=== PATIENT | female | born 1990 | race Caucasian/White ===

== ENCOUNTER 2023-02-19 15:18 | Outpatient (OUT) | payer OTHER, SELFPAY ==
[2023-02-19 15:46] LABS: Basophils Percent Auto 0.2 % (0.2-2.0); Eosinophils Absolute Auto 0.1 10^3/uL (0.0-0.7); Eosinophils Percent Auto 1.1 % (0.9-7.0); Hematocrit 39.7 % (36.0-48.0); Hemoglobin 13.6 g/dL (12.0-16.0); Immature Granulocytes Abs Auto 0.01 10^3/uL (0.00-0.03); Immature Granulocytes Pct Auto 0.2 % (0.0-0.5); Lymphocytes Absolute Auto 2.8 10^3/uL (1.2-3.8); Mean Corpuscular HGB Conc 34.3 g/dL (29.9-35.2); Mean Corpuscular Hemoglobin 30.9 pg (26.7-34.0); Mean Corpuscular Volume 90.2 fL (81.0-99.0); Mean Platelet Volume 9.8 fL (9.5-13.5); Monocytes Absolute Auto 0.4 10^3/uL (0.3-0.8); Monocytes Percent Auto 6.9 % (1.7-12.0); Neutrophils Percent Auto 47.6 % (43.0-75.0); Platelet Count 262 10^3/uL (150-450); White Blood Count 6.4 10^3/uL (4.0-11.0)
[2023-02-19 16:01] LABS: Estimated Average Glucose 88 mg/dL; Glycohemoglobin A1C 4.7 % (4.5-6.2)
[2023-02-19 16:31] LABS: Alanine Aminotransferase 19 U/L (14-59); Albumin Globulin Ratio 1.1; Albumin Level 4.2 g/dL (3.4-5.0); Alkaline Phosphatase 85 U/L (46-116); Anion Gap 12.4; Aspartate Amino Transferase 15 U/L (15-37); BUN Creatinine Ratio 11.3; Bilirubin Total 0.2 mg/dL (0.2-1.0); Calcium 9.1 mg/dL (8.5-10.1); Carbon Dioxide 28.4 mmol/L (21.0-32.0); Chloride 100 mmol/L (98-107); Estimated GFR (African America >60 (>=60); Estimated GFR (Non-African Ame >60 (>=60); Globulin 3.7 g/dL; Glucose 93 mg/dL (74-106); Potassium 3.8 mmol/L (3.5-5.1); Sodium 137 mmol/L (136-145); Total Protein 7.9 g/dL (6.4-8.2)
[2023-02-19 16:39] LABS: Chol HDL Ratio 2.5; Cholesterol 152 mg/dL (<=200); HDL Cholesterol 60 mg/dL (40-60); Thyroid Stimulating Hormone 1.198 uIU/mL (0.358-3.740); Triglycerides 30 mg/dL (<=150)
[2023-02-22 17:09] LABS: HCV Ab Reactive (Non Reactive)
== END 2023-02-19 15:19 ==
PROVIDERS: PCP Nurse Practitioner Primary Care; Visit Provider Nurse Practitioner Primary Care
DX: Z00.00 Encounter for general adult medical examination without abnormal findings (principal); Z11.59 Encounter for screening for other viral diseases; Z13.6 Encounter for screening for cardiovascular disorders
CPT/HCPCS: 36415; 80053; 80061; 83036; 84443; 85025; 86803; 87522

== ENCOUNTER 2023-04-21 11:56 | Emergency (ER) | payer OTHER, SELFPAY ==
[2023-04-21 12:02] VITALS: BP 121/89; PULSE 111; RESP 18; TEMP 36.7; O2SAT 100; BMI 22.4
--- NOTE | 2023-04-21 12:14 | ECG_ITS ---
The [facility] Test Date: 2023-04-21 Pat Name: DIXON DURAN Department: Room: - Gender: Female Claims Counsel: : 1990 Requested By: TOPHER ALMENDAREZ Order Number: [id number] Reading MD: EMILEE TROTTER Measurements Intervals [place] Rate: 78 P: -30 GA: 128 QRS: 61 QRSD: 110 T: 60 QT: 380 QTc: 413 Interpretive Statements 1100 Sinus rhythm 9110 normal ECG No previous ECG available for comparison Electronically Signed On 04-21-2023 14:07:34 EDT by EMILEE TROTTER
--- NOTE | 2023-04-21 12:14 | XR_ITS ---
The [address] [address] Patient Name: DIXON DURAN MRN: [id number] date: 1990 Sex: F Assigned Patient Location: ER Current Patient Location: ER Accession/Order Number: [id number] Exam Date: 04/21/2023 13:20 Report Date: 04/21/2023 14:09 At the request of: AJ JOHNSON Procedure: XR chest 1V EXAM: XR chest 1V INDICATION: chest pain. COMPARISON: Chest radiograph 08/08/2022. TECHNIQUE: Single frontal view of the chest FINDINGS: Normal cardiomediastinal contours. No acute infiltrative process. No pleural effusion or pneumothorax. No acute osseous abnormality. XR/XR chest 1V IMPRESSION: No acute cardiopulmonary process. Electronically authenticated by: JOSE BRANCH Date: 04/21/2023 14:09
--- NOTE | 2023-04-21 12:28 | ED_ITS ---
HPI - General Adult General Chief complaint: Chest Pain Stated complaint: CHEST PAIN Time Seen by Provider: 04/21/23 12:04 Source: patient Mode of arrival: walk-in Limitations: no limitations History of Present Illness HPI narrative: patient developed pain between the shoulder blades that is worse with deep breaths yesterday. She had a similar episode about 2 weeks ago but did not seek care. Since this happened again she came tot he ED for evaluation. She denied any recent cough or injury to the chest or back. She does have chronic back paina nd thought is might simply be a flare up of that. no GI or symptoms. Nothing taken for pain at home. On questioning she told me that she has twice been diagnosed with superficial thrombophlebitis but never had a DVT. She also complains of pain and redness to the left 2nd toe - she said that a fishbone got stuck in there about a month ago and since then it has been painful. 2 weeks ago it became swollen and last week it became red and more painful. She wanted me to see if that toe is infected. Related Data Home Medications Medication Instructions Recorded Confirmed buprenorphine 8 mg-naloxone 2 mg film sublingual Q24H 04/21/23 sublingual film (Suboxone) Previous Rx's Medication Instructions Recorded nabumetone 750 mg tablet 750 mg PO BID PRN pleurisy #20 tabs 04/21/23 sulfamethoxazole 800 1 tab PO BID #14 tabs 04/21/23 mg-trimethoprim 160 mg tablet (Bactrim DS) Allergies Allergy/AdvReac Type Severity Reaction Status Date / Time No Known Drug Allergies Allergy Verified 04/21/23 12:01 [facility] Medical History (Updated 04/21/23 @ 14:30 by Aj Johnson) Exam Narrative Exam Narrative: Nurses notes and vital signs reviewed and patient is not hypoxic. afebrile General: Well-appearing and in no apparent distress. Skin: Warm, dry, no pallor noted. LEFT 2ND TOE - swelling and erythema with a scab along the side of the toe facing the left great toe. no palpable abscess. Head: Normocephalic, atraumatic. Neck: Supple, non-tender. Eye: Pupils are equal, round and EOMI. No scleral icterus. Cardiovascular: Regular Rate and Rhythm without murmur, gallop or rub. Respiratory: No accessory muscle use or respiratory distress. Lungs are clear to auscultation, no wheezing, rales or rhonchi Chest Wall: no tenderness Back: No midline thoracic or lumbar vertebral tenderness. No CVA tenderness. Palpation of the soft tissue and thoracic spine between the shoulder blades does not worsen the patient's pain. Musculoskeletal: normal ROM, no calf or popliteal tenderness, no lower extremity edema/swelling GI: Abdomen is soft, non-distended. Normal bowel sounds. No tenderness to palpation. No rebound, guarding, or rigidity noted. Neurological: A&O x4. No cranial nerve dysfunction observed. No truncal ataxia. Moves all extremities. Sensation intact. Psychiatric: Cooperative and interactive. Normal mood and affect. Constitutional Vital Signs, click to edit/add: Last Vital Signs Temp 98.1 F 04/21/23 12:02 Pulse 111 H 04/21/23 12:02 Resp 18 04/21/23 12:02 BP 121/89 04/21/23 12:02 Pulse Ox 100 04/21/23 12:02 Course Vital Signs Vital signs: Vital Signs Temperature 98.1 F 04/21/23 12:02 Pulse Rate 111 H 04/21/23 12:02 Respiratory Rate 18 04/21/23 12:02 Blood Pressure 121/89 04/21/23 12:02 Pulse Oximetry 100 04/21/23 12:02 Temperature 98.1 F 04/21/23 12:02 Pulse Rate 111 H 04/21/23 12:02 Respiratory Rate 18 04/21/23 12:02 Blood Pressure 121/89 04/21/23 12:02 Pulse Oximetry 100 04/21/23 12:02 Medical Decision Making [facility] Narrative Medical decision making narrative: Patient was placed on alarm security or surveillance monitor and EKG obtained. staff was unable to get peripheral IV access and phlebotomy was not able to draw blood. Therefore I obtained blood using an 18-gauge needle and 20 mL syringe access and give the patient's right femoral vein. The area was prepped with alcohol and I was able to palpate the right femoral artery and access just medial to the artery to obtain blood. The patient tolerated the procedure well. Blood drawn was sent for evaluation. This x-ray was also obtained. EKG was normal, chest x-ray was normal as well. All lab tests were negative, including uric acid, sedimentation rate, CRP and white blood cell count. Patient given reassurance and was discharged home with prescription for Relafen for her pleurisy and bactrim DS for her toe cellulitis Lab Data Lab results reviewed: Yes I reviewed the patient's lab results Labs: Lab Results 04/21/23 Range/Units 13:10 WBC 5.4 (4.0-11.0) 10^3/uL RBC 4.29 (4.20-5.40) 10^6/uL Hgb 13.2 (12.0-16.0) g/dL Hct 38.2 (36.0-48.0) % MCV 89.0 (81.0-99.0) fL MCH 30.8 (26.7-34.0) pg MCHC 34.6 (29.9-35.2) g/dL RDW 11.7 (11.0-15.0) % Plt Count 188 (150-450) 10^3/uL MPV 10.3 (9.5-13.5) fL Neut % (Auto) 50.8 (43.0-75.0) % Lymph % (Auto) 39.8 (20.5-60.0) % [place] % (Auto) 7.7 (1.7-12.0) % Eos % (Auto) 1.1 (0.9-7.0) % Baso % (Auto) 0.4 (0.2-2.0) % Neut # (Auto) 2.7 (1.4-6.5) 10^3/uL Lymph # (Auto) 2.1 (1.2-3.8) 10^3/uL [place] # (Auto) 0.4 (0.3-0.8) 10^3/uL Eos # (Auto) 0.1 (0.0-0.7) 10^3/uL Baso # (Auto) 0.0 (0.0-0.1) 10^3/uL Abs Immat Gran (auto) 0.01 (0.00-0.03) 10^3/uL Imm/Tot Granulo (auto) 0.2 (0.0-0.5) % ESR 5 (<=20) mm/hr Sodium 137 (136-145) mmol/L Potassium 3.9 (3.5-5.1) mmol/L Chloride 101 (98-107) mmol/L Carbon Dioxide 30.9 (21.0-32.0) mmol/L Anion Gap 9.0 BUN 4.0 L (7.0-18.0) mg/dL Creatinine 0.57 (0.55-1.02) mg/dL Est GFR ( Amer) >60 (>=60) Est GFR (Non-Af Amer) >60 (>=60) BUN/Creatinine Ratio 7.0 Glucose 97 (74-106) mg/dL Uric Acid 3.3 (2.6-6.0) mg/dL Calcium 9.1 (8.5-10.1) mg/dL C-Reactive Protein <0.2 (<=1.0) mg/dL Imaging Data Chest x-ray: Radiologist's impression: Patient Name: DIXON DURAN MRN: [id number] date: 1990 Sex: F Assigned Patient Location: ER Current Patient Location: ER Accession/Order Number: [id number] Exam Date: 04/21/2023 13:20 Report Date: 04/21/2023 14:09 At the request of: AJ JOHNSON Procedure: XR chest 1V EXAM: XR chest 1V INDICATION: chest pain. COMPARISON: Chest radiograph 08/08/2022. TECHNIQUE: Single frontal view of the chest FINDINGS: Normal cardiomediastinal contours. No acute infiltrative process. No pleural effusion or pneumothorax. No acute osseous abnormality. IMPRESSION: No acute cardiopulmonary process. Electronically authenticated by: JOSE BRANCH Date: 04/21/2023 14:09 ECG Data Attestation: I personally reviewed and interpreted this ECG as follows: Interpretation: EKG interpretation: Emergency Department physician interpretation. Normal sinus rhythm at 78bpm. Normal axis, normal intervals and no ST segment elevation or depression. NORMAL EKG Discharge Plan Discharge Chief Complaint: Chest Pain Clinical Impression: Pleurisy, Cellulitis of second toe of left foot Patient Disposition: Home, Self-Care Time of Disposition Decision: 14:30 Prescriptions / Home Meds: New sulfamethoxazole-trimethoprim [Bactrim DS] 800-160 mg tablet 1 tab PO BID Qty: 14 0RF nabumetone 750 mg tablet 750 mg PO BID PRN (Reason: pleurisy) Qty: 20 0RF No Action buprenorphine-naloxone [Suboxone] 8-2 mg film sublingual Q24H Instructions: Pleurisy (ED), Cellulitis (ED) Stand Alone Forms: Portal Instructions Referrals: TOPHER ALMENDAREZ APRN [Primary Care Provider] - 1 week
[2023-04-21] MEDS: KETOROLAC TROMETHAMINE 60 MG/2 ML VIAL IM (12:31)
[2023-04-21 13:18] LABS: Basophils Percent Auto 0.4 % (0.2-2.0); Eosinophils Absolute Auto 0.1 10^3/uL (0.0-0.7); Eosinophils Percent Auto 1.1 % (0.9-7.0); Hematocrit 38.2 % (36.0-48.0); Hemoglobin 13.2 g/dL (12.0-16.0); Immature Granulocytes Abs Auto 0.01 10^3/uL (0.00-0.03); Immature Granulocytes Pct Auto 0.2 % (0.0-0.5); Lymphocytes Absolute Auto 2.1 10^3/uL (1.2-3.8); Lymphocytes Percent Auto 39.8 % (20.5-60.0); Mean Corpuscular HGB Conc 34.6 g/dL (29.9-35.2); Mean Corpuscular Hemoglobin 30.8 pg (26.7-34.0); Mean Platelet Volume 10.3 fL (9.5-13.5); Monocytes Absolute Auto 0.4 10^3/uL (0.3-0.8); Monocytes Percent Auto 7.7 % (1.7-12.0); Neutrophils Absolute Auto 2.7 10^3/uL (1.4-6.5); Neutrophils Percent Auto 50.8 % (43.0-75.0); Platelet Count 188 10^3/uL (150-450); Red Blood Count 4.29 10^6/uL (4.20-5.40); Red Cell Distribution Width 11.7 % (11.0-15.0); White Blood Count 5.4 10^3/uL (4.0-11.0)
[2023-04-21 13:27] LABS: Calcium 9.1 mg/dL (8.5-10.1); Carbon Dioxide 30.9 mmol/L (21.0-32.0); Chloride 101 mmol/L (98-107); Estimated GFR (African America >60 (>=60); Estimated GFR (Non-African Ame >60 (>=60); Glucose 97 mg/dL (74-106); Potassium 3.9 mmol/L (3.5-5.1); Sodium 137 mmol/L (136-145)
[2023-04-21 13:29] LABS: Erythrocyte Sedimentation Rate 5 mm/hr (<=20)
[2023-04-21 13:35] LABS: C Reactive Protein <0.2 mg/dL (<=1.0); Uric Acid 3.3 mg/dL (2.6-6.0)
[2023-04-21 14:54] LABS: D Dimer 0.28 mg/L FEU (<=0.59)
== END 2023-04-21 14:36 | disposition home or self-care (01) ==
PROVIDERS: Emergency Provider Emergency Medicine; PCP Nurse Practitioner Primary Care
DX: R09.1 Pleurisy (principal); L03.032 Cellulitis of left toe; F11.20 Opioid dependence, uncomplicated
CPT/HCPCS: 36415; 71045; 80048; 84550; 85025; 85378; 85652; 86140; 93005; 96372; 99285

== ENCOUNTER 2023-05-04 23:39 | Emergency (ER) | payer OTHER, SELFPAY ==
[2023-05-04 23:41] VITALS: BP 120/72; PULSE 130; RESP 20; TEMP 37.5; O2SAT 94; BMI 21.3
--- NOTE | 2023-05-04 23:54 | ED_ITS ---
HPI - Allergic Reaction General Chief complaint: Allergic Reaction Stated complaint: allergic reaction Time Seen by Provider: 05/04/23 23:54 Source: patient Mode of arrival: walk-in History of Present Illness HPI narrative: Patient presents to emergency department complaining of a rash. Patient states she was getting a tattoo with a well-known tattoo parlor who has done many tattoos on her previously. She just finished a tattoo on her back and then she applied triple antibiotic ointment over the tattoo. She started to develop redness and a rash to the back over the tattoo is spreading to her arms and chest. She took a shower and took 50mg of Benadryl to see if it would help however the rash was getting worse and was not resolving. She denies any previous issues with tattoos.Only thing different is the antibiotic ointment. Does not know exactly what it is. She states it was [id number]. She denies any sore throat, throat swelling, or difficulty swallowing. She denies any chest pain, shortness of breath. She denies any nausea, vomiting, diarrhea, constipation, abdominal pain. MD complaint: Reports allergic reaction Related Data Home Medications Medication Instructions Recorded Confirmed buprenorphine 8 mg-naloxone 2 mg film sublingual Q24H 04/21/23 sublingual film (Suboxone) Previous Rx's Medication Instructions Recorded nabumetone 750 mg tablet 750 mg PO BID PRN pleurisy #20 tabs 04/21/23 sulfamethoxazole 800 1 tab PO BID #14 tabs 04/21/23 mg-trimethoprim 160 mg tablet (Bactrim DS) diphenhydramine HCl 25 mg capsule 25 mg PO Q8H PRN allergic reaction 05/05/23 (Benadryl) #20 caps famotidine 20 mg tablet (Pepcid) 20 mg PO DAILY #10 tabs 05/05/23 mupirocin 2 % topical ointment 1 applic topical TID 5 days #15 05/05/23 (Centany) grams prednisone 50 mg tablet 50 mg PO DAILY #5 tabs 05/05/23 Allergies Allergy/AdvReac Type Severity Reaction Status Date / Time No Known Drug Allergies Allergy Verified 04/21/23 12:01 Review of Systems ROS Status of ROS 10 or more systems reviewed and unremarkable except as noted in history and below [facility] Medical History (Updated 05/05/23 @ 00:37 by Sanjuana Dumont MD) Social History Smoking status: Current every day smoker Exam Narrative Exam Narrative: Nurses notes and vital signs reviewed and patient is not hypoxic. General: Nontoxic, Well-appearing and in no apparent distress. Skin: Warm, dry, no pallor noted. Diffuse hives to the upper back over the tattoo area, chest and arms. Head: Normocephalic, atraumatic. Neck: Supple, non-tender. Eye: Pupils are equal, round and EOMI. No scleral icterus. Ears, Nose, Mouth, and Throat: TM clear, no posterior oropharynx erythema or nasal mucosal hypertrophy, uvula is mid-line Oral mucosa is moist Cardiovascular: Regular Rate and Rhythm without murmur, gallop or rub. Respiratory: No accessory muscle use or respiratory distress. Lungs are clear to auscultation, no wheezing, rales or rhonchi Chest Wall: no tenderness Back: No midline thoracic or lumbar vertebral tenderness. No CVA tenderness Musculoskeletal: normal ROM, no calf or popliteal tenderness, no lower extremity edema/swelling GI: Abdomen is soft, non-distended. Normal bowel sounds. No masses appreciated. No tenderness to palpation. No rebound, guarding, or rigidity noted. Neurological: A&O x4. No cranial nerve dysfunction observed. No truncal ataxia. Moves all extremities. Sensation intact. Psychiatric: Cooperative and interactive. Normal mood and affect. Constitutional Vital Signs, click to edit/add: Last Vital Signs Temp 99.5 F 05/04/23 23:41 Pulse 130 H 05/04/23 23:41 Resp 20 05/04/23 23:41 BP 120/72 05/04/23 23:41 Pulse Ox 94 L 05/04/23 23:41 O2 Del Method Room Air 05/04/23 23:41 Course Vital Signs Vital signs: Vital Signs Temperature 99.5 F 05/04/23 23:41 Pulse Rate 130 H 05/04/23 23:41 Respiratory Rate 20 05/04/23 23:41 Blood Pressure 120/72 05/04/23 23:41 Pulse Oximetry 94 L 05/04/23 23:41 Oxygen Delivery Method Room Air 05/04/23 23:41 Temperature 99.5 F 05/04/23 23:41 Pulse Rate 130 H 05/04/23 23:41 Respiratory Rate 20 05/04/23 23:41 Blood Pressure 120/72 05/04/23 23:41 Pulse Oximetry 94 L 05/04/23 23:41 Oxygen Delivery Method Room Air 05/04/23 23:41 MDM - Allergic Reaction MDM Narrative Medical decision making narrative: Patient was given a steroid, Benadryl, and Pepcid. She did not have any respiratory symptoms. Her rash has improved. She'll be given a prescription for mupirocin, prednisone, Benadryl and famotidine. At this time the patient is without objective evidence of an acute process requiring hospitalization or inpatient management. The patient has remained hemodynamically stable. No additional indication for emergent studies at this time. I answered all questions. Discussed discharge instructions including standard anticipatory guidance and what should prompt a return to the emergency department, including if they get worse are not getting better or develops any new or concerning symptoms. I've given them specific time frame in which to follow-up, and who to follow-up with. The patient demonstrates understanding. P atient is nontoxic and stable for discharge with outpatient follow-up. This note was created with the assistance of a speech recognition program. Although the intention is to generate documents that actually reflects the content of the visit, no guarantees can be provided that every mistake has been identified and corrected by editing. Discharge Plan Discharge Chief Complaint: Allergic Reaction Clinical Impression: Allergic reaction Patient Disposition: Home, Self-Care Time of Disposition Decision: 00:35 Condition: Good Mode of Transportation: Private Vehicle Prescriptions / Home Meds: New prednisone 50 mg tablet 50 mg PO DAILY Qty: 5 0RF famotidine [Pepcid] 20 mg tablet 20 mg PO DAILY Qty: 10 0RF diphenhydramine HCl [Benadryl] 25 mg capsule 25 mg PO Q8H PRN (Reason: allergic reaction) Qty: 20 0RF mupirocin [Centany] 2 % ointment 1 applic topical TID 5 Days Qty: 15 0RF No Action buprenorphine-naloxone [Suboxone] 8-2 mg film sublingual Q24H sulfamethoxazole-trimethoprim [Bactrim DS] 800-160 mg tablet 1 tab PO BID Qty: 14 0RF nabumetone 750 mg tablet 750 mg PO BID PRN (Reason: pleurisy) Qty: 20 0RF Instructions: General Allergic Reaction (ED) Stand Alone Forms: Portal Instructions Referrals: TOPHER ALMENDAREZ APRN [Primary Care Provider] - 1 week
[2023-05-05] MEDS: METHYLPREDNISOLONE SOD SUCC PF 125 MG/2 ML VIAL IM (00:40)
[2023-05-05] MEDS: FAMOTIDINE 20 MG TABLET PO (00:40)
[2023-05-05 01:13] VITALS: PULSE 92; RESP 16; O2SAT 98
== END 2023-05-06 07:47 | disposition home or self-care (01) ==
PROVIDERS: Emergency Provider Emergency Medicine; PCP Nurse Practitioner Primary Care
DX: T78.40XA Allergy, unspecified, initial encounter (principal); F11.20 Opioid dependence, uncomplicated; F17.210 Nicotine dependence, cigarettes, uncomplicated
CPT/HCPCS: 96372; 99284; J2930

== ENCOUNTER 2023-06-18 15:02 | Outpatient (REF) | payer OTHER, SELFPAY ==
[2023-06-18 15:25] LABS: Adenovirus NOT DETECTED (NOT DETECTE); Bordetella parapertussis NOT DETECTED (NOT DETECTE); Coronavirus 229E NOT DETECTED (NOT DETECTE); Coronavirus HKU1 NOT DETECTED (NOT DETECTE); Coronavirus NL63 NOT DETECTED (NOT DETECTE); Coronavirus OC43 NOT DETECTED (NOT DETECTE); Human Metapneumovirus NOT DETECTED (NOT DETECTE); Human Rhinovirus/Enterovirus NOT DETECTED (NOT DETECTE); Influenza A NOT DETECTED (NOT DETECTE); Influenza B NOT DETECTED (NOT DETECTE); Mycoplasma pneumoniae NOT DETECTED (NOT DETECTE); Parainfluenza Virus 1 NOT DETECTED (NOT DETECTE); Parainfluenza Virus 3 NOT DETECTED (NOT DETECTE); Parainfluenza Virus 4 NOT DETECTED (NOT DETECTE); Respiratory Syncytial Virus NOT DETECTED (NOT DETECTE); SARS-CoV-2 NOT DETECTED (NOT DETECTE)
[2023-06-18 16:25] LABS: Parainfluenza Virus 2 DETECTED (NOT DETECTE)
== END 2023-06-18 15:03 | disposition home or self-care (01) ==
LOC: LAB 15:02
PROVIDERS: PCP Nurse Practitioner Primary Care; Visit Provider Nurse Practitioner Primary Care
DX: Z20.822 Contact with and (suspected) exposure to COVID-19 (principal); J02.9 Acute pharyngitis, unspecified
CPT/HCPCS: 0202U; 87070

== ENCOUNTER 2023-09-23 14:24 | Outpatient (OUT) | payer OTHER, SELFPAY ==
--- NOTE | 2023-09-23 15:18 | PM.CN ---
Consult Note: HPI Data of Consult Patient: new to practice Consult date: 09/23/23 Requesting Physician: Catina Mcdonald MD Primary Care Provider: TOPHER ALMENDAREZ APRN-CHRISTIN Consult Narrative Reason for consult: Mid back, low back pain, bilateral lower extremity pain Narrative: 33yof who presents for evaluation. Longstanding mid and low back pain, will at times radiate down both legs. No recent imaging available. Has engaged in chiropractic therapy and >6 weeks of provider directed home exercise program, with minimal benefit. Uses diclofenac, which helps to some degree. Previous drug abuse, has been clean for 4 years. Recently was able to stop suboxone, as well. cc:: CC: Catina Mcdonald MD Review of Systems ROS Status of ROS 10 or more systems reviewed and unremarkable except as noted in history and below [facility] Medical History Hepatitis C ?B19.20 - Unspecified viral hepatitis C without hepatic coma (ICD-10) Social History Smoking status: Current every day smoker Meds Home Medications and Allergies Home Medications Medication Instructions Recorded Confirmed Type diclofenac sodium 75 mg 75 mg PO BID 09/23/23 09/23/23 History tablet,delayed release Allergies Allergy/AdvReac Type Severity Reaction Status Date / Time No Known Drug Allergies Allergy Verified 04/21/23 12:01 Exam Narrative Exam Narrative: Psych-alert and oriented x 3. Attentive and appropriate, constitutionally normal, displays normal mood and affect per situation.? There are no obvious deficits in memory, reasoning, or intellect.? Skin-no obvious rashes, bruising, erythema noted to the patient's area of pain. Extremities- extremities are warm with minimal edema and palpable pulses. Lumbar-no significant tenderness to palpation noted in the lumbar spine and paraspinal musculature.? Pain is elicited with extension, and lateral rotation of the lumbar spine. Range of motion is slightly diminished with these motions due to pain. Facet loading maneuvers are positive bilaterally and do appear to be concordant with the patient's normal complaints of pain.? Coordination remains intact.? Gait remains non-antalgic. Assessment and Plan Assessment and Plan (1) Thoracic back pain: Qualifiers: Chronicity: chronic Back pain laterality: bilateral Qualified Code(s): M54.6 - Pain in thoracic spine; G89.29 - Other chronic pain (2) Lumbar back pain: Plan 33yof who presents for evaluation. Failed conservative measures, as noted. Given symptoms and exam findings, will have her undergo thoracic and lumbar XR for assessment. She is in agreement. Discussed that depending on findings, given radiating component, may require MRI in the future. She expressed understanding. Medications reviewed. PDMP reviewed. Agreed to refill diclofenac. Follow up after imaging.
== END 2023-09-23 14:25 | disposition home or self-care (01) ==
LOC: PM 14:25
PROVIDERS: PCP Nurse Practitioner Primary Care; Visit Provider Anesthesiology
DX: M54.6 Pain in thoracic spine (principal); G89.29 Other chronic pain; M54.50 Low back pain, unspecified
CPT/HCPCS: G0463

== ENCOUNTER 2023-09-24 09:25 | Outpatient (OUT) | payer OTHER, SELFPAY ==
--- OUTSIDE RECORDS SUMMARY | 2023-09-24 09:31 | XMS_ITS | CCD ---
Author Name Unknown Address [address] [place] [address] Organization [facility] Care Team Providers Care Assistant Pressman Name Role Phone PHYSICIAN, DEFAULT Unavailable Unavailable PHYSICIAN, DEFAULT Unavailable Unavailable REQUEST, DR MART LISTED Primary Care Unavaila ble MARKER ., DR BERRY Admitting Unavailable MARKER ., DR BERRY Attending Unavailable COPIAGUE, DR CECY Fan Consulting Unavailable ZIEBER, DR TEDDY Leroy Consulting Unavailable MARKER ., DR BERRY Consulting Unavailable DWAIN ., DAVID Consulting Unavailable MORIS, RAMON Consulting Unavailable DESI KUHN Admitting Unavailable DESI KUHN Attending Unavailable MISC, DR RENAE Primary Care Unavailable GRECHNY ., CAMERON BE Consulting Unavailabl e HAY ., DR ROCHA Admitting Unavailable HAY ., DR ROCHA Attending Unavailable REQUEST, DR MART LISTED Primary Care Unavaila ble HAY ., DR ROCHA Consulting Unavailable SHAMMO, TOPHER Admitting Unavailable SHAMMO, TOPHER Attending Unavailable REQUEST, DR MART LISTED Primary Care Unavaila ble SHAMMO, TOPHER Consulting Unavailable SHAMMO, TOPHER Admitting Unavailable SHAMMO, TOPHER Attending Unavailable REQUEST, DR MART LISTED Primary Care Unavaila ble SHAMMO, TOPHER Consulting Unavailable Brantley, Karen Unavailable VIN ADDISON Attending Unavailable Allergies Allergy Classification Reported Allergen(s) Allergy Type Date of Onset Reaction(s) Facility (1 source) Bacitracin / Neomycin / Polymyxin B Drug Allergy anaphylaxis [email or web address] Other Medications Current Medications Medication Drug Class(es) Dates Sig (Normalized) Sig (Original) buprenorphine 2 mg / naloxone 0.5 mg sublingual film (1 source) Partial Opioid Agonist, Opioid Antagonist Suboxone 2-0.5 MG 1 film under the tongue and allow to dissolve Sublingual Once a day Active dextromethorphan hydrobromide 15 mg / guaiFENesin 400 mg / pseudoephedrine hydrochloride 60 mg oral tablet (1 source) alpha-Adrenergic Agonist, Uncompetitive A-hxnyre-P-aspartat e Receptor Antagonist, Sigma-1 Agonist Start: 08-15-2023 take 4 tablets by mouth every twenty-four hours as needed Capmist DM 60-15-400 MG as needed Orally every 4-6 hours as needed, max 4 tablets in 24 hours for 5 days Aug, Active oseltamivir 75 mg oral capsule (1 source) Neuraminidase Inhibitor Start: 08-15-2023 take 1 capsule by mouth every twelve hours Oseltamivir Phosphate 75 MG 1 capsule Orally Twice a day for 5 day(s) Aug, Active Completed/Discontinued Medications Medication Drug Class(es) Dates Sig (Normalized) Sig (Original) [id number] 60 actuat albuterol 0.09 mg/actuat metered dose inhaler (1 source) beta2-Adrenergic Agonist Start: 02-08-2023 take 2 puff(s) by inhalation four times daily as needed Albuterol Sulfate HFA 108 (90 Base) MCG/ACT 2 puffs Inhalation 4 times a day prn Jan, Not-Taking/PRN cephalexin 500 mg oral capsule (1 source) Cephalosporin Antibacterial Start: 06-07-2023 take 1 capsule by mouth every six hours Cephalexin 500 MG 1 capsule Orally Four times a day for 7 days Jun, Not-Taking/PRN predniSONE 20 mg oral tablet (1 source) Start: 02-08-2023 take 1 tablet by mouth every twelve hours predniSONE 20 MG 1 tablet Orally bid for 5 day(s) Jan, Not-Taking/PRN triamcinolone acetonide 40 mg/ml injectable suspension (2 sources) Corticosteroid Start: 02-08-2023 Kenalog-40 Jan, 40 mg Start: 07-31-2020 KENALOG - 10 m g Jul, 40 mg Problems Active Problems Problem Classification Problem Date Documented Date Episodic/Chronic Anxiety disorders (1 source) Anxiety disorder, unspecified; Translations: [ANXIETY DISORDER UNSPECIFIED] Onset: 06-05-2022 Chronic Headache; including migraine (1 source) Ophthalmoplegic migraine, not intractable; Translations: [OPHTH MIGRAINE NOT INTRACTABLE] Onset: 06-05-2022 Chronic Headache; including migraine (3 sources) Headache; including migraine; Translations: [HEADACHE UNSPECIFIED] Onset: 06-01-2022 Influenza (1 source) Influenza due to other identified influenza virus with other respiratory manifestations Episodic Other upper respiratory infections (5 sources) Acute pharyngitis, unspecified; Translations: [ACUTE PHARYNGITIS UNSPECIFIED] Onset: 10-17-2022 Episodic Spondylosis; intervertebral disc disorders; other back problems (2 sources) Dorsalgia, unspecified; Translations: [Low back pain] Onset: 08-10-2022 Episodic Substance-related disorders (2 sources) Nicotine dependence, cigarettes, uncomplicated; Translations: [Opioid abuse, uncomplicated] Onset: 06-05-2022 Chronic Past or Other Problems Problem Classification Problem Date Documented Da te Episodic/Chronic E Codes: Cut/pierceb (1 source) Contact with knife, initial encounter; Translations: [CONTACT WITH KNIFE INITIAL ENC] Onset: 2 Episodic Immunizations and screening for infectious disease (1 source) Encounter for immunization; Translations: [ENCOUNTER FOR IMMUNIZATION] Onset: 2 Episodic Nonspecific chest pain (4 sources) Other chest pain; Translations: [OTHER CHEST PAIN] Onset: 2 Episodic Open wounds of extremities (1 source) Laceration with foreign body of right thumb without damage to nail, initial encounter; Translations: [LAC W/FB RT THUMB W/O DMG NAIL INIT] Onset: 2 Episodic Open wounds of extremities (3 sources) Laceration without foreign body of left thumb without damage to nail, initial encounter; Translations: [LAC NO FB LT THUMB NO DMG NAIL INIT] Onset: 2 Episodic Other aftercare (1 source) Other intermediate card tender (current) drug therapy; Translations: [OTH TANK FILLER CURRENT DRUG THERAPY] Onset: 2 Episodic Other aftercare (1 source) parts counterman (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) use of aspirin; Translations: [TANK FILLER CURRENT USE OF ASPIRIN] Onset: 2 Episodic Phlebitis; thrombophlebitis and thromboembolism (1 source) Phlebitis and thrombophlebitis of superficial vessels of right lower extremity; Translations: [PHLEBITIS AND TP SUP VES RT LOW EXT] Onset: 2 Episodic Unclassified (1 source) Contact with and (suspected) exposure to covid-19 Z20.822 Viral infection (4 sources) Viral infection, unspecified; Translations: [VIRAL INFECTION UNSPECIFIED] Onset: 2 Episodic Results Test Name Value Interpretation Reference Range Facility COVID/FLU/RSV RT-PCRon 08-15 COVID/FLU/RSV RT-PCR negatigve [facility] Other COVID/FLU/RSV RT-PCR Negative [facility] Other COVID/FLU/RSV RT-PCR Positive [facility] Other Quick Strepon 08-15-2023 S. pyogenes Org specific cx Ql (Throat) Negative [facility] Other Quick Strep [facility] Other CULTURE THROATon 10-17-2022 CULTURE THROAT Culture Observations: NORMAL RESPIRATORY WILI. Normal [facility] Comment on above: Performed By: #### T HRTCX #### [facility] [address] [place] [address] Dr. Felicitas Rios CULTURE THROATon 08-29-2022 CULTURE THROAT Culture Observations: NORMAL RESPIRATORY WILI. Normal [facility] Comment on above: Performed By: #### T HRTCX #### [facility] [address] [address] [address] Felicitas Rios RESPIRATORY PANEL PLUSon Adenovirus Not detected Normal NOT DETECTED The [facility] Comment on above: Performed By: #### R SPLUS #### [facility] [address] [address] [address] Felicitas Pimentel. Parapertusis Not detected Normal NOT DETECTED [facility] Comment on above: Performed By: #### R SPLUS #### [facility] [address] [place] [address] Dr. Felicitas Pimentel. Pertussis Not detected Normal NOT DETECTED The [facility] Comment on above: Performed By: #### R SPLUS #### [facility] [address] [place] [address] Dr. Felicitas Rios Chlamydia Pneumoniae Not detected Normal NOT DETECTED [facility] Comment on above: Performed By: #### R SPLUS #### [facility] [address] [place] [address] Dr. Felicitas Rios Coronavirus 229E Not detected Normal NOT DETECTED [facility] Comment on above: Performed By: #### R SPLUS #### [facility] [address] [place] [address] Dr. Felicitas Rios Coronavirus HKU1 Not detected Normal NOT DETECTED [facility] Comment on above: Performed By: #### R SPLUS #### [facility] [address] [place] [address] Dr. Felicitas Rios Coronavirus NL63 Not detected Normal NOT DETECTED [facility] Comment on above: Performed By: #### R SPLUS #### [facility] [address] [place] [address] Dr. Felicitas Rios Coronavirus OC43 Not detected Normal NOT DETECTED [facility] Comment on above: Performed By: #### R SPLUS #### [facility] [address] [place] [address] Dr. Felicitas Rios Influenza A H1 2009 Not detected Normal NOT DETECTED [facility] Comment on above: Performed By: #### R SPLUS #### [facility] [address] [place] [address] Dr. Felicitas Rios Influenza A H3 Not detected Normal NOT DETECTED The [facility] Comment on above: Performed By: #### R SPLUS #### [facility] [address] [place] [address] Dr. Felicitas Rios Influenza B Not detected Normal NOT DETECTED The [facility] Comment on above: Performed By: #### R SPLUS #### [facility] [address] [place] [address] Dr. Felicitas Rios Metapneumovirus Not detected Normal NOT DETECTED [facility] Comment on above: Performed By: #### R SPLUS #### [facility] [address] [place] [address] Dr. Felicitas Rios Mycoplas. Pneumoniae Not detected Normal NOT DETECTED [facility] Comment on above: Performed By: #### R SPLUS #### [facility] [address] [place] [address] Dr. Felicitas Rios Parainfluenza 1 Detected Abnormal NOT DETECTED The [facility] Comment on above: Performed By: #### R SPLUS #### [facility] [address] [place] [address] Dr. Felicitas Rios Parainfluenza 2 Not detected Normal NOT DETECTED [facility] Comment on above: Performed By: #### R SPLUS #### [facility] [address] [place] [address] Dr. Felicitas Rios Parainfluenza 3 Not detected Normal NOT DETECTED [facility] Comment on above: Performed By: #### R SPLUS #### [facility] [address] [place] [address] Dr. Felicitas Rios Parainfluenza 4 Not detected Normal NOT DETECTED [facility] Comment on above: Performed By: #### R SPLUS #### [facility] [address] [place] [address] Dr. Felicitas Rios Rhino/Enterovirus Not detected Normal NOT DETECTED [facility] Comment on above: Performed By: #### R SPLUS #### [facility] [address] [place] [address] Dr. Felicitas Rios RP2 Header 1 RESPIRATORY PANEL: VIRUSES Normal [facility] Comment on above: Performed By: #### R SPLUS #### [facility] [address] [place] [address] Dr. Felicitas Rios RP2 Header 2 RESPIRATORY PANEL: BACTERIA Normal [facility] Comment on above: Performed By: #### R SPLUS #### [facility] [address] [place] [address] Dr. Felicitas Rios RSV Not detected Normal NOT DETECTED The [facility] Comment on above: Performed By: #### R SPLUS #### [facility] [address] [place] [address] Dr. Felicitas Rios SARS-CoV-2 (COVID-19) RNA JEREMIE+probe Ql (Unsp spec) Not detected Normal NOT DETECTED [facility] Comment on above: Performed By: #### R SPLUS #### [facility] [address] [place] [address] Dr. Felicitas Rios CBC AUTO DIFFon 08-08-2022 BASO # 0.0 103/ul Normal 0.0-0.1 [facility] Comment on above: Performed By: #### C BC #### [facility] [address] [place] [address] Dr. Felicitas Rios Basophils/100 WBC (Bld) 0.6 % Normal 0.2-2.0 [facility] Comment on above: Performed By: #### C BC #### [facility] [address] [place] [address] Dr. Felicitas Rios EO # 0.1 103/ul Normal 0.0-0.7 [facility] Comment on above: Performed By: #### C BC #### [facility] [address] [place] [address] Dr. Felicitas Rios Eosinophils/100 WBC (Bld) 2.1 % Normal 0.9-7.0 [facility] Comment on above: Performed By: #### C BC #### [facility] [address] [place] [address] Dr. Felicitas Rios Erythrocyte distribution width (RBC) [Ratio] 11.9 % Normal 11.0-15.0 [facility] Comment on above: Performed By: #### C BC #### [facility] [address] [place] [address] Dr. Felicitas Rios Hematocrit (Bld) [Volume fraction] 39.4 % Normal 36.0-48.0 [facility] Comment on above: Performed By: #### C BC #### [facility] [address] [place] [address] Dr. Felicitas Rios Hemoglobin (Bld) [Mass/Vol] 13.7 g/dL Normal 12.0-16.0 [facility] Comment on above: Performed By: #### C BC #### [facility] [address] [place] [address] Dr. Felicitas Rios IG # 0.00 10e3/ul Normal 0.00-0.03 [facility] Comment on above: Performed By: #### C BC #### [facility] [address] [place] [address] Dr. Felicitas Rios IG % 0.0 % Normal 0.0-0.5 [facility] Comment on above: Performed By: #### C BC #### [facility] [address] [place] [address] Dr. Felicitas Rios LYMPH # 2.3 103/ul Normal 1.2-3.8 [facility] Comment on above: Performed By: #### C BC #### [facility] [address] [place] [address] Dr. Felicitas Rios Lymphocytes/100 WBC (Bld) 49.1 % Normal 20.5-60.0 [facility] Comment on above: Performed By: #### C BC #### [facility] [address] [place] [address] Dr. Felicitas Rios MANUAL DIFF REQ NO Normal [facility] Comment on above: Performed By: #### C BC #### [facility] [address] [place] [address] Dr. Felicitas Rios MCH (RBC) [Entitic mass] 30.9 pg Normal 26.7-34.0 [facility] Comment on above: Performed By: #### C BC #### [facility] [address] [place] [address] Dr. Felicitas Rios MCHC (RBC) [Mass/Vol] 34.8 g/dL Normal 29.9-35.2 [facility] Comment on above: Performed By: #### C BC #### [facility] [address] [place] [address] Dr. Felicitas Rios MCV (RBC) [Entitic vol] 88.9 fL Normal 81.0-99.0 [facility] Comment on above: Performed By: #### C BC #### [facility] [address] [place] [address] Dr. Felicitas Rios MONO # 0.3 103/ul Normal 0.3-0.8 [facility] Comment on above: Performed By: #### C BC #### [facility] [address] [address] [address] Felicitas Rios Monocytes/100 WBC (Bld) 6.3 % Normal 1.7-12.0 [facility] Comment on above: Performed By: #### C BC #### [facility] [address] [place] [address] Dr. Felicitas Rios NEUT # 2.0 103/ul Normal 1.4-6.5 [facility] Comment on above: Performed By: #### C BC #### [facility] [address] [place] [address] Dr. Felicitas Rios Neutrophils/100 WBC (Bld) 41.9 % Critically low 43.0-75.0 [facility] Comment on above: Performed By: #### C BC #### [facility] [address] [place] [address] Dr. Felicitas Rios Platelet mean volume (Bld) [Entitic vol] 10.0 fL Normal 9.5-13.5 [facility] Comment on above: Performed By: #### C BC #### [facility] [address] [place] [address] Dr. Felicitas Rios PLT 160 103/ul Normal 150-450 [facility] Comment on above: Performed By: #### C BC #### [facility] [address] [place] [address] Dr. Felicitas Rios RBC 4.43 106/ul Normal 4.20-5.40 [facility] Comment on above: Performed By: #### C BC #### [facility] [address] [place] [address] Dr. Felicitas Rios WBC 4.8 103/ul Normal 4.0-11.0 [facility] Comment on above: Performed By: #### C BC #### [facility] [address] [place] [address] Dr. Felicitas Rios CTA CHEST WO W CONon 022 CTA CHEST WO W CON EXAMINATION: CTA CHEST WO W CON HISTORY: CHEST PAIN, UNSPECIFIED COMPARISON: None. TECHNIQUE: CT angiography of the pulmonary arteries following the administration of intravenous contrast. Coronal and sagittal MIP (maximum intensity projection) images were performed. Dose reduction techniques were achieved by using automated exposure control and/or adjustment of mA and/or kV according to patient size and/or use of iterative reconstruction technique. CHEST FINDINGS: Lungs/Pleura: The lungs are clear. No pleural effusion or pneumothorax. Pulmonary Arteries: No evidence of pulmonary embolus. Cardiovascular: The heart is normal in size. No coronary artery calcification is identified. No aortic dissection identified. Pericardium: No effusion. Mediastinum: Unremarkable. Lymph Nodes: No lymph node enlargement by CT size criteria. Bones: No acute osseous abnormality. A dextroscoliosis present in the partially visualized lumbar spine. Soft tissues: Unremarkable. Upper Abdomen: Unremarkable. IMPRESSION: 1. No pulmonary embolus identified. 2. No aortic abnormality. Electronically authenticated by: RAMON SUBRAMANIAN Date: 2022-08-08 11:17 Normal [facility] D-DIMERon 08-08-2022 D-DIMER 0.65 mg/L FEU Critically high <=0.[address] [facility] Comment on above: Performed By: #### D DIM #### [facility] [address] [place] [address] Dr. Felicitas Rios D-DIMER COMMENTS SEE BELOW Normal The [facility] Comment on above: Result Comment: Incr eases in D-Dimer concentration observed with thromboembolic events can be variable due to localization, size, and age of the thrombus. Therefore, a thromboembolic event cannot be diagnosed with certainty on the basis of the reference range. D-Dimers may also be elevated for a variety of disorders including: advanced age, , coronary disease, cancer, liver disease, infection, inflammation, hematoma, DIC, trauma, post-surgery, diabetes, thrombolytic or anticoagulant therapy, stress, and generalized hospitalization. Performed By: #### D DIM #### [facility] [address] [place] [address] Dr. Felicitas Rios PROF 14(COMP METB)on 022 Albumin [Mass/Vol] 4.0 g/dL Normal 3.4-5.0 [facility] Comment on above: Performed By: #### C MP, HSTROPN #### [facility] [address] [address] [address] Felicitas Rios Albumin/Globulin [Mass ratio] 1.3 {ratio} Normal [facility] Comment on above: Performed By: #### C MP, HSTROPN #### [facility] [address] [address] [address] Felicitas Rios ALP [Catalytic activity/Vol] 80 U/L Normal 46-116 [facility] Comment on above: Performed By: #### C MP, HSTROPN #### [facility] [address] [address] [address] Felicitas Rios ALT [Catalytic activity/Vol] 14 U/L Normal 14-59 [facility] Comment on above: Performed By: #### C MP, HSTROPN #### [facility] [address] [place] [address] Dr. Felicitas Rios Anion gap [Moles/Vol] 13.4 mmol/L Normal [facility] Comment on above: Performed By: #### C MP, HSTROPN #### [facility] [address] [address] [address] Felicitas Rios AST [Catalytic activity/Vol] 23 U/L Normal 15-37 [facility] Comment on above: Performed By: #### C PAVAN, HSTROPN #### [facility] [address] [place] [address] Dr. Felicitas Rios Bilirubin [Mass/Vol] 0.3 mg/dL Normal 0.2-1.0 [facility] Comment on above: Performed By: #### C MP, HSTROPN #### [facility] [address] [address] [address] Felicitas Rios Calcium [Mass/Vol] 9.1 mg/dL Normal 8.5-10.1 [facility] Comment on above: Performed By: #### C MP, HSTROPN #### [facility] [address] [place] [address] Dr. Felicitas Rios Chloride [Moles/Vol] 102 mmol/L Normal 98-107 [facility] Comment on above: Performed By: #### C MP, HSTROPN #### [facility] [address] [address] [address] Felicitas Rios CO2 [Moles/Vol] 28.5 mmol/L Normal 21.0-32.0 [facility] Comment on above: Performed By: #### C MP, HSTROPN #### [facility] [address] [address] [address] Felicitas Rios Creatinine [Mass/Vol] 0.65 mg/dL Normal 0.55-1.02 [facility] Comment on above: Performed By: #### C MP, HSTROPN #### [facility] [address] [address] [address] Felicitas Rios EGFR-AF KOSOVAN >60 Normal >=60 [facility] Comment on above: Performed By: #### C MP, HSTROPN #### [facility] [address] [address] [address] Felicitas Rios EGFR-NON AF KOSOVAN >60 Normal >=60 [facility] Comment on above: Performed By: #### C MP, HSTROPN #### [facility] [address] [address] [address] Felicitas Rios Globulin (S) [Mass/Vol] 3.2 g/dL Normal [facility] Comment on above: Performed By: #### C MP, HSTROPN #### [facility] [address] [address] [address] Felicitas Rios Glucose [Mass/Vol] 97 mg/dL Normal 74-[address] [facility] Comment on above: Performed By: #### C MP, HSTROPN #### [facility] [address] [id number] Dr. Felicitas Rios Potassium [Moles/Vol] 3.9 mmol/L Normal 3.5-5.1 [facility] Comment on above: Performed By: #### C MP, HSTROPN #### [facility] [address] [address] [address] Felicitas Rios Protein [Mass/Vol] 7.2 g/dL Normal 6.4-8.[address] [facility] Comment on above: Performed By: #### C MP, HSTROPN #### [facility] [address] [address] [address] Felicitas Rios Sodium [Moles/Vol] 140 mmol/L Normal 136-[address] [facility] Comment on above: Performed By: #### C MP, HSTROPN #### [facility] [address] [address] [address] Felicitas Rios Urea nitrogen [Mass/Vol] 6.0 mg/dL Critically low 7.0-18.0 [facility] Comment on above: Performed By: #### C PAVAN, HSTROPN #### [facility] [address] [place] [address] Dr. Felicitas Rios Urea nitrogen/Creatinine [Mass ratio] 9.2 mg/mg Normal [facility] Comment on above: Performed By: #### C PAVAN, HSTROPN #### [facility] [address] [place] [address] Dr. Felicitas Rios TROPONIN, HIGH SENSITIVITYon 08-08-2022 HSTROP 4.5 pg/mL Normal 4.0-51.3 [facility] Comment on above: Result Comment: CUT- OFF POINTS HAVE BEEN ESTABLISHED BASED ON THE FOURTH UNIVERSAL DEFINITIONS OF MYOCARDIAL INFARCTION. THE UPPER REFERENCE LIMIT (URL) OF TROPONIN, DEFINED THE 99TH PERCENTILE OF cTnI DISTRIBUTION IN A REFERENCE POPULATION, HAS BEEN CONFIRMED THE DECISION THRESHOLD FOR LA DIAGNOSIS. Performed By: #### C PAVAN, HSTROPN #### [facility] [address] [place] [address] Dr. Felicitas Rios US VANESA DOP LEG BILon 022 US VANESA DOP LEG FREDA EXAMINATION: US VANESA DOP LEG FREDA HISTORY: Pain COMPARISON: Ultrasound left leg vein Doppler 02/18/2020 FINDINGS: REGION: Bilateral lower extremities THROMBI: None deep system. COMPRESSIBILITY: Normal compressibility of deep system. FLOW: Normal waveform and antegrade flow between 5 and 20 cm/s. OTHER: Small segment of thrombus in superficial right great saphenous vein within mid calf, and left small saphenous vein and great saphenous vein within left mid calf. IMPRESSION: 1. No deep vein thrombus within the right or left lower extremity. 2. Mild superficial thrombophlebitis right and left calf. Electronically authenticated by: TEDDY MARCIAL Date: 2022-08-08 10:06 Normal [facility] XR CHEST 1 Von 08-08-2022 XR CHEST 1 V EXAMINATION: XR CHEST 1 V HISTORY: CHEST PAIN, UNSPECIFIED COMPARISON: 10/01/2018 TECHNIQUE: AP portable FINDINGS: LUNGS: No significant pulmonary parenchymal abnormalities. VASCULATURE: No increased pulmonary vasculature. PLEURA: No pneumothorax, effusion, or pleural thickening. CARDIAC: No cardiomegaly or cardiac silhouette abnormality. MEDIASTINUM: No visible mass or adenopathy. BONES: No fracture or visible bone lesion. Dextroscoliosis OTHER: Negative. IMPRESSION: No acute disease. Electronically authenticated by: CECY RICHMOND Date: 2022-08-08 07:44 Normal [facility] Complete Blood Count Auto Di ffon 12-22-2020 Basophils (Bld) [#/Vol] 0.0 10*3/uL Normal 0.0-0.2 [facility] Comment on above: Performed By: #### I GM, IGA, RA, LUPANTCOAG, RPR W RFX, IGG, SSA, SSB, CCP #### [facility] , #### TSH3, CBC, ESR, URIC, CMP #### [facility] [address] Basophils/100 WBC (Bld) 0.6 % Normal . [facility] Comment on above: Performed By: #### I GM, IGA, RA, LUPANTCOAG, RPR W RFX, IGG, SSA, SSB, CCP #### [facility] , #### TSH3, CBC, ESR, URIC, CMP #### [facility] [address] [place] [address] [place] Eosinophils (Bld) [#/Vol] 0.1 10*3/uL Normal 0.0-0.45 [facility] Comment on above: Performed By: #### I GM, IGA, RA, LUPANTCOAG, RPR W RFX, IGG, SSA, SSB, CCP #### [facility] , #### TSH3, CBC, ESR, URIC, CMP #### [address] Eosinophils/100 WBC (Bld) 1.7 % Normal . [facility] Comment on above: Performed By: #### I GM, IGA, RA, LUPANTCOAG, RPR W RFX, IGG, SSA, SSB, CCP #### [facility] , #### TSH3, CBC, ESR, URIC, CMP #### [address] Erythrocyte distribution width (RBC) [Ratio] 13.0 % Normal 11.9-15.3 [facility] Comment on above: Performed By: #### I GM, IGA, RA, LUPANTCOAG, RPR W RFX, IGG, SSA, SSB, CCP #### [facility] , #### TSH3, CBC, ESR, URIC, CMP #### [address] Hematocrit (Bld) [Volume fraction] 38.9 % Normal 34.0-46.4 [facility] Comment on above: Performed By: #### I GM, IGA, RA, LUPANTCOAG, RPR W RFX, IGG, SSA, SSB, CCP #### [facility] , #### TSH3, CBC, ESR, URIC, CMP #### [address] Hemoglobin (Bld) [Mass/Vol] 13.8 g/dL Normal 11.8-15.4 [facility] Comment on above: Performed By: #### I GM, IGA, RA, LUPANTCOAG, RPR W RFX, IGG, SSA, SSB, CCP #### [facility] , #### TSH3, CBC, ESR, URIC, CMP #### [address] Lymphocytes (Bld) [#/Vol] 2.1 10*3/uL Normal 1.00-4.8 [facility] Comment on above: Performed By: #### I GM, IGA, RA, LUPANTCOAG, RPR W RFX, IGG, SSA, SSB, CCP #### [facility] , #### TSH3, CBC, ESR, URIC, CMP #### [address] Lymphocytes/100 WBC (Bld) 37.8 % Normal . [facility] Comment on above: Performed By: #### I GM, IGA, RA, LUPANTCOAG, RPR W RFX, IGG, SSA, SSB, CCP #### [facility] , #### TSH3, CBC, ESR, URIC, CMP #### [address] MCH (RBC) [Entitic mass] 32.3 pg Normal 24.7-34.3 [facility] Comment on above: Performed By: #### I GM, IGA, RA, LUPANTCOAG, RPR W RFX, IGG, SSA, SSB, CCP #### [facility] , #### TSH3, CBC, ESR, URIC, CMP #### [address] MCV (RBC) [Entitic vol] 91.0 fL Normal 80-100 [facility] Comment on above: Performed By: #### I GM, IGA, RA, LUPANTCOAG, RPR W RFX, IGG, SSA, SSB, CCP #### [facility] , #### TSH3, CBC, ESR, URIC, CMP #### [address] Mean Corpuscular HGB Conc 35.5 g/dL High 32.0-35.0 [facility] Comment on above: Performed By: #### I GM, IGA, RA, LUPANTCOAG, RPR W RFX, IGG, SSA, SSB, CCP #### [facility] , #### TSH3, CBC, ESR, URIC, CMP #### [address] Monocytes (Bld) [#/Vol] 0.3 10*3/uL Normal 0.0-0.8 [facility] Comment on above: Performed By: #### I GM, IGA, RA, LUPANTCOAG, RPR W RFX, IGG, SSA, SSB, CCP #### [facility] , #### TSH3, CBC, ESR, URIC, CMP #### [address] Monocytes/100 WBC (Bld) 6.2 % Normal . [facility] Comment on above: Performed By: #### I GM, IGA, RA, LUPANTCOAG, RPR W RFX, IGG, SSA, SSB, CCP #### [facility] , #### TSH3, CBC, ESR, URIC, CMP #### [address] Neutrophils (Bld) [#/Vol] 2.9 10*3/uL Normal 1.8-7.7 [facility] Comment on above: Performed By: #### I GM, IGA, RA, LUPANTCOAG, RPR W RFX, IGG, SSA, SSB, CCP #### [facility] , #### TSH3, CBC, ESR, URIC, CMP #### [place] [address] [place] Neutrophils/100 WBC (Bld) 53.7 % Normal . [facility] Comment on above: Performed By: #### I GM, IGA, RA, LUPANTCOAG, RPR W RFX, IGG, SSA, SSB, CCP #### [facility] , #### TSH3, CBC, ESR, URIC, CMP #### [address] Nucleated RBC/100 WBC (Bld) [Ratio] 0.2 % Normal 0-0.5 [facility] Comment on above: Performed By: #### I GM, IGA, RA, LUPANTCOAG, RPR W RFX, IGG, SSA, SSB, CCP #### [facility] , #### TSH3, CBC, ESR, URIC, CMP #### [address] Platelet mean volume (Bld) [Entitic vol] 9.0 fL Normal 6.3-10.7 [facility] Comment on above: Performed By: #### I GM, IGA, RA, LUPANTCOAG, RPR W RFX, IGG, SSA, SSB, CCP #### [facility] , #### TSH3, CBC, ESR, URIC, CMP #### [address] Platelets (Bld) [#/Vol] 186 10*3/uL Normal 150-450 [facility] Comment on above: Performed By: #### I GM, IGA, RA, LUPANTCOAG, RPR W RFX, IGG, SSA, SSB, CCP #### [facility] , #### TSH3, CBC, ESR, URIC, CMP #### [address] RBC (Bld) [#/Vol] 4.27 10*6/uL Normal 3.60-5.00 [facility] Comment on above: Performed By: #### I GM, IGA, RA, LUPANTCOAG, RPR W RFX, IGG, SSA, SSB, CCP #### [facility] , #### TSH3, CBC, ESR, URIC, CMP #### [address] WBC (Bld) [#/Vol] 5.4 10*3/uL Normal 4.5-11.0 [facility] Comment on above: Performed By: #### I GM, IGA, RA, LUPANTCOAG, RPR W RFX, IGG, SSA, SSB, CCP #### [facility] , #### TSH3, CBC, ESR, URIC, CMP #### [facility] [address] [place] [address] Comprehensive Metabolic Pane fuad 12-22-2020 Albumin [Mass/Vol] 4.0 g/dL Normal 3.2-5.5 [facility] Comment on above: Performed By: #### I GM, IGA, RA, LUPANTCOAG, RPR W RFX, IGG, SSA, SSB, CCP #### [facility] , #### TSH3, CBC, ESR, URIC, CMP #### [facility] [address] [place] [address] Albumin/Globulin [Mass ratio] 1.5 {ratio} Normal [facility] Comment on above: Performed By: #### I GM, IGA, RA, LUPANTCOAG, RPR W RFX, IGG, SSA, SSB, CCP #### [facility] , #### TSH3, CBC, ESR, URIC, CMP #### [facility] [address] [place] [address] ALP [Catalytic activity/Vol] 61 U/L Normal 32-92 [facility] Comment on above: Performed By: #### I GM, IGA, RA, LUPANTCOAG, RPR W RFX, IGG, SSA, SSB, CCP #### [facility] , #### TSH3, CBC, ESR, URIC, CMP #### [facility] [address] [place] [address] ALT [Catalytic activity/Vol] 14 U/L Normal 10-60 [facility] Comment on above: Performed By: #### I GM, IGA, RA, LUPANTCOAG, RPR W RFX, IGG, SSA, SSB, CCP #### [facility] , #### TSH3, CBC, ESR, URIC, CMP #### [facility] [address] [place] [address] AST [Catalytic activity/Vol] 20 U/L Normal 10-42 [facility] Comment on above: Performed By: #### I GM, IGA, RA, LUPANTCOAG, RPR W RFX, IGG, SSA, SSB, CCP #### [facility] , #### TSH3, CBC, ESR, URIC, CMP #### [facility] [address] Bilirubin [Mass/Vol] 0.7 mg/dL Normal 0.3-1.2 [facility] Comment on above: Performed By: #### I GM, IGA, RA, LUPANTCOAG, RPR W RFX, IGG, SSA, SSB, CCP #### [facility] , #### TSH3, CBC, ESR, URIC, CMP #### [address] Calcium [Mass/Vol] 9.4 mg/dL Normal 8.2-10.2 [facility] Comment on above: Performed By: #### I GM, IGA, RA, LUPANTCOAG, RPR W RFX, IGG, SSA, SSB, CCP #### [facility] , #### TSH3, CBC, ESR, URIC, CMP #### [facility] [address] [place] [address] Chloride [Moles/Vol] 100 mmol/L Normal 95-114 [facility] Comment on above: Performed By: #### I GM, IGA, RA, LUPANTCOAG, RPR W RFX, IGG, SSA, SSB, CCP #### [facility] , #### TSH3, CBC, ESR, URIC, CMP #### [facility] [address] [place] [address] CO2 [Moles/Vol] 25.9 mmol/L Normal 22.0-30.0 [facility] Comment on above: Performed By: #### I GM, IGA, RA, LUPANTCOAG, RPR W RFX, IGG, SSA, SSB, CCP #### [facility] , #### TSH3, CBC, ESR, URIC, CMP #### [facility] [address] [place] [address] Creatinine [Mass/Vol] 0.67 mg/dL Normal 0.44-1.03 [facility] Comment on above: Performed By: #### I GM, IGA, RA, LUPANTCOAG, RPR W RFX, IGG, SSA, SSB, CCP #### [facility] , #### TSH3, CBC, ESR, URIC, CMP #### [address] Estimated GFR ( Zenaida > 60 Normal [facility] Comment on above: Result Comment: GFR estimated reference range: According to KDOQI guidelines, <60 ml/min/1.73m2 is sufficient to diagnose a patient with chronic kidney disease. Performed By: #### I GM, IGA, RA, LUPANTCOAG, RPR W RFX, IGG, SSA, SSB, CCP #### [facility] , #### TSH3, CBC, ESR, URIC, CMP #### [address] Estimated GFR (Non- Am > 60 Normal [facility] Comment on above: Performed By: #### I GM, IGA, RA, LUPANTCOAG, RPR W RFX, IGG, SSA, SSB, CCP #### [facility] , #### TSH3, CBC, ESR, URIC, CMP #### [facility] [address] [place] [address] Globulin (S) [Mass/Vol] 2.6 g/dL Normal [facility] Comment on above: Performed By: #### I GM, IGA, RA, LUPANTCOAG, RPR W RFX, IGG, SSA, SSB, CCP #### [facility] , #### TSH3, CBC, ESR, URIC, CMP #### [address] Glucose [Mass/Vol] 91 mg/dL Normal 70-100 [facility] Comment on above: Result Comment: [place] om Glucose Reference Range is dependent on time and content of last meal. Glucose of more than 200 mg/dL in a nonstressed, ambulatory subject supports the diagnosis of Diabetes Mellitus. ADA recommended reference range Performed By: #### I GM, IGA, RA, LUPANTCOAG, RPR W RFX, IGG, SSA, SSB, CCP #### [facility] , #### TSH3, CBC, ESR, URIC, CMP #### [address] Potassium [Moles/Vol] 4.3 mmol/L Normal 3.5-5.1 [facility] Comment on above: Performed By: #### I GM, IGA, RA, LUPANTCOAG, RPR W RFX, IGG, SSA, SSB, CCP #### [facility] , #### TSH3, CBC, ESR, URIC, CMP #### [address] Protein [Mass/Vol] 6.6 g/dL Normal 6.1-7.9 [facility] Comment on above: Performed By: #### I GM, IGA, RA, LUPANTCOAG, RPR W RFX, IGG, SSA, SSB, CCP #### [facility] , #### TSH3, CBC, ESR, URIC, CMP #### [address] Sodium [Moles/Vol] 136 mmol/L Normal 136-146 [facility] Comment on above: Performed By: #### I GM, IGA, RA, LUPANTCOAG, RPR W RFX, IGG, SSA, SSB, CCP #### [facility] , #### TSH3, CBC, ESR, URIC, CMP #### [address] Urea nitrogen [Mass/Vol] 9 mg/dL Normal 9-23 [facility] Comment on above: Performed By: #### I GM, IGA, RA, LUPANTCOAG, RPR W RFX, IGG, SSA, SSB, CCP #### [facility] , #### TSH3, CBC, ESR, URIC, CMP #### [facility] [address] [place] [address] [place] Cyclic Citrulliated Pep Abon 12-22-2020 Cyclic Citrulliated Pep Ab 3 Normal 0-19 [facility] Comment on above: Result Comment: Nega tive <20 Weak positive 20 - 39 Moderate positive 40 - 59 Strong positive >59 Performed at: - [facility] [id number] Fish Receiver: Alexandru Bravo MD, Phone: [phone] Performed By: #### I GM, IGA, RA, LUPANTCOAG, RPR W RFX, IGG, SSA, SSB, CCP #### [facility] , #### TSH3, CBC, ESR, URIC, CMP #### [facility] [address] [place] [address] [place] Dipstick and Microscopicon 0 12-22-2020 Appearance (U) Turbid Critically abnormal Clear [facility] Comment on above: Order Comment: Name Collection Type:: Clean-Voided Midstream Performed By: #### A DDONUAPLUS #### [place] [address] [place] Bacteria,Urine None Seen Normal None Seen [facility] Comment on above: Order Comment: Name Collection Type:: Clean-Voided Midstream Performed By: #### A DDONUAPLUS #### [facility] [address] [place] [address] [place] Bilirubin,Urine Negative Normal Negative [facility] Comment on above: Order Comment: Name Collection Type:: Clean-Voided Midstream Performed By: #### A DDONUAPLUS #### [place] [address] [place] Color (U) Yellow Normal Yellow [facility] Comment on above: Order Comment: Name Collection Type:: Clean-Voided Midstream Performed By: #### A DDONUAPLUS #### [facility] [address] [place] [address] [place] Glucose Ql (U) Normal Normal Normal [facility] Comment on above: Order Comment: Name Collection Type:: Clean-Voided Midstream Performed By: #### A DDONUAPLUS #### [address] Hyaline Casts,Urine 0-8 Normal 0-8 [facility] Comment on above: Order Comment: Name Collection Type:: Clean-Voided Midstream Result Comment: PERF ORMED BY: [place] [id number] [address] MANAGER RANDY PERRIN M.D. Performed By: #### A DDONUAPLUS #### [address] Ketones Ql (U) Negative Normal Negative [facility] Comment on above: Order Comment: Name Collection Type:: Clean-Voided Midstream Performed By: #### A DDONUAPLUS #### [address] Leukocyte esterase Test strip Ql (U) 1+ High Negative [facility] Comment on above: Order Comment: Name Collection Type:: Clean-Voided Midstream Performed By: #### A DDONUAPLUS #### [address] Nitrite,Urine Negative Normal Negative [facility] Comment on above: Order Comment: Name Collection Type:: Clean-Voided Midstream Performed By: #### A DDONUAPLUS #### [address] Occult Blood,Urine Negative Normal Negative [facility] Comment on above: Order Comment: Name Collection Type:: Clean-Voided Midstream Result Comment: PERF ORMED BY: [place] [id number] [address] MANAGER RANDY PERRIN M.D. Performed By: #### A DDONUAPLUS #### [facility] [address] [place] [address] [place] pH (U) 7.5 [pH] Normal 5.0-9.0 [facility] Comment on above: Order Comment: Name Collection Type:: Clean-Voided Midstream Performed By: #### A DDONUAPLUS #### [facility] [address] [place] [address] [place] Protein,Urine Negative Normal Negative [facility] Comment on above: Order Comment: Name Collection Type:: Clean-Voided Midstream Performed By: #### A DDONUAPLUS #### [facility] [address] [place] [address] RBC LM.HPF (Urine sed) [#/Area] 0 /[HPF] Normal 0-4 [facility] Comment on above: Order Comment: Name Collection Type:: Clean-Voided Midstream Performed By: #### A DDONUAPLUS #### [address] Specificy [place],Urine 1.023 Normal 1.001-1.030 [facility] Comment on above: Order Comment: Name Collection Type:: Clean-Voided Midstream Performed By: #### A DDONUAPLUS #### [address] Squamous Epithelial Cell,Urine 3-4 High 0-2 [facility] Comment on above: Order Comment: Name Collection Type:: Clean-Voided Midstream Performed By: #### A DDONUAPLUS #### [address] Urobilinogen,Urine Normal Normal Normal [facility] Comment on above: Order Comment: Name Collection Type:: Clean-Voided Midstream Performed By: #### A DDONUAPLUS #### [facility] [address] [place] [address] [place] WBC,Urine 1-2 Normal 0-4 [facility] Comment on above: Order Comment: Name Collection Type:: Clean-Voided Midstream Performed By: #### A DDONUAPLUS #### [address] Erythrocyte Sedimentation Ra abilio 12-22-2020 ESR (Bld) [Velocity] 15 mm/h Normal 0-19 [facility] Comment on above: Result Comment: PERF ORMED BY: [place] [address] [address] MANAGER RANDY PERRIN M.D. Performed By: #### I GM, IGA, RA, LUPANTCOAG, RPR W RFX, IGG, SSA, SSB, CCP #### [facility] , #### TSH3, CBC, ESR, URIC, CMP #### [place] [address] [place] Immunoglobulin A, Serumon Immunoglobulin A, Serum 174 mg/dL Normal 87-352 [facility] Comment on above: Performed By: #### I GM, IGA, RA, LUPANTCOAG, RPR W RFX, IGG, SSA, SSB, CCP #### [facility] , #### TSH3, CBC, ESR, URIC, CMP #### [place] [address] [place] Immunoglobulin Adolfo Immunoglobulin G 1011 mg/dL Normal 586-1602 [facility] Comment on above: Performed By: #### I GM, IGA, RA, LUPANTCOAG, RPR W RFX, IGG, SSA, SSB, CCP #### [facility] , #### TSH3, CBC, ESR, URIC, CMP #### [facility] [address] [place] [address] [place] Immunoglobulin M, Serumon Immunoglobulin M, Serum 78 mg/dL Normal 26-217 [facility] Comment on above: Result Comment: Perf ormed at: - [facility] [address] [id number] Fish Receiver: Zachery Brown PhD, Phone: [phone] Performed By: #### I GM, IGA, RA, LUPANTCOAG, RPR W RFX, IGG, SSA, SSB, CCP #### [facility] , #### TSH3, CBC, ESR, URIC, CMP #### [address] Lupus Anticoagulant Compon 0 - Dilute Prothrombin Time (dPt) 32.2 Normal 0.0-55.0 [facility] Comment on above: Performed By: #### I GM, IGA, RA, LUPANTCOAG, RPR W RFX, IGG, SSA, SSB, CCP #### [facility] , #### TSH3, CBC, ESR, URIC, CMP #### [address] dPT Confirm Ratio 1.05 Normal 0.00-1.40 [facility] Comment on above: Performed By: #### I GM, IGA, RA, LUPANTCOAG, RPR W RFX, IGG, SSA, SSB, CCP #### [facility] , #### TSH3, CBC, ESR, URIC, CMP #### [address] DRVVT Lupus 29.3 Normal 0.0-47.0 [facility] Comment on above: Performed By: #### I GM, IGA, RA, LUPANTCOAG, RPR W RFX, IGG, SSA, SSB, CCP #### [facility] , #### TSH3, CBC, ESR, URIC, CMP #### [address] Hexagonal Phase Phospholipid 0 Normal 0-11 [facility] Comment on above: Performed By: #### I GM, IGA, RA, LUPANTCOAG, RPR W RFX, IGG, SSA, SSB, CCP #### [facility] , #### TSH3, CBC, ESR, URIC, CMP #### [address] Interpretation Comment: Normal . [facility] Comment on above: Result Comment: No l upus anticoagulant was detected. Results suggest the presence of an inhibitor. The presence of heparin, which is a non-specific inhibitor, may cause this pattern of results. Since the PTT-LA was extended and the dRVVT was within normal limits, a specific inhibitor to factor VIII, IX, XI, or XII cannot be excluded. As antibody titers may fluctuate with time, repeat testing may be indicated and ideally should be performed in the absence of anticoagulant therapy. Performed at: [address] [id number] Fish Receiver: Alexandru Bravo MD, Phone: [phone] Performed By: #### I GM, IGA, RA, LUPANTCOAG, RPR W RFX, IGG, SSA, SSB, CCP #### [facility] , #### TSH3, CBC, ESR, URIC, CMP #### [address] PTT-LA 56.5 High 0.0-51.9 [facility] Comment on above: Performed By: #### I GM, IGA, RA, LUPANTCOAG, RPR W RFX, IGG, SSA, SSB, CCP #### [facility] , #### TSH3, CBC, ESR, URIC, CMP #### [address] PTT-LA Mix 55.0 High 0.0-48.9 [facility] Comment on above: Performed By: #### I GM, IGA, RA, LUPANTCOAG, RPR W RFX, IGG, SSA, SSB, CCP #### [facility] , #### TSH3, CBC, ESR, URIC, CMP #### [address] Thrombin Time 17.1 Normal 0.0-23.0 [facility] Comment on above: Performed By: #### I GM, IGA, RA, LUPANTCOAG, RPR W RFX, IGG, SSA, SSB, CCP #### [facility] , #### TSH3, CBC, ESR, URIC, CMP #### [address] RPR w/rfx to Quant TP Abson 12-22-2020 RPR, Rfx Quant RPR Non-Reactive Normal Non Reactive [facility] Comment on above: Result Comment: Perf ormed at: [facility] [id number] Fish Receiver: Zachery Brown PhD, Phone: [phone] PERFORMED BY: [place] [id number] [address] MANAGER RANDY PERRIN M.D. Performed By: #### I GM, IGA, RA, LUPANTCOAG, RPR W RFX, IGG, SSA, SSB, CCP #### [facility] , #### TSH3, CBC, ESR, URIC, CMP #### [facility] [address] [place] [address] Rheumatoid Factoron 12-23-19 Rheumatoid Factor <10.0 Normal 0.0-13.9 [facility] Comment on above: Performed By: #### I GM, IGA, RA, LUPANTCOAG, RPR W RFX, IGG, SSA, SSB, CCP #### [facility] , #### TSH3, CBC, ESR, URIC, CMP #### [facility] [address] [place] [address] SS-A/Ro Sjogrens Antibodyon 12-22-2020 SS-A/Ro Sjogrens Antibody <0.2 Normal 0.0-0.9 [facility] Comment on above: Performed By: #### I GM, IGA, RA, LUPANTCOAG, RPR W RFX, IGG, SSA, SSB, CCP #### [facility] , #### TSH3, CBC, ESR, URIC, CMP #### [facility] [address] [place] [address] SS-B/La Sjogrens Antibodyon 12-22-2020 SS-B/La Sjogrens Antibody <0.2 Normal 0.0-0.9 [facility] Comment on above: Result Comment: Perf ormed at: [facility] - [facility] [place] [address] [place], [place] [id number] Fish Receiver: Zachery Brown PhD, Phone: [phone] Performed By: #### I GM, IGA, RA, LUPANTCOAG, RPR W RFX, IGG, SSA, SSB, CCP #### [facility] , #### TSH3, CBC, ESR, URIC, CMP #### [address] Thyroid Stimulating Hormoneo n 12-22-2020 TSH Qn 1.15 m[IU]/L Normal 0.45-5.33 [facility] [facility] Comment on above: Result Comment: PERF ORMED BY: [place] [address] MANAGER RANDY PERRIN M.D. Performed By: #### I GM, IGA, RA, LUPANTCOAG, RPR W RFX, IGG, SSA, SSB, CCP #### [facility] , #### TSH3, CBC, ESR, URIC, CMP #### [address] Uric Acidon 12-22-2020 Urate [Mass/Vol] 2.9 mg/dL Normal 2.6-7.2 [facility] Comment on above: Performed By: #### I GM, IGA, RA, LUPANTCOAG, RPR W RFX, IGG, SSA, SSB, CCP #### [facility] , #### TSH3, CBC, ESR, URIC, CMP #### [address] CNOVSPon 03-03-2020 CNOVSP Visit (SP) Office ([place]) DIXON DURAN ([id number]) 1990 F Date Time Provider Department 03/03/20 2:00 PM MICHOACANO GARRETT During your visit today, we recorded the following information about you: Temperature Pulse Respiration Blood pressure 97.5 degrees 79/minute 16/minute 106/63 Weight Height Last Period 64.4 kg 1.778 m 02/22/20 Michoacano Garrett MD 03/03/2020 6:44 PM Signed NAME: Dixon Duran CLINIC NO.: [id number] DATE OF SERVICE: March 03, 2020 Referring Provider: Elroy Palma, DO Consultation requested by Dr. Palma for an opinion regarding Ms. Dixon Duran, and my final recommendations will be communicated back to the requesting physician by way of shared medical record or letter via US mail. Additional Clinicians involved in Dixon Duran's care: CC: Superficial Venous thrombosis ASSESSMENT: 30-year-old woman with multiple superficial thromboses consistent with thrombophlebitis. I believe the risks versus benefits in this otherwise young seemingly healthy woman with multiple but always superficial venous thromboses are not in favor of continuous anticoagulation. I think that she would benefit from compression socks as well as anti-inflammatories. If she has deep venous thromboses of course, I can see her back and obtain full hyper coag workup as well as start her on full dose anticoagulation. PLAN: 1. RTC PRN 2. OK to stop Xarelto HPI: Initial Visit, March 03, 2020: Dixon Duran presents today Hematology and Oncology evaluation. She is a 30 year old female who is a recovered drug user of multiple drugs now very productive and successfully having Du life around suffers from multiple superficial thromboses in the lower extremities has been referred for the issue of chronic anticoagulation. I reviewed her available venous Doppler studies the first done on 02/18/2020 showing nonocclusive thrombus in the superficial left small saphenous vein without extension to deep system. Previous study was 03/30/2019 again showing no evidence of DVT within the left lower extremity and only superficial thrombophlebitis involving the area of tenderness and erythema. REVIEW OF SYSTEMS Per HPI and otherwise negative by full review of organ systems. ECOG PERFORMANCE STATUS: 0 PHYSICAL EXAMINATION: Vitals: BP 106/63 Pulse 79 Temp (Src) 97.5 (Temporal) Resp 16 Ht 5' 10 (1.78m) Wt 142 lb (64.4kg) SpO2 98% LMP 02/22/2020 BMI 20.37 kg/(m2). Body surface area is 1.78 meters squared. General:This is an age-appropriate patient in no acute distress. Head: Atraumatic, symmetric with no lesions visible. Eyes: Pupils equally round and reactive to light, extraocular muscles intact. Neck: Supple Mouth: Mucous membranes are moist, no thrush is noted. Lungs: Clear to auscultation bilaterally with no wheezes crackles or rales. Cardiovascular: Regular rate and rhythm with no murmurs or gallops. Peripheral pulses: Normal. Gastrointestinal: Soft, nontender, normoactive bowel sounds, with no appreciable hepatosplenomegaly. Musculoskeletal: No appreciable bony abnormalities or tenderness. Extremities: Lower extremities without edema. Neurologic: Nonfocal to gross visualization. Alert and oriented ?3. Psychiatric: No evidence of inappropriate anxiety or depression. Skin: No overt rashes wounds or petechiae. Lymph node exam: No appreciable lymphadenopathy in cervical supraclavicular or axillary lymph node chains. ALLERGIES: ALLERGIES No Known Allergies MEDICATIONS: SUBOXONE 8-2 mg film Dissolve under the tongue once daily. rivaroxaban (XARELTO) 15 mg (42)- 20 mg (9) DsPk Take by mouth. Take 1 tablet (15 mg) by mouth twice daily with food for 21 days. Then take 1 tablet (20 mg) by mouth once daily with food for 9 days. LABORATORY VALUES: Reviewed outside labs with no clinically significant abnormalities to CBC or CMP. DIAGNOSIS: (I80.00) Superficial thrombophlebitis of lower extremity, unspecified laterality (primary encounter diagnosis) PAST MEDICAL HISTORY Diagnosis Date - Anxiety - Depression - Hepatitis - Hepatitis B - Hepatitis C PAST SURGICAL HISTORY Procedure Laterality Date - , CLASSIC, IN-HOSP CARE Social History Tobacco Use - Smoking status: Current Every Day Smoker Packs/day: 0.50 Years: 18.00 Pack years: 9.00 Types: Cigarettes - Smokeless tobacco: Never Used Substance Use Topics - Alcohol use: Not on file - Drug use: Not on file FAMILY HISTORY Problem Relation Age of Onset - Skin Cancer Mother - Depression Mother - Stroke Mother - Hypertension Father - Renal Disease Father Michoacano Garrett MD, CPE [facility] [place], [place] CC: Elroy Palma DO [address] [facility] [address] Elroy Palma DO [address] [facility] [address] Referring Provider: ELROY PALMA [[id number]] Allergies As of Date: 03/03/2020 (No Known Allergies) Date Reviewed: 03/03/2020 Reviewed by: Sherri Le - Fully Assessed Reason for Visit: recurrent DVT [Other] Cmt: new patient consultation Primary Visit Diagnosis:Superficia l thrombophlebitis of lower extremity, unspecified laterality [I80.00] Disposition: Return if symptoms worsen or fail to improve. Follow-up and Disposition History Recorded Prescriptions as of 03/03/2020 Sig: SUBOXONE 8 MG-2 MG SUBLINGUAL* Dissolve under the tongue onc* RIVAROXABAN 15 MG (42)-20 MG * Take by mouth. Take 1 tablet * Problem List As Of Date: 03/03/2020 (None) Encounter Status:Closed by MICHOACANO GARRETT MD on 03/03/20 [facility] PROGRESSon 03-03-2020 PROGRESS HNO ID: [id number] Author: Michoacano Garrett Service: ? Author Type: Physician Type: Progress Notes Filed: 03/03/2020 6:44 PM Note Text: NAME: Dixon Duran [facility] NO.: [id number] DATE OF SERVICE: March 03, 2020 Referring Provider: Elroy Palma DO Consultation requested by Dr. Palma for an opinion regarding Ms. Dixon Duran, and my final recommendations will be communicated back to the requesting physician by way of shared medical record or letter via US mail. Additional Clinicians involved in Dixon Duran's care: CC: Superficial Venous thrombosis ASSESSMENT: 30-year-old woman with multiple superficial thromboses consistent with thrombophlebitis. I believe the risks versus benefits in this otherwise young seemingly healthy woman with multiple but always superficial venous thromboses are not in favor of continuous anticoagulation. I think that she would benefit from compression socks as well as anti-inflammatories. If she has deep venous thromboses of course, I can see her back and obtain full hyper coag workup as well as start her on full dose anticoagulation. PLAN: 1. RTC PRN 2. OK to stop Xarelto HPI: Initial Visit, March 03, 2020: Dixon Duran presents today Hematology and Oncology evaluation. She is a 30 year old female who is a recovered drug user of multiple drugs now very productive and successfully having Du life around suffers from multiple superficial thromboses in the lower extremities has been referred for the issue of chronic anticoagulation. I reviewed her available venous Doppler studies the first done on 02/18/2020 showing nonocclusive thrombus in the superficial left small saphenous vein without extension to deep system. Previous study was 03/30/2019 again showing no evidence of DVT within the left lower extremity and only superficial thrombophlebitis involving the area of tenderness and erythema. REVIEW OF SYSTEMS Per HPI and otherwise negative by full review of organ systems. ECOG PERFORMANCE STATUS: 0 PHYSICAL EXAMINATION: Vitals: BP 106/63 Pulse 79 Temp (Src) 97.5 (Temporal) Resp 16 Ht 5' 10 (1.78m) Wt 142 lb (64.4kg) SpO2 98% LMP 02/22/2020 BMI 20.37 kg/(m2). Body surface area is 1.78 meters squared. General:This is an age-appropriate patient in no acute distress. Head: Atraumatic, symmetric with no lesions visible. Eyes: Pupils equally round and reactive to light, extraocular muscles intact. Neck: Supple Mouth: Mucous membranes are moist, no thrush is noted. Lungs: Clear to auscultation bilaterally with no wheezes crackles or rales. Cardiovascular: Regular rate and rhythm with no murmurs or gallops. Peripheral pulses: Normal. Gastrointestinal: Soft, nontender, normoactive bowel sounds, with no appreciable hepatosplenomegaly. Musculoskeletal: No appreciable bony abnormalities or tenderness. Extremities: Lower extremities without edema. Neurologic: Nonfocal to gross visualization. Alert and oriented ?3. Psychiatric: No evidence of inappropriate anxiety or depression. Skin: No overt rashes wounds or petechiae. Lymph node exam: No appreciable lymphadenopathy in cervical supraclavicular or axillary lymph node chains. ALLERGIES: ALLERGIES No Known Allergies MEDICATIONS: SUBOXONE 8-2 mg film Dissolve under the tongue once daily. rivaroxaban (XARELTO) 15 mg (42)- 20 mg (9) DsPk Take by mouth. Take 1 tablet (15 mg) by mouth twice daily with food for 21 days. Then take 1 tablet (20 mg) by mouth once daily with food for 9 days. LABORATORY VALUES: Reviewed outside labs with no clinically significant abnormalities to CBC or CMP. DIAGNOSIS: (I80.00) Superficial thrombophlebitis of lower extremity, unspecified laterality (primary encounter diagnosis) PAST MEDICAL HISTORY Diagnosis Date - Anxiety - Depression - Hepatitis - Hepatitis B - Hepatitis C PAST SURGICAL HISTORY Procedure Laterality Date - , CLASSIC, IN-HOSP CARE Social History Tobacco Use - Smoking status: Current Every Day Smoker Packs/day: 0.50 Years: 18.00 Pack years: 9.00 Types: Cigarettes - Smokeless tobacco: Never Used Substance Use Topics - Alcohol use: Not on file - Drug use: Not on file FAMILY HISTORY Problem Relation Age of Onset - Skin Cancer Mother - Depression Mother - Stroke Mother - Hypertension Father - Renal Disease Father Michoacano Garrett MD, CPE [place], [place] CC: Elroy Palma, DO [address] [facility] [address] [place] Andrei Palma, DO [address] [facility] [address] Normal [facility] Coding Summary.on 02-24-2019 Coding Summary. CODING DATE: 02/24/2019 FINAL [facility] STATUS: Home (Routine DC) PAYOR: Self Pay APC DESCRIPTION 5522 Level 2 Imaging without Contrast ADMIT DX: REASON FOR VISIT DX: B18.2 Chronic viral hepatitis C FINAL DX: PRINCIPAL: B18.2 Chronic viral hepatitis C SECONDARY: B16.9 Acute hepatitis B without delta-agent and without hepatic coma F19.10 Other psychoactive substance abuse, uncomplicated PYMT PROC APC STAT DESCRIPTION DOCTOR NAME DATE NOTE: The code number assigned matches the documented diagnosis and / or procedure in the patient's chart. However, the narrative phrase printed from the coding software may appear abbreviated, or result in slightly different terminology. Coded By: Emmie Guidry Date Saved: 02/24/2019 08:37 am Normal [facility] Hep Bs Abon 02-11-2019 HBV surface Ab Ql (S) Reactive [facility] Comment on above: Result Comment: Non Reactive: Inconsistent with immunity, less than 10 mIU/mL Reactive: Consistent with immunity, greater than 9.9 mIU/mL Performed at: [address] [id number] PhD Stephanie Bingham Performed By: #### 2 605064, 6759675, 3678652, 47798916, 23794561, 2445143, 3568199, 68974361 #### [facility] [address] [place] [address] Hep Bs Agon 02-11-2019 HBV surface Ag IA Ql Negative Negative [facility] Comment on above: Result Comment: Perf ormed at: [address] [id number] PhD Stephanie Bingham Performed By: #### 2 875203, 6833679, 5137354, 95116826, 07807503, 5748228, 3350685, 29727652 #### [facility] [address] [place] [address] WRITTEN AUTHORIZATIONon 01-31 Written Authorization Comment [facility] Comment on above: Result Comment: Writ ten Authorization Received. Authorization received from SHANNON FENG 02-10-2019 Logged by Tnagela Taylor Performed at: [address] [id number] PhD Stephanie Bingham Performed By: #### 2 573951, 0753515, 8425739, 28851100, 67731734, 9291354, 8106642, 11688931 #### [facility] [address] [place] [address] VERBAL ORDER INFOon 02-11-20 19 Additional Test(s) Request Comment: [facility] Comment on above: Result Comment: Test (s) added per SHANNON FEGN at account 02-10-2019 Logged by Marely Kruse Test# [id number] Hep A Ab, Total Performed at: [address] [id number] PhD Stephanie Bingham Performed By: #### 2 511717, 3790986, 9671382, 52075536, 19451367, 6354280, 7707803, 14696786 #### [facility] [address] [place] [address] See below: Comment: [facility] Comment on above: Result Comment: Vince stoll provide requested information and fax to . The [place] Code of Federal Regulations requires a written and signed request be forwarded to a laboratory following a verbal order of a laboratory test. Please assist us to meet this requirement and to complete our records. Date: ICD-9/10 Diagnosis Code(s): Physician or Authorized Designee: Please Print Physician or Authorized Designee Signature: ____ Your Signature Confirms Your Order Of The Test(s) Listed Performed By: #### 2 184032, 2461171, 0095669, 40457694, 80275235, 2566166, 0168930, 91342013 #### [facility] [address] [place], [place] [address] CBC w/Indiceson 02-09-2019 Erythrocyte distribution width (RBC) [Ratio] 13.6 % Normal 10.9-14.2 [facility] Comment on above: Performed By: #### 2 603945, 8820498, 4630867, 20987704, 42869510, 7480239, 8058158, 54304732 #### [facility] [address] [place] [address] Hematocrit (Bld) [Volume fraction] 36.5 % Normal 34.0-46.0 [facility] Comment on above: Performed By: #### 2 127583, 4738797, 2779689, 06530271, 70601234, 7118762, 5539930, 54352607 #### [facility] [address] [place] [address] Hemoglobin (Bld) [Mass/Vol] 12.9 g/dL Normal 12.0-16.0 [facility] Comment on above: Performed By: #### 2 326328, 1161297, 1571797, 17670381, 05414214, 4266543, 8176274, 36730671 #### [facility] [address] [place] [address] MCH (RBC) [Entitic mass] 30.3 pg Normal 27.0-34.0 [facility] Comment on above: Performed By: #### 2 035735, 0920012, 1539237, 77992967, 12431066, 9985141, 2134370, 72594534 #### [facility] [address] [place] [address] MCHC (RBC) [Mass/Vol] 35.2 g/dL Normal 33.3-35.7 [facility] Comment on above: Performed By: #### 2 805970, 4232891, 2588404, 71126860, 87627624, 8654224, 8253606, 14858767 #### [facility] [address] [place] [address] MCV (RBC) [Entitic vol] 86.2 fL Normal 80.0-100.0 [facility] Comment on above: Performed By: #### 2 746599, 1972536, 7778759, 00240008, 41256268, 9440166, 0298341, 85127777 #### [facility] [address] [place] [address] Platelet mean volume (Bld) [Entitic vol] 9.1 fL Normal 6.4-10.8 [facility] Comment on above: Performed By: #### 2 040905, 9285768, 3672205, 06009381, 21563574, 2421324, 9407900, 40790640 #### [facility] [address] [place] [address] Platelets (Bld) [#/Vol] 194.0 E9/L Normal 150.0-500.0 [facility] Comment on above: Performed By: #### 2 330080, 9577402, 3651386, 49666749, 27701938, 0781173, 2464949, 49125373 #### [facility] [address] [place] [address] RBC (Bld) [#/Vol] 4.2 E12/L Low 4.3-5.9 [facility] Comment on above: Performed By: #### 2 993071, 2260721, 2016367, 55971742, 73646682, 6837677, 6325795, 67993430 #### [facility] [address] [place] [address] WBC corrected for nucl RBC Auto (Bld) [#/Vol] 5.7 E9/L Normal 4.0-11.0 [facility] Comment on above: Performed By: #### 2 057882, 6548811, 8552997, 63907156, 76902789, 3656331, 4144752, 39172499 #### [facility] [address] [place] [address] CMPon 02-09-2019 Albumin [Mass/Vol] 3.9 g/dL Normal 3.3-5.0 [facility] Comment on above: Performed By: #### 2 719245, 4677017, 6776488, 01672171, 59066866, 8231877, 3679972, 51968547 #### [facility] [address] [place] [address] Albumin [Mass/Vol] 1.2 g/dL Normal 1.1-2.2 [facility] Comment on above: Performed By: #### 2 741886, 9212363, 9074745, 14121197, 25856868, 6264086, 7820429, 67853795 #### [facility] [address] [place] [address] ALP [Catalytic activity/Vol] 81 Int._Unit/L Normal 21-98 [facility] Comment on above: Performed By: #### 2 729827, 3514107, 4020107, 79671968, 31278942, 2080637, 1933454, 18237099 #### [facility] [address] [place] [address] ALT No additional P-5'-P [Catalytic activity/Vol] 14 Int._Unit/L Normal 6-46 [facility] Comment on above: Performed By: #### 2 819485, 0497042, 7095050, 31183885, 32157660, 6529803, 1955592, 92345080 #### [facility] [address] [place] [address] Anion gap [Moles/Vol] 11 mmol/L Normal 6-16 [facility] Comment on above: Performed By: #### 2 645895, 3513525, 3825115, 57679052, 09116696, 1110817, 4553030, 19071419 #### [facility] [address] [place] [address] AST [Catalytic activity/Vol] 26 Int._Unit/L Normal 5-43 [facility] Comment on above: Performed By: #### 2 689435, 4186216, 9710708, 32880846, 59477437, 9284122, 0263917, 64664289 #### [facility] [address] [place] [address] Bilirubin [Mass/Vol] 0.5 mg/dL Normal 0.0-1.1 [facility] Comment on above: Performed By: #### 2 499204, 7637504, 7467614, 70119510, 71577390, 9155715, 6445167, 73396598 #### [facility] [address] [place] [address] Calcium [Mass/Vol] 9.0 mg/dL Normal 8.9-11.1 [facility] Comment on above: Performed By: #### 2 570632, 5231349, 2774428, 66922120, 89249302, 3223478, 7691451, 27693291 #### [facility] [address] [place] [address] Chloride [Moles/Vol] 107 mmol/L Normal 101-111 [facility] Comment on above: Performed By: #### 2 969603, 3398605, 4769848, 71180614, 00947401, 3982251, 4996957, 95883235 #### [facility] [address] [place] [address] CO2 [Moles/Vol] 20 mmol/L Low 21-31 [facility] Comment on above: Performed By: #### 2 168315, 3412754, 8359568, 33097784, 87941051, 7029255, 6840347, 17851417 #### [facility] [address] [place] [address] Creatinine [Mass/Vol] 0.6 mg/dL Normal 0.5-1.3 [facility] Comment on above: Performed By: #### 2 907159, 6476412, 2375174, 88292409, 65535150, 5081262, 5123959, 99960522 #### [facility] [address] [place] [address] Globulin (S) [Mass/Vol] 3.3 g/dL Normal 1.4-4.0 [facility] Comment on above: Performed By: #### 2 135493, 0257640, 0340441, 36819429, 40830753, 4072764, 3006703, 87571764 #### [facility] [address] [place] [address] Glucose [Mass/Vol] 90 mg/dL Normal 55-199 [facility] Comment on above: Result Comment: If t his glucose result represents a fasting glucose, interpretation should refer to the following reference range: 55-99 mg/dL Performed By: #### 2 160323, 1073139, 0665687, 20346698, 66865685, 9352440, 6743736, 58278609 #### [facility] [address] [place] [address] Potassium [Moles/Vol] 3.8 mmol/L Normal 3.5-5.3 [facility] Comment on above: Performed By: #### 2 505209, 0539689, 2046470, 38916437, 62580520, 5885285, 6372288, 63598549 #### [facility] [address] [place] [address] Protein [Mass/Vol] 7.2 g/dL Normal 6.0-7.8 [facility] Comment on above: Performed By: #### 2 520314, 9811144, 0994134, 46810342, 23617171, 5125204, 8202626, 06298551 #### [facility] [address] [place] [address] Sodium [Moles/Vol] 134 mmol/L Low 135-145 [facility] Comment on above: Performed By: #### 2 252868, 0533515, 3355508, 67068332, 16731719, 3110707, 4192711, 04028361 #### [facility] [address] [place] [address] Urea nitrogen [Mass/Vol] 11 mg/dL Normal 5-21 [facility] Comment on above: Performed By: #### 2 531977, 3219910, 3164576, 19260058, 41541814, 8447425, 9458694, 91960957 #### [facility] [address] [place] [address] Urea nitrogen/Creatinine [Mass ratio] 18 No Units Normal 10-20 [facility] Comment on above: Performed By: #### 2 966478, 0432055, 4137359, 01510351, 52680703, 8598642, 9908493, 41602354 #### [facility] [address] [place] [address] PTon 02-09-2019 INR Coag (PPP) [Relative time] 1.0 {INR} [facility] Comment on above: Result Comment: INR results are specifically intended to assess patients stabilized on long-term Anticoagulation therapy suggested INR?s ?Less Intensive Anticoagulation? 2.0 ? 3.0 Conventional Range 3.0 ? 4.5 Performed By: #### 2 322918, 4628082, 6442193, 34529294, 17395519, 4367198, 0206800, 74341009 #### [facility] [address] [place] [address] PT Coag (PPP) [Time] 11.2 second(s) Normal 10.2-12.9 [facility] Comment on above: Performed By: #### 2 568088, 2971161, 0344030, 52377854, 06652254, 0124524, 4928471, 17444324 #### [facility] [address] [place] [address] US Abdomen, Limitedon 2018 US Abdomen, Limited Exam Date/Time: 02/09/2019 09:14 EDT Reason for Exam: HEP C/ HEP B Report IMPRESSION: NO SIGN OF CHOLELITHIASIS OR BILE DUCT DILATATION. ESSENTIALLY A NEGATIVE EXAM. COMPARISONS: NONE CLINICAL HISTORY: History hepatitis C. FINDINGS: Biplanar images were obtained. The gallbladder is physiologically distended. Gallbladder measures 7.7 cm in length. The gallbladder wall is not thickened. There is no sign of cholelithiasis or sludge within the gallbladder. The common bile duct measures up to 0.1 mm in diameter. The liver measures 12 cm in length. No intrahepatic bile duct dilatation is seen. No focal liver lesions are noted. Portions of the pancreas visualized have a normal appearance. Tail of pancreas is not well-visualized. No free fluid is seen within [place]ison\X2019\s pouch. FINAL REPORT Dictated: 02/09/2019 12:32 pm Sabrina Ivey MD Signed (Electronic Signature): 02/09/2019 12:32 pm Signed by: Sabrina Ivey MD Transcribed by: SCOOBY Technologist: ALIZE Ochoa [facility] eGFRon 02-09-2019 GFR/1.73 sq M predicted among blacks MDRD (S/P/Bld) [Vol rate/Area] mL/min/{1.73_m2} Normal >=59 [facility] Comment on above: Order Comment: Order added by Discern Expert. Result Comment: eGFR is race adjusted. AA=. Performed By: #### 2 057764, 4529602, 6427984, 93753842, 38486056, 5307505, 6582209, 39252858 #### [facility] [address] [place] [address] GFR/1.73 sq M predicted among non-blacks MDRD (S/P/Bld) [Vol rate/Area] mL/min/{1.73_m2} Normal >=59 [facility] Comment on above: Order Comment: Order added by Discern Expert. Result Comment: [place] ruben kidney disease could be indicated at eGFR's of less than 60 mL/min/1.73m2. Kidney failure is indicated at less than 15 mL/min/1.73m2. Performed By: #### 2 109707, 3783992, 2969978, 35160944, 44024347, 0906706, 1191257, 04969493 #### [facility] [facility] [address] [place] [address] Vital Signs Date Time Vital Sign Value Performing Clinician Facility 08-15-2023 11:00-0500 Body height 177.8 cm Karen Brantley Other [email or web address] Other 08-15-2023 11:00-0500 Body mass index (BMI) [Ratio] 19.66 kg/m2 Karen Brantley Other [email or web address] Other 08-15-2023 11:00-0500 Body temperature 98.8 [degF] Karen Brantley Other [email or web address] Other 08-15-2023 11:00-0500 Body weight 62.14 kg Karen Brantley Other [email or web address] Other 08-15-2023 11:00-0500 Respiratory rate 18 /min Karen Brantley Other [email or web address] Other 08-15-2023 11:00-0500 SaO2% (BldA) [Mass fraction] 98 % Karen Brantley Other [email or web address] Other Encounters Encounter Date Encounter Type Care Provider Facility Start: 08-22-2023 End: 08-22-2023 ambulatory VIN ADDISON Not Available Start: 08-15-2023 End: 08-15-2023 ambulatory Karen Brantley Other [email or web address] Other Start: 08-15-2023 Office outpatient visit 25 minutes [facility] Start: 10-17-2022 End: 10-17-2022 ambulatory TOPHER SHAMMO Facility:[facility] Start: 08-29-2022 End: 08-29-2022 ambulatory TOPHER SHAMMO Facility:[facility] Start: 08-08-2022 End: 08-08-[address] MART LISTED REQUEST Facility:[facility] Start: 06-01-2022 End: 06-01-[address] AJ Hooper Facility:[facility] Start: 01-09-2022 End: 01-09-2022 ambulatory DESI KUHN Facility:[facility] Start: 06-30-2018 End: 07-01-2018 Patient encounter procedure DEFAULT PHYSICIAN Facility:[facility] Payers Date Payer Category Payer Unknown [id number] [id number] 1990 Unknown [id number] 2.16.84 [id number] 1990 Unknown [id number] 2.16.84 [id number] 1990 Unknown [id number] 2.16.84 [id number] 1990 Unknown [id number] 2.16.84 [id number] 1990 Unknown [id number] 2.16.84 [id number] 1990 Unknown [id number] 1959 Unknown [id number] 1959 Unknown [id number] Unknown Social History Date Type Detail Facility Unknown if ever smoked [email or web address] Other Sex Assigned At Sex Assigned At Bir th [email or web address] Other Evaluation note 08-15-2023 Note Date & Type Note Facility 08-15-2023 Evaluation note Encounter Date Diagnosis Assessment Notes Aug, Sore throat (ICD-10 - J02.9) Aug, Influenza B (ICD-10 - J10.1) Advised patient that Influenza B PCR test was positive, Influenza A/COVID/RSV PCR and rapid Strep test negative. Encouraged supportive care, Tamiflu and Capmist as directed, Tylenol/Motrin as needed for body aches/fever. Increase fluids and rest. Encouraged use of cool mist humidifier. Advised patient that she needs to stay home from work/school/activ ities until fever free for 24 hours without use of antipyretics. Follow-up with PCP for further management if needed. Immediate eval for SOB, difficulty, chest pain, fevers that do not break with antipyretic or any other concerning symptoms as reviewed on patient education handout. Patient verbalizes understanding and is agreeable to treatment plan. Patient left in stable condition Aug, Contact with and (suspected) exposure to covid-19 (ICD-10 - Z20.822) [email or web address] Other History general Narrative - Reported Note Date & Type Note Facility History general Narrative - Reported Type Medical History chronic back pain Medical History mrsa Medical History pneumonia Surgical History C section Hospitalization History child x2 Hospitalization History see above [email or web address] Other Summary Purpose Family History No Family History Records FoundNo Family History Records FoundNo Family History Records FoundNo Family History Records FoundNo Family History Records FoundNo Family History Records Found Advance Directives No Advanced Directives Records FoundNo Advanced Directives Records FoundNo Advanced Directives Records FoundNo Advanced Directives Records FoundNo Advanced Directives Records FoundNo Advanced Directives Records Found Additional Source Comments INFORMATION SOURCE (unrecogn ized section and content) DATE CREATED AUTHOR 08/04/2018 [facility] DATE CREATED AUTHOR AUTHOR'S ORGANIZ ATION 07/24/2019 [facility] DATE CREATED AUTHOR AUTHOR'S ORGANIZ ATION 03/25/2020 [facility] DATE CREATED AUTHOR AUTHOR'S ORGANIZ ATION 09/17/2021 [facility] DATE CREATED AUTHOR AUTHOR'S ORGANIZ ATION 12/26/2022 [facility] DATE CREATED AUTHOR AUTHOR'S ORGANIZ ATION 08/23/2023 [facility] EPIC REASON FOR VISIT (unrecogniz ed section and content) SORE THROAT, BODY ACHES, EXP OSED TO STREP FOR RECORDS PERTAINING TO PATIENTS WHO ARE OR HAVE BEEN ENROLLED IN A CHEMICAL DEPENDENCY/SUBSTANCEABUSE PROGRAM, SOME INFORMATION MAY BE OMITTED. This clinical summary was aggregated from multiple sources. Caution should be exercised in using it in the provision of clinical care. This summary normalizes information from multiple sources, and as a consequence, information in this document may materially change the coding, format and clinical context of patient data. In addition, data may be omitted in some cases. CLINICAL DECISIONS SHOULD BE BASED ON THE PRIMARY CLINICAL RECORDS. [employer] provides no warranty or guarantee of the accuracy or completeness of information in this document.
--- NOTE | 2023-09-24 09:45 | XR_ITS ---
[facility] [place] [id number] Patient Name: DIXON DURAN MRN: [id number] date: 1990 Sex: F Assigned Patient Location: [facility] Current Patient Location: [facility] Accession/Order Number: [id number] Exam Date: 09/24/2023 09:38 Report Date: 09/24/2023 10:19 At the request of: KATHY HAYS Procedure: XR lumbar spine 6V w bending EXAMINATION: XR thoracic spine 2V, XR lumbar spine 6V w bending HISTORY: Thoracic Pain COMPARISON: No relevant comparison available. FINDINGS: BONES: S-shaped scoliosis of the spine with 18 degrees of levoscoliosis from T7 to T11 and 44 degrees of rotatory dextroscoliosis from T12 to L3. Moderate degenerative spondylosis and facet osteoarthropathy of the lumbar spine. No acute fracture or spondylolisthesis DISC SPACES: Multilevel disc space narrowing at the lumbar spine with endplate sclerosis PARASPINOUS: Negative. No paraspinous abnormality is seen. OTHER: No transient spondylolisthesis with flexion or extension XR/XR lumbar spine 6V w bending IMPRESSION: Severe S-shaped scoliosis of the thoracolumbar spine moderate to severe degenerative changes of the lumbar spine No dynamic instability Electronically authenticated by: CECY RICHMOND Date: 09/24/2023 10:19
--- NOTE | 2023-09-24 09:45 | XR_ITS ---
[facility] [place] [id number] Patient Name: DIXON DURAN MRN: [facility]:[id number] date: 1990 Sex: F Assigned Patient Location: [facility] Current Patient Location: [facility] Accession/Order Number: [id number] Exam Date: 09/24/2023 09:38 Report Date: 09/24/2023 10:19 At the request of: KATHY HAYS Procedure: XR thoracic spine 2V EXAMINATION: XR thoracic spine 2V, XR lumbar spine 6V w bending HISTORY: Thoracic Pain COMPARISON: No relevant comparison available. FINDINGS: BONES: S-shaped scoliosis of the spine with 18 degrees of levoscoliosis from T7 to T11 and 44 degrees of rotatory dextroscoliosis from T12 to L3. Moderate degenerative spondylosis and facet osteoarthropathy of the lumbar spine. No acute fracture or spondylolisthesis DISC SPACES: Multilevel disc space narrowing at the lumbar spine with endplate sclerosis PARASPINOUS: Negative. No paraspinous abnormality is seen. OTHER: No transient spondylolisthesis with flexion or extension XR/XR thoracic spine 2V IMPRESSION: Severe S-shaped scoliosis of the thoracolumbar spine moderate to severe degenerative changes of the lumbar spine No dynamic instability Electronically authenticated by: CECY RICHMOND Date: 09/24/2023 10:19
== END 2023-09-24 09:26 | disposition home or self-care (01) ==
PROVIDERS: PCP Nurse Practitioner Primary Care; Visit Provider Anesthesiology
DX: M54.50 Low back pain, unspecified (principal); M54.6 Pain in thoracic spine; M41.9 Scoliosis, unspecified
CPT/HCPCS: 72070; 72114

== ENCOUNTER 2023-09-26 14:53 | Outpatient (OUT) | payer OTHER, SELFPAY ==
--- OUTSIDE RECORDS SUMMARY | 2023-09-26 14:56 | XMS_ITS | CCD ---
Author Name Unknown Address [address] [place] [address] Organization [facility] Care Team Providers Care Referral Specialist Name Role Phone PHYSICIAN, DEFAULT Unavailable Unavailable PHYSICIAN, DEFAULT Unavailable Unavailable REQUEST, DR MART LISTED Primary Care Unavaila ble MARKER ., DR BERRY Admitting Unavailable MARKER ., DR BERRY Attending Unavailable GLENWOOD, DR CECY [employer] Unavailable ZIEBER, DR [...] Neomycin / Polymyxin B Drug Allergy anaphylaxis Adea Other Medications Current Medications Medication Drug Class(es) [...] oral tablet (1 source) alpha-Adrenergic Agonist, Uncompetitive B-iumtla-T-aspartat e Receptor Antagonist, Sigma-1 Agonist Start: 08-15-2023 [...] Drug Class(es) Dates Sig (Normalized) Sig (Original) [id number] 60 actuat albuterol 0.09 mg/actuat metered dose [...] 2 Episodic Other aftercare (1 source) Other group home (current) drug therapy; Translations: [OTH SNF CURRENT DRUG THERAPY] Onset: 2 Episodic Other aftercare (1 source) custodial (current) use of aspirin; Translations: [SNF CURRENT USE OF ASPIRIN] Onset: 2 Episodic [...] Facility COVID/FLU/RSV RT-PCRon 08-15 COVID/FLU/RSV RT-PCR negatigve [facility] [employer] Other COVID/FLU/RSV RT-PCR Negative [facility] [employer] Other COVID/FLU/RSV RT-PCR Positive [facility] [employer] Other Quick Strepon 08-15-2023 S. pyogenes Org specific cx Ql (Throat) Negative [facility] [employer] Other Quick Strep [facility] [employer] Other CULTURE THROATon 10-17-2022 CULTURE THROAT Culture Observations: NORMAL RESPIRATORY WILI. Normal [facility] Comment on above: Performed By: #### T HRTCX #### [facility] [address] [place] [address] Dr. Felicitas Rios CULTURE THROATon 08-29-2022 CULTURE THROAT Culture Observations: NORMAL RESPIRATORY WILI. Normal [facility] Comment on above: Performed By: #### T HRTCX #### [facility] [address] [address] [address] Felicitas Rios RESPIRATORY PANEL PLUSon Adenovirus Not detected Normal NOT DETECTED The [facility] Comment on above: Performed By: #### R SPLUS #### [facility] [address] [address] [address] Felicitas Burrows Parapertusis Not detected Normal NOT DETECTED The [facility] Comment on above: Performed By: #### R SPLUS #### [facility] [address] [place] [address] Dr. Felicitas Pimentel. Pertussis Not detected Normal NOT DETECTED [facility] Comment on above: Performed By: #### R SPLUS #### [facility] [address] [place] [address] Dr. Felicitas Rios Chlamydia Pneumoniae Not detected Normal NOT DETECTED [facility] Comment on above: Performed By: #### R SPLUS #### [facility] [address] [address] [address] Felicitas Rios Coronavirus 229E Not detected Normal NOT DETECTED [facility] Comment on above: Performed By: #### R SPLUS #### [facility] [address] [place] [address] Dr. Felicitas Rios Coronavirus HKU1 Not detected Normal NOT DETECTED [facility] Comment on above: Performed By: #### R SPLUS #### [facility] [address] [place] [address] Dr. Felicitas Rios Coronavirus NL63 Not detected Normal NOT DETECTED [facility] Comment on above: Performed By: #### R SPLUS #### [facility] [address] [place] [address] Dr. Felicitas Rios Coronavirus OC43 Not detected Normal NOT DETECTED [facility] Comment on above: Performed By: #### R SPLUS #### [facility] [address] [place] [address] Dr. Felicitas Rios Influenza A H1 2009 Not detected Normal NOT DETECTED [facility] Comment on above: Performed By: #### R SPLUS #### [facility] [address] [place] [address] Dr. Felicitas Rios Influenza A H3 Not detected Normal NOT DETECTED The [facility] Comment on above: Performed By: #### R SPLUS #### [facility] [address] [place] [address] Dr. Felicitas Rios Influenza B Not detected Normal NOT DETECTED The [facility] Comment on above: Performed By: #### R SPLUS #### [facility] [address] [place] [address] Dr. Felicitas Rios Metapneumovirus Not detected Normal NOT DETECTED The [facility] Comment on above: Performed By: #### R SPLUS #### [facility] [address] [place] [address] Dr. Felicitas Rios Mycoplas. Pneumoniae Not detected Normal NOT DETECTED [facility] Comment on above: Performed By: #### R SPLUS #### [facility] [address] [place] [address] Dr. Felicitas Rios Parainfluenza 1 Detected Abnormal NOT DETECTED The [facility] Comment on above: Performed By: #### R SPLUS #### [facility] [address] [place] [address] Dr. Felicitas Rios Parainfluenza 2 Not detected Normal NOT DETECTED The [facility] Comment on above: Performed By: #### R SPLUS #### [facility] [address] [place] [address] Dr. Felicitas Rios Parainfluenza 3 Not detected Normal NOT DETECTED The [facility] Comment on above: Performed By: #### R SPLUS #### [facility] [address] [place] [address] Dr. Felicitas Rios Parainfluenza 4 Not detected Normal NOT DETECTED The [facility] Comment on above: Performed By: #### R SPLUS #### [facility] [address] [place] [address] Dr. Felicitas Rios Rhino/Enterovirus Not detected Normal NOT DETECTED [facility] Comment on above: Performed By: #### R SPLUS #### [facility] [address] [place] [address] Dr. Felicitas Rios RP2 Header 1 RESPIRATORY PANEL: VIRUSES Normal [facility] Comment on above: Performed By: #### R SPLUS #### [facility] [address] [place] [address] Dr. Felicitas Rios RP2 Header 2 RESPIRATORY PANEL: BACTERIA Normal [facility] Comment on above: Performed By: #### R SPLUS #### [facility] [address] [place] [address] Dr. Felicitas Rios RSV Not detected Normal NOT DETECTED The [facility] Comment on above: Performed By: #### R SPLUS #### [facility] [address] [place] [address] Dr. Felicitas Rios SARS-CoV-2 (COVID-19) RNA JEREMIE+probe Ql (Unsp spec) Not detected Normal NOT DETECTED [facility] Comment on above: Performed By: #### R SPLUS #### [facility] [address] [place] [address] Dr. Felicitas Rios CBC AUTO DIFFon 08-08-2022 BASO # 0.0 103/ul Normal 0.0-0.1 [facility] Comment on above: Performed By: #### C BC #### [facility] [address] [place] [address] Dr. Felicitas Rios Basophils/100 WBC (Bld) 0.6 % Normal 0.2-2.0 [facility] Comment on above: Performed By: #### C BC #### [facility] [address] [place] [address] Dr. Felicitas Rios EO # 0.1 103/ul Normal 0.0-0.7 [facility] Comment on above: Performed By: #### C BC #### [facility] [address] [place] [address] Dr. Felicitas Rios Eosinophils/100 WBC (Bld) 2.1 % Normal 0.9-7.0 [facility] Comment on above: Performed By: #### C BC #### [facility] [address] [place] [address] Dr. Felicitas Rios Erythrocyte distribution width (RBC) [Ratio] 11.9 % Normal 11.0-15.0 [facility] Comment on above: Performed By: #### C BC #### [facility] [address] [place] [address] Dr. Felicitas Rios Hematocrit (Bld) [Volume fraction] 39.4 % Normal 36.0-48.0 [facility] Comment on above: Performed By: #### C BC #### [facility] [address] [place] [address] Dr. Felicitas Rios Hemoglobin (Bld) [Mass/Vol] 13.7 g/dL Normal 12.0-16.0 [facility] Comment on above: Performed By: #### C BC #### [facility] [address] [place] [address] Dr. Felicitas Rios IG # 0.00 10e3/ul Normal 0.00-0.03 [facility] Comment on above: Performed By: #### C BC #### [facility] [address] [place] [address] Dr. Felicitas Rios IG % 0.0 % Normal 0.0-0.5 [facility] Comment on above: Performed By: #### C BC #### [facility] [address] [place] [address] Dr. Felicitas Rios LYMPH # 2.3 103/ul Normal 1.2-3.8 [facility] Comment on above: Performed By: #### C BC #### [facility] [address] [place] [address] Dr. Felicitas Rios Lymphocytes/100 WBC (Bld) 49.1 % Normal 20.5-60.0 [facility] Comment on above: Performed By: #### C BC #### [facility] [address] [place] [address] Dr. Felicitas Rios MANUAL DIFF REQ NO Normal [facility] Comment on above: Performed By: #### C BC #### [facility] [address] [place] [address] Dr. Felicitas Rios MCH (RBC) [Entitic mass] 30.9 pg Normal 26.7-34.0 [facility] Comment on above: Performed By: #### C BC #### [facility] [address] [place] [address] Dr. Felicitas Rios MCHC (RBC) [Mass/Vol] 34.8 g/dL Normal 29.9-35.2 [facility] Comment on above: Performed By: #### C BC #### [facility] [address] [place] [address] Dr. Felicitas Rios MCV (RBC) [Entitic vol] 88.9 fL Normal 81.0-99.0 [facility] Comment on above: Performed By: #### C BC #### [facility] [address] [place] [address] Dr. Felicitas Rios MONO # 0.3 103/ul Normal 0.3-0.8 [facility] Comment on above: Performed By: #### C BC #### [facility] [address] [address] [address] Felicitas Rios Monocytes/100 WBC (Bld) 6.3 % Normal 1.7-12.0 [facility] Comment on above: Performed By: #### C BC #### [facility] [address] [place] [address] Dr. Felicitas Rios NEUT # 2.0 103/ul Normal 1.4-6.5 [facility] Comment on above: Performed By: #### C BC #### [facility] [address] [place] [address] Dr. Felicitas Rios Neutrophils/100 WBC (Bld) 41.9 % Critically low 43.0-75.0 [facility] Comment on above: Performed By: #### C BC #### [facility] [address] [place] [address] Dr. Felicitas Rios Platelet mean volume (Bld) [Entitic vol] 10.0 fL Normal 9.5-13.5 [facility] Comment on above: Performed By: #### C BC #### [facility] [address] [place] [address] Dr. Felicitas Rios PLT 160 103/ul Normal 150-450 [facility] Comment on above: Performed By: #### C BC #### [facility] [address] [place] [address] Dr. Felicitas Rios RBC 4.43 106/ul Normal 4.20-5.40 [facility] Comment on above: Performed By: #### C BC #### [facility] [address] [place] [address] Dr. Felicitas Rios WBC 4.8 103/ul Normal 4.0-11.0 [facility] Comment on above: Performed By: #### C BC #### [facility] [address] [place] [address] Dr. Felicitas Rios CTA CHEST WO W [...] RAMON SUBRAMANIAN Date: 2022-08-08 11:17 Normal [facility] D-DIMERon 08-08-2022 D-DIMER 0.65 mg/L FEU Critically high <=0.[address] [facility] Comment on above: Performed By: #### D DIM #### [facility] [address] [address] [address] Felicitas Rios D-DIMER COMMENTS SEE BELOW Normal [facility] Comment on above: Result Comment: Incr [...] hospitalization. Performed By: #### D DIM #### [facility] [address] [address] [address] Felicitas Rios PROF 14(COMP METB)on 022 Albumin [Mass/Vol] 4.0 g/dL Normal 3.4-5.0 [facility] Comment on above: Performed By: #### C MP, HSTROPN #### [facility] [address] [address] [address] Felicitas Rios Albumin/Globulin [Mass ratio] 1.3 {ratio} Normal [facility] Comment on above: Performed By: #### C MP, HSTROPN #### [facility] [address] [address] [address] Felicitas Rios ALP [Catalytic activity/Vol] 80 U/L Normal 46-116 [facility] Comment on above: Performed By: #### C MP, HSTROPN #### [facility] [address] [address] [address] Felicitas Rios ALT [Catalytic activity/Vol] 14 U/L Normal 14-59 [facility] Comment on above: Performed By: #### C MP, HSTROPN #### [facility] [address] [place] [address] Dr. Felicitas Rios Anion gap [Moles/Vol] 13.4 mmol/L Normal [facility] Comment on above: Performed By: #### C MP, HSTROPN #### [facility] [address] [place] [address] Dr. Felicitas Rios AST [Catalytic activity/Vol] 23 U/L Normal 15-37 [facility] Comment on above: Performed By: #### C PAVAN, HSTROPN #### [facility] [address] [place] [address] Dr. Felicitas Rios Bilirubin [Mass/Vol] 0.3 mg/dL Normal 0.2-1.0 [facility] Comment on above: Performed By: #### C MP, HSTROPN #### [facility] [address] [address] [address] Felicitas Rios Calcium [Mass/Vol] 9.1 mg/dL Normal 8.5-10.1 [facility] Comment on above: Performed By: #### C MP, HSTROPN #### [facility] [address] [address] [address] Felicitas Rios Chloride [Moles/Vol] 102 mmol/L Normal 98-107 [facility] Comment on above: Performed By: #### C MP, HSTROPN #### [facility] [address] [address] [address] Felicitas Rios CO2 [Moles/Vol] 28.5 mmol/L Normal 21.0-32.0 [facility] Comment on above: Performed By: #### C MP, HSTROPN #### [facility] [address] [address] [address] Felicitas Rios Creatinine [Mass/Vol] 0.65 mg/dL Normal 0.55-1.02 [facility] Comment on above: Performed By: #### C MP, HSTROPN #### [facility] [address] [address] [address] Felicitas Rios EGFR-AF SUDANESE >60 Normal >=60 [facility] Comment on above: Performed By: #### C MP, HSTROPN #### [facility] [address] [address] [address] Felicitas Rios EGFR-NON AF SUDANESE >60 Normal >=60 [facility] Comment on above: Performed By: #### C MP, HSTROPN #### [facility] [address] [address] [address] Felicitas Rios Globulin (S) [Mass/Vol] 3.2 g/dL Normal [facility] Comment on above: Performed By: #### C MP, HSTROPN #### [facility] [address] [address] [address] Felicitas Rios Glucose [Mass/Vol] 97 mg/dL Normal 74-106 [facility] Comment on above: Performed By: #### C MP, HSTROPN #### [facility] [address] [address] [address] Felicitas Rios Potassium [Moles/Vol] 3.9 mmol/L Normal 3.5-5.1 [facility] Comment on above: Performed By: #### C MP, HSTROPN #### [facility] [address] [address] [address] Felicitas Rios Protein [Mass/Vol] 7.2 g/dL Normal 6.4-8.2 [facility] Comment on above: Performed By: #### C MP, HSTROPN #### [facility] [address] [address] [address] Felicitas Rios Sodium [Moles/Vol] 140 mmol/L Normal 136-[address] [facility] Comment on above: Performed By: #### C MP, HSTROPN #### [facility] [address] [address] [address] Felicitas Rios Urea nitrogen [Mass/Vol] 6.0 mg/dL Critically low 7.0-18.0 [facility] Comment on above: Performed By: #### C PAVAN, HSTROPN #### [facility] [address] [place] [address] Dr. Felicitas Rios Urea nitrogen/Creatinine [Mass ratio] 9.2 mg/mg Normal [facility] Comment on above: Performed By: #### C PAVAN, HSTROPN #### [facility] [address] [place] [address] Dr. Felicitas Rios TROPONIN, HIGH SENSITIVITYon 08-08-2022 HSTROP 4.5 pg/mL Normal 4.0-51.3 [facility] Comment on above: Result Comment: CUT- OFF POINTS HAVE BEEN ESTABLISHED BASED ON THE FOURTH UNIVERSAL DEFINITIONS OF MYOCARDIAL INFARCTION. THE UPPER REFERENCE LIMIT (URL) OF TROPONIN, DEFINED THE 99TH PERCENTILE OF cTnI DISTRIBUTION IN A REFERENCE POPULATION, HAS BEEN CONFIRMED THE DECISION THRESHOLD FOR GA DIAGNOSIS. Performed By: #### C PAVAN, HSTROPN #### [facility] [address] [place] [address] Dr. Felicitas Rios US VANESA DOP LEG [...] by: TEDDY MARCIAL Date: 2022-08-08 10:06 Normal [facility] XR CHEST 1 Von 08-08-2022 XR CHEST [...] by: CECY RICHMOND Date: 2022-08-08 07:44 Normal [facility] Complete Blood Count Auto Di ffon 12-22-2020 Basophils (Bld) [#/Vol] 0.0 10*3/uL Normal 0.0-0.2 [facility] Comment on above: Performed By: #### I GM, IGA, RA, LUPANTCOAG, RPR W RFX, IGG, SSA, SSB, CCP #### [facility] , #### TSH3, CBC, ESR, URIC, CMP #### [facility] [address] Basophils/100 WBC (Bld) 0.6 % Normal . [facility] Comment on above: Performed By: #### I GM, IGA, RA, LUPANTCOAG, RPR W RFX, IGG, SSA, SSB, CCP #### [facility] , #### TSH3, CBC, ESR, URIC, CMP #### [facility] [address] [place] [address] [place] Eosinophils (Bld) [#/Vol] 0.1 10*3/uL Normal 0.0-0.45 [facility] Comment on above: Performed By: #### I GM, IGA, RA, LUPANTCOAG, RPR W RFX, IGG, SSA, SSB, CCP #### [facility] , #### TSH3, CBC, ESR, URIC, CMP #### [address] Eosinophils/100 WBC (Bld) 1.7 % Normal . [facility] Comment on above: Performed By: #### I GM, IGA, RA, LUPANTCOAG, RPR W RFX, IGG, SSA, SSB, CCP #### [facility] , #### TSH3, CBC, ESR, URIC, CMP #### [address] Erythrocyte distribution width (RBC) [Ratio] 13.0 % Normal 11.9-15.3 [facility] Comment on above: Performed By: #### I GM, IGA, RA, LUPANTCOAG, RPR W RFX, IGG, SSA, SSB, CCP #### [facility] , #### TSH3, CBC, ESR, URIC, CMP #### [address] Hematocrit (Bld) [Volume fraction] 38.9 % Normal 34.0-46.4 [facility] Comment on above: Performed By: #### I GM, IGA, RA, LUPANTCOAG, RPR W RFX, IGG, SSA, SSB, CCP #### [facility] , #### TSH3, CBC, ESR, URIC, CMP #### [address] Hemoglobin (Bld) [Mass/Vol] 13.8 g/dL Normal 11.8-15.4 [facility] Comment on above: Performed By: #### I GM, IGA, RA, LUPANTCOAG, RPR W RFX, IGG, SSA, SSB, CCP #### [facility] , #### TSH3, CBC, ESR, URIC, CMP #### [address] Lymphocytes (Bld) [#/Vol] 2.1 10*3/uL Normal 1.00-4.8 [facility] Comment on above: Performed By: #### I GM, IGA, RA, LUPANTCOAG, RPR W RFX, IGG, SSA, SSB, CCP #### [facility] , #### TSH3, CBC, ESR, URIC, CMP #### [address] Lymphocytes/100 WBC (Bld) 37.8 % Normal . [facility] Comment on above: Performed By: #### I GM, IGA, RA, LUPANTCOAG, RPR W RFX, IGG, SSA, SSB, CCP #### [facility] , #### TSH3, CBC, ESR, URIC, CMP #### [address] MCH (RBC) [Entitic mass] 32.3 pg Normal 24.7-34.3 [facility] Comment on above: Performed By: #### I GM, IGA, RA, LUPANTCOAG, RPR W RFX, IGG, SSA, SSB, CCP #### [facility] , #### TSH3, CBC, ESR, URIC, CMP #### [address] MCV (RBC) [Entitic vol] 91.0 fL Normal 80-100 [facility] Comment on above: Performed By: #### I GM, IGA, RA, LUPANTCOAG, RPR W RFX, IGG, SSA, SSB, CCP #### [facility] , #### TSH3, CBC, ESR, URIC, CMP #### [facility] [address] [place] [address] Mean Corpuscular HGB Conc 35.5 g/dL High 32.0-35.0 [facility] Comment on above: Performed By: #### I GM, IGA, RA, LUPANTCOAG, RPR W RFX, IGG, SSA, SSB, CCP #### [facility] , #### TSH3, CBC, ESR, URIC, CMP #### [place] [address] [place] Monocytes (Bld) [#/Vol] 0.3 10*3/uL Normal 0.0-0.8 [facility] Comment on above: Performed By: #### I GM, IGA, RA, LUPANTCOAG, RPR W RFX, IGG, SSA, SSB, CCP #### [facility] , #### TSH3, CBC, ESR, URIC, CMP #### [address] Monocytes/100 WBC (Bld) 6.2 % Normal . [facility] Comment on above: Performed By: #### I GM, IGA, RA, LUPANTCOAG, RPR W RFX, IGG, SSA, SSB, CCP #### [facility] , #### TSH3, CBC, ESR, URIC, CMP #### [address] Neutrophils (Bld) [#/Vol] 2.9 10*3/uL Normal 1.8-7.7 [facility] Comment on above: Performed By: #### I GM, IGA, RA, LUPANTCOAG, RPR W RFX, IGG, SSA, SSB, CCP #### [facility] , #### TSH3, CBC, ESR, URIC, CMP #### [place] [address] [place] Neutrophils/100 WBC (Bld) 53.7 % Normal . [facility] Comment on above: Performed By: #### I GM, IGA, RA, LUPANTCOAG, RPR W RFX, IGG, SSA, SSB, CCP #### [facility] , #### TSH3, CBC, ESR, URIC, CMP #### [place] [address] [place] Nucleated RBC/100 WBC (Bld) [Ratio] 0.2 % Normal 0-0.5 [facility] Comment on above: Performed By: #### I GM, IGA, RA, LUPANTCOAG, RPR W RFX, IGG, SSA, SSB, CCP #### [facility] , #### TSH3, CBC, ESR, URIC, CMP #### [address] Platelet mean volume (Bld) [Entitic vol] 9.0 fL Normal 6.3-10.7 [facility] Comment on above: Performed By: #### I GM, IGA, RA, LUPANTCOAG, RPR W RFX, IGG, SSA, SSB, CCP #### [facility] , #### TSH3, CBC, ESR, URIC, CMP #### [address] Platelets (Bld) [#/Vol] 186 10*3/uL Normal 150-450 [facility] Comment on above: Performed By: #### I GM, IGA, RA, LUPANTCOAG, RPR W RFX, IGG, SSA, SSB, CCP #### [facility] , #### TSH3, CBC, ESR, URIC, CMP #### [address] RBC (Bld) [#/Vol] 4.27 10*6/uL Normal 3.60-5.00 [facility] Comment on above: Performed By: #### I GM, IGA, RA, LUPANTCOAG, RPR W RFX, IGG, SSA, SSB, CCP #### [facility] , #### TSH3, CBC, ESR, URIC, CMP #### [address] WBC (Bld) [#/Vol] 5.4 10*3/uL Normal 4.5-11.0 [facility] Comment on above: Performed By: #### I GM, IGA, RA, LUPANTCOAG, RPR W RFX, IGG, SSA, SSB, CCP #### [facility] , #### TSH3, CBC, ESR, URIC, CMP #### [facility] [address] [place] [address] Comprehensive Metabolic Pane fuad 12-22-2020 Albumin [Mass/Vol] 4.0 g/dL Normal 3.2-5.5 [facility] Comment on above: Performed By: #### I GM, IGA, RA, LUPANTCOAG, RPR W RFX, IGG, SSA, SSB, CCP #### [facility] , #### TSH3, CBC, ESR, URIC, CMP #### [address] Albumin/Globulin [Mass ratio] 1.5 {ratio} Normal [facility] Comment on above: Performed By: #### I GM, IGA, RA, LUPANTCOAG, RPR W RFX, IGG, SSA, SSB, CCP #### [facility] , #### TSH3, CBC, ESR, URIC, CMP #### [facility] [address] [place] [address] ALP [Catalytic activity/Vol] 61 U/L Normal 32-92 [facility] Comment on above: Performed By: #### I GM, IGA, RA, LUPANTCOAG, RPR W RFX, IGG, SSA, SSB, CCP #### [facility] , #### TSH3, CBC, ESR, URIC, CMP #### [facility] [address] [place] [address] ALT [Catalytic activity/Vol] 14 U/L Normal 10-60 [facility] Comment on above: Performed By: #### I GM, IGA, RA, LUPANTCOAG, RPR W RFX, IGG, SSA, SSB, CCP #### [facility] , #### TSH3, CBC, ESR, URIC, CMP #### [facility] [address] [place] [address] AST [Catalytic activity/Vol] 20 U/L Normal 10-42 [facility] Comment on above: Performed By: #### I GM, IGA, RA, LUPANTCOAG, RPR W RFX, IGG, SSA, SSB, CCP #### [facility] , #### TSH3, CBC, ESR, URIC, CMP #### [facility] [address] [place] [address] Bilirubin [Mass/Vol] 0.7 mg/dL Normal 0.3-1.2 [facility] Comment on above: Performed By: #### I GM, IGA, RA, LUPANTCOAG, RPR W RFX, IGG, SSA, SSB, CCP #### [facility] , #### TSH3, CBC, ESR, URIC, CMP #### [address] Calcium [Mass/Vol] 9.4 mg/dL Normal 8.2-10.2 [facility] Comment on above: Performed By: #### I GM, IGA, RA, LUPANTCOAG, RPR W RFX, IGG, SSA, SSB, CCP #### [facility] , #### TSH3, CBC, ESR, URIC, CMP #### [facility] [address] [place] [address] Chloride [Moles/Vol] 100 mmol/L Normal 95-114 [facility] Comment on above: Performed By: #### I GM, IGA, RA, LUPANTCOAG, RPR W RFX, IGG, SSA, SSB, CCP #### [facility] , #### TSH3, CBC, ESR, URIC, CMP #### [facility] [address] [place] [address] CO2 [Moles/Vol] 25.9 mmol/L Normal 22.0-30.0 [facility] Comment on above: Performed By: #### I GM, IGA, RA, LUPANTCOAG, RPR W RFX, IGG, SSA, SSB, CCP #### [facility] , #### TSH3, CBC, ESR, URIC, CMP #### [address] Creatinine [Mass/Vol] 0.67 mg/dL Normal 0.44-1.03 [facility] Comment on above: Performed By: #### I GM, IGA, RA, LUPANTCOAG, RPR W RFX, IGG, SSA, SSB, CCP #### [facility] , #### TSH3, CBC, ESR, URIC, CMP #### [address] Estimated GFR ( Zenaida > 60 Normal [facility] Comment on above: Result Comment: GFR estimated reference range: According to KDOQI guidelines, <60 ml/min/1.73m2 is sufficient to diagnose a patient with chronic kidney disease. Performed By: #### I GM, IGA, RA, LUPANTCOAG, RPR W RFX, IGG, SSA, SSB, CCP #### [facility] , #### TSH3, CBC, ESR, URIC, CMP #### [address] Estimated GFR (Non- Am > 60 Normal [facility] Comment on above: Performed By: #### I GM, IGA, RA, LUPANTCOAG, RPR W RFX, IGG, SSA, SSB, CCP #### [facility] , #### TSH3, CBC, ESR, URIC, CMP #### [facility] [address] [place] [address] Globulin (S) [Mass/Vol] 2.6 g/dL Normal [facility] Comment on above: Performed By: #### I GM, IGA, RA, LUPANTCOAG, RPR W RFX, IGG, SSA, SSB, CCP #### [facility] , #### TSH3, CBC, ESR, URIC, CMP #### [address] Glucose [Mass/Vol] 91 mg/dL Normal 70-100 [facility] Comment on above: Result Comment: [facility] Glucose Reference Range is dependent on time and content of last meal. Glucose of more than 200 mg/dL in a nonstressed, ambulatory subject supports the diagnosis of Diabetes Mellitus. ADA recommended reference range Performed By: #### I GM, IGA, RA, LUPANTCOAG, RPR W RFX, IGG, SSA, SSB, CCP #### [facility] , #### TSH3, CBC, ESR, URIC, CMP #### [address] Potassium [Moles/Vol] 4.3 mmol/L Normal 3.5-5.1 [facility] Comment on above: Performed By: #### I GM, IGA, RA, LUPANTCOAG, RPR W RFX, IGG, SSA, SSB, CCP #### [facility] , #### TSH3, CBC, ESR, URIC, CMP #### [address] Protein [Mass/Vol] 6.6 g/dL Normal 6.1-7.9 [facility] Comment on above: Performed By: #### I GM, IGA, RA, LUPANTCOAG, RPR W RFX, IGG, SSA, SSB, CCP #### [facility] , #### TSH3, CBC, ESR, URIC, CMP #### [address] Sodium [Moles/Vol] 136 mmol/L Normal 136-146 [facility] Comment on above: Performed By: #### I GM, IGA, RA, LUPANTCOAG, RPR W RFX, IGG, SSA, SSB, CCP #### [facility] , #### TSH3, CBC, ESR, URIC, CMP #### [address] Urea nitrogen [Mass/Vol] 9 mg/dL Normal 9-23 [facility] Comment on above: Performed By: #### I GM, IGA, RA, LUPANTCOAG, RPR W RFX, IGG, SSA, SSB, CCP #### [facility] , #### TSH3, CBC, ESR, URIC, CMP #### [facility] [address] [place] [address] [place] Cyclic Citrulliated Pep Abon 12-22-2020 Cyclic Citrulliated Pep Ab 3 Normal 0-19 [facility] Comment on above: Result Comment: Nega tive <20 Weak positive 20 - 39 Moderate positive 40 - 59 Strong positive >59 Performed at: - [facility] [id number] Ceo: Alexandru Bravo MD, Phone: [phone] Performed By: #### I GM, IGA, RA, LUPANTCOAG, RPR W RFX, IGG, SSA, SSB, CCP #### [facility] , #### TSH3, CBC, ESR, URIC, CMP #### [facility] [address] [place] [address] [place] Dipstick and Microscopicon 0 12-22-2020 Appearance (U) Turbid Critically abnormal Clear [facility] Comment on above: Order Comment: Name Collection Type:: Clean-Voided Midstream Performed By: #### A DDONUAPLUS #### [place] [address] [place] Bacteria,Urine None Seen Normal None Seen [facility] Comment on above: Order Comment: Name Collection Type:: Clean-Voided Midstream Performed By: #### A DDONUAPLUS #### [facility] [address] [place] [address] [place] Bilirubin,Urine Negative Normal Negative [facility] Comment on above: Order Comment: Name Collection Type:: Clean-Voided Midstream Performed By: #### A DDONUAPLUS #### [facility] [address] [place] [address] [place] Color (U) Yellow Normal Yellow [facility] Comment on above: Order Comment: Name Collection Type:: Clean-Voided Midstream Performed By: #### A DDONUAPLUS #### [facility] [address] [place] [address] [place] Glucose Ql (U) Normal Normal Normal [facility] Comment on above: Order Comment: Name Collection Type:: Clean-Voided Midstream Performed By: #### A DDONUAPLUS #### [address] Hyaline Casts,Urine 0-8 Normal 0-8 [facility] Comment on above: Order Comment: Name Collection Type:: Clean-Voided Midstream Result Comment: PERF ORMED BY: [place] [address] PATHOLOGIST CULTURAL ANTHROPOLOGY PROFESSOR RANDY PERRIN M.D. Performed By: #### A DDONUAPLUS #### [address] Ketones Ql (U) Negative Normal Negative [facility] Comment on above: Order Comment: Name Collection Type:: Clean-Voided Midstream Performed By: #### A DDONUAPLUS #### [address] Leukocyte esterase Test strip Ql (U) 1+ High Negative [facility] Comment on above: Order Comment: Name Collection Type:: Clean-Voided Midstream Performed By: #### A DDONUAPLUS #### [address] Nitrite,Urine Negative Normal Negative [facility] Comment on above: Order Comment: Name Collection Type:: Clean-Voided Midstream Performed By: #### A DDONUAPLUS #### [address] Occult Blood,Urine Negative Normal Negative [facility] Comment on above: Order Comment: Name Collection Type:: Clean-Voided Midstream Result Comment: PERF ORMED BY: [place] [address] PATHOLOGIST CULTURAL ANTHROPOLOGY PROFESSOR RANDY PERRIN M.D. Performed By: #### A DDONUAPLUS #### [facility] [address] [place] [address] [place] pH (U) 7.5 [pH] Normal 5.0-9.0 [facility] Comment on above: Order Comment: Name Collection Type:: Clean-Voided Midstream Performed By: #### A DDONUAPLUS #### [facility] [address] [place] [address] [place] Protein,Urine Negative Normal Negative [facility] Comment on above: Order Comment: Name Collection Type:: Clean-Voided Midstream Performed By: #### A DDONUAPLUS #### [facility] [address] [place] [address] RBC LM.HPF (Urine sed) [#/Area] 0 /[HPF] Normal 0-4 [facility] Comment on above: Order Comment: Name Collection Type:: Clean-Voided Midstream Performed By: #### A DDONUAPLUS #### [address] Specificy [place],Urine 1.023 Normal 1.001-1.030 [facility] Comment on above: Order Comment: Name Collection Type:: Clean-Voided Midstream Performed By: #### A DDONUAPLUS #### [facility] [address] [place] [address] Squamous Epithelial Cell,Urine 3-4 High 0-2 [facility] Comment on above: Order Comment: Name Collection Type:: Clean-Voided Midstream Performed By: #### A DDONUAPLUS #### [address] Urobilinogen,Urine Normal Normal Normal [facility] Comment on above: Order Comment: Name Collection Type:: Clean-Voided Midstream Performed By: #### A DDONUAPLUS #### [facility] [address] [place] [address] [place] WBC,Urine 1-2 Normal 0-4 [facility] Comment on above: Order Comment: Name Collection Type:: Clean-Voided Midstream Performed By: #### A DDONUAPLUS #### [address] Erythrocyte Sedimentation Ra abilio 12-22-2020 ESR (Bld) [Velocity] 15 mm/h Normal 0-19 [facility] Comment on above: Result Comment: PERF ORMED BY: [place] [address] PATHOLOGIST CULTURAL ANTHROPOLOGY PROFESSOR RANDY PERRIN M.D. Performed By: #### I GM, IGA, RA, LUPANTCOAG, RPR W RFX, IGG, SSA, SSB, CCP #### [facility] , #### TSH3, CBC, ESR, URIC, CMP #### [place] [address] [place] Immunoglobulin A, Serumon Immunoglobulin A, Serum 174 mg/dL Normal 87-352 [facility] Comment on above: Performed By: #### I GM, IGA, RA, LUPANTCOAG, RPR W RFX, IGG, SSA, SSB, CCP #### [facility] , #### TSH3, CBC, ESR, URIC, CMP #### [place] [address] [place] Immunoglobulin Adolfo 1 Immunoglobulin G 1011 mg/dL Normal 586-1602 [facility] Comment on above: Performed By: #### I GM, IGA, RA, LUPANTCOAG, RPR W RFX, IGG, SSA, SSB, CCP #### [facility] , #### TSH3, CBC, ESR, URIC, CMP #### [place] [address] [place] Immunoglobulin M, Serumon Immunoglobulin M, Serum 78 mg/dL Normal 26-217 [facility] Comment on above: Result Comment: Perf ormed at: - [facility] [address] [id number] Ceo: Zachery Brown PhD, Phone: [phone] Performed By: #### I GM, IGA, RA, LUPANTCOAG, RPR W RFX, IGG, SSA, SSB, CCP #### [facility] , #### TSH3, CBC, ESR, URIC, CMP #### [address] Lupus Anticoagulant Compon 0 - Dilute Prothrombin Time (dPt) 32.2 Normal 0.0-55.0 [facility] Comment on above: Performed By: #### I GM, IGA, RA, LUPANTCOAG, RPR W RFX, IGG, SSA, SSB, CCP #### [facility] , #### TSH3, CBC, ESR, URIC, CMP #### [address] dPT Confirm Ratio 1.05 Normal 0.00-1.40 [facility] Comment on above: Performed By: #### I GM, IGA, RA, LUPANTCOAG, RPR W RFX, IGG, SSA, SSB, CCP #### [facility] , #### TSH3, CBC, ESR, URIC, CMP #### [address] DRVVT Lupus 29.3 Normal 0.0-47.0 [facility] Comment on above: Performed By: #### I GM, IGA, RA, LUPANTCOAG, RPR W RFX, IGG, SSA, SSB, CCP #### [facility] , #### TSH3, CBC, ESR, URIC, CMP #### [address] Hexagonal Phase Phospholipid 0 Normal 0-11 [facility] Comment on above: Performed By: #### I GM, IGA, RA, LUPANTCOAG, RPR W RFX, IGG, SSA, SSB, CCP #### [facility] , #### TSH3, CBC, ESR, URIC, CMP #### [address] Interpretation Comment: Normal . [facility] Comment on above: Result Comment: [...] the absence of anticoagulant therapy. Performed at: [address] [id number] Ceo: Alexandru Bravo MD, Phone: [phone] Performed By: #### I GM, IGA, RA, LUPANTCOAG, RPR W RFX, IGG, SSA, SSB, CCP #### [facility] , #### TSH3, CBC, ESR, URIC, CMP #### [address] PTT-LA 56.5 High 0.0-51.9 [facility] Comment on above: Performed By: #### I GM, IGA, RA, LUPANTCOAG, RPR W RFX, IGG, SSA, SSB, CCP #### [facility] , #### TSH3, CBC, ESR, URIC, CMP #### [address] PTT-LA Mix 55.0 High 0.0-48.9 [facility] Comment on above: Performed By: #### I GM, IGA, RA, LUPANTCOAG, RPR W RFX, IGG, SSA, SSB, CCP #### [facility] , #### TSH3, CBC, ESR, URIC, CMP #### [address] Thrombin Time 17.1 Normal 0.0-23.0 [facility] Comment on above: Performed By: #### I GM, IGA, RA, LUPANTCOAG, RPR W RFX, IGG, SSA, SSB, CCP #### [facility] , #### TSH3, CBC, ESR, URIC, CMP #### [address] RPR w/rfx to Quant TP Abson 04-22-2021 RPR, Rfx Quant RPR Non-Reactive Normal Non Reactive [facility] Comment on above: Result Comment: Perf ormed at: [facility] [address] [id number] Ceo: Zachery Brown PhD, Phone: [phone] PERFORMED BY: [place] [address] PATHOLOGIST CULTURAL ANTHROPOLOGY PROFESSOR RANDY PERRIN M.D. Performed By: #### I GM, IGA, RA, LUPANTCOAG, RPR W RFX, IGG, SSA, SSB, CCP #### [facility] , #### TSH3, CBC, ESR, URIC, CMP #### [facility] [address] [place] [address] Rheumatoid Factoron 12-23-19 Rheumatoid Factor <10.0 Normal 0.0-13.9 [facility] Comment on above: Performed By: #### I GM, IGA, RA, LUPANTCOAG, RPR W RFX, IGG, SSA, SSB, CCP #### [facility] , #### TSH3, CBC, ESR, URIC, CMP #### [facility] [address] [place] [address] SS-A/Ro Sjogrens Antibodyon 12-22-2020 SS-A/Ro Sjogrens Antibody <0.2 Normal 0.0-0.9 [facility] Comment on above: Performed By: #### I GM, IGA, RA, LUPANTCOAG, RPR W RFX, IGG, SSA, SSB, CCP #### [facility] , #### TSH3, CBC, ESR, URIC, CMP #### [facility] [address] [place] [address] SS-B/La Sjogrens Antibodyon 12-22-2020 SS-B/La Sjogrens Antibody <0.2 Normal 0.0-0.9 [facility] Comment on above: Result Comment: Perf ormed at: - [facility] [place] [address] [place], [place] [id number] Ceo: Zachery Brown PhD, Phone: [phone] Performed By: #### I GM, IGA, RA, LUPANTCOAG, RPR W RFX, IGG, SSA, SSB, CCP #### [facility] , #### TSH3, CBC, ESR, URIC, CMP #### [address] Thyroid Stimulating Hormoneo n 12-22-2020 TSH Qn 1.15 m[IU]/L Normal 0.45-5.33 [facility] Comment on above: Result Comment: PERF ORMED BY: [place] [address] PATHOLOGIST CULTURAL ANTHROPOLOGY PROFESSOR RANDY PERRIN M.D. Performed By: #### I GM, IGA, RA, LUPANTCOAG, RPR W RFX, IGG, SSA, SSB, CCP #### [facility] , #### TSH3, CBC, ESR, URIC, CMP #### [address] Uric Acidon 12-22-2020 Urate [Mass/Vol] 2.9 mg/dL Normal 2.6-7.2 [facility] Comment on above: Performed By: #### I GM, IGA, RA, LUPANTCOAG, RPR W RFX, IGG, SSA, SSB, CCP #### [facility] , #### TSH3, CBC, ESR, URIC, CMP #### [address] CNOVSPon 03-03-2020 CNOVSP Visit (SP) Office ([facility]) DIXON DURAN ([id number]) 1990 F Date Time Provider Department 03/03/20 2:00 PM MICHOACANO GARRETT During your visit today, we recorded the following information about you: Temperature Pulse Respiration Blood pressure 97.5 degrees 79/minute 16/minute 106/63 Weight Height Last Period 64.4 kg 1.778 m 02/22/20 Michoacano Garrett MD 03/03/2020 6:44 PM Signed NAME: Dixon Duran CLINIC NO.: [id number] DATE OF SERVICE: March 03, 2020 Referring [...] Renal Disease Father Michoacano Garrett MD, CPE [facility] [place], [place] CC: Elroy Palma DO [address] [facility] [address] Elroy Palma DO [address] [facility] [address] Referring Provider: ELROY PALMA [[id number]] Allergies As of Date: 03/03/2020 (No Known [...] by MICHOACANO GARRETT MD on 03/03/20 [facility] PRO[facility]ESS[facility] 03-03-2020 PROGRESS HNO ID: [id number] Author: Michoacano Garrett Service: ? Author Type: Physician Type: Progress Notes Filed: 03/03/2020 6:44 PM Note Text: NAME: Dixon Duran [facility] NO.: [id number] DATE OF SERVICE: March 03, 2020 Referring [...] Renal Disease Father Michoacano Garrett MD, CPE [place], [place] CC: Elroy Palma, DO [address] [facility] [address] [place] Andrei Palma, DO [address] [facility] [address] Normal [facility] Coding Summary.on 02-24-2019 Coding Summary. CODING DATE: 02/24/2019 FINAL [facility] STATUS: Home (Routine DC) PAYOR: Self [...] Guidry Date Saved: 02/24/2019 08:37 am Normal [facility] Hep Bs Abon 02-11-2019 HBV surface Ab Ql (S) Reactive [facility] Comment on above: Result Comment: Non Reactive: Inconsistent with immunity, less than 10 mIU/mL Reactive: Consistent with immunity, greater than 9.9 mIU/mL Performed at: [address] [id number] PhD Stephanie Bingham Performed By: #### 2 289362, 1598571, 6179526, 09648088, 20376566, 1447255, 0846815, 85131849 #### [facility] [address] [place] [address] Hep Bs Agon 02-11-2019 HBV surface Ag IA Ql Negative Negative [facility] Comment on above: Result Comment: Perf ormed at: [address] [id number] PhD Stephanie Bingham Performed By: #### 2 947089, 0923117, 2649817, 93831365, 94785319, 9070334, 4886087, 44840539 #### [facility] [address] [place] [address] WRITTEN AUTHORIZATIONon 01-31 Written Authorization Comment [facility] Comment on above: Result Comment: Writ ten Authorization Received. Authorization received from SHANNON FENG 02-10-2019 Logged by Tangela Taylor Performed at: [address] [id number] PhD Stephanie Bingham Performed By: #### 2 123119, 1941711, 2982155, 25991500, 22150182, 1169576, 1717420, 95313595 #### [facility] [address] [place] [address] VERBAL ORDER INFOon 02-11-20 19 Additional Test(s) Request Comment: [facility] Comment on above: Result Comment: Test (s) added per SHANNON FENG at account 02-10-2019 Logged by Marely Kruse Test# [id number] Hep A Ab, Total Performed at: [address] [id number] PhD Stephanie Bingham Performed By: #### 2 472951, 8431870, 6288015, 64948134, 10172226, 6082498, 1900153, 38470394 #### [facility] [address] [place] [address] See below: Comment: [facility] Comment on above: Result Comment: Vince stoll [...] The Test(s) Listed Performed By: #### 2 983800, 8650226, 8283507, 89445734, 13598129, 6286287, 7657228, 18095294 #### [facility] [address] [place] [address] CBC w/Indiceson 02-09-2019 Erythrocyte distribution width (RBC) [Ratio] 13.6 % Normal 10.9-14.2 [facility] Comment on above: Performed By: #### 2 309926, 7904393, 8097003, 89450229, 48117782, 8055676, 1269175, 64162405 #### [facility] [address] [place] [address] Hematocrit (Bld) [Volume fraction] 36.5 % Normal 34.0-46.0 [facility] Comment on above: Performed By: #### 2 869905, 8810150, 3853473, 50778146, 00126580, 1796269, 7305357, 66684053 #### [facility] [address] [place] [address] Hemoglobin (Bld) [Mass/Vol] 12.9 g/dL Normal 12.0-16.0 [facility] Comment on above: Performed By: #### 2 830142, 8967165, 0313994, 64976362, 94264611, 0415649, 6744375, 96009420 #### [facility] [address] [place] [address] MCH (RBC) [Entitic mass] 30.3 pg Normal 27.0-34.0 [facility] Comment on above: Performed By: #### 2 947153, 6419452, 9002300, 25621883, 69726899, 1019852, 9985706, 91164640 #### [facility] [address] [place] [address] MCHC (RBC) [Mass/Vol] 35.2 g/dL Normal 33.3-35.7 [facility] Comment on above: Performed By: #### 2 135264, 6867644, 4299422, 27318424, 51209716, 1796751, 8773648, 26417083 #### [facility] [address] [place] [address] MCV (RBC) [Entitic vol] 86.2 fL Normal 80.0-100.0 [facility] Comment on above: Performed By: #### 2 627034, 7853652, 8026000, 24291097, 42899493, 7963570, 0371685, 54601452 #### [facility] [address] [place] [address] Platelet mean volume (Bld) [Entitic vol] 9.1 fL Normal 6.4-10.8 [facility] Comment on above: Performed By: #### 2 464349, 2090391, 7417905, 36310628, 05280437, 9091968, 3713218, 96194922 #### [facility] [address] [place] [address] Platelets (Bld) [#/Vol] 194.0 E9/L Normal 150.0-500.0 [facility] Comment on above: Performed By: #### 2 058303, 8678508, 2459263, 79614028, 37918258, 2183911, 8166313, 94824034 #### [facility] [address] [place] [address] RBC (Bld) [#/Vol] 4.2 E12/L Low 4.3-5.9 [facility] Comment on above: Performed By: #### 2 693562, 0151278, 3847959, 44783560, 72298228, 1521767, 7016573, 70433479 #### [facility] [address] [place] [address] WBC corrected for nucl RBC Auto (Bld) [#/Vol] 5.7 E9/L Normal 4.0-11.0 [facility] Comment on above: Performed By: #### 2 761531, 5201732, 0166367, 18488589, 22154332, 6695008, 1405147, 79306532 #### [facility] [address] [place] [address] CMPon 02-09-2019 Albumin [Mass/Vol] 3.9 g/dL Normal 3.3-5.0 [facility] Comment on above: Performed By: #### 2 783196, 8162976, 1598026, 82752442, 64912399, 2733454, 9323471, 15398049 #### [facility] [address] [place] [address] Albumin [Mass/Vol] 1.2 g/dL Normal 1.1-2.2 [facility] Comment on above: Performed By: #### 2 320629, 0432271, 5083843, 58299941, 14073272, 0044341, 9081432, 62405188 #### [facility] [address] [place] [address] ALP [Catalytic activity/Vol] 81 Int._Unit/L Normal 21-98 [facility] Comment on above: Performed By: #### 2 443968, 5106750, 3542426, 75206626, 04408817, 2256305, 5894716, 65111673 #### [facility] [address] [place] [address] ALT No additional P-5'-P [Catalytic activity/Vol] 14 Int._Unit/L Normal 6-46 [facility] Comment on above: Performed By: #### 2 230885, 8476038, 3325345, 07412544, 35472952, 1097364, 7889097, 90427487 #### [facility] [address] [place] [address] Anion gap [Moles/Vol] 11 mmol/L Normal 6-16 [facility] Comment on above: Performed By: #### 2 645067, 6846816, 6060504, 80502317, 34626210, 6404783, 3077779, 58004195 #### [facility] [address] [place] [address] AST [Catalytic activity/Vol] 26 Int._Unit/L Normal 5-43 [facility] Comment on above: Performed By: #### 2 999102, 1714645, 7151631, 75380734, 00991870, 9565367, 3965242, 13624325 #### [facility] [address] [place] [address] Bilirubin [Mass/Vol] 0.5 mg/dL Normal 0.0-1.1 [facility] Comment on above: Performed By: #### 2 540330, 6518362, 0779153, 97821729, 40939770, 5464087, 8578516, 89505872 #### [facility] [address] [place] [address] Calcium [Mass/Vol] 9.0 mg/dL Normal 8.9-11.1 [facility] Comment on above: Performed By: #### 2 410146, 6701100, 2647663, 69569996, 57435737, 9199031, 2649825, 78797669 #### [facility] [address] [place] [address] Chloride [Moles/Vol] 107 mmol/L Normal 101-111 [facility] Comment on above: Performed By: #### 2 062944, 0621504, 7678182, 21601885, 27993501, 4742808, 0093218, 29695254 #### [facility] [address] [place] [address] CO2 [Moles/Vol] 20 mmol/L Low 21-31 [facility] Comment on above: Performed By: #### 2 349787, 2299769, 0498022, 07897856, 84550165, 9345478, 3922369, 38365642 #### [facility] [address] [place] [address] Creatinine [Mass/Vol] 0.6 mg/dL Normal 0.5-1.3 [facility] Comment on above: Performed By: #### 2 962089, 6147467, 8952830, 46353472, 41440102, 1346059, 1154059, 00355193 #### [facility] [address] [place] [address] Globulin (S) [Mass/Vol] 3.3 g/dL Normal 1.4-4.0 [facility] Comment on above: Performed By: #### 2 722939, 9091318, 0719859, 28569562, 33635171, 3180232, 4459699, 27763923 #### [facility] [address] [place] [address] Glucose [Mass/Vol] 90 mg/dL Normal 55-199 [facility] Comment on above: Result Comment: If t his glucose result represents a fasting glucose, interpretation should refer to the following reference range: 55-99 mg/dL Performed By: #### 2 [id number], 2812354, 9275754, 83605602, 22319348, 8127604, 5148026, [id number] #### [facility] [address] [place] [address] Potassium [Moles/Vol] 3.8 mmol/L Normal 3.5-5.3 [facility] Comment on above: Performed By: #### 2 837369, 0142356, 4676618, 43250917, 64682875, 8420857, 4186602, [id number] #### [facility] [address] [place] [address] Protein [Mass/Vol] 7.2 g/dL Normal 6.0-7.8 [facility] Comment on above: Performed By: #### 2 458008, 5841502, 5934288, 82929988, 46658413, 6733662, 5351177, 81040973 #### [facility] [address] [place] [address] Sodium [Moles/Vol] 134 mmol/L Low 135-145 [facility] Comment on above: Performed By: #### 2 850271, 1195802, 5575573, 63301863, 05410929, 5875368, 9030282, 29122529 #### [facility] [address] [place] [address] Urea nitrogen [Mass/Vol] 11 mg/dL Normal 5-21 [facility] Comment on above: Performed By: #### 2 276527, 6353928, 2139700, 68978407, 64900354, 9465458, 3996626, 54165085 #### [facility] [address] [place] [address] Urea nitrogen/Creatinine [Mass ratio] 18 No Units Normal 10-20 [facility] Comment on above: Performed By: #### 2 189486, 0854644, 1564594, 22440699, 64319796, 0522625, 9836857, 15876948 #### [facility] [address] [place] [address] PTon 02-09-2019 INR Coag (PPP) [Relative time] 1.0 {INR} [facility] Comment on above: Result Comment: INR results are specifically intended to assess patients stabilized on long-term Anticoagulation therapy suggested INR?s ?Less Intensive Anticoagulation? 2.0 ? 3.0 Conventional Range 3.0 ? 4.5 Performed By: #### 2 844749, 0958887, 9567139, 07326711, 32133042, 2308446, 9762009, 64586506 #### [facility] [address] [place] [address] PT Coag (PPP) [Time] 11.2 second(s) Normal 10.2-12.9 [facility] Comment on above: Performed By: #### 2 494339, 2757287, 3164084, 04871528, 95988485, 8892821, 2054204, 27039309 #### [facility] [address] [place] [address] US Abdomen, Limitedon 2018 US Abdomen, Limited [...] MD Transcribed by: SCOOBY Technologist: ALIZE Ochoa [facility] eGFRon 02-09-2019 GFR/1.73 sq M predicted among blacks MDRD (S/P/Bld) [Vol rate/Area] mL/min/{1.73_m2} Normal >=59 [facility] Comment on above: Order Comment: Order added by Discern Expert. Result Comment: eGFR is race adjusted. AA=. Performed By: #### 2 813999, 8937496, 6706006, 52392955, 02038644, 8166373, 4472657, [id number] #### [facility] [address] [place] [address] GFR/1.73 sq M predicted among non-blacks MDRD (S/P/Bld) [Vol rate/Area] mL/min/{1.73_m2} Normal >=59 [facility] Comment on above: Order Comment: Order added by Discern Expert. Result Comment: Shoe Worker ruben kidney disease could be indicated at eGFR's of less than 60 mL/min/1.73m2. Kidney failure is indicated at less than 15 mL/min/1.73m2. Performed By: #### 2 627436, 8203265, 1576791, 27478894, 62707086, 1428430, 5791366, 80814414 #### [facility] [address] [place] [address] Vital Signs Date Time Vital Sign Value Performing Clinician Facility 08-15-2023 11:00-0500 Body height 177.8 cm Karen Brantley Other [facility] 08-15-2023 11:00-0500 Body mass index (BMI) [Ratio] 19.66 kg/m2 Karen Brantley Other [facility] 08-15-2023 11:00-0500 Body temperature 98.8 [degF] Karen Brantley Other [facility] 08-15-2023 11:00-0500 Body weight 62.14 kg Karen Brantley Other [facility] 08-15-2023 11:00-0500 Respiratory rate 18 /min Karen Brantley Other [facility] Other 08-15-2023 11:00-0500 SaO2% (BldA) [Mass fraction] 98 % Karen Brantley Other [facility] Other Encounters Encounter Date Encounter Type Care Provider Facility Start: 08-22-2023 End: 08-22-2023 ambulatory IVN ADDISON Not Available Start: 08-15-2023 End: 08-15-2023 ambulatory Karen Brantley Other [facility] Start: 08-15-2023 Office outpatient visit 25 minutes [facility] Start: 10-17-2022 End: 10-17-2022 ambulatory TOPHER SHAMMO Facility:[facility] Start: 08-29-2022 End: 08-29-2022 ambulatory TOPHER SHAMMO Facility:[facility] Start: 08-08-2022 End: 08-08-[address] BRITTNY JOHNSON REQUEST Facility:[facility] Start: 06-01-2022 End: 06-01-[address] AJ Hooper Facility:[facility] Start: 01-09-2022 End: 01-09-2022 ambulatory DESI KUHN Facility:[facility] Start: 06-30-2018 End: 07-01-2018 Patient encounter procedure DEFAULT PHYSICIAN Facility:[facility] Payers Date Payer Category Payer Unknown [id number] [id number] [id number] 1990 Unknown [id number] 2.16.84 [id number] 1990 Unknown [id number] 2.16.84 [id number] 1990 Unknown [id number] 2.16.84 [id number] 1990 Unknown [id number] 2.16.84 [id number] 1990 Unknown [id number] 2.16.84 [id number] 1990 Unknown [id number] 1959 Unknown [id number] 1959 Unknown [id number] Unknown Social History Date Type Detail Facility Unknown if ever smoked [facility] Other Sex Assigned At Sex Assigned At Bir th [facility] Other Evaluation note 08-15-2023 Note Date & [...] (suspected) exposure to covid-19 (ICD-10 - Z20.822) [facility] Other History general Narrative - Reported Note Date & Type Note Facility History general Narrative - Reported Type Medical History chronic back pain Medical History mrsa Medical History pneumonia Surgical History C section Hospitalization History child x2 Hospitalization History see above [facility] Other Summary Purpose Family History No Family [...] section and content) DATE CREATED AUTHOR 08/04/2018 [facility] DATE CREATED AUTHOR AUTHOR'S ORGANIZ ATION 07/24/2019 [facility] DATE CREATED AUTHOR AUTHOR'S ORGANIZ ATION 03/25/2020 [facility] DATE CREATED AUTHOR AUTHOR'S ORGANIZ ATION 09/17/2021 [facility] DATE CREATED AUTHOR AUTHOR'S ORGANIZ ATION 12/26/2022 [facility] DATE CREATED AUTHOR AUTHOR'S ORGANIZ ATION 08/23/2023 [facility] EPIC REASON FOR VISIT (unrecogniz [...] BE BASED ON THE PRIMARY CLINICAL RECORDS. [employer] provides no warranty or guarantee of the accuracy or completeness of information in this document.
--- NOTE | 2023-09-26 16:02 | P.CN_ITS ---
Consult Note: HPI Data of Consult Patient: known to practice within the last 3 years Consult date: 09/23/23 Requesting Physician: Medina Guerra NP Primary Care Provider: TREY ALEXANDRE Consult Narrative Reason for consult: Mid back, low back pain, bilateral lower extremity pain Narrative: 33yof who presents for evaluation. Longstanding mid and low back pain. Has engaged in chiropractic therapy and >6 weeks of provider directed home exercise program, with minimal benefit. Uses diclofenac, which helps to some degree. Previous drug abuse, has been clean for 4 years. Recently was able to stop suboxone, as well. Recently underwent xray imaging of thoracic and lumbar spine consistent with scoliosis, facet arthropathy, and degenerative disc disease. cc:: CC: Medina Guerra NP Review of Systems ROS Status of ROS 10 or more systems reviewed and unremark able except as noted in history and below Musculoskeletal Reports: back pain PFSH PFSH Medical History Hepatitis C ?B19.20 - Unspecified viral hepatitis C without hepatic coma (ICD-10) Social History Smoking status: Current every day smoker Meds Home Medications and Allergies Home Medications Medication Instructions Recorded Confirmed Type diclofenac sodium 75 mg 75 mg PO BID 09/23/23 09/23/23 History tablet,delayed release Allergies Allergy/AdvReac Type Severity Reaction Status Date / Time No Known Drug Allergies Allergy Verified 04/21/23 12:01 Exam Narrative Exam Narrative: Psych-alert and oriented x 3. Attentive and appropriate, constitutionally normal, displays normal mood and affect per situation.? There are no obvious deficits in memory, reasoning, or intellect.? Skin-no obvious rashes, bruising, erythema noted to the patient's area of pain. Extremities- extremities are warm with minimal edema and palpable pulses. Lumbar-no significant tenderness to palpation noted in the lumbar spine and paraspinal musculature.?notable scoliosis Pain is elicited with extension, and lateral rotation of the lumbar spine. Range of motion is slightly diminished with these motions due to pain. Facet loading maneuvers are positive bilaterally and do appear to be concordant with the patient's normal complaints of pain.? Coordination remains intact.? Gait remains non-antalgic. Constitutional Documenting provider has reviewed patient's vital signs: yes Common normals: no apparent distress, oriented x3, healthy appearing, alert and well nourished General appearance: cooperative HENMT Common normals: normocephalic, hearing grossly normal bilaterally and moist oral mucous membranes Head and scalp: normocephalic Eye Common normals: PERRL Pupil: PERRL Neck & C-Spine Common normals: full ROM General: normal visual inspection Chest Common normals: inspection of chest normal Respiratory Common normals: normal respiratory effort, no retractions and no use of accessory muscles Neuro Common normals: oriented x3, CN's II-XII intact bilaterally, moves all extremities, no focal motor deficits, no sensory deficits noted and deep tendon reflexes 2+ bilaterally Sensorium/orientation: alert Motor exam: strength 5/5 throughout and no movement abnormalities noted Psych Common normals: mental status grossly normal, thought process normal, cooperative, affect normal, speech normal and activity/motor behavior normal Speech: normal speech Thought process: normal thought process Results Additional Findings Additional findings: I have checked an OARRS report on this patient today and there are no aberrancies noted in the prescribing history.?? A drug screen was completed and reviewed within the last year, and if there has not been a drug screen completed we ordered one today to monitor higher risk, state monitored pain medication use. As part of providing excellent, safe, comprehensive care, the following was completed at our patient's visit: 1. A medication reconciliation and review to ensure accurate knowledge of current/active medications, including asking our patients to inform us about any [id number] medications or herbal remedies/nutritional supplements/alternative remedies. 2. A review to specifically ensure our patients have had annual screening for: elevated body mass index (BMI), tobacco use, screening for depression, and screening for unhealthy alcohol use. When screening is concerning, patients are provided with education and the specific recommendation to discuss the concerning health issue and treatment options with their primary care provider. Assessment and Plan Assessment and Plan (1) Lumbar spondylosis: Assessment and Plan: The patient has had over 3 months of moderate to severe lumbar pain with funct ional impairment and inadequate response to conservative care including NSAIDS (unless there are contraindication such as concurrent blood thinners), multiple oral or topical pain medications, and home exercise program/physical therapy.? Patient has completed >6 weeks of guided home exercise program and/or formal physical therapy program without relief of their symptoms.? I have reviewed the imaging of the lumbar spine and no red flags were identified.? The imaging reveals radiographic findings consistent with scoiliosis, lumbar spondylosis We discussed the risks and benefits of the procedure with the patient, and we are NOT planning on using sedation as outlined in the guidelines from Medicare unless there is a documented reason that sedation would be strongly recommended.?? ?The procedure will be completed with fluoroscopic guidance.? (2) Lumbar back pain: (3) Thoracic back pain: Qualifiers: Chronicity: chronic Back pain laterality: bilateral Qualified Code(s): M54.6 - Pain in thoracic spine; G89.29 - Other chronic pain (4) Myofascial pain: Plan imaging reviewed with patient discussed myofascial pain and gauged her ability to tolerate a muscle relaxer with substance abuse hx, patient confident that she can tolerate a muscle relaxer without risk of relapse tizanidine 4mg daily as needed orthospine consult for consideration of corrective bracing for progressive scoliosis plan for bilateral L1-2 l2-3 facet medial branch block based on imaging and physical exam, x2 working towards thermal RFA. f/u 1 week after procedure
== END 2023-09-26 14:54 | disposition home or self-care (01) ==
LOC: PM 14:54
PROVIDERS: PCP Nurse Practitioner Primary Care; Visit Provider Nurse Practitioner
DX: M47.816 Spondylosis without myelopathy or radiculopathy, lumbar region (principal); M54.6 Pain in thoracic spine; M54.50 Low back pain, unspecified; G89.29 Other chronic pain
CPT/HCPCS: G0463

== ENCOUNTER 2024-02-25 20:38 | Outpatient (REF) | payer OTHER, SELFPAY ==
--- OUTSIDE RECORDS SUMMARY | 2024-02-25 20:43 | XMS_ITS | CCD ---
Author Organization [place] [facility] Team Providers Care Title Curator Name Role Phone PHYSICIAN, DEFAULT Unavailable Unavailable PHYSICIAN, DEFAULT Unavailable Unavailable REQUEST, DR MART LISTED Primary Care Unavaila ble MARKER ., DR BERRY Admitting Unavailable MARKER ., DR BERRY Attending Unavailable WEST, DR CECY Fan Consulting Unavailable ZIEBER, DR TEDDY Leroy Consulting Unavailable MARKER ., DR BERRY Consulting Unavailable DWAIN ., DAVID Consulting Unavailable MORIS, RAMON Consulting Unavailable DESI KUHN Admitting Unavailable DESI KUHN Attending Unavailable [facility] [place] Primary Care Unavailable GRECHNY ., [...] Care Unavaila ble SHAMMO, TOPHER Consulting Unavailable Fercho, Karen Unavailable VIN ADDISON Attending Unavailable Harry PENNY, Catina Deal Attending Unavailable Allergies Allergy Classification Reported Allergen(s) Allergy Type Date of Onset Reaction(s) Facility (1 source) Bacitracin / Neomycin / Polymyxin B Drug Allergy anaphylaxis [facility] Other Medications Current Medications Medication Drug Class(es) [...] oral tablet (1 source) alpha-Adrenergic Agonist, Uncompetitive G-pobpks-O-aspartat e Receptor Antagonist, Sigma-1 Agonist Start: 08-15-2023 [...] Drug Class(es) Dates Sig (Normalized) Sig (Original) [id number] actuat albuterol 0.09 mg/actuat metered dose [...] 2 Episodic Other aftercare (1 source) Other assisted (current) drug therapy; Translations: [OTH SHELTER CURRENT DRUG THERAPY] Onset: 2 Episodic Other aftercare (1 source) 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 pyogenes Org specific cx Ql (Throat) Negative [facility] Other Quick Strep [facility] Other CULTURE THROATon 10-17-2022 CULTURE THROAT Culture Observations: NORMAL RESPIRATORY WILI. Normal [facility] Comment on above: Performed By: #### T HRTCX #### [facility] [address] [place] [address] Dr. Felicitas Rios CULTURE THROATon 08-29-2022 CULTURE THROAT Culture Observations: NORMAL RESPIRATORY WILI. Normal [facility] Comment on above: Performed By: #### T HRTCX #### [facility] [address] [place] [address] Dr. Felicitas Rios RESPIRATORY PANEL PLUSon Adenovirus Not detected Normal NOT DETECTED [facility] Comment on above: Performed By: #### R SPLUS #### [facility] [address] [place] [address] Dr. Felicitas Burrows Parapertusis Not detected Normal NOT DETECTED The [facility] Comment on above: Performed By: #### R SPLUS #### [facility] [address] [place] [address] Dr. Felicitas Burrows Pertussis Not detected Normal NOT DETECTED The [facility] Comment on above: Performed By: #### R SPLUS #### [facility] [address] [place] [address] Dr. Felicitas Rios Chlamydia Pneumoniae Not detected Normal NOT DETECTED [facility] Comment on above: Performed By: #### R SPLUS #### [facility] [address] [place] [address] Dr. Felicitas Rios Coronavirus 229E Not detected Normal NOT DETECTED [facility] Comment on above: Performed By: #### R SPLUS #### [facility] [address] [place] [address] Dr. Felicitas Rios Coronavirus HKU1 Not detected Normal NOT DETECTED [facility] Comment on above: Performed By: #### R SPLUS #### [facility] [address] [place] [address] Dr. Felicitas Rios Coronavirus NL63 Not detected Normal NOT DETECTED [facility] Comment on above: Performed By: #### R SPLUS #### [facility] [address] [place] [address] Dr. Felicitas Rios Coronavirus OC43 Not detected Normal NOT DETECTED [facility] Comment on above: Performed By: #### R SPLUS #### [facility] [address] [place] [address] Dr. Felicitas Rios Influenza A H1 2009 Not detected Normal NOT DETECTED [facility] [place] Comment on above: Performed By: #### R SPLUS #### [facility] [address] [place] [address] Dr. Felicitas Rios Influenza A H3 Not detected Normal NOT DETECTED The [facility] Comment on above: Performed By: #### R SPLUS #### [facility] [address] [place] [address] Dr. Felicitas Rios Influenza B Not detected Normal NOT DETECTED The [facility] Comment on above: Performed By: #### R SPLUS #### [facility] [address] [place] [address] Dr. Felicitas Rios Metapneumovirus Not detected Normal NOT DETECTED The [facility] Comment on above: Performed By: #### R SPLUS #### [facility] [address] [place] [address] Dr. Felicitas Rios Mycoplas. Pneumoniae Not detected Normal NOT DETECTED [facility] Comment on above: Performed By: #### R SPLUS #### [facility] [address] [place] [address] Dr. Felicitas Rios Parainfluenza 1 Detected Abnormal NOT DETECTED The [facility] Comment on above: Performed By: #### R SPLUS #### [facility] [address] [place] [address] Dr. Felicitas Rios Parainfluenza 2 Not detected Normal NOT DETECTED The [facility] Comment on above: Performed By: #### R SPLUS #### [facility] [address] [place] [address] Dr. Felicitas Rios Parainfluenza 3 Not detected Normal NOT DETECTED The [facility] Comment on above: Performed By: #### R SPLUS #### [facility] [address] [place] [address] Dr. Felicitas Rios Parainfluenza 4 Not detected Normal NOT DETECTED The [facility] Comment on above: Performed By: #### R SPLUS #### [facility] [address] [place] [address] Dr. Felicitas Rios Rhino/Enterovirus Not detected Normal NOT DETECTED [facility] Comment on above: Performed By: #### R SPLUS #### [facility] [address] [place] [address] Dr. Felicitas Rios RP2 Header 1 RESPIRATORY PANEL: VIRUSES Normal [facility] Comment on above: Performed By: #### R SPLUS #### [facility] [address] [place] [address] Dr. Felicitas MCKEON Header 2 RESPIRATORY PANEL: BACTERIA Normal [facility] Comment on above: Performed By: #### R SPLUS #### [facility] [address] [place] [address] Dr. Felicitas Rios RSV Not detected Normal NOT DETECTED [facility] Comment on above: Performed By: #### R SPLUS #### [facility] [address] [place] [address] Dr. Felicitas Rios SARS-CoV-2 (COVID-19) RNA JEREMIE+probe Ql (Unsp spec) Not detected Normal NOT DETECTED [facility] Comment on above: Performed By: #### R SPLUS #### [facility] [address] [address] [address] Felicitas Rios CBC AUTO DIFFon 08-08-2022 BASO # 0.0 103/ul Normal 0.0-0.1 [facility] Comment on above: Performed By: #### C BC #### [facility] [address] [address] [address] Felicitas Rios Basophils/100 WBC (Bld) 0.6 % Normal 0.2-2.0 [facility] Comment on above: Performed By: #### C BC #### [facility] [address] [place] [address] Dr. Felicitas Rios EO # 0.1 103/ul Normal 0.0-0.7 [facility] Comment on above: Performed By: #### C BC #### [facility] [address] [place] [address] Dr. Felicitas Rios Eosinophils/100 WBC (Bld) 2.1 % Normal 0.9-7.0 [facility] Comment on above: Performed By: #### C BC #### [facility] [address] [place] [address] Dr. Felicitas Rios Erythrocyte distribution width (RBC) [Ratio] 11.9 % Normal 11.0-15.0 [facility] Comment on above: Performed By: #### C BC #### [facility] [address] [place] [address] Dr. Felicitas Rios Hematocrit (Bld) [Volume fraction] 39.4 % Normal 36.0-48.0 [facility] Comment on above: Performed By: #### C BC #### [facility] [address] [place] [address] Dr. Felicitas Rios Hemoglobin (Bld) [Mass/Vol] 13.7 g/dL Normal 12.0-16.0 [facility] Comment on above: Performed By: #### C BC #### [facility] [address] [place] [address] Dr. Felicitas Rios IG # 0.00 10e3/ul Normal 0.00-0.03 [facility] Comment on above: Performed By: #### C BC #### [facility] [address] [place] [address] Dr. Felicitas Rios IG % 0.0 % Normal 0.0-0.5 [facility] Comment on above: Performed By: #### C BC #### [facility] [address] [place] [address] Dr. Felicitas Rios LYMPH # 2.3 103/ul Normal 1.2-3.8 [facility] Comment on above: Performed By: #### C BC #### [facility] [address] [place] [address] Dr. Felicitas Rios Lymphocytes/100 WBC (Bld) 49.1 % Normal 20.5-60.0 [facility] Comment on above: Performed By: #### C BC #### [facility] [address] [place] [address] Dr. Felicitas Rios MANUAL DIFF REQ NO Normal [facility] Comment on above: Performed By: #### C BC #### [facility] [address] [place] [address] Dr. Felicitas Rios MCH (RBC) [Entitic mass] 30.9 pg Normal 26.7-34.0 [facility] Comment on above: Performed By: #### C BC #### [facility] [address] [place] [address] Dr. Felicitas Rios MCHC (RBC) [Mass/Vol] 34.8 g/dL Normal 29.9-35.2 [facility] Comment on above: Performed By: #### C BC #### [facility] [address] [place] [address] Dr. Felicitas Rios MCV (RBC) [Entitic vol] 88.9 fL Normal 81.0-99.0 [facility] Comment on above: Performed By: #### C BC #### [facility] [address] [place] [address] Dr. Felicitas Rios MONO # 0.3 103/ul Normal 0.3-0.8 [facility] Comment on above: Performed By: #### C BC #### [facility] [address] [place] [address] Dr. Felicitas Rios Monocytes/100 WBC (Bld) 6.3 % Normal 1.7-12.0 [facility] Comment on above: Performed By: #### C BC #### [facility] [address] [place] [address] Dr. Felicitas Rios NEUT # 2.0 103/ul Normal 1.4-6.5 [facility] Comment on above: Performed By: #### C BC #### [facility] [address] [place] [address] Dr. Felicitas Rios Neutrophils/100 WBC (Bld) 41.9 % Critically low 43.0-75.0 [facility] Comment on above: Performed By: #### C BC #### [facility] [address] [place] [address] Dr. Felicitas Rios Platelet mean volume (Bld) [Entitic vol] 10.0 fL Normal 9.5-13.5 [facility] Comment on above: Performed By: #### C BC #### [facility] [address] [place] [address] Dr. Felicitas Rios PLT 160 103/ul Normal 150-450 [facility] Comment on above: Performed By: #### C BC #### [facility] [address] [place] [address] Dr. Felicitas Rios RBC 4.43 106/ul Normal 4.20-5.40 [facility] Comment on above: Performed By: #### C BC #### [facility] [address] [place] [address] Dr. Felicitas Rios WBC 4.8 103/ul Normal 4.0-11.0 [facility] Comment on above: Performed By: #### C BC #### [facility] [address] [place] [address] Dr. Felicitas Rios CTA CHEST WO W [...] RAMON SUBRAMANIAN Date: 2022-08-08 11:17 Normal [facility] D-DIMERon 08-08-2022 D-DIMER 0.65 mg/L FEU Critically high <=0.59 [facility] Comment on above: Performed By: #### D DIM #### [facility] [address] [address] [address] Felicitas Rios D-DIMER COMMENTS SEE BELOW Normal [facility] Comment on above: Result Comment: Incr eases [...] hospitalization. Performed By: #### D DIM #### [facility] [address] [address] [address] Felicitas Rios PROF 14(COMP METB)on 022 Albumin [Mass/Vol] 4.0 g/dL Normal 3.4-5.0 [facility] Comment on above: Performed By: #### C MP, HSTROPN #### [facility] [address] [address] [address] Felicitas Rios Albumin/Globulin [Mass ratio] 1.3 {ratio} Normal [facility] Comment on above: Performed By: #### C PAVAN, HSTROPN #### [facility] [address] [place] [address] Dr. Felicitas Rios ALP [Catalytic activity/Vol] 80 U/L Normal 46-116 [facility] Comment on above: Performed By: #### C PAVAN, HSTROPN #### [facility] [address] [place] [address] Dr. Felicitas Rios ALT [Catalytic activity/Vol] 14 U/L Normal 14-59 [facility] Comment on above: Performed By: #### C PAVAN, HSTROPN #### [facility] [address] [place] [address] Dr. Felicitas Rios Anion gap [Moles/Vol] 13.4 mmol/L Normal [facility] Comment on above: Performed By: #### C PAVAN, HSTROPN #### [facility] [address] [place] [address] Dr. Felicitas Rios AST [Catalytic activity/Vol] 23 U/L Normal 15-37 [facility] Comment on above: Performed By: #### C PAVAN, HSTROPN #### [facility] [address] [place] [address] Dr. Felicitas Rios Bilirubin [Mass/Vol] 0.3 mg/dL Normal 0.2-1.0 [facility] Comment on above: Performed By: #### C PAVAN, HSTROPN #### [facility] [address] [place] [address] Dr. Felicitas Rios Calcium [Mass/Vol] 9.1 mg/dL Normal 8.5-10.1 [facility] Comment on above: Performed By: #### C PAVAN, HSTROPN #### [facility] [address] [place] [address] Dr. Felicitas Rios Chloride [Moles/Vol] 102 mmol/L Normal 98-107 [facility] Comment on above: Performed By: #### C PAVAN, HSTROPN #### [facility] [address] [address] [address] Felicitas Rios CO2 [Moles/Vol] 28.5 mmol/L Normal 21.0-32.0 [facility] Comment on above: Performed By: #### C MP, HSTROPN #### [facility] [address] [address] [address] Felicitas Rios Creatinine [Mass/Vol] 0.65 mg/dL Normal 0.55-1.02 [facility] Comment on above: Performed By: #### C MP, HSTROPN #### [facility] [address] [address] [address] Felicitas Rios EGFR-AF CITIZEN [place] >60 Normal >=60 [facility] Comment on above: Performed By: #### C MP, HSTROPN #### [facility] [address] [address] [address] Felicitas Riso EGFR-NON AF CITIZEN OF [place] >60 Normal >=60 [facility] Comment on above: Performed By: #### C MP, HSTROPN #### [facility] [address] [address] [address] Felicitas Rios Globulin (S) [Mass/Vol] 3.2 g/dL Normal [facility] Comment on above: Performed By: #### C MP, HSTROPN #### [facility] [address] [address] [address] Felicitas Rios Glucose [Mass/Vol] 97 mg/dL Normal 74-106 [facility] Comment on above: Performed By: #### C MP, HSTROPN #### [facility] [address] [address] [address] Felicitas Rios Potassium [Moles/Vol] 3.9 mmol/L Normal 3.5-5.1 [facility] Comment on above: Performed By: #### C MP, HSTROPN #### [facility] [address] [address] [address] Felicitas Rios Protein [Mass/Vol] 7.2 g/dL Normal 6.4-8.2 [facility] Comment on above: Performed By: #### C MP, HSTROPN #### [facility] [address] [address] [address] Felicitas Rios Sodium [Moles/Vol] 140 mmol/L Normal 136-145 [facility] Comment on above: Performed By: #### C MP, HSTROPN #### [facility] [address] [address] [address] Felicitas Rios Urea nitrogen [Mass/Vol] 6.0 mg/dL Critically low 7.0-18.0 [facility] Comment on above: Performed By: #### C MP, HSTROPN #### [facility] [address] [address] [address] Felicitas Rios Urea nitrogen/Creatinine [Mass ratio] 9.2 mg/mg Normal [facility] Comment on above: Performed By: #### C MP, HSTROPN #### [facility] [address] [address] [address] Felicitas iRos TROPONIN, HIGH SENSITIVITYon 08-08-2022 HSTROP 4.5 pg/mL Normal 4.0-51.3 [facility] Comment on above: Result Comment: CUT- OFF POINTS HAVE BEEN ESTABLISHED BASED ON THE FOURTH UNIVERSAL DEFINITIONS OF MYOCARDIAL INFARCTION. THE UPPER REFERENCE LIMIT (URL) OF TROPONIN, DEFINED THE 99TH PERCENTILE OF cTnI DISTRIBUTION IN A REFERENCE POPULATION, HAS BEEN CONFIRMED THE DECISION THRESHOLD FOR [place] DIAGNOSIS. Performed By: #### C MP, HSTROPN #### [facility] [address] [address] [address] Felicitas Rios US VANESA DOP LEG [...] TEDDY MARCIAL Date: 2022-08-08 10:06 Normal [facility] XR CHEST 1 Von 08-08-2022 XR [...] CECY RICHMOND Date: 2022-08-08 07:44 Normal [facility] Complete Blood Count Auto Di ffon 12-22-2020 Basophils (Bld) [#/Vol] 0.0 10*3/uL Normal 0.0-0.2 [facility] Comment on above: Performed By: #### I GM, IGA, RA, LUPANTCOAG, RPR W RFX, IGG, SSA, SSB, CCP #### [facility] , #### TSH3, CBC, ESR, URIC, CMP #### [facility] [address] Basophils/100 WBC (Bld) 0.6 % Normal . [facility] Comment on above: Performed By: #### I GM, IGA, RA, LUPANTCOAG, RPR W RFX, IGG, SSA, SSB, CCP #### [facility] , #### TSH3, CBC, ESR, URIC, CMP #### [facility] [address] Eosinophils (Bld) [#/Vol] 0.1 10*3/uL Normal 0.0-0.45 [facility] Comment on above: Performed By: #### I GM, IGA, RA, LUPANTCOAG, RPR W RFX, IGG, SSA, SSB, CCP #### [facility] , #### TSH3, CBC, ESR, URIC, CMP #### [address] Eosinophils/100 WBC (Bld) 1.7 % Normal . [facility] Comment on above: Performed By: #### I GM, IGA, RA, LUPANTCOAG, RPR W RFX, IGG, SSA, SSB, CCP #### [facility] , #### TSH3, CBC, ESR, URIC, CMP #### [address] Erythrocyte distribution width (RBC) [Ratio] 13.0 % Normal 11.9-15.3 [facility] Comment on above: Performed By: #### I GM, IGA, RA, LUPANTCOAG, RPR W RFX, IGG, SSA, SSB, CCP #### [facility] , #### TSH3, CBC, ESR, URIC, CMP #### [address] Hematocrit (Bld) [Volume fraction] 38.9 % Normal 34.0-46.4 [facility] Comment on above: Performed By: #### I GM, IGA, RA, LUPANTCOAG, RPR W RFX, IGG, SSA, SSB, CCP #### [facility] , #### TSH3, CBC, ESR, URIC, CMP #### [address] Hemoglobin (Bld) [Mass/Vol] 13.8 g/dL Normal 11.8-15.4 [facility] Comment on above: Performed By: #### I GM, IGA, RA, LUPANTCOAG, RPR W RFX, IGG, SSA, SSB, CCP #### [facility] , #### TSH3, CBC, ESR, URIC, CMP #### [address] Lymphocytes (Bld) [#/Vol] 2.1 10*3/uL Normal 1.00-4.8 [facility] Comment on above: Performed By: #### I GM, IGA, RA, LUPANTCOAG, RPR W RFX, IGG, SSA, SSB, CCP #### [facility] , #### TSH3, CBC, ESR, URIC, CMP #### [address] Lymphocytes/100 WBC (Bld) 37.8 % Normal . [facility] Comment on above: Performed By: #### I GM, IGA, RA, LUPANTCOAG, RPR W RFX, IGG, SSA, SSB, CCP #### [facility] , #### TSH3, CBC, ESR, URIC, CMP #### [address] MCH (RBC) [Entitic mass] 32.3 pg Normal 24.7-34.3 [facility] Comment on above: Performed By: #### I GM, IGA, RA, LUPANTCOAG, RPR W RFX, IGG, SSA, SSB, CCP #### [facility] , #### TSH3, CBC, ESR, URIC, CMP #### [address] MCV (RBC) [Entitic vol] 91.0 fL Normal 80-100 [facility] Comment on above: Performed By: #### I GM, IGA, RA, LUPANTCOAG, RPR W RFX, IGG, SSA, SSB, CCP #### [facility] , #### TSH3, CBC, ESR, URIC, CMP #### [address] Mean Corpuscular HGB Conc 35.5 g/dL High 32.0-35.0 [facility] Comment on above: Performed By: #### I GM, IGA, RA, LUPANTCOAG, RPR W RFX, IGG, SSA, SSB, CCP #### [facility] , #### TSH3, CBC, ESR, URIC, CMP #### [place] [address] [place] Monocytes (Bld) [#/Vol] 0.3 10*3/uL Normal 0.0-0.8 [facility] Comment on above: Performed By: #### I GM, IGA, RA, LUPANTCOAG, RPR W RFX, IGG, SSA, SSB, CCP #### [facility] , #### TSH3, CBC, ESR, URIC, CMP #### [place] [address] [place] Monocytes/100 WBC (Bld) 6.2 % Normal . [facility] [facility] Comment on above: Performed By: #### I GM, IGA, RA, LUPANTCOAG, RPR W RFX, IGG, SSA, SSB, CCP #### [facility] , #### TSH3, CBC, ESR, URIC, CMP #### [place] [address] [place] Neutrophils (Bld) [#/Vol] 2.9 10*3/uL Normal 1.8-7.7 [facility] Comment on above: Performed By: #### I GM, IGA, RA, LUPANTCOAG, RPR W RFX, IGG, SSA, SSB, CCP #### [facility] , #### TSH3, CBC, ESR, URIC, CMP #### [place] [address] [place] Neutrophils/100 WBC (Bld) 53.7 % Normal . [facility] Comment on above: Performed By: #### I GM, IGA, RA, LUPANTCOAG, RPR W RFX, IGG, SSA, SSB, CCP #### [facility] , #### TSH3, CBC, ESR, URIC, CMP #### [place] [address] [place] Nucleated RBC/100 WBC (Bld) [Ratio] 0.2 % Normal 0-0.5 [facility] Comment on above: Performed By: #### I GM, IGA, RA, LUPANTCOAG, RPR W RFX, IGG, SSA, SSB, CCP #### [facility] , #### TSH3, CBC, ESR, URIC, CMP #### [address] Platelet mean volume (Bld) [Entitic vol] 9.0 fL Normal 6.3-10.7 [facility] Comment on above: Performed By: #### I GM, IGA, RA, LUPANTCOAG, RPR W RFX, IGG, SSA, SSB, CCP #### [facility] , #### TSH3, CBC, ESR, URIC, CMP #### [address] Platelets (Bld) [#/Vol] 186 10*3/uL Normal 150-450 [facility] Comment on above: Performed By: #### I GM, IGA, RA, LUPANTCOAG, RPR W RFX, IGG, SSA, SSB, CCP #### [facility] , #### TSH3, CBC, ESR, URIC, CMP #### [address] RBC (Bld) [#/Vol] 4.27 10*6/uL Normal 3.60-5.00 [facility] Comment on above: Performed By: #### I GM, IGA, RA, LUPANTCOAG, RPR W RFX, IGG, SSA, SSB, CCP #### [facility] , #### TSH3, CBC, ESR, URIC, CMP #### [address] WBC (Bld) [#/Vol] 5.4 10*3/uL Normal 4.5-11.0 [facility] Comment on above: Performed By: #### I GM, IGA, RA, LUPANTCOAG, RPR W RFX, IGG, SSA, SSB, CCP #### [facility] , #### TSH3, CBC, ESR, URIC, CMP #### [address] Comprehensive Metabolic Pane fuad 12-22-2020 Albumin [Mass/Vol] 4.0 g/dL Normal 3.2-5.5 [facility] Comment on above: Performed By: #### I GM, IGA, RA, LUPANTCOAG, RPR W RFX, IGG, SSA, SSB, CCP #### [facility] , #### TSH3, CBC, ESR, URIC, CMP #### [address] Albumin/Globulin [Mass ratio] 1.5 {ratio} Normal [facility] Comment on above: Performed By: #### I GM, IGA, RA, LUPANTCOAG, RPR W RFX, IGG, SSA, SSB, CCP #### [facility] , #### TSH3, CBC, ESR, URIC, CMP #### [facility] [address] [place] [address] ALP [Catalytic activity/Vol] 61 U/L Normal 32-92 [facility] Comment on above: Performed By: #### I GM, IGA, RA, LUPANTCOAG, RPR W RFX, IGG, SSA, SSB, CCP #### [facility] , #### TSH3, CBC, ESR, URIC, CMP #### [facility] [address] [place] [address] [place] ALT [Catalytic activity/Vol] 14 U/L Normal 10-60 [facility] Comment on above: Performed By: #### I GM, IGA, RA, LUPANTCOAG, RPR W RFX, IGG, SSA, SSB, CCP #### [facility] , #### TSH3, CBC, ESR, URIC, CMP #### [facility] [address] [place], [place] [id number] [facility] AST [Catalytic activity/Vol] 20 U/L Normal 10-42 [facility] Comment on above: Performed By: #### I GM, IGA, RA, LUPANTCOAG, RPR W RFX, IGG, SSA, SSB, CCP #### [facility] , #### TSH3, CBC, ESR, URIC, CMP #### [facility] [address] [place] [address] Bilirubin [Mass/Vol] 0.7 mg/dL Normal 0.3-1.2 [facility] Comment on above: Performed By: #### I GM, IGA, RA, LUPANTCOAG, RPR W RFX, IGG, SSA, SSB, CCP #### [facility] , #### TSH3, CBC, ESR, URIC, CMP #### [address] Calcium [Mass/Vol] 9.4 mg/dL Normal 8.2-10.2 [facility] Comment on above: Performed By: #### I GM, IGA, RA, LUPANTCOAG, RPR W RFX, IGG, SSA, SSB, CCP #### [facility] , #### TSH3, CBC, ESR, URIC, CMP #### [address] Chloride [Moles/Vol] 100 mmol/L Normal 95-114 [facility] Comment on above: Performed By: #### I GM, IGA, RA, LUPANTCOAG, RPR W RFX, IGG, SSA, SSB, CCP #### [facility] , #### TSH3, CBC, ESR, URIC, CMP #### [address] CO2 [Moles/Vol] 25.9 mmol/L Normal 22.0-30.0 [facility] Comment on above: Performed By: #### I GM, IGA, RA, LUPANTCOAG, RPR W RFX, IGG, SSA, SSB, CCP #### [facility] , #### TSH3, CBC, ESR, URIC, CMP #### [address] Creatinine [Mass/Vol] 0.67 mg/dL Normal 0.44-1.03 [facility] Comment on above: Performed By: #### I GM, IGA, RA, LUPANTCOAG, RPR W RFX, IGG, SSA, SSB, CCP #### [facility] , #### TSH3, CBC, ESR, URIC, CMP #### [address] Estimated GFR ( Zenaida > 60 Normal [facility] Comment on above: Result Comment: GFR estimated reference range: According to KDOQI guidelines, <60 ml/min/1.73m2 is sufficient to diagnose a patient with chronic kidney disease. Performed By: #### I GM, IGA, RA, LUPANTCOAG, RPR W RFX, IGG, SSA, SSB, CCP #### [facility] , #### TSH3, CBC, ESR, URIC, CMP #### [address] Estimated GFR (Non- Am > 60 Normal [facility] Comment on above: Performed By: #### I GM, IGA, RA, LUPANTCOAG, RPR W RFX, IGG, SSA, SSB, CCP #### [facility] , #### TSH3, CBC, ESR, URIC, CMP #### [address] Globulin (S) [Mass/Vol] 2.6 g/dL Normal [facility] Comment on above: Performed By: #### I GM, IGA, RA, LUPANTCOAG, RPR W RFX, IGG, SSA, SSB, CCP #### [facility] , #### TSH3, CBC, ESR, URIC, CMP #### [address] Glucose [Mass/Vol] 91 mg/dL Normal 70-100 [facility] Comment on above: Result Comment: [place] Glucose Reference Range is dependent on time and content of last meal. Glucose of more than 200 mg/dL in a nonstressed, ambulatory subject supports the diagnosis of Diabetes Mellitus. ADA recommended reference range Performed By: #### I GM, IGA, RA, LUPANTCOAG, RPR W RFX, IGG, SSA, SSB, CCP #### [facility] , #### TSH3, CBC, ESR, URIC, CMP #### [address] Potassium [Moles/Vol] 4.3 mmol/L Normal 3.5-5.1 [facility] Comment on above: Performed By: #### I GM, IGA, RA, LUPANTCOAG, RPR W RFX, IGG, SSA, SSB, CCP #### [facility] , #### TSH3, CBC, ESR, URIC, CMP #### [address] Protein [Mass/Vol] 6.6 g/dL Normal 6.1-7.9 [facility] Comment on above: Performed By: #### I GM, IGA, RA, LUPANTCOAG, RPR W RFX, IGG, SSA, SSB, CCP #### [facility] , #### TSH3, CBC, ESR, URIC, CMP #### [address] Sodium [Moles/Vol] 136 mmol/L Normal 136-146 [facility] Comment on above: Performed By: #### I GM, IGA, RA, LUPANTCOAG, RPR W RFX, IGG, SSA, SSB, CCP #### [facility] , #### TSH3, CBC, ESR, URIC, CMP #### [address] Urea nitrogen [Mass/Vol] 9 mg/dL Normal 9-23 [facility] Comment on above: Performed By: #### I GM, IGA, RA, LUPANTCOAG, RPR W RFX, IGG, SSA, SSB, CCP #### [facility] , #### TSH3, CBC, ESR, URIC, CMP #### [facility] [address] [place] [address] [place] Cyclic Citrulliated Pep Abon 12-22-2020 Cyclic Citrulliated Pep Ab 3 Normal 0-19 [facility] Comment on above: Result Comment: Nega tive <20 Weak positive 20 - 39 Moderate positive 40 - 59 Strong positive >59 Performed at: [facility] [address] [id number] [employer] Supervisor: Alexandru Bravo MD, Phone: [phone] Performed By: #### I GM, IGA, RA, LUPANTCOAG, RPR W RFX, IGG, SSA, SSB, CCP #### [facility] , #### TSH3, CBC, ESR, URIC, CMP #### [facility] [address] [place] [address] [place] Dipstick and Microscopicon 0 12-22-2020 Appearance (U) Turbid Critically abnormal Clear [facility] Comment on above: Order Comment: Name Collection Type:: Clean-Voided Midstream Performed By: #### A DDONUAPLUS #### [facility] [address] [place] [address] [place] Bacteria,Urine None Seen Normal None Seen [facility] Comment on above: Order Comment: Name Collection Type:: Clean-Voided Midstream Performed By: #### A DDONUAPLUS #### [facility] [address] [place] [address] [place] Bilirubin,Urine Negative Normal Negative [facility] Comment on above: Order Comment: Name Collection Type:: Clean-Voided Midstream Performed By: #### A DDONUAPLUS #### [facility] [address] [place] [address] [place] Color (U) Yellow Normal Yellow [facility] Comment on above: Order Comment: Name Collection Type:: Clean-Voided Midstream Performed By: #### A DDONUAPLUS #### [facility] [address] [place] [address] [place] Glucose Ql (U) Normal Normal Normal [facility] Comment on above: Order Comment: Name Collection Type:: Clean-Voided Midstream Performed By: #### A DDONUAPLUS #### [facility] [address] [place] [address] [place] Hyaline Casts,Urine 0-8 Normal 0-8 [facility] Comment on above: Order Comment: Name Collection Type:: Clean-Voided Midstream Result Comment: PERF ORMED BY: [place] [address] PATHOLOGIST MAINTENANCE DEPARTMENT MANAGER RANDY PERRIN M.D. Performed By: #### A DDONUAPLUS #### [address] Ketones Ql (U) Negative Normal Negative [facility] Comment on above: Order Comment: Name Collection Type:: Clean-Voided Midstream Performed By: #### A DDONUAPLUS #### [address] Leukocyte esterase Test strip Ql (U) 1+ High Negative [facility] Comment on above: Order Comment: Name Collection Type:: Clean-Voided Midstream Performed By: #### A DDONUAPLUS #### [place] [address] [place] Nitrite,Urine Negative Normal Negative [facility] Comment on above: Order Comment: Name Collection Type:: Clean-Voided Midstream Performed By: #### A DDONUAPLUS #### [place] [address] [place] Occult Blood,Urine Negative Normal Negative [facility] Comment on above: Order Comment: Name Collection Type:: Clean-Voided Midstream Result Comment: PERF ORMED BY: [place] [address] PATHOLOGIST MAINTENANCE DEPARTMENT MANAGER RANDY PERRIN M.D. Performed By: #### A DDONUAPLUS #### [facility] [address] [place] [address] pH (U) 7.5 [pH] Normal 5.0-9.0 [facility] Comment on above: Order Comment: Name Collection Type:: Clean-Voided Midstream Performed By: #### A DDONUAPLUS #### [place] [address] [place] Protein,Urine Negative Normal Negative [facility] Comment on above: Order Comment: Name Collection Type:: Clean-Voided Midstream Performed By: #### A DDONUAPLUS #### [address] RBC LM.HPF (Urine sed) [#/Area] 0 /[HPF] Normal 0-4 [facility] Comment on above: Order Comment: Name Collection Type:: Clean-Voided Midstream Performed By: #### A DDONUAPLUS #### [address] Specificy [place],Urine 1.023 Normal 1.001-1.030 [facility] Comment on above: Order Comment: Name Collection Type:: Clean-Voided Midstream Performed By: #### A DDONUAPLUS #### [address] Squamous Epithelial Cell,Urine 3-4 High 0-2 [facility] Comment on above: Order Comment: Name Collection Type:: Clean-Voided Midstream Performed By: #### A DDONUAPLUS #### [address] Urobilinogen,Urine Normal Normal Normal [facility] Comment on above: Order Comment: Name Collection Type:: Clean-Voided Midstream Performed By: #### A DDONUAPLUS #### [place] [address] [place] WBC,Urine 1-2 Normal 0-4 [facility] Comment on above: Order Comment: Name Collection Type:: Clean-Voided Midstream Performed By: #### A DDONUAPLUS #### [address] Erythrocyte Sedimentation Ra abilio 12-22-2020 ESR (Bld) [Velocity] 15 mm/h Normal 0-19 [facility] Comment on above: Result Comment: PERF ORMED BY: [place] [address] PATHOLOGIST MAINTENANCE DEPARTMENT MANAGER RANDY PERRIN M.D. Performed By: #### I GM, IGA, RA, LUPANTCOAG, RPR W RFX, IGG, SSA, SSB, CCP #### [facility] , #### TSH3, CBC, ESR, URIC, CMP #### [address] Immunoglobulin A, Serumon Immunoglobulin A, Serum 174 mg/dL Normal 87-352 [facility] Comment on above: Performed By: #### I GM, IGA, RA, LUPANTCOAG, RPR W RFX, IGG, SSA, SSB, CCP #### [facility] , #### TSH3, CBC, ESR, URIC, CMP #### [address] Immunoglobulin Adolfo 1 Immunoglobulin G 1011 mg/dL Normal 586-1602 [facility] Comment on above: Performed By: #### I GM, IGA, RA, LUPANTCOAG, RPR W RFX, IGG, SSA, SSB, CCP #### [facility] , #### TSH3, CBC, ESR, URIC, CMP #### [address] Immunoglobulin M, Serumon Immunoglobulin M, Serum 78 mg/dL Normal 26-217 [facility] Comment on above: Result Comment: Perf ormed at: - [facility] [address] [id number] [employer] Supervisor: Zachery Brown PhD, Phone: [phone] Performed By: #### I GM, IGA, RA, LUPANTCOAG, RPR W RFX, IGG, SSA, SSB, CCP #### [facility] , #### TSH3, CBC, ESR, URIC, CMP #### [address] Lupus Anticoagulant Compon 0 - Dilute Prothrombin Time (dPt) 32.2 Normal 0.0-55.0 [facility] Comment on above: Performed By: #### I GM, IGA, RA, LUPANTCOAG, RPR W RFX, IGG, SSA, SSB, CCP #### [facility] , #### TSH3, CBC, ESR, URIC, CMP #### [address] dPT Confirm Ratio 1.05 Normal 0.00-1.40 [facility] Comment on above: Performed By: #### I GM, IGA, RA, LUPANTCOAG, RPR W RFX, IGG, SSA, SSB, CCP #### [facility] , #### TSH3, CBC, ESR, URIC, CMP #### [address] DRVVT Lupus 29.3 Normal 0.0-47.0 [facility] Comment on above: Performed By: #### I GM, IGA, RA, LUPANTCOAG, RPR W RFX, IGG, SSA, SSB, CCP #### [facility] , #### TSH3, CBC, ESR, URIC, CMP #### [address] Hexagonal Phase Phospholipid 0 Normal 0-11 [facility] Comment on above: Performed By: #### I GM, IGA, RA, LUPANTCOAG, RPR W RFX, IGG, SSA, SSB, CCP #### [facility] , #### TSH3, CBC, ESR, URIC, CMP #### [address] Interpretation Comment: Normal . [facility] Comment on above: Result Comment: No l [...] the absence of anticoagulant therapy. Performed at: [address] [id number] [employer] Supervisor: Alexandru Bravo MD, Phone: [phone] Performed By: #### I GM, IGA, RA, LUPANTCOAG, RPR W RFX, IGG, SSA, SSB, CCP #### [facility] , #### TSH3, CBC, ESR, URIC, CMP #### [address] PTT-LA 56.5 High 0.0-51.9 [facility] Comment on above: Performed By: #### I GM, IGA, RA, LUPANTCOAG, RPR W RFX, IGG, SSA, SSB, CCP #### [facility] , #### TSH3, CBC, ESR, URIC, CMP #### [address] PTT-LA Mix 55.0 High 0.0-48.9 [facility] Comment on above: Performed By: #### I GM, IGA, RA, LUPANTCOAG, RPR W RFX, IGG, SSA, SSB, CCP #### [facility] , #### TSH3, CBC, ESR, URIC, CMP #### [address] Thrombin Time 17.1 Normal 0.0-23.0 [facility] Comment on above: Performed By: #### I GM, IGA, RA, LUPANTCOAG, RPR W RFX, IGG, SSA, SSB, CCP #### [facility] , #### TSH3, CBC, ESR, URIC, CMP #### [address] RPR w/rfx to Quant TP Abson 04-22-2021 RPR, Rfx Quant RPR Non-Reactive Normal Non Reactive [facility] Comment on above: Result Comment: Perf ormed at: CB - [facility] [address] [id number] [employer] Supervisor: Zachery Brown PhD, Phone: [phone] PERFORMED BY: [place] [address] PATHOLOGIST MAINTENANCE DEPARTMENT MANAGER RANDY PERRIN M.D. Performed By: #### I GM, IGA, RA, LUPANTCOAG, RPR W RFX, IGG, SSA, SSB, CCP #### [facility] , #### TSH3, CBC, ESR, URIC, CMP #### [address] Rheumatoid Factoron 12-23-19 Rheumatoid Factor <10.0 Normal 0.0-13.9 [facility] Comment on above: Performed By: #### I GM, IGA, RA, LUPANTCOAG, RPR W RFX, IGG, SSA, SSB, CCP #### [facility] , #### TSH3, CBC, ESR, URIC, CMP #### [facility] [address] [place] [address] SS-A/Ro Sjogrens Antibodyon 12-22-2020 SS-A/Ro Sjogrens Antibody <0.2 Normal 0.0-0.9 [facility] Comment on above: Performed By: #### I GM, IGA, RA, LUPANTCOAG, RPR W RFX, IGG, SSA, SSB, CCP #### [facility] , #### TSH3, CBC, ESR, URIC, CMP #### [facility] [address] [place] [address] SS-B/La Sjogrens Antibodyon 12-22-2020 SS-B/La Sjogrens Antibody <0.2 Normal 0.0-0.9 [facility] Comment on above: Result Comment: Perf ormed at: CB - [facility] [address] [id number] [employer] Supervisor: Zachery Brown PhD, Phone: [phone] Performed By: #### I GM, IGA, RA, LUPANTCOAG, RPR W RFX, IGG, SSA, SSB, CCP #### [facility] , #### TSH3, CBC, ESR, URIC, CMP #### [address] Thyroid Stimulating Hormoneo n 12-22-2020 TSH Qn 1.15 m[IU]/L Normal 0.45-5.33 [facility] Comment on above: Result Comment: PERF ORMED BY: [place] [address] PATHOLOGIST MAINTENANCE DEPARTMENT MANAGER RANDY PERRIN M.D. Performed By: #### I GM, IGA, RA, LUPANTCOAG, RPR W RFX, IGG, SSA, SSB, CCP #### [facility] , #### TSH3, CBC, ESR, URIC, CMP #### [address] Uric Acidon 12-22-2020 Urate [Mass/Vol] 2.9 mg/dL Normal 2.6-7.2 [facility] Comment on above: Performed By: #### I GM, IGA, RA, LUPANTCOAG, RPR W RFX, IGG, SSA, SSB, CCP #### [facility] , #### TSH3, CBC, ESR, URIC, CMP #### [address] CNOVSPon 03-03-2020 CNOVSP Visit (SP) Office ([facility]) DIXON DURAN ([id number]) 1990 F Date Time Provider Department 03/03/20 2:00 PM MICHOACANO GARRETT During your visit today, we recorded the following information about you: Temperature Pulse Respiration Blood pressure 97.5 degrees 79/minute 16/minute 106/63 Weight Height Last Period 64.4 kg 1.778 m 02/22/20 Michoacano Garrett MD 03/03/2020 6:44 PM Signed NAME: Dixon Duran CLINIC NO.: [id number] DATE OF SERVICE: March 03, 2020 Referring Provider: Elroy Palma, Consultation requested by Dr. Palma for an [...] Renal Disease Father Michoacano Garrett MD, CPE [place], [place] CC: Elroy Palma DO [address] [facility] [address] Elroy Palma DO [address] [facility] [address] Referring Provider: ELROY PALMA [[id number]] Allergies As of Date: 03/03/2020 (No Known [...] Status:Closed by MICHOACANO GARRETT MD on 03/03/20 [facility] PROGRESSon 03-03-2020 PROGRESS HNO ID: [id number] Author: Michoacano Garrett Service: ? Author Type: Physician Type: Progress Notes Filed: 03/03/2020 6:44 PM Note Text: NAME: Dixon Duran [facility] NO.: [id number] DATE OF SERVICE: March 03, 2020 Referring [...] Renal Disease Father Michoacano Garrett MD, CPE [facility] [place], [place] CC: Max L Louie, DO [address] [facility] [address] Max L Pavlock, DO [address] [facility] [address] Normal [facility] Coding Summary.on 02-24-2019 Coding Summary. CODING DATE: 02/24/2019 FINAL [facility] STATUS: Home (Routine DC) PAYOR: Self [...] Guidry Date Saved: 02/24/2019 08:37 am Normal [facility] [place] [facility] Hep Bs Abon 02-11-2019 HBV surface Ab Ql (S) Reactive [facility] [place] [facility] Comment on above: Result Comment: Non Reactive: Inconsistent with immunity, less than 10 mIU/mL Reactive: Consistent with immunity, greater than 9.9 mIU/mL Performed at: [address] [id number] PhD Stephanie Bingham Performed By: #### 2 318734, 0029299, 2469636, 88569063, 57929145, 0448185, 7024581, 14667638 #### [facility] [place] [facility] [address] [place] [address] Hep Bs Agon 02-11-2019 HBV surface Ag IA Ql Negative Negative [facility] [place] [facility] Comment on above: Result Comment: Perf ormed at: [address] [id number] PhD Stephanie Bingham Performed By: #### 2 923778, 7763797, 1491401, 60666363, 88696581, 5303053, 3028981, 19248649 #### [facility] [place] [facility] [address] [place] [address] WRITTEN AUTHORIZATIONon 01-31 Written Authorization Comment [facility] [place] [facility] Comment on above: Result Comment: Writ ten Authorization Received. Authorization received from SHANNON FENG 02-10-2019 Logged by Tangela Taylor Performed at: [address] [id number] PhD Stephanie Bingham Performed By: #### 2 416727, 9055342, 0965500, 95985337, 15979014, 5588660, 7689318, 75075641 #### [facility] [place] [facility] [address] [place] [address] VERBAL ORDER INFOon 02-11-20 19 Additional Test(s) Request Comment: [facility] [place] [facility] Comment on above: Result Comment: Test (s) added per SHANNON FENG at account 02-10-2019 Logged by Marely Kruse Test# [id number] Hep A Ab, Total Performed at: [address] [id number] PhD Stephanie Bingham Performed By: #### 2 233882, 7960954, 5992355, 39159039, 93484426, 6479766, 3121766, 76794969 #### [facility] [place] [facility] [address] [place] [address] See below: Comment: [facility] [place] [facility] Comment on above: Result Comment: Vince [...] The Test(s) Listed Performed By: #### 2 945270, 9790276, 9877845, 78721210, 62718602, 6575851, 1710037, 62627951 #### [facility] [place] [facility] [address] [place] [address] CBC w/Indiceson 02-09-2019 Erythrocyte distribution width (RBC) [Ratio] 13.6 % Normal 10.9-14.2 [facility] [place] [facility] Comment on above: Performed By: #### 2 106474, 1226376, 4676712, 89001599, 39554798, 6820261, 8095850, 64128494 #### [facility] [place] [facility] [address] [place] [address] Hematocrit (Bld) [Volume fraction] 36.5 % Normal 34.0-46.0 [facility] [place] [facility] Comment on above: Performed By: #### 2 117914, 4192468, 1247097, 28479838, 64697752, 6942953, 6199949, 56504151 #### [facility] [place] [facility] [address] [place] [address] Hemoglobin (Bld) [Mass/Vol] 12.9 g/dL Normal 12.0-16.0 [facility] [place] [facility] Comment on above: Performed By: #### 2 780401, 3873867, 5810896, 94992837, 95922331, 7229431, 5682716, 49352140 #### [facility] [place] [facility] [address] [place] [address] 22541 MCH (RBC) [Entitic mass] 30.3 pg Normal 27.0-34.0 [facility] [place] [facility] Comment on above: Performed By: #### 2 532021, 0002911, 5371788, 85434392, 55982278, 8604984, 4704253, 25276833 #### [facility] [place] [facility] [address] [place] [address] MCHC (RBC) [Mass/Vol] 35.2 g/dL Normal 33.3-35.7 [facility] [place] [facility] Comment on above: Performed By: #### 2 676475, 7782849, 3049997, 65079491, 51320486, 7292019, 6714090, 21594514 #### [facility] [place] [facility] [address] [place] [address] MCV (RBC) [Entitic vol] 86.2 fL Normal 80.0-100.0 [facility] [place] [facility] Comment on above: Performed By: #### 2 774528, 6324628, 6447926, 22445499, 11346897, 0528760, 5645571, 29805863 #### [facility] [place] [facility] [address] [place] [address] Platelet mean volume (Bld) [Entitic vol] 9.1 fL Normal 6.4-10.8 [facility] [place] [facility] Comment on above: Performed By: #### 2 930080, 3249820, 0878838, 87680138, 43894824, 0639845, 7981264, 46287459 #### [facility] [place] [facility] [address] [place] [address] Platelets (Bld) [#/Vol] 194.0 E9/L Normal 150.0-500.0 [facility] [place] [facility] Comment on above: Performed By: #### 2 348205, 4300100, 2809347, 72501345, 96030829, 8803066, 9068311, 92610107 #### [facility] [place] [facility] [address] [place] [address] RBC (Bld) [#/Vol] 4.2 E12/L Low 4.3-5.9 [facility] [place] [facility] Comment on above: Performed By: #### 2 031015, 8717395, 8702852, 66938432, 12646737, 7725758, 7737874, 69029568 #### [facility] [address] [place] [address] WBC corrected for nucl RBC Auto (Bld) [#/Vol] 5.7 E9/L Normal 4.0-11.0 [facility] Comment on above: Performed By: #### 2 066551, 9736552, 0132815, 99487509, 03474091, 5833428, 8298847, 97826440 #### [facility] [address] [place] [address] CMPon 02-09-2019 Albumin [Mass/Vol] 3.9 g/dL Normal 3.3-5.0 [facility] Comment on above: Performed By: #### 2 257540, 2353493, 4978184, 87956010, 90040772, 7239229, 6331728, 48227953 #### [facility] [address] [place] [address] Albumin [Mass/Vol] 1.2 g/dL Normal 1.1-2.2 [facility] Comment on above: Performed By: #### 2 773768, 2240801, 6297397, 04013470, 38300252, 0397751, 9225339, 19627091 #### [facility] [address] [place] [address] ALP [Catalytic activity/Vol] 81 Int._Unit/L Normal 21-98 [facility] Comment on above: Performed By: #### 2 909289, 5239026, 4089184, 43684302, 46340070, 9774759, 9102774, 46973470 #### [facility] [address] [place] [address] ALT No additional P-5'-P [Catalytic activity/Vol] 14 Int._Unit/L Normal 6-46 [facility] Comment on above: Performed By: #### 2 832239, 4971094, 9617990, 48318136, 14777333, 3724569, 9819138, 24466275 #### [facility] [address] [place] [address] Anion gap [Moles/Vol] 11 mmol/L Normal 6-16 [facility] Comment on above: Performed By: #### 2 720292, 6015042, 1822483, 52265434, 06732068, 5144812, 2139727, 91962219 #### [facility] [address] [place] [address] AST [Catalytic activity/Vol] 26 Int._Unit/L Normal 5-43 [facility] Comment on above: Performed By: #### 2 742212, 0888692, 5194379, 81607837, 90398757, 6760408, 5612466, 74396629 #### [facility] [address] [place] [address] Bilirubin [Mass/Vol] 0.5 mg/dL Normal 0.0-1.1 [facility] Comment on above: Performed By: #### 2 446471, 2533734, 4204187, 94356136, 66232928, 6646705, 2923536, 87246483 #### [facility] [address] [place] [address] Calcium [Mass/Vol] 9.0 mg/dL Normal 8.9-11.1 [facility] Comment on above: Performed By: #### 2 403915, 9549044, 7681781, 19900465, 26443306, 3212662, 2771052, 64337644 #### [facility] [address] [place] [address] Chloride [Moles/Vol] 107 mmol/L Normal 101-111 [facility] Comment on above: Performed By: #### 2 485815, 0056123, 1965079, 79113587, 93277655, 6432824, 6574830, 86289210 #### [facility] [address] [place] [address] CO2 [Moles/Vol] 20 mmol/L Low 21-31 [facility] Comment on above: Performed By: #### 2 661919, 8817356, 6094328, 20592778, 66133083, 4605567, 3070769, 51872459 #### [facility] [address] [place] [address] Creatinine [Mass/Vol] 0.6 mg/dL Normal 0.5-1.3 [facility] Comment on above: Performed By: #### 2 053786, 4813560, 7340886, 53328855, 08827687, 8777169, 4929309, 20956406 #### [facility] [address] [place] [address] Globulin (S) [Mass/Vol] 3.3 g/dL Normal 1.4-4.0 [facility] Comment on above: Performed By: #### 2 385781, 2637317, 1796962, 76868879, 96890843, 6283921, 4391577, 73809655 #### [facility] [address] [place] [address] Glucose [Mass/Vol] 90 mg/dL Normal 55-199 [facility] Comment on above: Result Comment: If t his glucose result represents a fasting glucose, interpretation should refer to the following reference range: 55-99 mg/dL Performed By: #### 2 946931, 1201275, 3368692, 16865763, 89195966, 0735819, 8029697, 51820694 #### [facility] [address] [place] [address] Potassium [Moles/Vol] 3.8 mmol/L Normal 3.5-5.3 [facility] Comment on above: Performed By: #### 2 284453, 9776538, 7398137, 09167984, 54438579, 1634630, 0082618, 57022912 #### [facility] [address] [place] [address] Protein [Mass/Vol] 7.2 g/dL Normal 6.0-7.8 [facility] Comment on above: Performed By: #### 2 607420, 6884733, 6957363, 89505619, 60039862, 6352740, 4206163, 27878204 #### [facility] [address] [place] [address] Sodium [Moles/Vol] 134 mmol/L Low 135-145 [facility] Comment on above: Performed By: #### 2 987461, 6186743, 1226353, 24505292, 06336046, 1178201, 8094372, 90335608 #### [facility] [address] [place] [address] Urea nitrogen [Mass/Vol] 11 mg/dL Normal 5-21 [facility] Comment on above: Performed By: #### 2 826150, 7177966, 6010849, 09910042, 28943957, 7395401, 7587859, 98837164 #### [facility] [address] [place] [address] Urea nitrogen/Creatinine [Mass ratio] 18 No Units Normal 10-20 [facility] Comment on above: Performed By: #### 2 938507, 0756844, 8514400, 90677457, 58604362, 4065739, 2767712, 19007885 #### [facility] [address] [place] [address] PTon 02-09-2019 INR Coag (PPP) [Relative time] 1.0 {INR} [facility] Comment on above: Result Comment: INR results are specifically intended to assess patients stabilized on long-term Anticoagulation therapy suggested INR?s ?Less Intensive Anticoagulation? 2.0 ? 3.0 Conventional Range 3.0 ? 4.5 Performed By: #### 2 949965, 6002747, 1082946, 51801919, 95671794, 2962408, 7259233, 44355556 #### [facility] [address] [place] [address] PT Coag (PPP) [Time] 11.2 second(s) Normal 10.2-12.9 [facility] Comment on above: Performed By: #### 2 172576, 8032905, 9951298, 96753448, 79990085, 7923926, 2223793, 42665759 #### [facility] [address] [place] [address] US Abdomen, Limitedon 2018 US Abdomen, Limited [...] MD Transcribed by: SCOOBY Technologist: ALIZE Ochoa [facility] eGFRon 02-09-2019 GFR/1.73 sq M predicted among blacks MDRD (S/P/Bld) [Vol rate/Area] mL/min/{1.73_m2} Normal >=59 [facility] Comment on above: Order Comment: Order added by Discern Expert. Result Comment: eGFR is race adjusted. AA=. Performed By: #### 2 241601, 9952051, 4756538, 05458226, 32245515, 5737269, 4776931, 65760356 #### [facility] [address] [place] [address] GFR/1.73 sq M predicted among non-blacks MDRD (S/P/Bld) [Vol rate/Area] mL/min/{1.73_m2} Normal >=59 [facility] Comment on above: Order Comment: Order added by Discern Expert. Result Comment: Field Training Manager ruben kidney disease could be indicated at eGFR's of less than 60 mL/min/1.73m2. Kidney failure is indicated at less than 15 mL/min/1.73m2. Performed By: #### 2 601942, 5429920, 7537782, 65601797, 88458785, 3400459, 7821387, 67582541 #### [facility] [address] [place] [address] Vital Signs Date Time Vital Sign Value Performing Clinician Facility 08-15-2023 11:00-0500 Body height 177.8 cm Karen Brantley Other [facility] Other 08-15-2023 11:00-0500 Body mass index (BMI) [Ratio] 19.66 kg/m2 Karen Brantley Other [facility] Other 08-15-2023 11:00-0500 Body temperature 98.8 [degF] Karen Brantley Other [facility] Other 08-15-2023 11:00-0500 Body weight 62.14 kg Karen Brantley Other [facility] Other 08-15-2023 11:00-0500 Respiratory rate 18 /min Karen Greyler Other [facility] Other 08-15-2023 11:00-0500 SaO2% (BldA) [Mass fraction] 98 % Karen Brantley Other [facility] Other Encounters Encounter Date Encounter Type Care Provider Facility Start: 09-23-2023 End: 09-24-2023 ambulatory Catina Mcdonald MD Facility: [facility] Start: 08-22-2023 End: 08-22-2023 ambulatory VIN ADDISON Not Available Start: 08-15-2023 End: 08-15-2023 ambulatory Karen Brantley Other [facility] Other Start: 08-15-2023 Office outpatient visit 25 minutes [facility] Start: 10-17-2022 End: 10-17-2022 ambulatory TOPHER SHAMMO Facility:[facility] Start: 08-29-2022 End: 08-29-2022 ambulatory TOPHER SHAMMO Facility:[facility] Start: 08-08-2022 End: 08-08-[address] BRITTNY ACEVES Facility:[facility] Start: 06-01-2022 End: 06-01-[address] AJ Hooper Facility:[facility] Start: 01-09-2022 End: 01-09-2022 ambulatory DESI KUHN Facility:[facility] Start: 06-30-2018 End: 07-01-2018 Patient encounter procedure DEFAULT PHYSICIAN Facility:[facility] Payers Date Payer Category Payer Unknown [id number] 2.16.8 [id number] 1990 Unknown [id number] 2.16.84 [id number] 1990 Unknown [id number] 2.16.84 [id number] 1990 Unknown [id number] 2.16.84 [id number] 1990 Unknown [id number] 2.16.84 [id number] 1990 Unknown [id number] 2.16.84 [id number] 1990 Unknown [id number] 2.16.840 .[id number] 1990 Unknown [id number] 2.16. [id number] 1959 Unknown [id number] 1959 Unknown [id number] Self-pay Unknown Social History Date Type Detail Facility Unknown if ever smoked [facility] Other Sex Assigned At Sex Assigned At Bir th [facility] Other Evaluation note 08-15-2023 Note Date & [...] (suspected) exposure to covid-19 (ICD-10 - Z20.822) [facility] Other History general Narrative - Reported Note Date & Type Note Facility History general Narrative - Reported Type Medical History chronic back pain Medical History mrsa Medical History pneumonia Surgical History C section Hospitalization History child x2 Hospitalization History see above [facility] Other Summary Purpose Family History No Family [...] section and content) DATE CREATED AUTHOR 08/04/2018 [facility] DATE CREATED AUTHOR AUTHOR'S ORGANIZ ATION 07/24/2019 [facility] DATE CREATED AUTHOR AUTHOR'S ORGANIZ ATION 03/25/2020 [facility] DATE CREATED AUTHOR AUTHOR'S ORGANIZ ATION 09/17/2021 [facility] DATE CREATED AUTHOR AUTHOR'S ORGANIZ ATION 12/26/2022 [facility] DATE CREATED AUTHOR AUTHOR'S ORGANIZ ATION 08/23/2023 [facility] DATE CREATED AUTHOR AUTHOR'S ORGANIZ ATION 09/30/2023 [facility] REASON FOR VISIT (unrecogniz ed section and [...] BE BASED ON THE PRIMARY CLINICAL RECORDS. [facility]. provides no warranty or guarantee of the accuracy or completeness of information in this document.
== END 2024-02-25 20:39 | disposition home or self-care (01) ==
LOC: LAB 20:38
PROVIDERS: PCP Nurse Practitioner Primary Care; Visit Provider Nurse Practitioner
DX: J02.9 Acute pharyngitis, unspecified (principal)
CPT/HCPCS: 87070; 87106

== ENCOUNTER 2024-03-17 16:51 | Emergency (ER) | payer OTHER, SELFPAY ==
--- OUTSIDE RECORDS SUMMARY | 2024-03-17 17:03 | XMS_ITS | CCD ---
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 By: #### G LYHGB, UCGP #### [place] [address] Cleaning And Maintenance Worker: Higinio Kellogg MD #### CDP, UHCG, CARIN, CMIS #### [address] [place] [phone] Cleaning And Maintenance Worker: Cecy Santacruz MD Erythrocyte distribution width (RBC) [Ratio] 11.9 % Normal 11.8-14.4 [facility] Comment on above: Performed By: #### G LYHGB, UCGP #### [place] [address] Cleaning And Maintenance Worker: Higinio Kellogg MD #### CDP, UHCG, CARIN, CMIS #### [address] [place] [phone] Cleaning And Maintenance Worker: Cecy Santacruz MD Hematocrit (Bld) [Volume fraction] 44.3 % Normal 36.3-47.1 [facility] Comment on above: Performed By: #### G LYHGB, UCGP #### [address] [phone] Cleaning And Maintenance Worker: Higinio Kellogg MD #### CDP, UHCG, CARIN, CMIS #### [address] [place], [place] [phone] Cleaning And Maintenance Worker: Cecy Santacruz MD Hemoglobin (Bld) [Mass/Vol] 15.2 g/dL High 11.9-15.1 [facility] Comment on above: Performed By: #### G LYHGB, UCGP #### [address] [address] Cleaning And Maintenance Worker: Higinio Kellogg MD #### CDP, SALVADORCG, CARIN, CMIS #### [address] [place] [phone] Cleaning And Maintenance Worker: Cecy Santacruz MD Immature granulocytes/100 WBC (Bld) 0 % Normal 0 [facility] Comment on above: Performed By: #### Melanie LYHGB, UCGP #### [address] [address] Cleaning And Maintenance Worker: Higinio Kellogg MD #### JUSTINE, ANDREW, CARIN, CMIS #### [address] [place] [phone] Cleaning And Maintenance Worker: Cecy Santacruz MD Lymphocytes (Bld) [#/Vol] 2.45 10*3/uL Normal 1.10-3.70 [facility] Comment on above: Performed By: #### G LYHGB, UCGP #### [address] [address] Cleaning And Maintenance Worker: Higinio Kellogg MD #### CDP, UHCG, CARIN, CMIS #### [address] [place] [address] Cleaning And Maintenance Worker: Cecy Santacruz MD Lymphocytes/100 WBC (Bld) 45 % High 24-43 [facility] Comment on above: Performed By: #### G LYHGB, UCGP #### [place] [id number] [place] [address] Cleaning And Maintenance Worker: Higinio Kellogg MD #### CDP, UHCG, CARIN, CMIS #### [address] [place], [place] [phone] Cleaning And Maintenance Worker: Cecy Santacruz MD MCH (RBC) [Entitic mass] 31.1 pg Normal 25.2-33.5 [facility] Comment on above: Performed By: #### G LYHGB, UCGP #### [address] [address] Cleaning And Maintenance Worker: Higinio Kellogg MD #### CDP, UHCG, CARIN, CMIS #### [address] [place] [phone] Cleaning And Maintenance Worker: Cecy Santacruz MD MCHC (RBC) [Mass/Vol] 34.3 g/dL Normal 28.4-34.8 [facility] Comment on above: Performed By: #### G LYHGB, UCGP #### [address] [address] Cleaning And Maintenance Worker: Higinio Kellogg MD #### CDP, UHCG, CARIN, CMIS #### [address] [id number] Cleaning And Maintenance Worker: Cecy Santacruz MD MCV (RBC) [Entitic vol] 90.6 fL Normal 82.6-102.9 [facility] Comment on above: Performed By: #### G LYHGB, UCGP #### [address] [phone] Cleaning And Maintenance Worker: Hiignio Kellogg MD #### CDP, UHCG, CARIN, CMIS #### [address] [place] [phone] Cleaning And Maintenance Worker: Cecy Santacruz MD Monocytes (Bld) [#/Vol] 0.38 10*3/uL Normal 0.10-1.20 [facility] Comment on above: Performed By: #### G LYHGB, UCGP #### [address] [address] Cleaning And Maintenance Worker: Higinio Kellogg MD #### JUSTINE, SALVADORCG, CARIN, CMIS #### [address] [place], [place] [phone] Cleaning And Maintenance Worker: Cecy Santacruz MD Monocytes/100 WBC (Bld) 7 % Normal 3-12 [facility] Comment on above: Performed By: #### Melanie LYHGB, UCGP #### [address] [phone] Cleaning And Maintenance Worker: Higinio Kellogg MD #### ANDREW FLETCHER, CARIN, CMIS #### [address] [place] [phone] Cleaning And Maintenance Worker: Cecy Santacruz MD Neutrophil (Seg) 46 % Normal 36-65 [facility] Comment on above: Performed By: #### Melanie LYHGB, UCGP #### [address] [phone] Cleaning And Maintenance Worker: Higinio Kellogg MD #### ANDREW FLETCHER, CARIN, CMIS #### [address] [place] [phone] Cleaning And Maintenance Worker: Cecy Santacruz MD NRBC Automated 0.0 per 100 WBC Normal 0.0 [facility] Comment on above: Performed By: #### G LYHGB, UCGP #### [address] [address] Cleaning And Maintenance Worker: Higinio Kellogg MD #### JUSTINE, SALVADORCG, CARIN, CMIS #### [address] [place], [place] [phone] Cleaning [employer] Maintenance Worker: Cecy Santacruz MD Platelet mean volume (Bld) [Entitic vol] 11.9 fL Normal 8.1-13.5 [facility] Comment on above: Performed By: #### G LYHGB, UCGP #### [address] [address] Cleaning And Maintenance Worker: Higinio Kellogg MD #### CDP, UHCG, CARIN, CMIS #### [address] [place], [place] [phone] Cleaning And Maintenance Worker: Cecy Santacruz MD Platelets (Bld) [#/Vol] 184 10*3/uL Normal 138-453 [facility] Comment on above: Performed By: #### G LYHGB, UCGP #### [address] [address] Cleaning And Maintenance Worker: Higinio Kellogg MD #### CDP, UHCG, CARIN, CMIS #### [address] [place], [place] [phone] Cleaning And Maintenance Worker: Cecy Santacruz MD RBC (Bld) [#/Vol] 4.89 10*6/uL Normal 3.95-5.11 [facility] Comment on above: Performed By: #### G LYHGB, UCGP #### [address] [address] Cleaning And Maintenance Worker: Higinio Kellogg MD #### CDP, UHCG, CARIN, CMIS #### [address] [place] [phone] Cleaning And Maintenance Worker: Cecy Santacruz MD WBC (Bld) [#/Vol] 5.4 10*3/uL Normal 3.5-11.3 [facility] Comment on above: Performed By: #### G LYHGB, UCGP #### [address] [phone] Cleaning And Maintenance Worker: Higinio Kellogg MD #### CDP, UHCG, CARIN, CMIS #### [facility] [address] [place] [address] [place] [address] Cleaning And Maintenance Worker: Cecy Santacruz MD Drug Scr, Abuse, Uron 2023 Amphetamine(s),Ur Negative Normal NEG [facility] Comment on above: Result Comment: (Positive cutoff 1000 ng/mL) Performed By: #### G LYHGB, UCGP #### [address] [phone] Cleaning And Maintenance Worker: Higinio Kellogg MD #### CDP, UHCG, CARIN, CMIS #### [address] [place], [place] [phone] Cleaning And Maintenance Worker: Cecy Santacruz MD Barbiturate(s),Ur Negative Normal NEG [facility] Comment on above: Result Comment: (Positive cutoff 200 ng/mL) Performed By: #### G LYHGB, UCGP #### [address] [phone] Cleaning And Maintenance Worker: Higinio Kellogg MD #### CDP, UHCG, CARIN, CMIS #### [address] [place], [place] [phone] Cleaning And Maintenance Worker: Cecy Santacruz MD Benzodiazepine(s) Negative Normal NEG [facility] Comment on above: Result Comment: (Positive cutoff 200 ng/mL) Performed By: #### G LYHGB, UCGP #### [address] [phone] Cleaning And Maintenance Worker: Higinio Kellogg MD #### CDP, UHCG, CARIN, CMIS #### [facility] [address] [place] [address] Dr. [place], [place] [phone] Cleaning And Maintenance Worker: Cecy Santacruz MD Buprenorphrine, Ur Positive Abnormal NEG [facility] Comment on above: Result Comment: (Positive cutoff 5 ng/ml) Performed By: #### G LYHGB, UCGP #### [address] [address] Cleaning And Maintenance Worker: Higinio Kellogg MD #### CDP, UHCG, CARIN, CMIS #### [address] [place], [place] [phone] Cleaning And Maintenance Worker: Cecy Santacruz MD Cannabinoid(s),Ur Negative Normal NEG [facility] Comment on above: Result Comment: (Positive cutoff 50 ng/mL) Performed By: #### G LYHGB, UCGP #### [address] [address] Cleaning And Maintenance Worker: Higinio Kellogg MD #### CDP, UHCG, CARIN, CMIS #### [address] [place] [phone] Cleaning And Maintenance Worker: Cecy Santacruz MD Cocaine Metabolite Negative Normal NEG [facility] Comment on above: Result Comment: (Positive cutoff 300 ng/mL) Performed By: #### G LYHGB, UCGP #### [address] [address] Cleaning And Maintenance Worker: Higinio Kellogg MD #### CDP, UHCG, CARIN, CMIS #### [address] [place] [phone] Cleaning And Maintenance Worker: Cecy Santacruz MD Fentanyl, Urine Negative Normal NEG [facility] Comment on above: Result Comment: (Positive cutoff 5 ng/ml) Performed By: #### G LYHGB, UCGP #### [address] [address] Cleaning And Maintenance Worker: Higinio Kellogg MD #### CDP, UHCG, CARIN, CMIS #### [address] [place] [phone] Cleaning And Maintenance Worker: Cecy Santacruz MD Interpretive Info Assay provides medical screening only. The absence of expected drug(s) and/or Normal [facility] Comment on above: Result Comment: meta bolite(s) may indicate diluted or adulterated urine, limitations of testing or timing of collection. Testing for legal purposes should be confirmed by another method. To request confirmation of test result, please call the lab within 7 days of sample submission. Performed By: #### Melanie GALICIA, UCGP #### [address] [address] Cleaning And Maintenance Worker: Higinio Kellogg MD #### JUSTINE, SALVADORCG, CARIN, CMIS #### [address] [place] [address] Cleaning And Maintenance Worker: Cecy Santacruz MD Methadone Ql (U) Negative Normal NEG [facility] Comment on above: Result Comment: (Positive cutoff 300 ng/mL) Performed By: #### Melanie GALICIA, UCGP #### [address] [address] Cleaning And Maintenance Worker: Higinio Kellogg MD #### JUSTINE, ANDREW, CARIN, CMIS #### [address] [place] [address] Cleaning And Maintenance Worker: Cecy Santacruz MD Opiate(s), Ur Negative Normal NEG [facility] Comment on above: Result Comment: (Positive cutoff 300 ng/mL) Performed By: #### Melanie GALICIA, UCGP #### [address] [address] Cleaning And Maintenance Worker: Higinio Kellogg MD #### JUSTINE, SALVADORCG, CARIN, CMIS #### [address] [place] [address] Cleaning And Maintenance Worker: Cecy Santacruz MD Oxycodone, Urine Negative Normal NEG [facility] Comment on above: Result Comment: (Positive cutoff 100 ng/mL) Performed By: #### Melanie LYHGB, UCGP #### [facility] [address] [place] [address] Cleaning And Maintenance Worker: Higinio Kellogg MD #### JUSTINE, ANDREW, CARIN, CMIS #### [facility] [address] [place] [address] [place] [address] Cleaning And Maintenance Worker: Cecy Santacruz MD Phencyclidine, Ur Negative Normal NEG [facility] Comment on above: Result Comment: (Positive cutoff 25 ng/mL) Performed By: #### G LYHGB, UCGP #### [facility] [address] [place], [place] [phone] Cleaning And Maintenance Worker: Higinio Kellogg MD #### JUSTINE, ANDREW, CARIN, CMIS #### [facility] [address] [place] [address] [place] [address] Cleaning And Maintenance Worker: Cecy Santacruz MD HCG, ,Urineon 03-06 Beta HCG ( test) Ql (U) Negative Normal NEG [facility] Comment on above: Result Comment: Spec imens with hCG levels near the threshold of the test (25 mIU/mL) may give a negative or indeterminate result. In such cases, another test should be performed with a new specimen in 48-72 hours. If early is suspected clinically in this setting, correlation with quantitative serum b-hCG level is suggested. [facility] has confirmed the use of plasma for this test. This has not been cleared or approved by the U.[place]. Food and Drug Administration. The FDA has determined that such clearance is not necessary. Performed By: #### G LYHGB, UCGP #### [facility] [address] [place], [place] [phone] Cleaning And Maintenance Worker: Higinio Kellogg MD #### JUSTINE, ANDREW, CARIN, CMIS #### [facility] [address] [place] [address] [place] [address] Cleaning And Maintenance Worker: Cecy Santacruz MD Miscellaneouson 03-06-2024 Test Name [id number] Normal [facility] Comment on above: Performed By: #### G LYHGB, UCGP #### [facility] [address] [place] [address] Cleaning And Maintenance Worker: Higinio Kellogg MD #### CDP, CG, CARIN, MARIEIS #### [facility] [address] [place] [address] Cleaning And Maintenance Worker: Cecy Santacruz MD COVID/FLU/RSV RT-PCRon 08-15 COVID/FLU/RSV RT-PCR negatigve [facility] [employer] Other COVID/FLU/RSV RT-PCR Negative [facility] [employer] Other COVID/FLU/RSV RT-PCR Positive [facility] [employer] Other Quick Strepon 08-15-2023 S. pyogenes Org specific cx Ql (Throat) Negative [facility] [employer] Other Quick Strep [facility] [employer] Other CULTURE THROATon 10-17-2022 CULTURE THROAT Culture Observations: NORMAL RESPIRATORY WILI. Normal [facility] Comment on above: Performed By: #### T HRTCX #### [facility] [address] [place] [address] Dr. Felicitas Rios CULTURE THROATon 08-29-2022 CULTURE THROAT Culture Observations: NORMAL RESPIRATORY WILI. Normal [facility] Comment on above: Performed By: #### T HRTCX #### [facility] [address] [place] [address] Dr. Felicitas Rios RESPIRATORY PANEL PLUSon Adenovirus Not detected Normal NOT DETECTED [facility] Comment on above: Performed By: #### R SPLUS #### [facility] [address] [place] [address] Dr. Felicitas Pimentel. Parapertusis Not detected Normal NOT DETECTED [facility] Comment on above: Performed By: #### R SPLUS #### [facility] [address] [place] [address] Dr. Felicitas Burrows Pertussis Not detected Normal NOT DETECTED The [facility] Comment on above: Performed By: #### R SPLUS #### [facility] [address] [place] [address] Dr. Felicitas Rios Chlamydia Pneumoniae Not detected Normal NOT DETECTED [facility] Comment on above: Performed By: #### R SPLUS #### [facility] [address] [place] [address] Dr. Felicitas Rios Coronavirus 229E Not detected Normal NOT DETECTED [facility] Comment on above: Performed By: #### R SPLUS #### [facility] [address] [place] [address] Dr. Felicitas Rios Coronavirus HKU1 Not detected Normal NOT DETECTED [facility] Comment on above: Performed By: #### R SPLUS #### [facility] [address] [place] [address] Dr. Felicitas Rios Coronavirus NL63 Not detected Normal NOT DETECTED [facility] Comment on above: Performed By: #### R SPLUS #### [facility] [address] [place] [address] Dr. Felicitas Rios Coronavirus OC43 Not detected Normal NOT DETECTED [facility] Comment on above: Performed By: #### R SPLUS #### [facility] [address] [place] [address] Dr. Felciitas Rios Influenza A H1 2009 Not detected Normal NOT DETECTED [facility] Comment on above: Performed By: #### R SPLUS #### [facility] [address] [place] [address] Dr. Felicitas Rios Influenza A H3 Not detected Normal NOT DETECTED [facility] Comment on above: Performed By: #### R SPLUS #### [facility] [address] [place] [address] Dr. Felicitas Rios Influenza B Not detected Normal NOT DETECTED The [facility] Comment on above: Performed By: #### R SPLUS #### [facility] [address] [place] [address] Dr. Felicitas Rios Metapneumovirus Not detected Normal NOT DETECTED [facility] Comment on above: Performed By: #### R SPLUS #### [facility] [address] [place] [address] Dr. Felicitas Rios Mycoplas. Pneumoniae Not detected Normal NOT DETECTED [facility] Comment on above: Performed By: #### R SPLUS #### [facility] [address] [place] [address] [address] Felicitas Rios Parainfluenza 1 Detected Abnormal NOT DETECTED [facility] Comment on above: Performed By: #### R SPLUS #### [facility] [address] [place] [address] Dr. Felicitas Rios Parainfluenza 2 Not detected Normal NOT DETECTED [facility] Comment on above: Performed By: #### R SPLUS #### [facility] [address] [place] [address] Dr. Felicitas Rios Parainfluenza 3 Not detected Normal NOT DETECTED [facility] Comment on above: Performed By: #### R SPLUS #### [facility] [address] [place] [address] Dr. Felicitas Rios Parainfluenza 4 Not detected Normal NOT DETECTED [facility] Comment on above: Performed By: #### R SPLUS #### [facility] [address] [place] [address] Dr. Felicitas Rios Rhino/Enterovirus Not detected Normal NOT DETECTED [facility] Comment on above: Performed By: #### R SPLUS #### [facility] [address] [place] [address] Dr. Felicitas Rios RP2 Header 1 RESPIRATORY PANEL: VIRUSES Normal [facility] Comment on above: Performed By: #### R SPLUS #### [facility] [address] [place] [address] Dr. Felicitas Rios RP2 Header 2 RESPIRATORY PANEL: BACTERIA Normal [facility] Comment on above: Performed By: #### R SPLUS #### [facility] [address] [place] [address] Dr. Felicitas Rios RSV Not detected Normal NOT DETECTED [facility] Comment on above: Performed By: #### R SPLUS #### [facility] [address] [place] [address] Dr. Felicitas Rios SARS-CoV-2 (COVID-19) RNA JEREMIE+probe Ql (Unsp spec) Not detected Normal NOT DETECTED [facility] Comment on above: Performed By: #### R SPLUS #### [facility] [address] [place] [address] Dr. Felicitas Rios CBC AUTO DIFFon 08-08-2022 BASO # 0.0 103/ul Normal 0.0-0.1 [facility] Comment on above: Performed By: #### C BC #### [facility] [address] [place] [address] Dr. Felicitas Rios Basophils/100 WBC (Bld) 0.6 % Normal 0.2-2.0 [facility] Comment on above: Performed By: #### C BC #### [facility] [address] [place] [address] Dr. Felicitas Rios EO # 0.1 103/ul Normal 0.0-0.7 [facility] Comment on above: Performed By: #### C BC #### [facility] [address] [place] [address] Dr. Felicitas Rios Eosinophils/100 WBC (Bld) 2.1 % Normal 0.9-7.0 [facility] Comment on above: Performed By: #### C BC #### [facility] [address] [place] [address] Dr. Felicitas Rios Erythrocyte distribution width (RBC) [Ratio] 11.9 % Normal 11.0-15.0 [facility] Comment on above: Performed By: #### C BC #### [facility] [address] [place] [address] Dr. Felicitas Rios Hematocrit (Bld) [Volume fraction] 39.4 % Normal 36.0-48.0 [facility] Comment on above: Performed By: #### C BC #### [facility] [address] [place] [address] Dr. Felicitas Rios Hemoglobin (Bld) [Mass/Vol] 13.7 g/dL Normal 12.0-16.0 [facility] Comment on above: Performed By: #### C BC #### [facility] [address] [place] [address] Dr. Felicitas Rios IG # 0.00 10e3/ul Normal 0.00-0.03 [facility] Comment on above: Performed By: #### C BC #### [facility] [address] [place] [address] Dr. Felicitas Rios IG % 0.0 % Normal 0.0-0.5 [facility] Comment on above: Performed By: #### C BC #### [facility] [address] [place] [address] Dr. Felicitas Rios LYMPH # 2.3 103/ul Normal 1.2-3.8 [facility] Comment on above: Performed By: #### C BC #### [facility] [address] [place] [address] Dr. Felicitas Rios Lymphocytes/100 WBC (Bld) 49.1 % Normal 20.5-60.0 [facility] Comment on above: Performed By: #### C BC #### [facility] [address] [place] [address] Dr. Felicitas Rios MANUAL DIFF REQ NO Normal [facility] Comment on above: Performed By: #### C BC #### [facility] [address] [place] [address] Dr. Felicitas Rios MCH (RBC) [Entitic mass] 30.9 pg Normal 26.7-34.0 [facility] Comment on above: Performed By: #### C BC #### [facility] [address] [place] [address] Dr. Felicitas Rios MCHC (RBC) [Mass/Vol] 34.8 g/dL Normal 29.9-35.2 [facility] Comment on above: Performed By: #### C BC #### [facility] [address] [place] [address] Dr. Felicitas Rios MCV (RBC) [Entitic vol] 88.9 fL Normal 81.0-99.0 [facility] Comment on above: Performed By: #### C BC #### [facility] [address] [place] [address] Dr. Felicitas Rios MONO # 0.3 103/ul Normal 0.3-0.8 [facility] Comment on above: Performed By: #### C BC #### [facility] [address] [place] [address] Dr. Felicitas Rios Monocytes/100 WBC (Bld) 6.3 % Normal 1.7-12.0 [facility] Comment on above: Performed By: #### C BC #### [facility] [address] [place] [address] Dr. Felicitas Rios NEUT # 2.0 103/ul Normal 1.4-6.5 [facility] Comment on above: Performed By: #### C BC #### [facility] [address] [place] [address] Dr. Felicitas Rios Neutrophils/100 WBC (Bld) 41.9 % Critically low 43.0-75.0 [facility] Comment on above: Performed By: #### C BC #### [facility] [address] [place] [address] Dr. Felicitas Rios Platelet mean volume (Bld) [Entitic vol] 10.0 fL Normal 9.5-13.5 [facility] Comment on above: Performed By: #### C BC #### [facility] [address] [place] [address] Dr. Felicitas Rios PLT 160 103/ul Normal 150-450 [facility] Comment on above: Performed By: #### C BC #### [facility] [address] [place] [address] Dr. Felicitas Rios RBC 4.43 106/ul Normal 4.20-5.40 [facility] Comment on above: Performed By: #### C BC #### [facility] [address] [place] [address] Dr. Felicitas Rios WBC 4.8 103/ul Normal 4.0-11.0 [facility] Comment on above: Performed By: #### C BC #### [facility] [address] [place] [address] Dr. Felicitas Rios CTA CHEST WO W CONon CTA CHEST WO W CON EXAMINATION: CTA [...] RAMON SUBRAMANIAN Date: 2022-08-08 11:17 Normal [facility] D-DIMERon 08-08-2022 D-DIMER 0.65 mg/L FEU Critically high <=0.59 [facility] Comment on above: Performed By: #### D DIM #### [facility] [address] [address] [address] Felicitas Rios D-DIMER COMMENTS SEE BELOW Normal [facility] Comment on above: Result Comment: Incr [...] hospitalization. Performed By: #### D DIM #### [facility] [address] [address] [address] Felicitas Rios PROF 14(COMP METB)on Albumin [Mass/Vol] 4.0 g/dL Normal 3.4-5.0 [facility] Comment on above: Performed By: #### C MP, HSTROPN #### [facility] [address] [place] [address] Dr. Felicitas Rios Albumin/Globulin [Mass ratio] 1.3 {ratio} Normal [facility] Comment on above: Performed By: #### C MP, HSTROPN #### [facility] [address] [place] [address] Dr. Felicitas Rios ALP [Catalytic activity/Vol] 80 U/L Normal 46-116 [facility] [place] [facility] Comment on above: Performed By: #### C MP, HSTROPN #### [facility] [address] [place] [address] Dr. Felicitas Rios ALT [Catalytic activity/Vol] 14 U/L Normal 14-59 [facility] [place] [facility] Comment on above: Performed By: #### C MP, HSTROPN #### [facility] [address] [place] [address] Dr. Felicitas Rios Anion gap [Moles/Vol] 13.4 mmol/L Normal [facility] Comment on above: Performed By: #### C MP, HSTROPN #### [facility] [address] [place] [address] Dr. Felicitas Rios AST [Catalytic activity/Vol] 23 U/L Normal 15-37 [facility] Comment on above: Performed By: #### C MP, HSTROPN #### [facility] [address] [place] [address] Dr. Felicitas Rios Bilirubin [Mass/Vol] 0.3 mg/dL Normal 0.2-1.0 [facility] Comment on above: Performed By: #### C MP, HSTROPN #### [facility] [address] [place] [address] Dr. Felicitas Rios Calcium [Mass/Vol] 9.1 mg/dL Normal 8.5-10.1 [facility] Comment on above: Performed By: #### C MP, HSTROPN #### [facility] [address] [place] [address] Dr. Felicitas Rios Chloride [Moles/Vol] 102 mmol/L Normal 98-107 [facility] Comment on above: Performed By: #### C PAVAN, HSTROPN #### [facility] [address] [address] [address] Felicitas Rios CO2 [Moles/Vol] 28.5 mmol/L Normal 21.0-32.0 [facility] Comment on above: Performed By: #### C PAVAN, HSTROPN #### [facility] [address] [address] [address] Felicitas Rios Creatinine [Mass/Vol] 0.65 mg/dL Normal 0.55-1.02 [facility] Comment on above: Performed By: #### C PAVAN, HSTROPN #### [facility] [address] [place] [address] Dr. Felicitas Rios EGFR-AF KENYAN >60 Normal >=60 [facility] Comment on above: Performed By: #### C PAVAN, HSTROPN #### [facility] [address] [place] [address] Dr. Felicitas Rios EGFR-NON AF KENYAN >60 Normal >=60 [facility] Comment on above: Performed By: #### C PAVAN, HSTROPN #### [facility] [address] [address] [address] Felicitas Rios Globulin (S) [Mass/Vol] 3.2 g/dL Normal [facility] Comment on above: Performed By: #### C PAVAN, HSTROPN #### [facility] [address] [address] [address] Felicitas Rios Glucose [Mass/Vol] 97 mg/dL Normal 74-106 [facility] Comment on above: Performed By: #### C PAVAN, HSTROPN #### [facility] [address] [address] [address] Felicitas Rios Potassium [Moles/Vol] 3.9 mmol/L Normal 3.5-5.1 [facility] Comment on above: Performed By: #### C PAVAN, HSTROPN #### [facility] [address] [address] [address] Felicitas Rios Protein [Mass/Vol] 7.2 g/dL Normal 6.4-8.2 [facility] Comment on above: Performed By: #### C MP, HSTROPN #### [facility] [address] [address] [address] Felicitas Rios Sodium [Moles/Vol] 140 mmol/L Normal 136-145 [facility] Comment on above: Performed By: #### C MP, HSTROPN #### [facility] [address] [address] [address] Felicitas Rios Urea nitrogen [Mass/Vol] 6.0 mg/dL Critically low 7.0-18.0 [facility] Comment on above: Performed By: #### C MP, HSTROPN #### [facility] [address] [address] [address] Felicitas Rios Urea nitrogen/Creatinine [Mass ratio] 9.2 mg/mg Normal [facility] Comment on above: Performed By: #### C MP, HSTROPN #### [facility] [address] [address] [address] Felicitas Rios TROPONIN, HIGH SENSITIVITYon 08-08-2022 HSTROP 4.5 pg/mL Normal 4.0-51.3 [facility] Comment on above: Result Comment: CUT- OFF POINTS HAVE BEEN ESTABLISHED BASED ON THE FOURTH UNIVERSAL DEFINITIONS OF MYOCARDIAL INFARCTION. THE UPPER REFERENCE LIMIT (URL) OF TROPONIN, DEFINED THE 99TH PERCENTILE OF cTnI DISTRIBUTION IN A REFERENCE POPULATION, HAS BEEN CONFIRMED THE DECISION THRESHOLD FOR NC DIAGNOSIS. Performed By: #### C MP, HSTROPN #### [facility] [address] [address] [address] Felicitas Rios US VANESA DOP LEG [...] by: TEDDY MARCIAL Date: 2022-08-08 10:06 Normal [facility] XR CHEST 1 Von 08-08-2022 [...] by: CECY RICHMOND Date: 2022-08-08 07:44 Normal [facility] Complete Blood Count Auto Di ffon 12-22-2020 Basophils (Bld) [#/Vol] 0.0 10*3/uL Normal 0.0-0.2 [facility] Comment on above: Performed By: #### I GM, IGA, RA, LUPANTCOAG, RPR W RFX, IGG, SSA, SSB, CCP #### [facility] , #### TSH3, CBC, ESR, URIC, CMP #### [facility] [address] [place] [address] Basophils/100 WBC (Bld) 0.6 % Normal . [facility] Comment on above: Performed By: #### I GM, IGA, RA, LUPANTCOAG, RPR W RFX, IGG, SSA, SSB, CCP #### [facility] , #### TSH3, CBC, ESR, URIC, CMP #### [facility] [address] [place] [address] Eosinophils (Bld) [#/Vol] 0.1 10*3/uL Normal 0.0-0.45 [facility] Comment on above: Performed By: #### I GM, IGA, RA, LUPANTCOAG, RPR W RFX, IGG, SSA, SSB, CCP #### [facility] , #### TSH3, CBC, ESR, URIC, CMP #### [address] Eosinophils/100 WBC (Bld) 1.7 % Normal . [facility] Comment on above: Performed By: #### I GM, IGA, RA, LUPANTCOAG, RPR W RFX, IGG, SSA, SSB, CCP #### [facility] , #### TSH3, CBC, ESR, URIC, CMP #### [address] Erythrocyte distribution width (RBC) [Ratio] 13.0 % Normal 11.9-15.3 [facility] Comment on above: Performed By: #### I GM, IGA, RA, LUPANTCOAG, RPR W RFX, IGG, SSA, SSB, CCP #### [facility] , #### TSH3, CBC, ESR, URIC, CMP #### [address] Hematocrit (Bld) [Volume fraction] 38.9 % Normal 34.0-46.4 [facility] Comment on above: Performed By: #### I GM, IGA, RA, LUPANTCOAG, RPR W RFX, IGG, SSA, SSB, CCP #### [facility] , #### TSH3, CBC, ESR, URIC, CMP #### [address] Hemoglobin (Bld) [Mass/Vol] 13.8 g/dL Normal 11.8-15.4 [facility] Comment on above: Performed By: #### I GM, IGA, RA, LUPANTCOAG, RPR W RFX, IGG, SSA, SSB, CCP #### [facility] , #### TSH3, CBC, ESR, URIC, CMP #### [address] Lymphocytes (Bld) [#/Vol] 2.1 10*3/uL Normal 1.00-4.8 [facility] Comment on above: Performed By: #### I GM, IGA, RA, LUPANTCOAG, RPR W RFX, IGG, SSA, SSB, CCP #### [facility] , #### TSH3, CBC, ESR, URIC, CMP #### [address] Lymphocytes/100 WBC (Bld) 37.8 % Normal . [facility] Comment on above: Performed By: #### I GM, IGA, RA, LUPANTCOAG, RPR W RFX, IGG, SSA, SSB, CCP #### [facility] , #### TSH3, CBC, ESR, URIC, CMP #### [address] MCH (RBC) [Entitic mass] 32.3 pg Normal 24.7-34.3 [facility] Comment on above: Performed By: #### I GM, IGA, RA, LUPANTCOAG, RPR W RFX, IGG, SSA, SSB, CCP #### [facility] , #### TSH3, CBC, ESR, URIC, CMP #### [address] MCV (RBC) [Entitic vol] 91.0 fL Normal 80-100 [facility] Comment on above: Performed By: #### I GM, IGA, RA, LUPANTCOAG, RPR W RFX, IGG, SSA, SSB, CCP #### [facility] , #### TSH3, CBC, ESR, URIC, CMP #### [address] Mean Corpuscular HGB Conc 35.5 g/dL High 32.0-35.0 [facility] Comment on above: Performed By: #### I GM, IGA, RA, LUPANTCOAG, RPR W RFX, IGG, SSA, SSB, CCP #### [facility] , #### TSH3, CBC, ESR, URIC, CMP #### [address] Monocytes (Bld) [#/Vol] 0.3 10*3/uL Normal 0.0-0.8 [facility] Comment on above: Performed By: #### I GM, IGA, RA, LUPANTCOAG, RPR W RFX, IGG, SSA, SSB, CCP #### [facility] , #### TSH3, CBC, ESR, URIC, CMP #### [address] Monocytes/100 WBC (Bld) 6.2 % Normal . [facility] Comment on above: Performed By: #### I GM, IGA, RA, LUPANTCOAG, RPR W RFX, IGG, SSA, SSB, CCP #### [facility] , #### TSH3, CBC, ESR, URIC, CMP #### [address] Neutrophils (Bld) [#/Vol] 2.9 10*3/uL Normal 1.8-7.7 [facility] Comment on above: Performed By: #### I GM, IGA, RA, LUPANTCOAG, RPR W RFX, IGG, SSA, SSB, CCP #### [facility] , #### TSH3, CBC, ESR, URIC, CMP #### [address] Neutrophils/100 WBC (Bld) 53.7 % Normal . [facility] Comment on above: Performed By: #### I GM, IGA, RA, LUPANTCOAG, RPR W RFX, IGG, SSA, SSB, CCP #### [facility] , #### TSH3, CBC, ESR, URIC, CMP #### [address] [place] [address] [place] Nucleated RBC/100 WBC (Bld) [Ratio] 0.2 % Normal 0-0.5 [facility] Comment on above: Performed By: #### I GM, IGA, RA, LUPANTCOAG, RPR W RFX, IGG, SSA, SSB, CCP #### [facility] , #### TSH3, CBC, ESR, URIC, CMP #### [address] Platelet mean volume (Bld) [Entitic vol] 9.0 fL Normal 6.3-10.7 [facility] Comment on above: Performed By: #### I GM, IGA, RA, LUPANTCOAG, RPR W RFX, IGG, SSA, SSB, CCP #### [facility] , #### TSH3, CBC, ESR, URIC, CMP #### [address] Platelets (Bld) [#/Vol] 186 10*3/uL Normal 150-450 [facility] Comment on above: Performed By: #### I GM, IGA, RA, LUPANTCOAG, RPR W RFX, IGG, SSA, SSB, CCP #### [facility] , #### TSH3, CBC, ESR, URIC, CMP #### [address] RBC (Bld) [#/Vol] 4.27 10*6/uL Normal 3.60-5.00 [facility] Comment on above: Performed By: #### I GM, IGA, RA, LUPANTCOAG, RPR W RFX, IGG, SSA, SSB, CCP #### [facility] , #### TSH3, CBC, ESR, URIC, CMP #### [address] WBC (Bld) [#/Vol] 5.4 10*3/uL Normal 4.5-11.0 [facility] Comment on above: Performed By: #### I GM, IGA, RA, LUPANTCOAG, RPR W RFX, IGG, SSA, SSB, CCP #### [facility] , #### TSH3, CBC, ESR, URIC, CMP #### [address] Comprehensive Metabolic Pane fuad 12-22-2020 Albumin [Mass/Vol] 4.0 g/dL Normal 3.2-5.5 [facility] Comment on above: Performed By: #### I GM, IGA, RA, LUPANTCOAG, RPR W RFX, IGG, SSA, SSB, CCP #### [facility] , #### TSH3, CBC, ESR, URIC, CMP #### [address] Albumin/Globulin [Mass ratio] 1.5 {ratio} Normal [facility] Comment on above: Performed By: #### I GM, IGA, RA, LUPANTCOAG, RPR W RFX, IGG, SSA, SSB, CCP #### [facility] , #### TSH3, CBC, ESR, URIC, CMP #### [address] ALP [Catalytic activity/Vol] 61 U/L Normal 32-92 [facility] Comment on above: Performed By: #### I GM, IGA, RA, LUPANTCOAG, RPR W RFX, IGG, SSA, SSB, CCP #### [facility] , #### TSH3, CBC, ESR, URIC, CMP #### [facility] [address] [place] [address] ALT [Catalytic activity/Vol] 14 U/L Normal 10-60 [facility] Comment on above: Performed By: #### I GM, IGA, RA, LUPANTCOAG, RPR W RFX, IGG, SSA, SSB, CCP #### [facility] , #### TSH3, CBC, ESR, URIC, CMP #### [address] AST [Catalytic activity/Vol] 20 U/L Normal 10-42 [facility] Comment on above: Performed By: #### I GM, IGA, RA, LUPANTCOAG, RPR W RFX, IGG, SSA, SSB, CCP #### [facility] , #### TSH3, CBC, ESR, URIC, CMP #### [address] Bilirubin [Mass/Vol] 0.7 mg/dL Normal 0.3-1.2 [facility] Comment on above: Performed By: #### I GM, IGA, RA, LUPANTCOAG, RPR W RFX, IGG, SSA, SSB, CCP #### [facility] , #### TSH3, CBC, ESR, URIC, CMP #### [address] Calcium [Mass/Vol] 9.4 mg/dL Normal 8.2-10.2 [facility] Comment on above: Performed By: #### I GM, IGA, RA, LUPANTCOAG, RPR W RFX, IGG, SSA, SSB, CCP #### [facility] , #### TSH3, CBC, ESR, URIC, CMP #### [address] Chloride [Moles/Vol] 100 mmol/L Normal 95-114 [facility] Comment on above: Performed By: #### I GM, IGA, RA, LUPANTCOAG, RPR W RFX, IGG, SSA, SSB, CCP #### [facility] , #### TSH3, CBC, ESR, URIC, CMP #### [address] CO2 [Moles/Vol] 25.9 mmol/L Normal 22.0-30.0 [facility] Comment on above: Performed By: #### I GM, IGA, RA, LUPANTCOAG, RPR W RFX, IGG, SSA, SSB, CCP #### [facility] , #### TSH3, CBC, ESR, URIC, CMP #### [address] Creatinine [Mass/Vol] 0.67 mg/dL Normal 0.44-1.03 [facility] Comment on above: Performed By: #### I GM, IGA, RA, LUPANTCOAG, RPR W RFX, IGG, SSA, SSB, CCP #### [facility] , #### TSH3, CBC, ESR, URIC, CMP #### [address] Estimated GFR ( Zenaida > 60 [facility] Comment on above: Result Comment: GFR estimated reference range: According to KDOQI guidelines, <60 ml/min/1.73m2 is sufficient to diagnose a patient with chronic kidney disease. Performed By: #### I GM, IGA, RA, LUPANTCOAG, RPR W RFX, IGG, SSA, SSB, CCP #### [facility] , #### TSH3, CBC, ESR, URIC, CMP #### [address] Estimated GFR (Non- Am > 60 Normal [facility] Comment on above: Performed By: #### I GM, IGA, RA, LUPANTCOAG, RPR W RFX, IGG, SSA, SSB, CCP #### [facility] , #### TSH3, CBC, ESR, URIC, CMP #### [address] Globulin (S) [Mass/Vol] 2.6 g/dL Normal [facility] Comment on above: Performed By: #### I GM, IGA, RA, LUPANTCOAG, RPR W RFX, IGG, SSA, SSB, CCP #### [facility] , #### TSH3, CBC, ESR, URIC, CMP #### [address] Glucose [Mass/Vol] 91 mg/dL Normal 70-100 [facility] Comment on above: Result Comment: [facility] Glucose Reference Range is dependent on time and content of last meal. Glucose of more than 200 mg/dL in a nonstressed, ambulatory subject supports the diagnosis of Diabetes Mellitus. ADA recommended reference range Performed By: #### I GM, IGA, RA, LUPANTCOAG, RPR W RFX, IGG, SSA, SSB, CCP #### [facility] , #### TSH3, CBC, ESR, URIC, CMP #### [address] Potassium [Moles/Vol] 4.3 mmol/L Normal 3.5-5.1 [facility] Comment on above: Performed By: #### I GM, IGA, RA, LUPANTCOAG, RPR W RFX, IGG, SSA, SSB, CCP #### [facility] , #### TSH3, CBC, ESR, URIC, CMP #### [address] Protein [Mass/Vol] 6.6 g/dL Normal 6.1-7.9 [facility] Comment on above: Performed By: #### I GM, IGA, RA, LUPANTCOAG, RPR W RFX, IGG, SSA, SSB, CCP #### [facility] , #### TSH3, CBC, ESR, URIC, CMP #### [address] Sodium [Moles/Vol] 136 mmol/L Normal 136-146 [facility] Comment on above: Performed By: #### I GM, IGA, RA, LUPANTCOAG, RPR W RFX, IGG, SSA, SSB, CCP #### [facility] , #### TSH3, CBC, ESR, URIC, CMP #### [address] Urea nitrogen [Mass/Vol] 9 mg/dL Normal 9-23 [facility] Comment on above: Performed By: #### I GM, IGA, RA, LUPANTCOAG, RPR W RFX, IGG, SSA, SSB, CCP #### [facility] , #### TSH3, CBC, ESR, URIC, CMP #### [facility] [address] [id number] [place] Cyclic Citrulliated Pep Abon 12-22-2020 Cyclic Citrulliated Pep Ab 3 Normal 0-19 [facility] Comment on above: Result Comment: Nega tive <20 Weak positive 20 - 39 Moderate positive 40 - 59 Strong positive >59 Performed at: [address] [id number] [employer]aning And Maintenance Worker: Alexandru Bravo MD, Phone: [phone] Performed By: #### I GM, IGA, RA, LUPANTCOAG, RPR W RFX, IGG, SSA, SSB, CCP #### [facility] , #### TSH3, CBC, ESR, URIC, CMP #### [facility] [address] [id number] [place] Dipstick and Microscopicon 0 12-22-2020 Appearance (U) Turbid Critically abnormal Clear [facility] Comment on above: Order Comment: Name Collection Type:: Clean-Voided Midstream Performed By: #### A DDONUAPLUS #### [facility] [address] [place] [address] [place] Bacteria,Urine None Seen Normal None Seen [facility] Comment on above: Order Comment: Name Collection Type:: Clean-Voided Midstream Performed By: #### A DDONUAPLUS #### [facility] [address] [id number] [place] Bilirubin,Urine Negative Normal Negative [facility] Comment on above: Order Comment: Name Collection Type:: Clean-Voided Midstream Performed By: #### A DDONUAPLUS #### [facility] [address] [id number] [place] Color (U) Yellow Normal Yellow [facility] Comment on above: Order Comment: Name Collection Type:: Clean-Voided Midstream Performed By: #### A DDONUAPLUS #### [facility] [address] Glucose Ql (U) Normal Normal Normal [facility] Comment on above: Order Comment: Name Collection Type:: Clean-Voided Midstream Performed By: #### A DDONUAPLUS #### [facility] [address] [place] [address] [place] Hyaline Casts,Urine 0-8 Normal 0-8 [facility] Comment on above: Order Comment: Name Collection Type:: Clean-Voided Midstream Result Comment: PERF ORMED BY: [place] [address] PATHOLOGIST CUTLET MAKER PORK RANDY PERRIN M.D. Performed By: #### A DDONUAPLUS #### [facility] [address] [place] [address] Ketones Ql (U) Negative Normal Negative [facility] Comment on above: Order Comment: Name Collection Type:: Clean-Voided Midstream Performed By: #### A DDONUAPLUS #### [facility] [address] [place] [address] Leukocyte esterase Test strip Ql (U) 1+ High Negative [facility] Comment on above: Order Comment: Name Collection Type:: Clean-Voided Midstream Performed By: #### A DDONUAPLUS #### [facility] [address] [place] [address] [place] Nitrite,Urine Negative Normal Negative [facility] Comment on above: Order Comment: Name Collection Type:: Clean-Voided Midstream Performed By: #### A DDONUAPLUS #### [facility] [address] [place] [address] [place] Occult Blood,Urine Negative Normal Negative [facility] Comment on above: Order Comment: Name Collection Type:: Clean-Voided Midstream Result Comment: PERF ORMED BY: [place] [address] PATHOLOGIST CUTLET MAKER PORK RANDY PERRIN M.D. Performed By: #### A DDONUAPLUS #### [address] pH (U) 7.5 [pH] Normal 5.0-9.0 [facility] Comment on above: Order Comment: Name Collection Type:: Clean-Voided Midstream Performed By: #### A DDONUAPLUS #### [address] Protein,Urine Negative Normal Negative [facility] Comment on above: Order Comment: Name Collection Type:: Clean-Voided Midstream Performed By: #### A DDONUAPLUS #### [address] RBC LM.HPF (Urine sed) [#/Area] 0 /[HPF] Normal 0-4 [facility] Comment on above: Order Comment: Name Collection Type:: Clean-Voided Midstream Performed By: #### A DDONUAPLUS #### [address] Specificy [place],Urine 1.023 Normal 1.001-1.030 [facility] Comment on above: Order Comment: Name Collection Type:: Clean-Voided Midstream Performed By: #### A DDONUAPLUS #### [address] Squamous Epithelial Cell,Urine 3-4 High 0-2 [facility] Comment on above: Order Comment: Name Collection Type:: Clean-Voided Midstream Performed By: #### A DDONUAPLUS #### [address] Urobilinogen,Urine Normal Normal Normal [facility] Comment on above: Order Comment: Name Collection Type:: Clean-Voided Midstream Performed By: #### A DDONUAPLUS #### [address] WBC,Urine 1-2 Normal 0-4 [facility] Comment on above: Order Comment: Name Collection Type:: Clean-Voided Midstream Performed By: #### A DDONUAPLUS #### [address] [place] [address] [place] Erythrocyte Sedimentation Ra abilio 12-22-2020 ESR (Bld) [Velocity] 15 mm/h Normal 0-19 [facility] Comment on above: Result Comment: PERF ORMED BY: [place] [address] PATHOLOGIST CUTLET MAKER PORK RANDY PERRIN M.D. Performed By: #### I GM, IGA, RA, LUPANTCOAG, RPR W RFX, IGG, SSA, SSB, CCP #### [facility] , #### TSH3, CBC, ESR, URIC, CMP #### [address] Immunoglobulin A, Serumon Immunoglobulin A, Serum 174 mg/dL Normal 87-352 [facility] Comment on above: Performed By: #### I GM, IGA, RA, LUPANTCOAG, RPR W RFX, IGG, SSA, SSB, CCP #### [facility] , #### TSH3, CBC, ESR, URIC, CMP #### [facility] [address] [place] [address] Immunoglobulin Adolfo 1 Immunoglobulin G 1011 mg/dL Normal [id number] [facility] Comment on above: Performed By: #### I GM, IGA, RA, LUPANTCOAG, RPR W RFX, IGG, SSA, SSB, CCP #### [facility] , #### TSH3, CBC, ESR, URIC, CMP #### [facility] [address] [place] [address] [place] Immunoglobulin M, Serumon Immunoglobulin M, Serum 78 mg/dL Normal 26-217 [facility] Comment on above: Result Comment: Perf ormed at: - [facility] [address], [place] [id number] Cleaning And Maintenance Worker: Zachery Brown PhD, Phone: [phone] Performed By: #### I GM, IGA, RA, LUPANTCOAG, RPR W RFX, IGG, SSA, SSB, CCP #### [facility] , #### TSH3, CBC, ESR, URIC, CMP #### [facility] [address] [place] [address] Lupus Anticoagulant Compon 0 - Dilute Prothrombin Time (dPt) 32.2 Normal 0.0-55.0 [facility] Comment on above: Performed By: #### I GM, IGA, RA, LUPANTCOAG, RPR W RFX, IGG, SSA, SSB, CCP #### [facility] , #### TSH3, CBC, ESR, URIC, CMP #### [address] dPT Confirm Ratio 1.05 Normal 0.00-1.40 [facility] Comment on above: Performed By: #### I GM, IGA, RA, LUPANTCOAG, RPR W RFX, IGG, SSA, SSB, CCP #### [facility] , #### TSH3, CBC, ESR, URIC, CMP #### [address] DRVVT Lupus 29.3 Normal 0.0-47.0 [facility] Comment on above: Performed By: #### I GM, IGA, RA, LUPANTCOAG, RPR W RFX, IGG, SSA, SSB, CCP #### [facility] , #### TSH3, CBC, ESR, URIC, CMP #### [facility] [address] [place] [address] Hexagonal Phase Phospholipid 0 Normal 0-11 [facility] Comment on above: Performed By: #### I GM, IGA, RA, LUPANTCOAG, RPR W RFX, IGG, SSA, SSB, CCP #### [facility] , #### TSH3, CBC, ESR, URIC, CMP #### [facility] [address] [place] [address] Interpretation Comment: Normal . [facility] Comment on above: Result Comment: No [...] the absence of anticoagulant therapy. Performed at: [address] [id number] Cleaning And Maintenance Worker: Alexandru Bravo MD, Phone: [phone] Performed By: #### I GM, IGA, RA, LUPANTCOAG, RPR W RFX, IGG, SSA, SSB, CCP #### [facility] , #### TSH3, CBC, ESR, URIC, CMP #### [address] PTT-LA 56.5 High 0.0-51.9 [facility] Comment on above: Performed By: #### I GM, IGA, RA, LUPANTCOAG, RPR W RFX, IGG, SSA, SSB, CCP #### [facility] , #### TSH3, CBC, ESR, URIC, CMP #### [address] PTT-LA Mix 55.0 High 0.0-48.9 [facility] Comment on above: Performed By: #### I GM, IGA, RA, LUPANTCOAG, RPR W RFX, IGG, SSA, SSB, CCP #### [facility] , #### TSH3, CBC, ESR, URIC, CMP #### [address] Thrombin Time 17.1 Normal 0.0-23.0 [facility] Comment on above: Performed By: #### I GM, IGA, RA, LUPANTCOAG, RPR W RFX, IGG, SSA, SSB, CCP #### [facility] , #### TSH3, CBC, ESR, URIC, CMP #### [address] RPR w/rfx to Quant TP Abson 12-22-2020 RPR, Rfx Quant RPR Non-Reactive Normal Non Reactive [facility] Comment on above: Result Comment: Perf ormed at: CB - [facility] [address] [id number] Cleaning And Maintenance Worker: Zachery Brown PhD, Phone: [phone] PERFORMED BY: [place] [address] PATHOLOGIST CUTLET MAKER PORK RANDY PERRIN M.D. Performed By: #### I GM, IGA, RA, LUPANTCOAG, RPR W RFX, IGG, SSA, SSB, CCP #### [facility] , #### TSH3, CBC, ESR, URIC, CMP #### [address] Rheumatoid Factoron 12-23-19 Rheumatoid Factor <10.0 Normal 0.0-13.9 [facility] Comment on above: Performed By: #### I GM, IGA, RA, LUPANTCOAG, RPR W RFX, IGG, SSA, SSB, CCP #### [facility] , #### TSH3, CBC, ESR, URIC, CMP #### [address] SS-A/Ro Sjogrens Antibodyon 12-22-2020 SS-A/Ro Sjogrens Antibody <0.2 Normal 0.0-0.9 [facility] Comment on above: Performed By: #### I GM, IGA, RA, LUPANTCOAG, RPR W RFX, IGG, SSA, SSB, CCP #### [facility] , #### TSH3, CBC, ESR, URIC, CMP #### [address] SS-B/La Sjogrens Antibodyon 12-22-2020 SS-B/La Sjogrens Antibody <0.2 Normal 0.0-0.9 [facility] Comment on above: Result Comment: Perf ormed at: [facility] [address] [id number] Cleaning And Maintenance Worker: Zachery Brown PhD, Phone: [phone] Performed By: #### I GM, IGA, RA, LUPANTCOAG, RPR W RFX, IGG, SSA, SSB, CCP #### [facility] , #### TSH3, CBC, ESR, URIC, CMP #### [address] Thyroid Stimulating Hormoneo n 12-22-2020 TSH Qn 1.15 m[IU]/L Normal 0.45-5.33 [facility] Comment on above: Result Comment: PERF ORMED BY: [place] [address] PATHOLOGIST CUTLET MAKER PORK RANDY PERRIN M.D. Performed By: #### I GM, IGA, RA, LUPANTCOAG, RPR W RFX, IGG, SSA, SSB, CCP #### [facility] , #### TSH3, CBC, ESR, URIC, CMP #### [address] Uric Acidon 12-22-2020 Urate [Mass/Vol] 2.9 mg/dL Normal 2.6-7.2 [facility] Comment on above: Performed By: #### I GM, IGA, RA, LUPANTCOAG, RPR W RFX, IGG, SSA, SSB, CCP #### [facility] , #### TSH3, CBC, ESR, URIC, CMP #### [facility] [address] [place] [address] CNOVSPon 03-03-2020 CNOVSP Visit (SP) Office ([place]) DIXON DURAN ([id number]) 1990 F Date Time Provider Department 03/03/20 2:00 PM MICHOACANO GARRETT During your visit today, we recorded the following information about you: Temperature Pulse Respiration Blood pressure 97.5 degrees 79/minute 16/minute 106/63 Weight Height Last Period 64.4 kg 1.778 m 02/22/20 Michoacano Garrett MD 03/03/2020 6:44 PM Signed NAME: Dixon Duran CLINIC NO.: [id number] DATE OF SERVICE: March 03, 2020 Referring [...] Renal Disease Father Michoacano Garrett MD, CPE [place], [place] CC: Elroy Palma DO [address] [facility] [address] Elroy Palma DO [address] [facility] [address] Referring Provider: ELROY PALMA [[id number]] Allergies As of Date: 03/03/2020 (No Known [...] by MICHOACANO GARRETT MD on 03/03/20 [facility] PRO[facility]ESSon 03-03-2020 PROGRESS HNO ID: [id number] Author: Michoacano Garrett Service: ? Author Type: Physician Type: Progress Notes Filed: 03/03/2020 6:44 PM Note Text: NAME: Dixon Duran CLINIC NO.: [id number] DATE OF SERVICE: March 03, 2020 Referring [...] Renal Disease Father Michoacano Garrett MD, CPE [facility] [place], [place] CC: Max L Pavlock, DO [address] [facility] [address] Max L Pavlock, DO [address] [facility] [address] Normal [facility] Coding Summary.on 02-24-2019 Coding Summary. CODING DATE: 02/24/2019 FINAL [facility] STATUS: Home (Routine DC) PAYOR: Self Pay [...] Guidry Date Saved: 02/24/2019 08:37 am Normal [facility] Hep Bs Abon 02-11-2019 HBV surface Ab Ql (S) Reactive [facility] Comment on above: Result Comment: Non Reactive: Inconsistent with immunity, less than 10 mIU/mL Reactive: Consistent with immunity, greater than 9.9 mIU/mL Performed at: [facility] [address] [place], [place] [id number] PhD Stephanie Bingham Performed By: #### 2 246074, 0973752, 5210848, 97614187, 79023688, 7479417, 6507844, 98087287 #### [facility] [address] [place] [address] Hep Bs Agon 02-11-2019 HBV surface Ag IA Ql Negative Negative [facility] Comment on above: Result Comment: Perf ormed at: [address] [id number] PhD Stephanie Bingham Performed By: #### 2 347275, 5596690, 9751392, 47237524, 96895968, 2171491, 0646510, [id number] #### [facility] [address] [place] [address] WRITTEN AUTHORIZATIONon 01-31 Written Authorization Comment [facility] Comment on above: Result Comment: Writ ten Authorization Received. Authorization received from SHANNON FENG 02-10-2019 Logged by Tangela Taylor Performed at: [address] [id number] PhD Stephanie Bingham Performed By: #### 2 430402, 3326177, 7705480, 96588527, 64171618, 3115598, 1195201, 06069357 #### [facility] [address] [place] [address] VERBAL ORDER INFOon 02-11-20 19 Additional Test(s) Request Comment: [facility] Comment on above: Result Comment: Test (s) added per SHANNON FENG at account 02-10-2019 Logged by Marely Kruse Test# [id number] Hep A Ab, Total Performed at: [address] [id number] PhD Stephanie Bingham Performed By: #### 2 302925, 9405680, 1655712, 13108136, 78197458, 4305468, 1974234, 00760823 #### [facility] [address] [facility] [address] See below: Comment: [facility] Comment on above: Result Comment: Vince [...] The Test(s) Listed Performed By: #### 2 905142, 2173309, 0371278, 90895238, 85885871, 1658201, 0003531, 64833325 #### [facility] [address] [facility] [address] CBC w/Indiceson 02-09-2019 Erythrocyte distribution width (RBC) [Ratio] 13.6 % Normal 10.9-14.2 [facility] Comment on above: Performed By: #### 2 255649, 2404763, 9691779, 45640858, 01832152, 9672305, 1916618, 74203006 #### [facility] [address] [place] [address] Hematocrit (Bld) [Volume fraction] 36.5 % Normal 34.0-46.0 [facility] Comment on above: Performed By: #### 2 348256, 5372016, 5824958, 13808254, 30151500, 3697277, 5998088, 86453313 #### [facility] [address] [place] [address] Hemoglobin (Bld) [Mass/Vol] 12.9 g/dL Normal 12.0-16.0 [facility] Comment on above: Performed By: #### 2 366808, 6742780, 9234956, 32921044, 97154660, 7001433, 1808838, 36270356 #### [facility] [address] [place] [address] MCH (RBC) [Entitic mass] 30.3 pg Normal 27.0-34.0 [facility] Comment on above: Performed By: #### 2 424014, 6231761, 4960780, 42518374, 20432751, 1361608, 4270050, 95299764 #### [facility] [address] [place] [address] MCHC (RBC) [Mass/Vol] 35.2 g/dL Normal 33.3-35.7 [facility] Comment on above: Performed By: #### 2 075759, 1346489, 1133015, 65553842, 60302824, 5841119, 6012991, 71129506 #### [facility] [address] [place] [address] MCV (RBC) [Entitic vol] 86.2 fL Normal 80.0-100.0 [facility] Comment on above: Performed By: #### 2 812461, 4095533, 7184561, 97891236, 00207584, 3296696, 5412902, 01722270 #### [facility] [address] [place] [address] Platelet mean volume (Bld) [Entitic vol] 9.1 fL Normal 6.4-10.8 [facility] Comment on above: Performed By: #### 2 790140, 8700459, 6835482, 59064050, 53950869, 1018407, 5268217, 78534298 #### [facility] [address] [place] [address] Platelets (Bld) [#/Vol] 194.0 E9/L Normal 150.0-500.0 [facility] Comment on above: Performed By: #### 2 029322, 7923322, 4876017, 01453228, 67539570, 9692662, 8970149, 33974630 #### [facility] [address] [place] [address] RBC (Bld) [#/Vol] 4.2 E12/L Low 4.3-5.9 [facility] Comment on above: Performed By: #### 2 959286, 5444907, 5011616, 90040322, 47509612, 6138868, 4284749, 22623421 #### [facility] [address] [id number] WBC corrected for nucl RBC Auto (Bld) [#/Vol] 5.7 E9/L Normal 4.0-11.0 [facility] Comment on above: Performed By: #### 2 166278, 8120519, 2418838, 86214538, 76949106, 8618268, 6004375, 07218462 #### [facility] [address] [place] [address] CMPon 02-09-2019 Albumin [Mass/Vol] 3.9 g/dL Normal 3.3-5.0 [facility] Comment on above: Performed By: #### 2 595443, 2830909, 8881178, 97846322, 30926750, 8059213, 9971618, 23886427 #### [facility] [address] [place] [address] Albumin [Mass/Vol] 1.2 g/dL Normal 1.1-2.2 [facility] Comment on above: Performed By: #### 2 547482, 8917044, 1572024, 60278263, 81369492, 5638209, 3462698, 53620237 #### [facility] [address] [place] [address] ALP [Catalytic activity/Vol] 81 Int._Unit/L Normal 21-98 [facility] Comment on above: Performed By: #### 2 618819, 5291736, 6195070, 23357922, 08300465, 6553403, 2311013, 30805179 #### [facility] [address] [place] [address] ALT No additional P-5'-P [Catalytic activity/Vol] 14 Int._Unit/L Normal 6-46 [facility] Comment on above: Performed By: #### 2 009433, 1160883, 0766000, 06058817, 32787973, 8164312, 6159754, 74722371 #### [facility] [address] [place] [address] Anion gap [Moles/Vol] 11 mmol/L Normal 6-16 [facility] Comment on above: Performed By: #### 2 530040, 1799509, 6905238, 43896074, 30332230, 8502422, 2963491, 34454072 #### [facility] [address] [place] [address] AST [Catalytic activity/Vol] 26 Int._Unit/L Normal 5-43 [facility] Comment on above: Performed By: #### 2 981978, 1265237, 3525812, 58777214, 10161539, 4609564, 1618258, 77108832 #### [facility] [address] [place] [address] Bilirubin [Mass/Vol] 0.5 mg/dL Normal 0.0-1.1 [facility] Comment on above: Performed By: #### 2 736097, 7927171, 2935729, 68777136, 83091787, 3118403, 9915143, 36765774 #### [facility] [address] [place] [address] Calcium [Mass/Vol] 9.0 mg/dL Normal 8.9-11.1 [facility] Comment on above: Performed By: #### 2 805896, 5832811, 1432912, 28662081, 65215012, 2578368, 5672523, 18461941 #### [facility] [address] [place] [address] Chloride [Moles/Vol] 107 mmol/L Normal 101-111 [facility] Comment on above: Performed By: #### 2 765257, 7038162, 5199471, 73430861, 30851666, 1973796, 6092343, 23249016 #### [facility] [address] [place] [address] CO2 [Moles/Vol] 20 mmol/L Low 21-31 [facility] Comment on above: Performed By: #### 2 000241, 4057635, 4548292, 49129764, 19164055, 1931552, 4707596, 15697480 #### [facility] [address] [place] [address] Creatinine [Mass/Vol] 0.6 mg/dL Normal 0.5-1.3 [facility] Comment on above: Performed By: #### 2 726747, 7720672, 6123776, 85962602, 52268379, 7598105, 1227697, 84777495 #### [facility] [address] [place] [address] Globulin (S) [Mass/Vol] 3.3 g/dL Normal 1.4-4.0 [facility] Comment on above: Performed By: #### 2 170031, 6474275, 2154891, 41861772, 71242224, 1045489, 8581082, 26400387 #### [facility] [address] [place] [address] Glucose [Mass/Vol] 90 mg/dL Normal 55-199 [facility] Comment on above: Result Comment: If t his glucose result represents a fasting glucose, interpretation should refer to the following reference range: 55-99 mg/dL Performed By: #### 2 093377, 4525202, 8899780, 12109289, 85884405, 4955959, 4357338, 27961503 #### [facility] [address] [place] [address] Potassium [Moles/Vol] 3.8 mmol/L Normal 3.5-5.3 [facility] Comment on above: Performed By: #### 2 507065, 3851358, 0774449, 83437127, 54038829, 5132608, 6949656, 86426028 #### [facility] [address] [place] [address] Protein [Mass/Vol] 7.2 g/dL Normal 6.0-7.8 [facility] Comment on above: Performed By: #### 2 420388, 2618346, 0315297, 05661023, 72969839, 9693845, 9994322, 40952769 #### [facility] [address] [place] [address] Sodium [Moles/Vol] 134 mmol/L Low 135-145 [facility] Comment on above: Performed By: #### 2 005456, 0481786, 1553563, 55771545, 34214621, 1810431, 6118495, 87005785 #### [facility] [address] [place] [address] Urea nitrogen [Mass/Vol] 11 mg/dL Normal 5-21 [facility] Comment on above: Performed By: #### 2 107529, 0776063, 8376334, 28795171, 98148282, 9108737, 1764481, 61116280 #### [facility] [address] [place] [address] Urea nitrogen/Creatinine [Mass ratio] 18 No Units Normal 10-20 [facility] Comment on above: Performed By: #### 2 851741, 1146116, 9304044, 76081720, 84087516, 2259780, 4233555, 71980233 #### [facility] [address] [place] [address] PTon 02-09-2019 INR Coag (PPP) [Relative time] 1.0 {INR} [facility] Comment on above: Result Comment: INR results are specifically intended to assess patients stabilized on long-term Anticoagulation therapy suggested INR?s ?Less Intensive Anticoagulation? 2.0 ? 3.0 Conventional Range 3.0 ? 4.5 Performed By: #### 2 578727, 2384827, 8083325, 28668607, 81250099, 7115104, 6684971, 09078272 #### [facility] [address] [place] [address] PT Coag (PPP) [Time] 11.2 second(s) Normal 10.2-12.9 [facility] Comment on above: Performed By: #### 2 006196, 3721779, 4083047, 92426137, 04945184, 9049366, 8403109, 55840916 #### [facility] [address] [place] [address] US Abdomen, Limitedon 2018 US Abdomen, Limited [...] Ivey MD Transcribed by: SCOOBY Technologist: ALIZE Normal [facility] eGFRon 02-09-2019 GFR/1.73 sq M predicted among blacks MDRD (S/P/Bld) [Vol rate/Area] mL/min/{1.73_m2} Normal >=59 [facility] Comment on above: Order Comment: Order added by Discern Expert. Result Comment: eGFR is race adjusted. AA=. Performed By: #### 2 771961, 3407620, 8290777, 38701061, 99139346, 6468757, 9087297, 77573451 #### [facility] [address] [place] [address] GFR/1.73 sq M predicted among non-blacks MDRD (S/P/Bld) [Vol rate/Area] mL/min/{1.73_m2} Normal >=59 [facility] Comment on above: Order Comment: Order added by Discern Expert. Result Comment: Editorial Director ruben kidney disease could be indicated at eGFR's of less than 60 mL/min/1.73m2. Kidney failure is indicated at less than 15 mL/min/1.73m2. Performed By: #### 2 027229, 5537896, 7905030, 19529940, 40867789, 0482388, 1580295, 66996781 #### [facility] [address] [place] [address] Vital Signs Date Time Vital Sign Value Performing Clinician Facility 08-15-2023 11:00-0500 Body height 177.8 cm Karen Brantley Other [facility] Other 08-15-2023 11:00-0500 Body mass index (BMI) [Ratio] 19.66 kg/m2 Karen Brantley Other [facility] Other 08-15-2023 11:00-0500 Body temperature 98.8 [degF] Karen Brantley Other [facility] Other 08-15-2023 11:00-0500 Body weight 62.14 kg Karen Brantley Other [facility] Other 08-15-2023 11:00-0500 Respiratory rate 18 /min Karen Brantley Other [facility] Other 08-15-2023 11:00-0500 SaO2% (BldA) [Mass fraction] 98 % Karen Brantley Other [facility] Other Encounters Encounter Date Encounter Type Care Provider Facility Start: 03-13-2024 End: 03-13-2024 [facility] Start: 03-06-2024 End: 03-06-2024 ambulatory MAYDA ZAPATAE [facility] Start: 09-23-2023 End: 09-24-2023 ambulatory Catina Mcdonald MD Facility: [place] Start: 08-22-2023 End: 08-22-2023 ambulatory VIN ADDISON Not Available Start: 08-15-2023 End: 08-15-2023 ambulatory Karen Brantley Other [facility] Other Start: 08-15-2023 Office outpatient visit 25 minutes [facility] Start: 10-17-2022 End: 10-17-2022 ambulatory TOPHER SHAMMO Facility: Start: 08-29-2022 End: 08-29-2022 ambulatory TOPHER SHAMMO Facility:[facility] Start: 08-08-2022 End: 08-08-2022 ambulatory NONE LISTED REQUEST Facility: Start: 06-01-2022 End: 06-01-[address] AJ JOHNSON . Facility:[facility] Start: 01-09-2022 End: 01-09-2022 ambulatory DESI KUHN Facility:[facility] Start: 06-30-2018 End: 07-01-2018 Patient encounter procedure DEFAULT PHYSICIAN Facility:[facility] Payers Date Payer Category Payer Private Health Insurance [id number] 1990 Unknown [id number] 2.16.8 [id number] 1990 Unknown [id number] 2.16.84 [id number] 1990 Unknown [id number] 2.16.84 [id number] 1990 Unknown [id number] 2.16.84 [id number] 1990 Unknown [id number] 2.16.84 [id number] 1990 Unknown [id number] 2.16.84 [id number] 1990 Unknown [id number] 2.16.840 .[id number] 1990 Unknown [id number] 2.16. [id number] 1990 Unknown [id number] 2.16.8 40.1.937532.3.579.2.173 1990 Unknown [id number] 2.16.8 [id number] 1959 Unknown [id number] 1959 Unknown [id number] Self-pay Unknown Social History Date Type Detail Facility Unknown if ever smoked [facility] Other Sex Assigned At Sex Assigned At Bir th [facility] Other Evaluation note 08-15-2023 Note Date & [...] (suspected) exposure to covid-19 (ICD-10 - Z20.822) [facility] Other History general Narrative - Reported Note Date & Type Note Facility History general Narrative - Reported Type Medical History chronic back pain Medical History mrsa Medical History pneumonia Surgical History C section Hospitalization History child x2 Hospitalization History see above [facility] Other Summary Purpose Family History No Family [...] section and content) DATE CREATED AUTHOR 08/04/2018 [facility] DATE CREATED AUTHOR AUTHOR'S ORGANIZ ATION 07/24/2019 [facility] DATE CREATED AUTHOR AUTHOR'S ORGANIZ ATION 03/25/2020 [facility] DATE CREATED AUTHOR AUTHOR'S ORGANIZ ATION 09/17/2021 [facility] DATE CREATED AUTHOR AUTHOR'S ORGANIZ ATION 12/26/2022 [facility] DATE CREATED AUTHOR AUTHOR'S ORGANIZ ATION 08/23/2023 [facility] DATE CREATED AUTHOR AUTHOR'S ORGANIZ ATION 09/30/2023 [facility] DATE CREATED AUTHOR AUTHOR'S ORGANIZ ATION 03/16/2024 Iwona mckeon REASON FOR VISIT (unrecogniz ed section and [...] BE BASED ON THE PRIMARY CLINICAL RECORDS. [facility] [employer] [facility]. provides no warranty or guarantee of the accuracy or completeness of information in this document.
[2024-03-17 17:09] VITALS: BP 136/79; PULSE 94; TEMP 37.1; O2SAT 99; BMI 22.9
--- NOTE | 2024-03-17 17:29 | ED.GENADUL1 ---
HPI HPI - General Adult General Chief complaint: Recheck/Abnormal Lab/Rx Stated complaint: Abnormal Labs Time Seen by Provider: 03/17/24 16:52 Source: patient Mode of arrival: walk-in Limitations: no limitations History of Present Illness HPI narrative: Patient is a 34-year-old female sent to the emergency department for outpatient labs that were abnormal. Patient was working with an online provider for her Suboxone prescription, she had routine labs that were drawn that were abnormal and she was sent for follow-up labs. She states that the labs were clotted but she was told that she had a low platelet count and white blood cell count. She has no medical complaints, she has not had any bleeding, bruising or other symptoms. She is not concerned for . Related Data Home Medications ?Medication ?Instructions ?Recorded ?Confirmed diclofenac sodium 75 mg 75 mg PO BID 09/23/23 09/23/23 tablet,delayed release Allergies Allergy/AdvReac Type Severity Reaction Status Date / Time bacitracin Allergy Severe Anaphylaxis Verified 03/17/24 17:17 [From Triple Antibiotic] neomycin Allergy Severe Anaphylaxis Verified 03/17/24 17:17 [From Triple Antibiotic] polymyxin B Allergy Severe Anaphylaxis Verified 03/17/24 17:17 [From Triple Antibiotic] Opioid HPI Opioid Management Most Recent Opioid Data: Last Pain Scale 6 04/21/23 12:31 PFSH PFSH Medical History Hepatitis C ?B19.20 - Unspecified viral hepatitis C without hepatic coma (ICD-10) Social History Smoking status: Current every day smoker Exam Constitutional Vital Signs, click to edit/add: Last Vital Signs Temp 98.7 F 03/17/24 17:09 Pulse 94 H 03/17/24 17:09 Resp 14 03/17/24 17:09 BP 136/79 03/17/24 17:09 Pulse Ox 99 03/17/24 17:09 O2 Del Method Room Air 03/17/24 17:09 Course Vital Signs Vital signs: Vital Signs Temperature 98.7 F 03/17/24 17:09 Pulse Rate 94 H 03/17/24 17:09 Respiratory Rate 14 03/17/24 17:09 Blood Pressure 136/79 03/17/24 17:09 Pulse Oximetry 99 03/17/24 17:09 Oxygen Delivery Method Room Air 03/17/24 17:09 Temperature 98.7 F 03/17/24 17:09 Pulse Rate 94 H 03/17/24 17:09 Respiratory Rate 14 03/17/24 17:09 Blood Pressure 136/79 03/17/24 17:09 Pulse Oximetry 99 03/17/24 17:09 Oxygen Delivery Method Room Air 03/17/24 17:09 Medical Decision Making MDM Narrative Medical decision making narrative: Normal labs in the emergency department. She has no focal medical complaints and stable vital signs. She is discharged home to follow-up with her PCP and return to the ER if symptoms change or worsen SUPERVISED APC VISIT, PHYSICIAN ATTESTATION: Based on the medical record the care appears appropriate. ? Medical Records Medical records reviewed: Yes I reviewed the patient's medical records Lab Data Lab results reviewed: Yes I reviewed the patient's lab results Labs: Lab Results 03/17/24 Range/Units 17:37 WBC 4.9 (4.0-11.0) 10^3/uL RBC 4.40 (4.20-5.40) 10^6/uL Hgb 13.7 (12.0-16.0) g/dL Hct 39.6 (36.0-48.0) % MCV 90.0 (81.0-99.0) fL MCH 31.1 (26.7-34.0) pg MCHC 34.6 (29.9-35.2) g/dL RDW 11.8 (11.0-15.0) % Plt Count 201 (150-450) 10^3/uL MPV 10.5 (9.5-13.5) fL Neut % (Auto) 44.7 (43.0-75.0) % Lymph % (Auto) 47.4 (20.5-60.0) % [place] % (Auto) 6.3 (1.7-12.0) % Eos % (Auto) 1.0 (0.9-7.0) % Baso % (Auto) 0.6 (0.2-2.0) % Neut # (Auto) 2.2 (1.4-6.5) 10^3/uL Lymph # (Auto) 2.3 (1.2-3.8) 10^3/uL [place] # (Auto) 0.3 (0.3-0.8) 10^3/uL Eos # (Auto) 0.1 (0.0-0.7) 10^3/uL Baso # (Auto) 0.0 (0.0-0.1) 10^3/uL Abs Immat Gran (auto) 0.00 (0.00-0.03) 10^3/uL Imm/Tot Granulo (auto) 0.0 (0.0-0.5) % PT 10.2 (9.0-11.6) sec INR 0.96 Sodium 141 (136-145) mmol/L Potassium 3.6 (3.5-5.1) mmol/L Chloride 104 (98-107) mmol/L Carbon Dioxide 29.1 (21.0-32.0) mmol/L Anion Gap 11.5 BUN 7.0 (7.0-18.0) mg/dL Creatinine 0.59 (0.55-1.02) mg/dL Est GFR ( Amer) >60 (>=60) Est GFR (Non-Af Amer) >60 (>=60) BUN/Creatinine Ratio 11.9 Glucose 95 (74-106) mg/dL Calcium 9.2 (8.5-10.1) mg/dL Discharge Plan Discharge Stand Alone Forms: Portal Instructions Chief Complaint: Recheck/Abnormal Lab/Rx Clinical Impression: Adult general medical exam Patient Disposition: Home, Self-Care Time of Disposition Decision: 18:52 Condition: Good Prescriptions / Home Meds: No Action diclofenac sodium 75 mg tablet,delayed release (DR/EC) 75 mg PO BID Print Language: Turkmen Referrals: Mariana Parra JOURNEYMAN LINEMAN [Primary Care Provider] - 1 week
[2024-03-17 17:47] LABS: Basophils Percent Auto 0.6 % (0.2-2.0); Eosinophils Absolute Auto 0.1 10^3/uL (0.0-0.7); Hematocrit 39.6 % (36.0-48.0); Hemoglobin 13.7 g/dL (12.0-16.0); Lymphocytes Absolute Auto 2.3 10^3/uL (1.2-3.8); Lymphocytes Percent Auto 47.4 % (20.5-60.0); Mean Corpuscular HGB Conc 34.6 g/dL (29.9-35.2); Mean Corpuscular Hemoglobin 31.1 pg (26.7-34.0); Mean Platelet Volume 10.5 fL (9.5-13.5); Monocytes Absolute Auto 0.3 10^3/uL (0.3-0.8); Monocytes Percent Auto 6.3 % (1.7-12.0); Neutrophils Absolute Auto 2.2 10^3/uL (1.4-6.5); Neutrophils Percent Auto 44.7 % (43.0-75.0); Platelet Count 201 10^3/uL (150-450); Red Cell Distribution Width 11.8 % (11.0-15.0); White Blood Count 4.9 10^3/uL (4.0-11.0)
[2024-03-17 18:00] LABS: Anion Gap 11.5; BUN Creatinine Ratio 11.9; Calcium 9.2 mg/dL (8.5-10.1); Carbon Dioxide 29.1 mmol/L (21.0-32.0); Chloride 104 mmol/L (98-107); Estimated GFR (African America >60 (>=60); Estimated GFR (Non-African Ame >60 (>=60); Glucose 95 mg/dL (74-106); Potassium 3.6 mmol/L (3.5-5.1); Sodium 141 mmol/L (136-145)
[2024-03-17 18:02] LABS: INR 0.96; Prothrombin Time 10.2 sec (9.0-11.6)
[2024-03-17 19:03] VITALS: PULSE 81; O2SAT 99
== END 2024-03-17 19:03 | disposition home or self-care (01) ==
PROVIDERS: Physician Assistant; Emergency Provider Emergency Medicine; PCP Nurse Practitioner
DX: Z00.00 Encounter for general adult medical examination without abnormal findings (principal); F17.200 Nicotine dependence, unspecified, uncomplicated
CPT/HCPCS: 36415; 80048; 85025; 85610; 99283

== ENCOUNTER 2024-09-06 17:41 | Emergency (ER) | payer OTHER, SELFPAY ==
[2024-09-06] VITALS (10 sets, daily range): BP systolic 124–125; BP diastolic 79–89; PULSE 96–120; TEMP 36.7; O2SAT 98–100; BMI 22.2
--- NOTE | 2024-09-06 18:03 | ECG_ITS ---
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
--- NOTE | 2024-09-06 18:03 | XR_ITS ---
The [address] [address] Patient Name: DIXON DURAN MRN: [facility]:[id number] date: 1990 Sex: F Assigned Patient Location: ER Current Patient Location: ED.MAIN Accession/Order Number: [id number] Exam Date: 09/06/2024 18:04 Report Date: 09/06/2024 18:59 At the request of: AJ JOHNSON Procedure: XR chest 1V EXAM: XR chest 1V at 1801 hours HISTORY: chest pain COMPARISON: 04/21/2023 TECHNIQUE: AP upright portable chest x-ray FINDINGS: The heart is not enlarged and the vasculature is not distended. No acute infiltrate, effusion or pneumothorax is identified. Scoliosis the spine is noted. XR/XR chest 1V IMPRESSION: No acute infiltrate or evidence of cardiac decompensation. The overall appearance of the chest is essentially unchanged. Electronically authenticated by: DAVID BERRIOS Date: 09/06/2024 18:59
--- NOTE | 2024-09-06 18:13 | ED_ITS ---
HPI - Chest Pain General Chief Complaint: Chest Pain Stated Complaint: CHEST PAIN Time Seen by Provider: 09/06/24 17:52 Source: patient Mode of arrival: walk-in Limitations: no limitations History of Present Illness HPI narrative: pt had walking pneumonia and was placed on steroids and antibiotics to treat a cough. Cough is now resolved but she complains of mid sternal chest pain that has persisted for about 3-4 days. Pain is non radiating, associated with occasional/intermittent sensation of fast HR. No shortness of breath. No GI or symptoms. She had superficial thrombophlebitis in the past but no DVT Related Data Home Medications ?Medication ?Instructions ?Recorded ?Confirmed diclofenac sodium 75 mg 75 mg PO BID 09/23/23 09/23/23 tablet,delayed release Previous Rx's ?Medication ?Instructions ?Recorded hydroxyzine HCl 25 mg tablet 25 mg PO BID PRN anxiety #30 tabs 09/06/24 Allergies Allergy/AdvReac Type Severity Reaction Status Date / Time bacitracin (From Triple Allergy Severe Anaphylaxis Verified 09/06/24 18:00 Antibiotic) neomycin (From Triple Allergy Severe Anaphylaxis Verified 09/06/24 18:00 Antibiotic) polymyxin B (From Triple Allergy Severe Anaphylaxis Verified 09/06/24 18:00 Antibiotic) [facility] Medical History Hepatitis C ?B19.20 - Unspecified viral hepatitis C without hepatic coma (ICD-10) Social History Smoking status: Current every day smoker Little interest or pleasure in doing things: not at all Feeling down, depressed, or hopeless: not at all Exam Narrative Exam Narrative: Nurses notes and vital signs reviewed and patient is not hypoxic. afebrile General: Well-appearing and in no apparent distress. Skin: Warm, dry, no pallor noted. Head: Normocephalic, atraumatic. Eye: Pupils are equal, round and EOMI. No scleral icterus. Cardiovascular: Regular Rate and Rhythm without murmur, gallop or rub. Respiratory: No accessory muscle use or respiratory distress. Lungs are clear to auscultation, no wheezing, rales or rhonchi Chest Wall: no tenderness, crepitus or subcutaneous emphysema Musculoskeletal: normal ROM, no calf or popliteal tenderness, no lower extremity edema/swelling GI: Abdomen is soft, non-distended. Normal bowel sounds. No tenderness to palpation. No rebound, guarding, or rigidity noted. Neurological: A&O x4. No cranial nerve dysfunction observed. No truncal ataxia. Moves all extremities. Sensation intact. Psychiatric: Cooperative and interactive. Normal mood and affect. Constitutional Vital Signs, click to edit/add: Last Vital Signs Temp 98.1 F 09/06/24 17:56 Pulse 104 H 09/06/24 17:56 Resp 20 09/06/24 17:56 BP 125/79 09/06/24 17:56 Pulse Ox 99 09/06/24 18:08 O2 Del Method Room Air 09/06/24 18:08 Course Vital Signs Vital signs: Vital Signs Temperature 98.1 F 09/06/24 17:56 Pulse Rate 104 H 09/06/24 17:56 Respiratory Rate 20 09/06/24 17:56 Blood Pressure 125/79 09/06/24 17:56 Pulse Oximetry 100 09/06/24 17:56 Oxygen Delivery Method Room Air 09/06/24 17:56 Temperature 98.1 F 09/06/24 17:56 Pulse Rate 104 H 09/06/24 17:56 Respiratory Rate 20 09/06/24 17:56 Blood Pressure 125/79 09/06/24 17:56 Pulse Oximetry 99 09/06/24 18:08 Oxygen Delivery Method Room Air 09/06/24 18:08 MDM - Chest Pain MDM Narrative Medical decision making narrative: EKG obtained. Portable chest x-ray also obtained. Both unremarkable. Pt still a bit anxious and agreed to take hydroxyzine. 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 I gave her reassurance and discharged her home with prescription for additional hydroxyzine. She will take tylenol for any pain and try pepcid for any gerd symptoms. Imaging Data Chest x-ray: Attestation: I personally reviewed and interpreted this imaging study as follows: My impression: NAD ECG Data Attestation: I personally reviewed and interpreted this ECG as follows: Interpretation: EKG interpretation: Emergency Department physician interpretation. Sinus tachycardia at 102bpm. Normal axis, normal other intervals and no ST segment elevation or depression. Discharge Plan Discharge Chief Complaint: Chest Pain Clinical Impression: Chest pain Patient Disposition: Home, Self-Care Time of Disposition Decision: 18:37 Prescriptions / Home Meds: New hydroxyzine HCl 25 mg tablet 25 mg PO BID PRN (Reason: anxiety) Qty: 30 0RF No Action diclofenac sodium 75 mg tablet,delayed release (DR/EC) 75 mg PO BID Print Language: Sami Instructions: Chest Pain (ED) Referrals: Mariana Parra, RESEARCH STUDY ASSISTANT [Primary Care Provider] - 1 week
[2024-09-06] MEDS: HYDROXYZINE PAMOATE 25 MG CAPSULE PO (19:07)
== END 2024-09-06 19:12 | disposition home or self-care (01) ==
PROVIDERS: Emergency Provider Emergency Medicine; PCP Nurse Practitioner
DX: R07.9 Chest pain, unspecified (principal); F17.200 Nicotine dependence, unspecified, uncomplicated; F11.20 Opioid dependence, uncomplicated
CPT/HCPCS: 71045; 93005; 99284; Q0177

== ENCOUNTER 2024-09-08 16:43 | Outpatient (OUT) | payer OTHER, SELFPAY ==
[2024-09-08 17:21] LABS: Amphetamine Screen Urine NEGATIVE (NEGATIVE); Barbiturates Screen Urine NEGATIVE (NEGATIVE); Benzodiazepines Screen Urine NEGATIVE (NEGATIVE); Buprenorphine Screen Urine POSITIVE (NEGATIVE); Cannabinoid Screen Urine NEGATIVE (NEGATIVE); Cocaine Screen Urine NEGATIVE (NEGATIVE); Methadone Screen Urine NEGATIVE (NEGATIVE); Methamphetamines Screen Urine NEGATIVE (NEGATIVE); Opiate Screen Urine NEGATIVE (NEGATIVE); Oxycodone Screen Urine NEGATIVE (NEGATIVE); Phencyclidine Screen Urine NEGATIVE (NEGATIVE); Tricyclic Antidepressant Urine NEGATIVE (NEGATIVE)
== END 2024-09-08 16:44 | disposition home or self-care (01) ==
PROVIDERS: PCP Registered Nurse Emergency; Visit Provider Registered Nurse Emergency
DX: F11.20 Opioid dependence, uncomplicated (principal)
CPT/HCPCS: 36415; 80307

== ENCOUNTER 2024-09-16 13:04 | Outpatient (OUT) | payer OTHER, SELFPAY ==
--- NOTE | 2024-09-16 13:07 | US_ITS ---
[place] [id number] Patient Name: DIXON DURAN MRN: [id number] date: 1990 Sex: F Assigned Patient Location: US Current Patient Location: US Accession/Order Number: [id number] Exam Date: 09/16/2024 13:10 Report Date: 09/16/2024 13:49 At the request of: DORA ROSENTHAL Procedure: US venous doppler LE BI EXAM: US venous doppler LE BI HISTORY: History Deep Vein Thrombosis COMPARISON: None. TECHNIQUE: Grayscale, color and Doppler FINDINGS: Region: Bilateral legs Flow: Normal Thrombus: None Compression: Normal Augmentation: Normal US/US venous doppler LE BI IMPRESSION: No deep or superficial vein thrombus identified in the legs Electronically authenticated by: CECY RICHMOND Date: 09/16/2024 13:49
== END 2024-09-16 13:05 | disposition home or self-care (01) ==
LOC: US 13:04
PROVIDERS: PCP Registered Nurse Emergency
DX: R22.43 Localized swelling, mass and lump, lower limb, bilateral (principal)
CPT/HCPCS: 93970

== ENCOUNTER 2024-10-07 16:38 | Outpatient (OUT) | payer OTHER, SELFPAY ==
--- OUTSIDE RECORDS SUMMARY | 2024-10-07 16:49 | XMS_ITS | CCD ---
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 Name Role Phone PHYSICIAN, DEFAULT Unavailable Unavailable PHYSICIAN, DEFAULT Unavailable Unavailable REQUEST, DR NONE LISTED Primary Care Unavaila ble MARKER ., DR BERRY Admitting Unavailable MARKER ., DR BERRY Attending Unavailable CARNELIAN BAY, DR CECY Fan Consulting Unavailable ZIEBER, DR TEDDY Leroy Consulting Unavailable MARKER ., DR BERRY Consulting Unavailable DWAIN ., DAVID Consulting Unavailable MORIS, RAMON Consulting Unavailable DESI KUHN Admitting Unavailable DESI KUHN Attending Unavailable [facility], DR RENAE Primary Care Unavailable TAMMY ., CAMERON BE Consulting Unavailabl e HAY ., DR ROCHA Admitting Unavailable HAY ., DR ROCHA Attending Unavailable REQUEST, NONE LISTED Primary Care Unavaila ble HAY ., DR ROCHA Consulting Unavailable SHAMMO, TOPHER Admitting Unavailable SHAMMO, TOPHER Attending Unavailable REQUEST, DR MART LISTED Primary Care Unavaila ble SHAMMO, TOPHER Consulting Unavailable SHAMMO, TOPHER Admitting Unavailable SHAMMO, TOPHER Attending Unavailable REQUEST, NONE LISTED Primary Care Unavaila ble SHAMMO, TOPHER Consulting Unavailable Karen Brantley Unavailable Harry PENNY, Catina Deal Attending Unavailable MD Korin Castellanos Attending Provider [phone] Korin Castellanos Admitting Unavailable Korin Castellanos Attending Unavailable LOWE, MAYDA LISA Primary Care Unavailable LOWE, MAYDA LISA Referring Unavailable LOWE, MAYDA LISA Referring Unavailable LOWE, MAYDA LISA Primary Care Unavailable LOWE, MAYDA LISA Primary Care Unavailable LOWE, MAYDA LISA Referring Unavailable LOWE, MAYDA LISA Primary Care Unavailable LOWE, MAYDA LISA Referring Unavailable LOWE, MAYDA LISA Primary Care Unavailable LOWE, MAYDA LISA Referring Unavailable BRIAN RYAN Primary Care Unavailable LOWE, MAYDA LISA Referring Unavailable BRIAN RYAN Primary Care Unavailable LOWE, MAYDA LISA Referring Unavailable BRIAN RYAN Primary Care Unavailable LOWE, MAYDA LISA Referring Unavailable BRIAN RYAN Primary Care Unavailable LOWE, MAYDA LISA Referring Unavailable LOWE, MAYDA LISA Primary Care Unavailable LOWE, MAYDA LISA Referring Unavailable LOWE, MAYDA LISA Primary Care Unavailable LOWE, MAYDA LISA Referring Unavailable LOWE, MAYDA LISA Primary Care Unavailable LOWE, MAYDA LISA Referring Unavailable LOWE, MAYDA LISA Primary Care Unavailable LOWE, MAYDA LISA Referring Unavailable LOWE, MAYDA LISA Primary Care Unavailable LOWE, MAYDA LISA Referring Unavailable Unallocated MD, Noms Provider Primary Care Provi gracia VIN ADDISON Attending Unavailable Allergies Allergy Classification Reported Allergen(s) Allergy Type Date of Onset Reaction(s) Facility (1 source) Bacitracin / Neomycin / Polymyxin B Drug Allergy anaphylaxis [facility] Other (4 sources) Bacitracin; Translations: [bacitracin] Drug Allergy 3 anaphylaxis [facility] (4 sources) Neomycin; Translations: [neomycin] Drug Allergy 3 anaphylaxis [facility] (4 sources) polymyxin B; Translations: [polymyxin B] Allergy to substance 3 anaphylaxis [facility] (3 sources) Neomycin-Bacitra abhishek Zn-Polymyx Drug Allergy 3 Anaphylaxis [facility] Medications Current Medications Medication Drug Class(es) Dates Sig (Normalized) Sig (Original) baclofen 10 mg oral tablet (4 sources) gamma-Aminobutyric Acid-ergic Agonist Start: 06-02-2024 Baclofen 10 mg tablet Active MG PO June 01, 2024 11:00pm Start: 06-02-2024 Baclofen Activ e MG PO June 02, 2024 12:00am baclofen (Liores al) 10 MG tablet every 12 (twelve) hours Active 0.5 ml buprenorphine 200 mg/ml prefilled syringe (3 sources) Partial Opioid Agonist End: 10-02-2024 buprenorphine ER (Sublocade) 100 mg/0.5mL injection Inject 1 each under the skin every month to absorb continually 10/02/2024 Discontinued (Therapy completed) buprenorphine 8 mg / naloxone 2 mg sublingual film (5 sources) Partial Opioid Agonist, Opioid Antagonist Start: 06-02-2024 Buprenorphine-Naloxo ne 8-2 mg film Active BUCCAL June 01, 2024 11:00pm Buprenorphine HC l-Naloxone HCl (Suboxone) 8-[address] 1 Film under the tongue in the morning and 1 Film before bedtime. Active Suboxone 2-0.5 M G 1 film under the tongue and allow to dissolve Sublingual Once a day Active busPIRone hydrochloride 10 mg oral tablet (3 sources) Start: 07-21-2023 take 1 tablet by mouth three times daily as needed busPIRone (Buspar) 10 MG tablet Take 10 mg by mouth 3 (three) times a day as needed 07/21/2023 Active diclofenac sodium 75 mg delayed release oral tablet (4 sources) Nonsteroidal Anti-inflammatory Drug Start: 06-02-2024 Diclofenac Sodium Active MG PO June 02, 2024 12:00am Start: 04-23-2024 Diclofenac Sod ium 75 mg tablet,delayed release (DR/EC) Active MG PO June 01, 2024 11:00pm naloxone hydrochloride 40 mg/ml nasal spray (2 sources) Opioid Antagonist Start: 03-03-2024 naloxone (Narcan) 4 mg/0.1 mL nasal spray use 1 device nasally DIRECTED 03/03/2024 Active oseltamivir 75 mg oral capsule (1 source) Neuraminidase Inhibitor Start: 08-15-2023 take 1 capsule by mouth every twelve hours Oseltamivir Phosphate 75 MG 1 capsule Orally Twice a day for 5 day(s) Aug, Active Completed/Discontinued Medications Medication Drug Class(es) Dates Sig (Normalized) Sig (Original) [id number] 60 actuat albuterol 0.09 mg/actuat metered dose [...] a day for 7 days Jun, Not-Taking/PRN dextromethorphan hydrobromide 15 mg / guaiFENesin 400 mg / pseudoephedrine hydrochloride 60 mg oral tablet (3 sources) alpha-Adrenergic Agonist, Uncompetitive F-hxuplj-L-aspartat e Receptor Antagonist, Sigma-1 Agonist Start: 06-02-2024 End: 07-18-2024 take 4 tablets by mouth every twenty-four hours as needed Pseudoephedrine-D m-Guaifenesin (Capmist Dm) 60-15-400 mg tablet Discontinued 1 TAB PO EVERY 4-6 HOURS as needed for cold symptoms June 01, 2024 11:00pm July 18, 2024 9:57am do not exceed 4 doses per 24 hrs Start: 08-15-2023 take 4 tablets by mo uth every twenty-four hours as needed Capmist DM 60-15-400 MG as needed Orally every 4-6 hours as needed, max 4 tablets in 24 hours for 5 days Aug, Active gabapentin 300 mg oral capsule (2 sources) Anti-epileptic Agent Start: 06-02-2024 End: 06-02-2024 Gabapentin 300 mg capsule Discontinued MG PO June 01, 2024 11:00pm June 02, 2024 8:56am Start: 06-02-2024 End: 06-02-2024 Gabapentin Discontinued MG P O June 02, 2024 12:00am June 02, 2024 9:56am predniSONE 20 mg oral tablet (1 source) [...] Translations: [ANXIETY DISORDER UNSPECIFIED] Onset: 06-05-2022 Chronic Contraceptive and procreative management (2 sources) Intrauterine contraceptive device in situ; Translations: [Encounter for routine checking of intrauterine contraceptive device] 09-25-2024 Episodic Headache; including migraine (1 source) Ophthalmoplegic migraine, [...] for screening for other metabolic disorders] Onset: 05-01-2024 Episodic Other upper respiratory infections (5 sources) Acute pharyngitis, unspecified; Translations: [ACUTE PHARYNGITIS UNSPECIFIED] Onset: 10-17-2022 Episodic Spondylosis; intervertebral disc disorders; other back problems (2 sources) Dorsalgia, unspecified; Translations: [Low back pain] Onset: 08-10-2022 Episodic Substance-related disorders (6 sources) Nicotine dependence, cigarettes, uncomplicated; Translations: [Opioid [...] 2 Episodic Other aftercare (1 source) 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 Confirmon 07-27 Alcohol, Ur.Confirm <5.0 Normal [facility] Comment on above: Result Comment: (NOT E) INTREPRETIVE INFORMATION: Drug Confirmation, Alcohol, Urine Methodology: Quantitative Gas Chromatography with Flame Ionization Detection Positive cutoff: 5 mg/dL For medical purposes only; not valid for forensic use. The absence of expected drug(s) and/or drug metabolite(s) may indicate inappropriate timing of specimen collection relative to drug administration, poor drug absorption, diluted/adulterated urine, or limitations of testing. The concentration value must be greater than or equal to the cutoff to be reported as positive. Interpretive questions should be directed to the laboratory. This test was developed and its performance characteristics determined by [facility]. It has not been cleared or approved by the US Food and Drug Administration. This test was performed in a CLIA certified laboratory and is intended for clinical purposes. Performed By: [facility] [address] [place] [address] Director Informatics: Kenroy Huang MD, PhD CLIA Number: [id number] Performed By: #### U ALCO #### [facility] [address] [place] [address] Grocery Caddy: Higinio Kellogg MD #### CARIN #### [facility] [address] [address] Grocery Caddy: Cecy Santacruz MD #### AGABU #### [facility] [address] [place] [address] Grocery Caddy: Victorino Meier MD Gabapentin Qnt, Uron 024 Gabapentin Qnt, Ur <5.0 Normal [facility] Comment on above: Result Comment: (NOT E) INTERPRETIVE INFORMATION: Gabapentin, Urine Positive cutoff: 5.0 [...] developed and its performance characteristics determined by [email or web address]. It has not been cleared or approved by the US Food and Drug Administration. This test was performed in a CLIA certified laboratory and is intended for clinical purposes. Performed By: [facility] [address] [place] [address] Director Informatics: Kenroy Huang MD, PhD CLIA Number: [id number] Performed By: #### U ALCO #### [address] [id number] Grocery Caddy: Higinio Kellogg MD #### CARIN #### [address] [place] [address] Grocery Caddy: Cecy Santacruz MD #### AGABU #### [address] [id number] Grocery Caddy: Victorino Meier MD Drug Scr, Abuse, Uron 2023 Buprenorphrine, Ur Positive Abnormal NEG [facility] Comment on above: Result Comment: Cuto ff: 5 ng/ml Performed By: #### U ALCO #### [address] [address] Grocery Caddy: Higinio Kellogg MD #### CARIN #### [facility] [address] [place] [address] Grocery Caddy: Cecy Santacruz MD #### AGABU #### [facility] [address] [place] [address] Grocery Caddy: Victorino Meier MD Amphetamine(s),Ur Negative Normal NEG [facility] Comment on above: Result Comment: Cuto ff: 1000 ng/mL Performed By: #### U ALCO #### [address] [address] Grocery Caddy: Higinio Kellogg MD #### CARIN #### [facility] [address] [place] [address] [place] [address] Grocery Caddy: Cecy Santacruz MD #### AGABU #### [facility] [address] [place] [address] Grocery Caddy: Victorino Meier MD Barbiturate(s),Ur Negative Normal NEG [facility] Comment on above: Result Comment: Cuto ff: 200 ng/ml Performed By: #### U ALCO #### [address] [address] Grocery Caddy: Higinio Kellogg MD #### CARIN #### [address] [place] [address] Grocery Caddy: Cecy Santacruz MD #### AGABU #### [facility] [address] [place] [address] Grocery Caddy: Victorino Meier MD Benzodiazepine(s) Negative Normal NEG [facility] Comment on above: Result Comment: Cuto ff: 200 ng/ml Performed By: #### U ALCO #### [address] [address] Grocery Caddy: Higinio Kellogg MD #### CARIN #### [facility] [address] [place] [address] [place] [address] Grocery Caddy: Cecy Santacruz MD #### AGABU #### [facility] [address] [place] [address] Grocery Caddy: Victorino Meier MD Cannabinoid(s),Ur Negative Normal NEG [facility] Comment on above: Result Comment: Cuto ff: 50 ng/ml Performed By: #### U ALCO #### [address] [address] Grocery Caddy: Higinio Kellogg MD #### CARIN #### [facility] [address] [place], [place] [id number] Grocery Caddy: Cecy Santacruz MD #### AGABU #### [facility] [address] [place] [address] Grocery Caddy: Victorino Meier MD Cocaine Metabolite Negative Normal NEG [facility] Comment on above: Result Comment: Cuto ff: 300 ng/ml Performed By: #### U ALCO #### [address] [address] Grocery Caddy: Higinio Kellogg MD #### CARIN #### [facility] [address] [place] [address] [place] [address] Grocery Caddy: Cecy Santacruz MD #### AGABU #### [facility] [address] [place] [address] Grocery Caddy: Victorino Meier MD Fentanyl, Urine Negative Normal NEG [facility] Comment on above: Result Comment: Cuto ff: 5 ng/ml Performed By: #### U ALCO #### [address] [address] Grocery Caddy: Higinio Kellogg MD #### CARIN #### [facility] [address] [place], [place] [id number] Grocery Caddy: Cecy Santacruz MD #### AGABU #### [facility] [address] [place], [place] [id number] Grocery Caddy: Victorino Meier MD Interpretive Info This method is a screening test to detect only these drug classes as part of a Normal [facility] Comment on above: Result Comment: medi satinder workup. Confirmatory testing by another method should be ordered if clinically indicated. Performed By: #### U ALCO #### [address] [address] Grocery Caddy: Higinio Kellogg MD #### CARIN #### [address] [place] [address] Grocery Caddy: Cecy Santacruz MD #### AGABU #### [facility] [address] [place], [place] [id number] Grocery Caddy: Victorino Meier MD Methadone Ql (U) Negative Normal NEG [facility] Comment on above: Result Comment: Cuto ff: 300 ng/ml Performed By: #### U ALCO #### [address] [address] Grocery Caddy: Higinio Kellogg MD #### CARIN #### [address] [place] [address] Grocery Caddy: Cecy Santacruz MD #### AGABU #### [facility] [address] [place], [place] [id number] Grocery Caddy: Victorino Meier MD Opiate(s), Ur Negative Normal NEG [facility] Comment on above: Result Comment: Cuto ff: 300 ng/ml Note: The Opiate screen is not intended to detect Oxycodone. Performed By: #### U ALCO #### [address] [address] Grocery Caddy: Higinio Kellogg MD #### CARIN #### [address] [place] [address] Grocery Caddy: Cecy Santacruz MD #### AGABU #### [facility] [address] [place] [address] Grocery Caddy: Victorino Meier MD Oxycodone, Urine Negative Normal NEG [facility] Comment on above: Result Comment: Cuto ff: 100 ng/ml Performed By: #### U ALCO #### [place] [address] [place] [address] Grocery Caddy: Higinio Kellogg MD #### CARIN #### [facility] [address] [place] [address] Grocery Caddy: Cecy Santacruz MD #### AGABU #### [facility] [address] [place] [address] Grocery Caddy: Victorino Meier MD Phencyclidine, Ur Negative Normal NEG [facility] Comment on above: Result Comment: Cuto ff: 25 ng/ml Performed By: #### U ALCO #### [address] [address] Grocery Caddy: Higinio Kellogg MD #### CARIN #### [address] [place] [address] Grocery Caddy: Cecy Santacruz MD #### AGABU #### [facility] [address] [place] [address] Grocery Caddy: Victorino Meier MD No Panel InformationOrdered By: Angelique Alonso on 07-18-2024 Quick Strep (POC) [facility] Ethyl Gluc/Sulfate Uon 07-16 Ethyl Glucuronide,Ur <100 Normal [facility] Comment on above: Performed By: #### D AU #### [facility] [address] [place] [address] Grocery Caddy: Cecy Santacruz MD #### LAI, AALCO #### [facility] [address] [place] [address] Grocery Caddy: Victorino Meier MD Ethyl Sulfate,Ur <100 Normal [facility] Comment on above: Result Comment: (NOT E) INTERPRETIVE INFORMATION: Ethyl Glucuronide and Ethyl Sulfate, Urine Quantitative Ethyl glucuronide (EtG) and Ethyl Sulfate (EtS) are direct metabolites of ethanol. EtG and EtS can be detected up to 80 hours in urine after ethanol ingestion and the presence of both metabolites can be used as markers for recent alcohol use. The presence of EtG, alone in urine, is not a unique marker of ethanol ingestion. False positive EtG results can occur from microbial formation or from fermentation and false negative EtG results can occur from bacterial degradation. The analytical measurement range is 100-10,000 ng/mL. This test was developed and its performance characteristics determined by [email or web address]. It has not been cleared or approved by the [place] Food and Drug Administration. This test was performed in a CLIA certified laboratory and is intended for clinical purposes. Performed By: [place] [id number] Director Informatics: Kenroy Huang MD, PhD CLIA Number: [id number] Performed By: #### D AU #### [facility] [address] [place] [address] [place] [address] Grocery Caddy: Cecy Santacruz MD #### LAI AACRISTOBALO #### [facility] [address] [place] [address] Grocery Caddy: Victorino Meier MD Gabapentin Qnt, Uron 11-14-2 024 Gabapentin Qnt, Ur <5.0 Normal [facility] Comment on above: Result Comment: (NOT E) INTERPRETIVE INFORMATION: Gabapentin, Urine Positive cutoff: 5.0 [...] developed and its performance characteristics determined by [email or web address]. It has not been cleared or approved by the [place] Food and Drug Administration. This test was performed in a CLIA certified laboratory and is intended for clinical purposes. Performed By: [address] [address] Director Informatics: Kenroy Huang MD, PhD CLIA Number: [id number] Performed By: #### D AU #### [address] [place] [address] Grocery Caddy: Cecy Santacruz MD #### KRISTIAN HOYT #### [address] [id number] Grocery Caddy: Victorino Meier MD Drug Scr, Abuse, Uron 2023 Buprenorphrine, Ur Positive Abnormal NEG [facility] Comment on above: Result Comment: Cuto ff: 5 ng/ml Performed By: #### D AU #### [address] [place] [address] Grocery Caddy: Cecy Santacruz MD #### LAI, EDENO #### [address] [id number] Grocery Caddy: Victorino Meier MD Amphetamine(s),Ur Negative Normal NEG [facility] Comment on above: Result Comment: Cuto ff: 1000 ng/mL Performed By: #### D AU #### [address] [place] [address] Grocery Caddy: Cecy Santacruz MD #### LAI, EDENO #### [address] [id number] Grocery Caddy: Victorino Meier MD Barbiturate(s),Ur Negative Normal NEG [facility] Comment on above: Result Comment: Cuto ff: 200 ng/ml Performed By: #### D AU #### [address] [place] [address] Grocery Caddy: Cecy Santacruz MD #### LAI, AALCO #### [facility] [address] [place], [place] [id number] Grocery Caddy: Victorino Meier MD Benzodiazepine(s) Negative Normal NEG [facility] Comment on above: Result Comment: Cuto ff: 200 ng/ml Performed By: #### D AU #### [facility] [address] [place], [place] [address] Grocery Caddy: Cecy Santacruz MD #### LAI, AALCO #### [facility] [address] [place], [place] [id number] Grocery Caddy: Victorino Meier MD Cannabinoid(s),Ur Negative Normal NEG [facility] Comment on above: Result Comment: Cuto ff: 50 ng/ml Performed By: #### D AU #### [facility] [address] [place] [address] [place] [address] Grocery Caddy: Cecy Santacruz MD #### LAI, AALCO #### [facility] [address] [place], [place] [id number] Grocery Caddy: Victorino Meier MD Cocaine Metabolite Negative Normal NEG [facility] Comment on above: Result Comment: Cuto ff: 300 ng/ml Performed By: #### D AU #### [facility] [address] [place] [address] Dr[place], [place] [id number] Grocery Caddy: Cecy Santacruz MD #### LAI, AALCO #### [facility] [address] [place], [place] [id number] Grocery Caddy: Victorino Meier MD Fentanyl, Urine Negative Normal NEG [facility] Comment on above: Result Comment: Cuto ff: 5 ng/ml Performed By: #### D AU #### [facility] [address] [place], [place] [id number] Grocery Caddy: Cecy Santacruz MD #### AGABU, AALCO #### [facility] [address] [place] [address] Grocery Caddy: Victorino Meier MD Interpretive Info This method is a screening test to detect only these drug classes as part of a Normal [facility] Comment on above: Result Comment: medi satinder workup. Confirmatory testing by another method should be ordered if clinically indicated. Performed By: #### D AU #### [address] [place] [address] Grocery Caddy: Cecy Santacruz MD #### KRISTIAN HOYT #### [facility] [address] [place], [place] [id number] Grocery Caddy: Victorino Meier MD Methadone Ql (U) Negative Normal NEG [facility] Comment on above: Result Comment: Cuto ff: 300 ng/ml Performed By: #### D AU #### [address] [place] [address] Grocery Caddy: Cecy Santacruz MD #### KRISTIAN HOYT #### [facility] [address] [place], [place] [id number] Grocery Caddy: Victorino Meier MD Opiate(s), Ur Negative Normal NEG [facility] Comment on above: Result Comment: Cuto ff: 300 ng/ml Note: The Opiate screen is not intended to detect Oxycodone. Performed By: #### D AU #### [address] [place] [address] Grocery Caddy: Cecy Santacruz MD #### KRISTIAN HOYT #### [facility] [address] [place], [place] [id number] Grocery Caddy: Victorino Meier MD Oxycodone, Urine Negative Normal NEG [facility] Comment on above: Result Comment: Cuto ff: 100 ng/ml Performed By: #### D AU #### [address] [place] [address] Grocery Caddy: Cecy Santacruz MD #### LAI, AALCO #### [address] [id number] Grocery Caddy: Victorino Meier MD Phencyclidine, Ur Negative Normal NEG [facility] Comment on above: Result Comment: Cuto ff: 25 ng/ml Performed By: #### D AU #### [facility] [address] [address] Grocery Caddy: Cecy Santacruz MD #### AGAFARTUN, AALCO #### [address] [id number] Grocery Caddy: Victorino Meier MD Gabapentin Qnt, Uron 10-30-2 024 Gabapentin Qnt, Ur <5.0 Normal [facility] Comment on above: Result Comment: (NOT E) INTERPRETIVE INFORMATION: Gabapentin, Urine Positive cutoff: 5.0 [...] developed and its performance characteristics determined by [employer]. It has not been cleared or approved by the US Food and Drug Administration. This test was performed in a CLIA certified laboratory and is intended for clinical purposes. Performed By: [facility] [address] [place] [address] Director Informatics: Kenroy Huang MD, PhD CLIA Number: [id number] Performed By: #### U ALCO #### [facility] [address] [place] [address] Grocery Caddy: Higinio Kellogg MD #### CARIN #### [facility] [address] [address] Grocery Caddy: Cecy Santacruz MD #### AGABU #### [facility] [address] [place], [place] [id number] Grocery Caddy: Victorino Meier MD Alcohol Screen,Urineon 06-26 Alcohol Screen,Urine Negative Normal NEG [facility] Comment on above: Result Comment: Cuto ff: 10 mg/dl Performed By: #### U ALCO #### [address] [address] Grocery Caddy: Higinio Kellogg MD #### CARIN #### [facility] [address] [place] [address] [place] [address] Grocery Caddy: Cecy Santacruz MD #### AGABU #### [facility] [address] [place], [place] [id number] Grocery Caddy: Victorino Meier MD Drug Scr, Abuse, Uron 9 Buprenorphrine, Ur Positive Abnormal NEG [facility] Comment on above: Result Comment: Cuto ff: 5 ng/ml Performed By: #### U ALCO #### [address] [address] Grocery Caddy: Higinio Kellogg MD #### CARIN #### [address] [place] [address] Grocery Caddy: Cecy Santacruz MD #### AGABU #### [facility] [address] [place], [place] [id number] Grocery Caddy: Victorino Meier MD Amphetamine(s),Ur Negative Normal NEG [facility] Comment on above: Result Comment: Cuto ff: 1000 ng/mL Performed By: #### U ALCO #### [address] [address] Grocery Caddy: Higinio Kellogg MD #### CARIN #### [facility] [address] [place] [address] [place] [address] [employer]cery [employer]addy: Cecy Santacruz MD #### AGABU #### [facility] [address], [place] [id number] Grocery [employer]addy: Victorino Meier MD Barbiturate(s),Ur Negative Normal NEG [facility] Comment on above: Result Comment: Cuto ff: 200 ng/ml Performed By: #### U ALCO #### [address] [address] Grocery Caddy: Higinio Kellogg MD #### CARIN #### [facility] [address] [place] [address] [address] [place], [place] [id number] Grocery Caddy: Cecy Santacruz MD #### AGABU #### [facility] [address], [place] [id number] Grocery Caddy: Victorino Meier MD Benzodiazepine(s) Negative Normal NEG [facility] Comment on above: Result Comment: Cuto ff: 200 ng/ml Performed By: #### U ALCO #### [address] [address] Grocery Caddy: Higinio Kellogg MD #### CARIN #### [address] [place], [place] 6256383 Grocery Caddy: Cecy Santacruz MD #### AGABU #### [facility] [address], [place] [id number] Grocery Caddy: Victorino Meier MD Cannabinoid(s),Ur Negative Normal NEG [facility] Comment on above: Result Comment: Cuto ff: 50 ng/ml Performed By: #### U ALCO #### [address] [address] Grocery Caddy: Higinio Kellogg MD #### CARIN #### [facility] [address] [place], [place] 9191383 Grocery Caddy: Cecy Santacruz MD #### AGABU #### [facility] [address] [place] [address] Grocery Caddy: Victorino Meier MD Cocaine Metabolite Negative Normal NEG [facility] Comment on above: Result Comment: Cuto ff: 300 ng/ml Performed By: #### U ALCO #### [address] [address] Grocery Caddy: Higinio Kellogg MD #### CARIN #### [facility] [address] [place] [address] Grocery Caddy: Cecy Santacruz MD #### AGABU #### [facility] [address], [place] [id number] Grocery Caddy: Victorino Meier MD Fentanyl, Urine Negative Normal NEG [facility] Comment on above: Result Comment: Cuto ff: 5 ng/ml Performed By: #### U ALCO #### [address] [address] Grocery Caddy: Higinio Kellogg MD #### CARIN #### [address] [place] [address] Grocery Caddy: Cecy Santacruz MD #### AGABU #### [facility] [address] [place] [address] Grocery Caddy: Victorino Meier MD Interpretive Info This method is a screening test to detect only these drug classes as part of a Normal [facility] Comment on above: Result Comment: medi satinder workup. Confirmatory testing by another method should be ordered if clinically indicated. Performed By: #### U ALCO #### [address] [address] Grocery C[employer]: Higniio Kellogg MD #### CARIN #### [facility] [address] [place] [address] Grocery Caddy: Cecy Santacruz MD #### AGABU #### [facility] [address] [place] [address] Grocery Caddy: Victorino Meier MD Methadone Ql (U) Negative Normal NEG [facility] Comment on above: Result Comment: Cuto ff: 300 ng/ml Performed By: #### U ALCO #### [address] [address] Grocery Caddy: Higinio Kellogg MD #### CARIN #### [facility] [address] [place] [address] [place] [address] Grocery Caddy: Cecy Santacruz MD #### AGABU #### [facility] [address], [place] [id number] Grocery Caddy: Victorino Meier MD Opiate(s), Ur Negative Normal NEG [facility] Comment on above: Result Comment: Cuto ff: 300 ng/ml Note: The Opiate screen is not intended to detect Oxycodone. Performed By: #### U ALCO #### [address] [address] Grocery Caddy: Higinio Kellogg MD #### CARIN #### [address] [place] [address] Grocery Caddy: Cecy Santacruz MD #### AGABU #### [facility] [address] [place] [address] Grocery Caddy: Victorino Meier MD Oxycodone, Urine Negative Normal NEG [facility] Comment on above: Result Comment: Cuto ff: 100 ng/ml Performed By: #### U ALCO #### [facility] [address] [place] [address] Grocery Caddy: Higinio Kellogg MD #### CARIN #### [facility] [address] [place] [address] [place] [address] Grocery Caddy: Cecy Santacruz MD #### AGABU #### [address] [address] Grocery Caddy: Victorino Meier MD Phencyclidine, Ur Negative Normal NEG [facility] Comment on above: Result Comment: Cuto ff: 25 ng/ml Performed By: #### U ALCO #### [facility] [address] [place], [place] [id number] Grocery Caddy: Higinio Kellogg MD #### CARIN #### [facility] [address] [place] [address] Grocery Caddy: Cecy Santacruz MD #### AGABU #### [address] [address] Grocery Caddy: Victorino Meier MD Alcohol, Ur. Confirmon 06-15 Alcohol, Ur.Confirm <5.0 Normal [facility] Comment on above: Result Comment: (NOT E) INTREPRETIVE INFORMATION: Drug Confirmation, Alcohol, Urine Methodology: Quantitative Gas Chromatography with Flame Ionization Detection Positive cutoff: 5 mg/dL For medical purposes only; not valid for forensic use. The absence of expected drug(s) and/or drug metabolite(s) may indicate inappropriate timing of specimen collection relative to drug administration, poor drug absorption, diluted/adulterated urine, or limitations of testing. The concentration value must be greater than or equal to the cutoff to be reported as positive. Interpretive questions should be directed to the laboratory. This test was developed and its performance characteristics determined by [employer]. It has not been cleared or approved by the [place] Food and Drug Administration. This test was performed in a CLIA certified laboratory and is intended for clinical purposes. Performed By: [facility] [address] [place] [id number] Director Informatics: Kenroy Huang MD, PhD CLIA Number: [id number] Performed By: #### D AU #### [facility] [address] [place] [address] Grocery Caddy: Cecy Santacruz MD #### KRISTIAN HOYT #### [facility] [address] [place] [address] Grocery Caddy: Victorino Meier MD Gabapentin Qnt, Uron 024 Gabapentin Qnt, Ur <5.0 Normal [facility] Comment on above: Result Comment: (NOT E) INTERPRETIVE INFORMATION: Gabapentin, Urine Positive cutoff: 5.0 [...] developed and its performance characteristics determined by [employer]. It has not been cleared or approved by the [place] Food and Drug Administration. This test was performed in a CLIA certified laboratory and is intended for clinical purposes. Performed By: [facility] [address] [place] [address] Director Informatics: Kenroy Huang MD, PhD CLIA Number: [id number] Performed By: #### Glen MARCELO #### [facility] [address] [address] Grocery Caddy: Cecy Santacruz MD #### KRISTIAN HOYT #### [address] [address] Grocery Caddy: Victorino Meier MD Drug Scr, Abuse, Uron 2023 Buprenorphrine, Ur Positive Abnormal NEG [facility] Comment on above: Result Comment: Cuto ff: 5 ng/ml Performed By: #### Glen MARCELO #### [facility] [address] [address] Grocery Caddy: Cecy Santacruz MD #### KRISTIAN HOYT #### [address] [address] Grocery Caddy: Victorino Meier MD Amphetamine(s),Ur Negative Normal NEG [facility] Comment on above: Result Comment: Cuto ff: 1000 ng/mL Performed By: #### D AU #### [facility] [address] [place] [address] Dr[place] [id number] Grocery Caddy: Cecy Santacruz MD #### EDEN HOYTO #### [facility] [address], [place] [id number] Grocery Caddy: Victorino Meier MD Barbiturate(s),Ur Negative Normal NEG [facility] Comment on above: Result Comment: Cuto ff: 200 ng/ml Performed By: #### D AU #### [facility] [address] [place] [address] Dr[place] [id number] Grocery Caddy: Cecy Santacruz MD #### KRISTIAN HOYT #### [address] [address] Grocery Caddy: Victorino Meier MD Benzodiazepine(s) Negative Normal NEG [facility] Comment on above: Result Comment: Cuto ff: 200 ng/ml Performed By: #### D AU #### [facility] [address] [place] [address] Dr[place] [id number] Grocery Caddy: Cecy Santacruz MD #### KRISTIAN HOYT #### [facility] [address] [place] [address] Gro[employer]: Victorino Meier MD Cannabinoid(s),Ur Negative Normal NEG [facility] Comment on above: Result Comment: Cuto ff: 50 ng/ml Performed By: #### D AU #### [facility] [address] [place] [address] [place] [address] Grocery Caddy: Cecy Santacruz MD #### EDEN HOYTO #### [facility] [address], [place] [id number] Grocery Caddy: Victorino Meier MD Cocaine Metabolite Negative Normal NEG [facility] Comment on above: Result Comment: Cuto ff: 300 ng/ml Performed By: #### D AU #### [facility] [address] [place] [address] [address], [place] [id number] Grocery Caddy: Cecy Santacruz MD #### KRISTIAN HOYT #### [facility] [address], [place] [id number] Grocery Caddy: Victorino Meier MD Fentanyl, Urine Negative Normal NEG [facility] Comment on above: Result Comment: Cuto ff: 5 ng/ml Performed By: #### D AU #### [facility] [address] [place] [address] Dr[place] [id number] Grocery Caddy: Cecy Santacruz MD #### LAI, KRISTIAN #### [facility] [address] [place] [id number] Grocery [employer]: Victorino Meier MD Interpretive Info This method is a screening test to detect only these drug classes as part of a Normal [facility] Comment on above: Result Comment: medi satinder workup. Confirmatory testing by another method should be ordered if clinically indicated. Performed By: #### D AU #### [facility] [address] [place] [address] Dr. [place], [facility] Grocery Caddy: Cecy Santacruz MD #### KRISTIAN HOYT #### [facility] [address], [place] [id number] Grocery Caddy: Victorino Meier MD Methadone Ql (U) Negative Normal NEG [facility] Comment on above: Result Comment: Cuto ff: 300 ng/ml Performed By: #### D AU #### [facility] [address] [place] [address] [place] [address] Grocery Caddy: Cecy Santacruz MD #### EDEN HOYTO #### [facility] [address] [place] [address] Grocery Caddy: Victorino Meier MD Opiate(s), Ur Negative Normal NEG [facility] Comment on above: Result Comment: Cuto ff: 300 ng/ml Note: The Opiate screen is not intended to detect Oxycodone. Performed By: #### D AU #### [facility] [address] [place] [address] Grocery Caddy: Cecy Santacruz MD #### KRISTIAN HOYT #### [facility] [address], [place] [id number] Grocery Caddy: Victorino Meier MD Oxycodone, Urine Negative Normal NEG [facility] Comment on above: Result Comment: Cuto ff: 100 ng/ml Performed By: #### D AU #### [facility] [address] [place] [address] Grocery Caddy: Cecy Santacruz MD #### KRISTIAN HOYT #### [facility] [address] [place] [id number] Grocery Caddy: Victorino Meier MD Phencyclidine, Ur Negative Normal NEG [facility] Comment on above: Result Comment: Cuto ff: 25 ng/ml Performed By: #### D AU #### [facility] [address] [place] [address] Grocery Caddy: Cecy Santacruz MD #### KRISTIAN HOYT #### [facility] [address], [place] [id number] Grocery Caddy: Victorino Meier MD [facility] 06-09-2024 Send Out Report (NOTE) Normal [facility] Comment on above: Result Comment: Betsy [...] developed and its performance characteristics determined by [employer]. It has not been cleared or approved by the [place] Food and Drug Administration. This test was performed in a CLIA certified laboratory and is intended for clinical purposes. [facility] Performed By: #### U ALCO #### [facility] [address] [place], [place] [id number] Grocery Caddy: Higinio Kellogg MD #### CARIN #### [facility] [address] [place] [address] Grocery Caddy: Cecy Santacruz MD #### LAI #### [facility] [address] [place] [address] Grocery Caddy: Victorino Meier MD Send Out Report (NOTE) [facility] Comment on above: Result Comment: Alco hol, Urine, Quantitative Alcohol, Urn, Quant <5.0 mg/dL INTREPRETIVE INFORMATION: Drug Confirmation, Alcohol, Urine Methodology: Quantitative Gas Chromatography with Flame Ionization Detection Positive cutoff: 5 mg/dL For medical purposes only; not valid for forensic use. The absence of expected drug(s) and/or drug metabolite(s) may indicate inappropriate timing of specimen collection relative to drug administration, poor drug absorption, diluted/adulterated urine, or limitations of testing. The concentration value must be greater than or equal to the cutoff to be reported as positive. Interpretive questions should be directed to the laboratory. This test was developed and its performance characteristics determined by [employer]. It has not been cleared or approved by the US Food and Drug Administration. This test was performed in a CLIA certified laboratory and is intended for clinical purposes. [facility] Performed By: #### U ALCO #### [facility] [address] [place] [address] Grocery Caddy: Higinio Kellogg MD #### CARIN #### [facility] [address] [place] [address] Grocery Caddy: Cecy Santacruz MD #### AGABU #### [facility] [address] [place] [address] Grocery Caddy: Victorino Meier MD Influenza virus A and B and SARS-CoV-2 (COVID-19) RNA panel - Respiratory system specon 06-02-2024 Influenza virus A and B RNA and SARS-CoV-2 (COVID-19) N gene panel JEREMIE+probe (Resp) Influenza virus A and B and SARS-CoV-2 (COVID-19) RNA panel - Respiratory system spec [facility] - Microbiology an d Antimicrobial susceptibilityon 06-02-2024 SARS-CoV-2 (COVID-19) RNA JEREMIE+probe Ql (Unsp spec) Negative [facility] No Panel InformationOrdered By: Karen Brantley on 06-02-2024 Quick Strep (POC) [facility] Quick Strep (POC) [facility] No Panel Informationon 06-02 POC Influenza B (JEREMIE) Negative [facility] Drug Scr, Abuse, Uron 2023 Buprenorphrine, Ur Positive Abnormal NEG [facility] Comment on above: Result Comment: C5NM Performed By: #### U ALCO #### [address] [address] Grocery Caddy: Higinio Kellogg MD #### CARIN #### [facility] [address] [place] [address] [place] [address] Grocery Caddy: Cecy Santacruz MD #### AGABU #### [facility] [address] [place] [address] Grocery Caddy: Victorino Meier MD Amphetamine(s),Ur Negative Normal NEG [facility] Comment on above: Result Comment: C1KN M Performed By: #### U ALCO #### [address] [place] [address] Grocery Caddy: Higinio Kellogg MD #### CARIN #### [facility] [address] [address] Grocery Caddy: Cecy Santacruz MD #### AGABU #### [facility] [address], [place] [id number] Grocery Caddy: Victorino Meier MD Barbiturate(s),Ur Negative Normal NEG [facility] Comment on above: Result Comment: C200 NM Performed By: #### U ALCO #### [address] [address] Grocery Caddy: Higinio Kellogg MD #### CARIN #### [address] [place] [address] Grocery Caddy: Cecy Santacruz MD #### AGABU #### [facility] [address], [place] [id number] Grocery Caddy: Victorino Meier MD Benzodiazepine(s) Negative Normal NEG [facility] Comment on above: Result Comment: C200 NM Performed By: #### U ALCO #### [address] [address] Grocery Caddy: Higinio Kellogg MD #### CARIN #### [address] [place], [place] 8898783 Grocery Caddy: Cecy Santacruz MD #### AGABU #### [facility] [address], [place] [id number] Grocery Caddy: Victorino Meier MD Cannabinoid(s),Ur Negative Normal NEG [facility] Comment on above: Result Comment: C50N M Performed By: #### U ALCO #### [address] [address] Grocery Caddy: Higinio Kellogg MD #### CARIN #### [facility] [address] [place] [address] Dr[place], [place] [id number] Grocery Caddy: Cecy Santacruz MD #### AGABU #### [facility] [address] [place] [address] Grocery Caddy: Victorino Meier MD Cocaine Metabolite Negative Normal NEG [facility] Comment on above: Result Comment: C300 NM Performed By: #### U ALCO #### [address] [address] Grocery Caddy: Higinio Kellogg MD #### CARIN #### [facility] [address] [place], [place] 2418083 Grocery Caddy: Cecy Santacruz MD #### AGABU #### [facility] [address] [place] [address] Grocery Caddy: Victorino Meier MD Fentanyl, Urine Negative Normal NEG [facility] Comment on above: Result Comment: C5NM Performed By: #### U ALCO #### [address] [address] Grocery Caddy: Higinio Kellogg MD #### CARIN #### [facility] [address] [place] [address] Grocery Caddy: Cecy Santacruz MD #### AGABU #### [facility] [address] [place] [address] Grocery Caddy: Victorino Meier MD Interpretive Info This method is a screening test to detect only these drug classes as part of a Normal [facility] Comment on above: Result Comment: medi satinder workup. Confirmatory testing by another method should be ordered if clinically indicated. Performed By: #### U ALCO #### [address] [address] Grocery Caddy: Higinio Kellogg MD #### CARIN #### [facility] [address] [place], [place] [id number] Grocery Caddy: Cecy Santacruz MD #### AGABU #### [facility] [address] [place] [address] Grocery Caddy: Victorino Meier MD Methadone Ql (U) Negative Normal NEG [facility] Comment on above: Result Comment: C300 NM Performed By: #### U ALCO #### [address] [address] Grocery Caddy: Higinio Kellogg MD #### CARIN #### [address] [place], [place] 6255183 Grocery Caddy: Cecy Santacruz MD #### AGABU #### [facility] [address], [place] [id number] Grocery Caddy: Victorino Meier MD Opiate(s), Ur Negative Normal NEG [facility] Comment on above: Result Comment: C300 NM UROPIC Performed By: #### U ALCO #### [address] [address] Grocery Caddy: Higinio Kellogg MD #### CARIN #### [address] [place] [address] Grocery Caddy: Cecy Santacruz MD #### AGABU #### [facility] [address] [place], [place] [id number] Grocery Caddy: Victorino Meier MD Oxycodone, Urine Negative Normal NEG [facility] Comment on above: Result Comment: Cuto ff: 100 ng/ml Performed By: #### U ALCO #### [address] [address] Grocery Caddy: Higinio Kellogg MD #### CARIN #### [facility] [address] [place] [address] Dr[place], [place] [phone] Grocery Caddy: Cecy Santacruz MD #### AGABU #### [facility] [address] [place] [address] Grocery Caddy: Victorino Meier MD Phencyclidine, Ur Negative Normal NEG [facility] Comment on above: Result Comment: C25N M Performed By: #### U ALCO #### [facility] [address] [place] [address] Grocery Caddy: Higinio Kellogg MD #### CARIN #### [facility] [address] [address] Grocery Caddy: Cecy Santacruz MD #### AGABU #### [facility] [address] [place] [address] Grocery Caddy: Victor[facility] Test Name [id number] [facility] Comment on above: Performed By: #### U ALCO #### [address] [place] [address] Grocery Caddy: Higinio Kellogg MD #### CARIN #### [facility] [address] [place] [address] Grocery Caddy: Cecy Santacruz MD #### AGABU #### [facility] [address] [place] [address] Grocery Caddy: Victorino Meier MD [facility] 05-26-2024 Send Out Report (NOTE) [facility] Comment on above: Result Comment: Alco hol, Urine, Quantitative Alcohol, Urn, Quant <5.0 mg/dL INTREPRETIVE INFORMATION: Drug Confirmation, Alcohol, Urine Methodology: Quantitative Gas Chromatography with Flame Ionization Detection Positive cutoff: 5 mg/dL For medical purposes only; not valid for forensic use. The absence of expected drug(s) and/or drug metabolite(s) may indicate inappropriate timing of specimen collection relative to drug administration, poor drug absorption, diluted/adulterated urine, or limitations of testing. The concentration value must be greater than or equal to the cutoff to be reported as positive. Interpretive questions should be directed to the laboratory. This test was developed and its performance characteristics determined by [employer]. It has not been cleared or approved by the [place] Food and Drug Administration. This test was performed in a CLIA certified laboratory and is intended for clinical purposes. [facility] Performed By: #### C MIS #### [address] [place] [address] Grocery Caddy: Cecy Santacruz MD Send Out Report (NOTE) Normal [facility] Comment on above: Result Comment: Betsy [...] developed and its performance characteristics determined by [facility]. It has not been cleared or approved by the [place] Food and Drug Administration. This test was performed in a CLIA certified laboratory and is intended for clinical purposes. [facility] Performed By: #### U ALCO #### [facility] [address] [place], [place] [id number] Grocery Caddy: Higinio Kellogg MD #### CARIN #### [address] [place] [address] Grocery Caddy: Cecy Santacruz MD #### AGABU #### [facility] [address] [place] [address] Grocery Caddy: Victorino Meier MD Drug Scr, Abuse, Uron 2023 Buprenorphrine, Ur Positive Abnormal NEG [facility] Comment on above: Result Comment: C5NM Performed By: #### U ALCO #### [facility] [address] [place] [address] Grocery Caddy: Higinio Kellogg MD #### CARIN #### [address] [place], [place] 1323083 Grocery Caddy: Cecy Santacruz MD #### AGABU #### [facility] [address] [place], [place] [id number] Grocery Caddy: Victorino Meier MD Amphetamine(s),Ur Negative Normal NEG [facility] Comment on above: Result Comment: C1KN M Performed By: #### U ALCO #### [address] [address] Grocery Caddy: Higinio Kellogg MD #### CARIN #### [facility] [address] [place] [address] Grocery Caddy: Cecy Santacruz MD #### AGABU #### [facility] [address], [place] [id number] Grocery Caddy: Victorino Meier MD Barbiturate(s),Ur Negative Normal NEG [facility] Comment on above: Result Comment: C200 NM Performed By: #### U ALCO #### [address] [address] Grocery Caddy: Higinio Kellogg MD #### CARIN #### [address] [place], [place] 8789983 Grocery Caddy: Cecy Santacruz MD #### AGABU #### [facility] [address] [place], [place] [id number] Grocery Caddy: Victorino Meier MD Benzodiazepine(s) Negative Normal NEG [facility] Comment on above: Result Comment: C200 NM Performed By: #### U ALCO #### [address] [address] Grocery Caddy: Higinio Kellogg MD #### CARIN #### [facility] [address] [place], [place] 3704183 Grocery Caddy: Cecy Santacruz MD #### AGABU #### [facility] [address] [place] [address] Grocery Caddy: Victorino Meier MD Cannabinoid(s),Ur Negative Normal NEG [facility] Comment on above: Result Comment: C50N M Performed By: #### U ALCO #### [address] [address] Grocery Caddy: Higinio Kellogg MD #### CARIN #### [facility] [address] [place] [address] Grocery Caddy: Cecy Santacruz MD #### AGABU #### [facility] [address] [place] [address] Grocery Caddy: Victorino Meier MD Cocaine Metabolite Negative Normal NEG [facility] Comment on above: Result Comment: C300 NM Performed By: #### U ALCO #### [address] [address] Grocery Caddy: Higinio Kellogg MD #### CARIN #### [facility] [address] [place] [address] [place] [address] Grocery Caddy: Cecy Santacruz MD #### AGABU #### [facility] [address] [place] [address] [employer]: Victorino Meier MD Fentanyl, Urine Negative Normal NEG [facility] Comment on above: Result Comment: C5NM Performed By: #### U ALCO #### [address] [address] Grocery Caddy: Higinio Kellogg MD #### CARIN #### [facility] [address] [address] Grocery Caddy: Cecy Santacruz MD #### AGABU #### [facility] [address] [place] [address] Grocery Caddy: Victorino Meier MD Interpretive Info This method is a screening test to detect only these drug classes as part of a Normal [facility] Comment on above: Result Comment: medi satinder workup. Confirmatory testing by another method should be ordered if clinically indicated. Performed By: #### U ALCO #### [address] [address] Grocery [employer]: Higinio Kellogg MD #### CARIN #### [address] [place], [place] 035[address]83 Gro[employer]: Cecy Santacruz MD #### AGABU #### [facility] [address] [place], [place] [id number] Grocery Caddy: Victorino Meier MD Methadone Ql (U) Negative Normal NEG [facility] Comment on above: Result Comment: C300 NM Performed By: #### U ALCO #### [address] [address] Grocery Caddy: Higinio Kellogg MD #### CARIN #### [address] [place] [address] Grocery Caddy: Cecy Santacruz MD #### AGABU #### [facility] [address] [place], [place] [id number] Grocery Caddy: Victorino Meier MD Opiate(s), Ur Negative Normal NEG [facility] Comment on above: Result Comment: C300 NM UROPIC Performed By: #### U ALCO #### [address] [address] Grocery Caddy: Higinio Kellogg MD #### CARIN #### [facility] [address] [place] [address] [address] [place], [place] [phone] Grocery Caddy: Cecy Santacruz MD #### AGABU #### [facility] [address] [place] [address] Grocery Caddy: Victorino Meier MD Oxycodone, Urine Negative Normal NEG [facility] Comment on above: Result Comment: Cuto ff: 100 ng/ml Performed By: #### U ALCO #### [address] [place] [address] Grocery Caddy: Higinio Kellogg MD #### CARIN #### [facility] [address] [place] [address] Dr[address] [place], [place] [phone] Grocery Caddy: Cecy Santacruz MD #### AGABU #### [facility] [address] [place], [place] [id number] Grocery Caddy: Victorino Meier MD Phencyclidine, Ur Negative Normal NEG [facility] Comment on above: Result Comment: C25N M Performed By: #### U ALCO #### [address] [address] Grocery Caddy: Higinio Kellogg MD #### CARIN #### [address] [place], [place] 2795183 Grocery Caddy: Cecy Santacruz MD #### AGABU #### [facility] [address] [place] [address] Grocery Caddy: Victorino Meier MD Miscellaneouson 05-20-2024 Test Name [facility] Comment on above: Performed By: #### C MIS #### [facility] [address] [place] [address] Dr[place], [place] [phone] Grocery Caddy: Cecy Santacruz MD Test Name [id number] [facility] Comment on above: Performed By: #### U ALCO #### [address] [address] Grocery Caddy: Higinio Kellogg MD #### CARIN #### [address] [place], [place] 8975483 Grocery Caddy: Cecy Santacruz MD #### AGABU #### [facility] [address] [place] [address] Grocery Caddy: Victorino Meier MD Chlamydia/GC DNA, Uron 05-03 Chlamydia Probe, Ur Negative Normal NEG [facility] Comment on above: Result Comment: CHLA [...] alternative nucleic acid target. Performed By: #### U ALCO #### [address] [address] Grocery Caddy: Higinio Kellogg MD #### CARIN #### [address] [place] [address] Grocery Caddy: Cecy Santacruz MD #### AGABU #### [facility] [address] [place] [id number] Grocery Caddy: Victorino Meier MD Gonorrhea Probe, Ur Negative Normal [facility] Comment on above: Result Comment: NEIS SERIA [...] alternative nucleic acid target. Performed By: #### U ALCO #### [facility] [place] [address] Grocery Caddy: Higinio Kellogg MD #### CARIN #### [address] [place] [address] Grocery Caddy: Cecy Santacruz MD #### AGABU #### [facility] [address] [place] [address] Grocery Caddy: Victorino Meier MD Drug Scr, Abuse, Uron 2023 Buprenorphrine, Ur Positive Abnormal NEG [facility] Comment on above: Result Comment: C5NM Performed By: #### U ALCO #### [address] [address] Grocery Caddy: Higinio Kellogg MD #### CARIN #### [facility] [address] [address] Grocery Caddy: Cecy Santacruz MD #### AGABU #### [facility] [address] [place] [address] Grocery Caddy: Victorino Meier MD Amphetamine(s),Ur Negative Normal NEG [facility] Comment on above: Result Comment: C1KN M Performed By: #### U ALCO #### [address] [address] Grocery Caddy: Higinio Kellogg MD #### CARIN #### [facility] [address] [place] [address] [place] [address] Grocery Caddy: Cecy Santacruz MD #### AGABU #### [facility] [address] [place], [place] [id number] Grocery Caddy: Victorino Meier MD Barbiturate(s),Ur Negative Normal NEG [facility] Comment on above: Result Comment: C200 NM Performed By: #### U ALCO #### [facility] [address] [place] [address] Grocery Caddy: Higinio Kellogg MD #### CARIN #### [facility] [address] [place] [address] Grocery Caddy: Cecy Santacruz MD #### AGABU #### [facility] [address] [place], [place] [id number] Grocery Caddy: Victorino Meier MD Benzodiazepine(s) Negative Normal NEG [facility] Comment on above: Result Comment: C200 NM Performed By: #### U ALCO #### [address] [address] Gro[employer] Caddy: Higinio Kellogg MD #### CARIN #### [facility] [address] [place], [place] 5958183 Grocery Caddy: Cecy Santacruz MD #### AGABU #### [facility] [address] [place], [place] [id number] Grocery Caddy: Victorino Meier MD Cannabinoid(s),Ur Negative Normal NEG [facility] Comment on above: Result Comment: C50N M Performed By: #### U ALCO #### [address] [address] Grocery Caddy: Higinio Kellogg MD #### CARIN #### [facility] [address] [address] Grocery Caddy: Cecy Santacruz MD #### AGABU #### [facility] [address] [place], [place] [id number] Grocery Caddy: Victorino Meier MD Cocaine Metabolite Negative Normal NEG [facility] Comment on above: Result Comment: C300 NM Performed By: #### U ALCO #### [facility] [address] [place] [address] Grocery Caddy: Higinio Kellogg MD #### CARIN #### [facility] [address] [place], [place] 4413483 Grocery Caddy: Cecy Santacruz MD #### AGABU #### [facility] [address] [place] [address] Grocery Caddy: Victorino Meier MD Fentanyl, Urine Negative Normal NEG [facility] Comment on above: Result Comment: C5NM Performed By: #### U ALCO #### [address] [address] Grocery Caddy: Higinio Kellogg MD #### CARIN #### [facility] [address] [place], [place] 2396383 Grocery Caddy: Cecy Santacruz MD #### AGABU #### [facility] [address] [place] [address] Grocery Caddy: Victorino Meier MD Interpretive Info This method is a screening test to detect only these drug classes as part of a Normal [facility] Comment on above: Result Comment: medi satinder workup. Confirmatory testing by another method should be ordered if clinically indicated. Performed By: #### U ALCO #### [address] [address] Gro[employer]: Higinio Kellogg MD #### CARIN #### [facility] [address] [place] [address] [place] [address] Grocery Caddy: Cecy Santacruz MD #### AGABU #### [facility] [address] [place], [place] [id number] Grocery Caddy: Victorino Meier MD Methadone Ql (U) Negative Normal NEG [facility] Comment on above: Result Comment: C300 NM Performed By: #### U ALCO #### [address] [address] Grocery Caddy: Higinio Kellogg MD #### CARIN #### [facility] [address] [place], [place] 4624683 Grocery Caddy: Cecy Santacruz MD #### AGABU #### [facility] [address] [place] [address] Grocery Caddy: Victorino Meier MD Opiate(s), Ur Negative Normal NEG [facility] Comment on above: Result Comment: C300 NM UROPIC Performed By: #### U ALCO #### [address] [address] Grocery Caddy: Higinio Kellogg MD #### CARIN #### [address] [place], [place] 9914883 Grocery Caddy: Cecy Santacruz MD #### AGABU #### [facility] [address] [place] [address] Grocery Caddy: Victorino Meier MD Oxycodone, Urine Negative Normal NEG [facility] Comment on above: Result Comment: Cuto ff: 100 ng/ml Performed By: #### U ALCO #### [address] [address] Grocery Caddy: Higinio Kellogg MD #### CARIN #### [address] [place], [place] 9683083 Grocery Caddy: Cecy Santacruz MD #### AGABU #### [facility] [address] [place], [place] [id number] Grocery Caddy: Victorino Meier MD Phencyclidine, Ur Negative Normal NEG [facility] Comment on above: Result Comment: C25N M Performed By: #### U ALCO #### [address] [address] Grocery Caddy: Higinio Kellogg MD #### CARIN #### [facility] [address] [place] [address] Dr[place], [place] [phone] Grocery Caddy: Cecy Santacruz MD #### AGABU #### [facility] [address] [place], [place] [id number] Grocery Caddy: Victorino Meier MD HCG, ,Urineon 05-01 Beta HCG ( test) Ql (U) Negative Normal NEG [facility] Comment on above: Result Comment: Spec imens with hCG levels near the threshold of the test (25 mIU/mL) may give a negative or indeterminate result. In such cases, another test should be performed with a new specimen in 48-72 hours. If early is suspected clinically in this setting, correlation with quantitative serum b-hCG level is suggested. [facility] has confirmed the use of plasma for this test. This has not been cleared or approved by the U.[place]. Food and Drug Administration. The FDA has determined that such clearance is not necessary. Performed By: #### U ALCO #### [facility] [address] [place], [place] [id number] Grocery Caddy: Higinio Kellogg MD #### CARIN #### [address] [place] [address] Grocery Caddy: Cecy Santacruz MD #### AGAFARTUN #### [facility] [address] [place] [address] Grocery Caddy: Victorino Meier MD Miscellaneouson 04-28-2024 Send Out Report (NOTE) Normal [facility] Comment on above: Result Comment: Gabapentin, Urine Gabapentin, Urine <5.0 ug/mL INTERPRETIVE INFORMATION: [...] developed and its performance characteristics determined by [employer]. It has not been cleared or approved by the US Food and Drug Administration. This test was performed in a CLIA certified laboratory and is intended for clinical purposes. [facility] Performed By: #### U ALCO #### [employer] [address] [place], [place] 4178208 Grocery Caddy: Higinio Kellogg MD #### CARIN #### [facility] [address] [place] [address] Grocery Caddy: Cecy Santacruz MD #### GWENDOLYNBU #### [facility] [address] [place] [address] Grocery Caddy: Victorino Meier MD Miscellaneouson 04-23-2024 Send Out Report (NOTE) Normal [facility] Comment on above: Result Comment: Alco hol, Urine, Quantitative Alcohol, Urn, Quant <5.0 mg/dL INTREPRETIVE INFORMATION: Drug Confirmation, Alcohol, Urine Methodology: Quantitative Gas Chromatography with Flame Ionization Detection Positive cutoff: 5 mg/dL For medical purposes only; not valid for forensic use. The absence of expected drug(s) and/or drug metabolite(s) may indicate inappropriate timing of specimen collection relative to drug administration, poor drug absorption, diluted/adulterated urine, or limitations of testing. The concentration value must be greater than or equal to the cutoff to be reported as positive. Interpretive questions should be directed to the laboratory. This test was developed and its performance characteristics determined by [employer]. It has not been cleared or approved by the US Food and Drug Administration. This test was performed in a CLIA certified laboratory and is intended for clinical purposes. [facility] Performed By: #### U ALCO #### [address] [id number] Gro[employer]: Higinio Kellogg MD #### CARIN #### [facility] [address] [address] Grocery Caddy: Cecy Santacruz MD #### AGABU #### [facility] [address] [place] [address] Grocery Caddy: Victorino Meier MD Drug Scr, Abuse, Uron 2023 Amphetamine(s),Ur Negative Normal NEG [facility] Comment on above: Result Comment: (Positive cutoff 1000 ng/mL) Performed By: #### U ALCO #### [address] [id number] Gro[employer] Caddy: Higinio Kellgog MD #### CARIN #### [address] [place], [place] 3231483 Grocery Caddy: Cecy Santacruz MD #### AGABU #### [facility] [address] [place], [place] [id number] Grocery Caddy: Victorino Meier MD Barbiturate(s),Ur Negative Normal NEG [facility] Comment on above: Result Comment: (Positive cutoff 200 ng/mL) Performed By: #### U ALCO #### [address] [address] Grocery Caddy: Higinio Kellogg MD #### CARIN #### [address] [place], [place] 6480283 Grocery Caddy: Cecy Santacruz MD #### AGABU #### [facility] [address] [place] [id number] Grocery Caddy: Victorino Meier MD Benzodiazepine(s) Negative Normal NEG [facility] Comment on above: Result Comment: (Positive cutoff 200 ng/mL) Performed By: #### U ALCO #### [address] [address] Grocery Caddy: Higinio Kellogg MD #### CARIN #### [address] [place], [place] 1266983 Grocery Caddy: Cecy Santacruz MD #### AGABU #### [facility] [address] [place], [place] [id number] Grocery Caddy: Victorino Meier MD Buprenorphrine, Ur Positive Abnormal NEG [facility] Comment on above: Result Comment: (Positive cutoff 5 ng/ml) Performed By: #### U ALCO #### [address] [address] Grocery Caddy: Higinio Kellogg MD #### CARIN #### [facility] [address] [place] [address] [address], [place] 8924883 Grocery Caddy: Cecy Santacruz MD #### AGABU #### [facility] [address] [place], [place] [id number] Grocery Caddy: Victorino Meier MD Cannabinoid(s),Ur Negative Normal NEG [facility] Comment on above: Result Comment: (Positive cutoff 50 ng/mL) Performed By: #### U ALCO #### [address] [address] Grocery Caddy: Higinio Kellogg MD #### CARIN #### [address] [place] [address] Grocery Caddy: Cecy Santacruz MD #### AGABU #### [facility] [address] [place] [address] Grocery Caddy: Victorino Meier MD Cocaine Metabolite Negative Normal NEG [facility] Comment on above: Result Comment: (Positive cutoff 300 ng/mL) Performed By: #### U ALCO #### [address] [address] Grocery Caddy: Higinio Kellogg MD #### CARIN #### [address] [place], [place] 8058183 Grocery Caddy: Cecy Santacruz MD #### AGABU #### [facility] [address] [place], [place] [id number] Grocery Caddy: Victorino Meier MD Fentanyl, Urine Negative Normal NEG [facility] Comment on above: Result Comment: (Positive cutoff 5 ng/ml) Performed By: #### U ALCO #### [address] [address] Grocery Caddy: Higinio Kellogg MD #### CARIN #### [facility] [address] [place] [address] [address], [place] [phone] Grocery Caddy: Cecy Santacruz MD #### AGABU #### [facility] [address] [place] [address] Grocery Caddy: Victorino Meier MD Interpretive Info Assay provides medical screening only. The absence of expected drug(s) and/or Normal [facility] Comment on above: Result Comment: meta bolite(s) may indicate diluted or adulterated urine, limitations of testing or timing of collection. Testing for legal purposes should be confirmed by another method. To request confirmation of test result, please call the lab within 7 days of sample submission. Performed By: #### U ALCO #### [address] [address] Grocery [employer]: Higinio Kellogg MD #### CARIN #### [address] [place] [address] Grocery Caddy: Cecy Santacruz MD #### AGABU #### [facility] [address] [place], [place] [id number] Grocery Caddy: Victorino Meier MD Methadone Ql (U) Negative Normal NEG [facility] Comment on above: Result Comment: (Positive cutoff 300 ng/mL) Performed By: #### U ALCO #### [address] [address] Grocery Caddy: Higinio Kellogg MD #### CARIN #### [address] [place], [place] 1862083 Grocery Caddy: Cecy Santacruz MD #### AGABU #### [facility] [address] [place], [place] [id number] Grocery Caddy: Victorino Meier MD Opiate(s), Ur Negative Normal NEG [facility] Comment on above: Result Comment: (Positive cutoff 300 ng/mL) Performed By: #### U ALCO #### [address] [address] Grocery Caddy: Higinio Kellogg MD #### CARIN #### [facility] [address] [place], [place] 0351983 Grocery Caddy: Cecy Santacruz MD #### AGABU #### [facility] [address] [place] [address] Grocery Caddy: Victorino Meier MD Oxycodone, Urine Negative Normal NEG [facility] Comment on above: Result Comment: (Positive cutoff 100 ng/mL) Performed By: #### U ALCO #### [address] [address] Grocery Caddy: Higinio Kellogg MD #### CARIN #### [facility] [address] [place] [address] [place] [address] Grocery Caddy: Cecy Santacruz MD #### AGABU #### [facility] [address] [place], [place] [id number] Grocery Caddy: Victorino Meier MD Phencyclidine, Ur Negative Normal NEG [facility] Comment on above: Result Comment: (Positive cutoff 25 ng/mL) Performed By: #### U ALCO #### [address] [address] Grocery Caddy: Higinio Kellogg MD #### CARIN #### [facility] [address] [place], [place] 1790783 Grocery Caddy: Cecy Santacruz MD #### AGABU #### [facility] [address] [place] [address] Grocery Caddy: Victorino Meier MD Miscellaneouson 04-17-2024 Test Name [id number] [facility] Comment on above: Performed By: #### U ALCO #### [address] [address] Grocery Caddy: Higniio Kellogg MD #### CARIN #### [facility] [address] [place] [address] Grocery Caddy: Cecy Santacruz MD #### AGABU #### [facility] [address] [place] [address] Grocery Caddy: Victorino Meier MD Test Name [id number] [facility] Comment on above: Performed By: #### U ALCO #### [address] [place], [place] 9136408 Grocery Caddy: Higinio Kellogg MD #### CARIN #### [facility] [address] [address] Grocery Caddy: Cecy Santacruz MD #### AGABU #### [facility] [address] [place] [address] Grocery Caddy: Victorino Meier MD Send Out Report (NOTE) [facility] Comment on above: Result Comment: Betsy pentin, [...] developed and its performance characteristics determined by [employer]. It has not been cleared or approved by the [place] Food and Drug Administration. This test was performed in a CLIA certified laboratory and is intended for clinical purposes. [facility] Performed By: #### U ALCO #### [facility] [address] [place], [place] 5618208 Grocery Caddy: Higinio Kellogg MD #### CARIN #### [facility] [address] [place] [address] Grocery Caddy: Cecy Santacruz MD #### AGABU #### [facility] [address] [place] [address] Grocery Caddy: Victorino Meier MD Miscellaneouson 04-13-2024 Send Out Report (NOTE) Normal [facility] Comment on above: Result Comment: Alco hol, Urine, Quantitative Alcohol, Urn, Quant <5.0 mg/dL INTREPRETIVE INFORMATION: Drug Confirmation, Alcohol, Urine Methodology: Quantitative Gas Chromatography with Flame Ionization Detection Positive cutoff: 5 mg/dL For medical purposes only; not valid for forensic use. The absence of expected drug(s) and/or drug metabolite(s) may indicate inappropriate timing of specimen collection relative to drug administration, poor drug absorption, diluted/adulterated urine, or limitations of testing. The concentration value must be greater than or equal to the cutoff to be reported as positive. Interpretive questions should be directed to the laboratory. This test was developed and its performance characteristics determined by [employer]. It has not been cleared or approved by the [place] Food and Drug Administration. This test was performed in a CLIA certified laboratory and is intended for clinical purposes. [facility] Performed By: #### C WADE, CARIN #### [address] [place] [address] Grocery Caddy: Ceyc Santacruz MD Drug Scr, Abuse, Uron 2023 Amphetamine(s),Ur Negative Normal NEG [facility] Comment on above: Result Comment: (Positive cutoff 1000 ng/mL) Performed By: #### Malu OLVERA CARIN #### [facility] [address] [place] [address] [place] [address] Grocery Caddy: Cecy Santacruz MD Barbiturate(s),Ur Negative Normal NEG [facility] Comment on above: Result Comment: (Positive cutoff 200 ng/mL) Performed By: #### Malu OLVERA, CARIN #### [facility] [address] [address] Grocery Caddy: Cecy Santacruz MD Benzodiazepine(s) Negative Normal NEG [facility] Comment on above: Result Comment: (Positive cutoff 200 ng/mL) Performed By: #### C MIS, CARIN #### [facility] [address] [place], [place] 4540183 Grocery Caddy: Cecy Santacruz MD Buprenorphrine, Ur Positive Abnormal NEG [facility] Comment on above: Result Comment: (Positive cutoff 5 ng/ml) Performed By: #### C MIS, CARIN #### [facility] [address] [place] [address] Dr[address] [place], [place] [phone] Grocery Caddy: Cecy Santacruz MD Cannabinoid(s),Ur Negative Normal NEG [facility] Comment on above: Result Comment: (Positive cutoff 50 ng/mL) Performed By: #### C MIS, CARIN #### [address] [place], [place] 3287883 Grocery Caddy: Cecy Santacruz MD Cocaine Metabolite Negative Normal NEG [facility] Comment on above: Result Comment: (Positive cutoff 300 ng/mL) Performed By: #### C MIS, CARIN #### [address] [place], [place] 7652583 [employer]: Cecy Santacruz MD Fentanyl, Urine Negative Normal NEG [facility] Comment on above: Result Comment: (Positive cutoff 5 ng/ml) Performed By: #### C MIS, CARIN #### [address] [place] [id number] Grocery [employer]: Cecy Santacruz MD Interpretive Info Assay provides medical screening only. The absence of expected drug(s) and/or Normal [facility] Comment on above: Result Comment: meta bolite(s) may indicate diluted or adulterated urine, limitations of testing or timing of collection. Testing for legal purposes should be confirmed by another method. To request confirmation of test result, please call the lab within 7 days of sample submission. Performed By: #### C MIS, CARIN #### [facility] [address] [place] [address] [address] [place], [place] 1500383 Grocery [employer]: Cecy Santacruz MD Methadone Ql (U) Negative Normal NEG [facility] Comment on above: Result Comment: (Positive cutoff 300 ng/mL) Performed By: #### C MIS, CARIN #### [facility] [address] [place] [address] [address] [place], [place] 8851583 Grocery Caddy: Cecy Santacruz MD Opiate(s), Ur Negative Normal NEG [facility] Comment on above: Result Comment: (Positive cutoff 300 ng/mL) Performed By: #### C MIS, CARIN #### [facility] [address] [place] [address] [address] [place], [place] [phone] Grocery Caddy: Cecy Santacruz MD Oxycodone, Urine Negative Normal NEG [facility] Comment on above: Result Comment: (Positive cutoff 100 ng/mL) Performed By: #### C MIS, CARIN #### [address] [place], [place] 6686583 [employer]cery [employer]: Cecy Santacruz MD Phencyclidine, Ur Negative Normal NEG [facility] Comment on above: Result Comment: (Positive cutoff 25 ng/mL) Performed By: #### C MIS, CARIN #### [address] [place] [place], [place] [id number] [employer]: Cecy Santacruz MD Miscellaneouson 04-10-2024 Test Name [id number] [facility] Comment on above: Performed By: #### U ALCO #### [facility] [employer] [address] [place] [address] [id number] [employer]: Higinio Kellogg MD #### CARIN #### [facility] [address] [place] [address] [address] [place], [place] [id number] [employer]cery [employer]: Cecy Santacruz MD #### AGABU #### [facility] [address] [place] [address] Grocery Caddy: Victorino Meier MD Test Name [facility] Comment on above: Performed By: #### C MIS, CARIN #### [facility] [address] [place] [address] Grocery C[employer]: Cecy Santacruz MD Miscellaneouson 04-07-2024 Send Out Report (NOTE) [facility] Comment on above: Result Comment: Alco hol, Urine, Quantitative Alcohol, Urn, Quant <5.0 mg/dL INTREPRETIVE INFORMATION: Drug Confirmation, Alcohol, Urine Methodology: Quantitative Gas Chromatography with Flame Ionization Detection Positive cutoff: 5 mg/dL For medical purposes only; not valid for forensic use. The absence of expected drug(s) and/or drug metabolite(s) may indicate inappropriate timing of specimen collection relative to drug administration, poor drug absorption, diluted/adulterated urine, or limitations of testing. The concentration value must be greater than or equal to the cutoff to be reported as positive. Interpretive questions should be directed to the laboratory. This test was developed and its performance characteristics determined by [employer]. It has not been cleared or approved by the [place] Food and Drug Administration. This test was performed in a CLIA certified laboratory and is intended for clinical purposes. [facility] Performed By: #### C MIS #### [facility] [address] [place] [address] [employer]: Cecy Santacruz MD Send Out Report (NOTE) [facility] Comment on above: Result Comment: Betsy pentin, [...] developed and its performance characteristics determined by [employer]. It has not been cleared or approved by the [place] Food and Drug Administration. This test was performed in a CLIA certified laboratory and is intended for clinical purposes. [facility] Performed By: #### U ALCO #### [address] [address] [employer]cery [employer]: Higinio Kellogg MD #### CARIN #### [address] [place], [place] 6957083 [employer]: Cecy Santacruz MD #### AGABU #### [facility] [address] [place], [place] [id number] Grocery C[employer]: Victorino Meier MD Drug Scr, Abuse, Uron 2023 Amphetamine(s),Ur Negative Normal NEG [facility] Comment on above: Result Comment: (Positive cutoff 1000 ng/mL) Performed By: #### U ALCO #### [address] [address] Grocery C[employer]: Higinio Kellogg MD #### CARIN #### [address] [place] [address] [employer]cery C[employer]: Cecy Santacruz MD #### AGABU #### [facility] [address] [place] [address] Grocery Caddy: Victorino Meier MD Barbiturate(s),Ur Negative Normal NEG [facility] Comment on above: Result Comment: (Positive cutoff 200 ng/mL) Performed By: #### U ALCO #### [address] [address] Gro[employer]: Higinio Kellogg MD #### CARIN #### [address] [place] [address] [employer]cery C[employer]: Cecy Santacruz MD #### AGABU #### [facility] [address] [place] [address] Grocery Caddy: Victorino Meier MD Benzodiazepine(s) Negative Normal NEG [facility] Comment on above: Result Comment: (Positive cutoff 200 ng/mL) Performed By: #### U ALCO #### [address] [address] Grocery C[employer]: Higinio Kellogg MD #### CARIN #### [address] [place], [place] [id number] [employer]cery C[employer]: Cecy Santacruz MD #### AGABU #### [facility] [address] [place], [place] [id number] [employer]: Victorino Meier MD Buprenorphrine, Ur Positive Abnormal NEG [facility] Comment on above: Result Comment: (Positive cutoff 5 ng/ml) Performed By: #### U ALCO #### [address] [address] Grocery C[employer]: Higinio Kellogg MD #### CARIN #### [address] [place] [address] [employer]cery C[employer]: Cecy Santacruz MD #### AGABU #### [facility] [address] [place] [id number] Grocery [employer]: Victorino Meier MD Cannabinoid(s),Ur Negative Normal NEG [facility] Comment on above: Result Comment: (Positive cutoff 50 ng/mL) Performed By: #### U ALCO #### [address] [address] [employer]: Higinio Kellogg MD #### CARIN #### [address] [place], [place] 6063883 [employer]cery [employer]: Cecy Santacruz MD #### AGABU #### [facility] [address] [place], [place] [id number] [employer]cery [employer]: Victorino Meier MD Cocaine Metabolite Negative Normal NEG [facility] Comment on above: Result Comment: (Positive cutoff 300 ng/mL) Performed By: #### U ALCO #### [address] [place] [address] [employer]cery C[employer]: Higinio Kellogg MD #### CARIN #### [facility] [address] [place] [address] [place] [address] [employer]cery C[employer]: Cecy Santacruz MD #### AGABU #### [facility] [address] [place] [address] [id number] Grocery C[employer]: Victorino Meier MD Fentanyl, Urine Negative Normal NEG [facility] Comment on above: Result Comment: (Positive cutoff 5 ng/ml) Performed By: #### U ALCO #### [address] [address] Gro[employer]: Higinio Kellogg MD #### CARIN #### [facility] [address] [place] [address] [place] [address] Grocery C[employer]: Cecy Santacruz MD #### AGABU #### [facility] [address] [place] [phone] Grocery [employer]: Victorino Meier MD Interpretive Info Assay provides medical screening only. The absence of expected drug(s) and/or Normal [facility] Comment on above: Result Comment: meta bolite(s) may indicate diluted or adulterated urine, limitations of testing or timing of collection. Testing for legal purposes should be confirmed by another method. To request confirmation of test result, please call the lab within 7 days of sample submission. Performed By: #### U ALCO #### [address] [address] [employer]: Higinio Kellogg MD #### CARIN #### [facility] [address] [place] [address] [place] [address] Grocery Caddy: Cecy Santacruz MD #### AGABU #### [facility] [address] [place] [address] [id number] [employer]cery [employer]: Victorino Meier MD Methadone Ql (U) Negative Normal NEG [facility] Comment on above: Result Comment: (Positive cutoff 300 ng/mL) Performed By: #### U ALCO #### [address] [address] Grocery [employer]: Higinio Kellogg MD #### CARIN #### [address] [place], [place] [phone] [employer]cery [employer]: Cecy Santacrzu MD #### AGABU #### [facility] [address] [place] [address] Grocery Caddy: Victorino Meier MD Opiate(s), Ur Negative Normal NEG [facility] Comment on above: Result Comment: (Positive cutoff 300 ng/mL) Performed By: #### U ALCO #### [address] [address] Grocery C[employer]: Higinio Kellogg MD #### CARIN #### [address] [place] [address] Grocery Caddy: Cecy Santacruz MD #### AGABU #### [facility] [address] [place], [place] [id number] Grocery C[employer]: Victorino Meier MD Oxycodone, Urine Negative Normal NEG [facility] Comment on above: Result Comment: (Positive cutoff 100 ng/mL) Performed By: #### U ALCO #### [address] [address] Grocery [employer]: Higinio eKllogg MD #### CARIN #### [address] [place] [address] [employer]cery [employer]: Cecy Santacruz MD #### AGABU #### [facility] [address] [place] [address] Grocery Caddy: Victorino Meier MD Phencyclidine, Ur Negative Normal NEG [facility] Comment on above: Result Comment: (Positive cutoff 25 ng/mL) Performed By: #### U ALCO #### [address] [place] [address] Grocery C[employer]: Higinio Kellogg MD #### CARIN #### [facility] [address] [place], [place] [phone] [employer]cery Caddy: Cecy Santacruz MD #### AGABU #### [facility] [address] [place], [place] [id number] Grocery Caddy: Victorino Meier MD [facility] 04-03-2024 Test Name [facility] Comment on above: Performed By: #### C MIS #### [address] [place], [place] 5780483 [employer]: Cecy Santacruz MD Test Name [id number] [facility] Comment on above: Performed By: #### U ALCO #### [address] [address] Gro[employer]: Higinio Kellogg MD #### CARIN #### [address] [place] [address] Grocery Caddy: Cecy Santacruz MD #### AGABU #### [facility] [address] [place] [address] Grocery [employer]: Victorino Meier MD [facility] 04-02-2024 Send Out Report (NOTE) [facility] Comment on above: Result Comment: Alco hol, Urine, Quantitative Alcohol, Urn, Quant <5.0 mg/dL INTREPRETIVE INFORMATION: Drug Confirmation, Alcohol, Urine Methodology: Quantitative Gas Chromatography with Flame Ionization Detection Positive cutoff: 5 mg/dL For medical purposes only; not valid for forensic use. The absence of expected drug(s) and/or drug metabolite(s) may indicate inappropriate timing of specimen collection relative to drug administration, poor drug absorption, diluted/adulterated urine, or limitations of testing. The concentration value must be greater than or equal to the cutoff to be reported as positive. Interpretive questions should be directed to the laboratory. This test was developed and its performance characteristics determined by [employer]. It has not been cleared or approved by the US Food and Drug Administration. This test was performed in a CLIA certified laboratory and is intended for clinical purposes. [facility] Performed By: #### D AU #### [facility] [address] [place] [address] [place] [address] [employer]cery [employer]: Cecy Santacruz MD #### ARIEL HOYTLCO #### [facility] [address] [place] [address] Grocery C[employer]: Victorino Meier MD Result Comment: Betsy pentin, Urine Gabapentin, Urine [...] developed and its performance characteristics determined by [employer]. It has not been cleared or approved by the US Food and Drug Administration. This test was performed in a CLIA certified laboratory and is intended for clinical purposes. [facility] Performed By: #### U ALCO #### [address] [place] [address] Grocery [employer]: Higinio Kellogg MD #### CARIN #### [facility] [address] [place] [address] [place] [address] [employer]cery [employer]: Cecy Santacruz MD #### LAI #### [facility] [address] [place] [address] Grocery [employer]: Victorino Meier MD Drug Scr, Abuse, Uron 2023 Amphetamine(s),Ur Negative Normal NEG [facility] Comment on above: Result Comment: (Positive cutoff 1000 ng/mL) Performed By: #### D AU #### [facility] [address] [place] [address] [employer]cery [employer]: Cecy Santacruz MD #### LAI, KRISTIAN #### [facility] [address] [place], [place] [id number] [employer]: Victorino Meier MD Barbiturate(s),Ur Negative Normal NEG [facility] Comment on above: Result Comment: (Positive cutoff 200 ng/mL) Performed By: #### D AU #### [facility] [address] [address] Grocery C[employer]: Cecy Santacruz MD #### LAI, KRISTIAN #### [address] [address] [employer]: Victorino Meier MD Benzodiazepine(s) Negative Normal NEG [facility] Comment on above: Result Comment: (Positive cutoff 200 ng/mL) Performed By: #### D AU #### [facility] [address] [place] [address] Grocery C[employer]: Cecy Santacruz MD #### LAI, KRISTIAN #### [address] [id number] [employer]: Victorino Meier MD Buprenorphrine, Ur Positive Abnormal NEG [facility] Comment on above: Result Comment: (Positive cutoff 5 ng/ml) Performed By: #### D AU #### [facility] [address] [address] Grocery Caddy: Cecy Santacruz MD #### LAI, KRISTIAN #### [facility] [address] [place] [address] Gro[employer]: Victorino eMier MD Cannabinoid(s),Ur Negative Normal NEG [facility] Comment on above: Result Comment: (Positive cutoff 50 ng/mL) Performed By: #### D AU #### [facility] [address] [place], [place] [phone] [employer]: Cecy Santacruz MD #### KRISTIAN HOYT #### [facility] [address] [place] [address] Grocery [employer]: Victorino Meier MD Cocaine Metabolite Negative Normal NEG [facility] Comment on above: Result Comment: (Positive cutoff 300 ng/mL) Performed By: #### D AU #### [facility] [address] [place], [place] 8650983 [employer]: Cecy Santacruz MD #### KRISTIAN HOYT #### [facility] [address] [place], [place] [id number] Grocery [employer]: Victorino Meier MD Fentanyl, Urine Negative Normal NEG [facility] Comment on above: Result Comment: (Positive cutoff 5 ng/ml) Performed By: #### D AU #### [facility] [address] [place] [address] Dr[place], [place] [phone] Gro[employer]: Cecy Santacruz MD #### KRISTIAN HOYT #### [facility] [address] [place], [place] [id number] [employer]: Victorino Meier MD Interpretive Info Assay provides medical screening only. The absence of expected drug(s) and/or Normal [facility] Comment on above: Result Comment: meta bolite(s) may indicate diluted or adulterated urine, limitations of testing or timing of collection. Testing for legal purposes should be confirmed by another method. To request confirmation of test result, please call the lab within 7 days of sample submission. Performed By: #### D AU #### [facility] [address] [place] [address] [place] [address] [employer]: Cecy Santacruz MD #### EDEN HOYTO #### [facility] [address] [place], [place] [id number] Gro[employer]: Victorino Meier MD Methadone Ql (U) Negative Normal NEG [facility] Comment on above: Result Comment: (Positive cutoff 300 ng/mL) Performed By: #### D AU #### [facility] [address] [place] [address] [place] [address] Grocery Caddy: Cecy Santacruz MD #### KRISTIAN HOYT #### [facility] [address] [place] [address] Grocery C[employer]: Victorino Meier MD Opiate(s), Ur Negative Normal NEG [facility] Comment on above: Result Comment: (Positive cutoff 300 ng/mL) Performed By: #### Glen AU #### [facility] [address] [place] [address] [place] [address] Grocery [employer]: Cecy Santacruz MD #### KRISTIAN HOYT #### [address] [id number] [employer]: Victorino Meier MD Oxycodone, Urine Negative Normal NEG [facility] Comment on above: Result Comment: (Positive cutoff 100 ng/mL) Performed By: #### Glen AU #### [facility] [address] [place] [address] [place] [address] Gro[employer]: Cecy Santacruz MD #### KRISTIAN HOYT #### [facility] [address] [place] [address] Grocery [employer]: Victorino Meier MD Phencyclidine, Ur Negative Normal NEG [facility] Comment on above: Result Comment: (Positive cutoff 25 ng/mL) Performed By: #### Glen AU #### [facility] [address] [place] [address] [place] [address] [employer]: Cecy Santacruz MD #### KRISTIAN HOYT #### [facility] [address] [place] [address] Grocery [employer]: Victorino Meier MD Miscellaneouson 03-27-2024 Test Name [id number] [facility] Comment on above: Performed By: #### U ALCO #### [address] [id number] Gro[employer]: Higinio Kellogg MD #### CARIN #### [facility] [address] [place] [address] [place] [address] Grocery C[employer]: Cecy Santacruz MD #### AGABU #### [facility] [address] [place], [place] [id number] Grocery Caddy: Victorino Meier MD Test Name [facility] Comment on above: Performed By: #### D AU #### [address] [place] [address] Grocery Caddy: Cecy Santacruz MD #### AGAFARTUN, AALCO #### [facility] [address] [place] [address] [phone] Gro[employer]: Victorino Meier MD Drug Scr, Abuse, Uron 2023 Amphetamine(s),Ur Negative Normal NEG [facility] Comment on above: Result Comment: (Positive cutoff 1000 ng/mL) Performed By: #### U ALCO #### [address] [id number] [employer]: Higinio Kellogg MD #### CARIN #### [address] [place] [address] [employer]: Cecy Santacruz MD #### AGABU #### [facility] [address] [place] [address] Grocery Caddy: Victorino Meier MD Barbiturate(s),Ur Negative Normal NEG [facility] Comment on above: Result Comment: (Positive cutoff 200 ng/mL) Performed By: #### U ALCO #### [address] [address] Grocery [employer]: Higinio Kellogg MD #### CARIN #### [address] [place], [place] 1542683 [employer]: Cecy Santacruz MD #### AGABU #### [facility] [address] [place], [place] [id number] Grocery [employer]: Victorino Meier MD Benzodiazepine(s) Negative Normal NEG [facility] Comment on above: Result Comment: (Positive cutoff 200 ng/mL) Performed By: #### U ALCO #### [address] [address] Gro[employer]: Higinio Kellogg MD #### CARIN #### [address] [place] [address] Grocery Caddy: Cecy Santacruz MD #### AGABU #### [facility] [address] [place], [place] [id number] Grocery [employer]: Victorino Meier MD Buprenorphrine, Ur Positive Abnormal NEG [facility] Comment on above: Result Comment: (Positive cutoff 5 ng/ml) Performed By: #### U ALCO #### [address] [address] Gro[employer]: Higinio Kellogg MD #### CARIN #### [address] [place] [id number] Grocery Caddy: Cecy Santacruz MD #### AGABU #### [facility] [address] [place], [place] [id number] Grocery Caddy: Victorino Meier MD Cannabinoid(s),Ur Negative Normal NEG [facility] Comment on above: Result Comment: (Positive cutoff 50 ng/mL) Performed By: #### U ALCO #### [address] [address] Grocery [employer]: Higinio Kellogg MD #### CARIN #### [facility] [address] [place], [place] 3170683 Grocery Caddy: Cecy Santacruz MD #### AGABU #### [facility] [address] [place] [address] Grocery Caddy: Victorino Meier MD Cocaine Metabolite Negative Normal NEG [facility] Comment on above: Result Comment: (Positive cutoff 300 ng/mL) Performed By: #### U ALCO #### [address] [id number] Grocery [employer]: Higinio Kellogg MD #### CARIN #### [facility] [address] [place] [address] [place] [address] Grocery Caddy: Cecy Santacruz MD #### AGABU #### [facility] [address] [place] [id number] Grocery Caddy: Victorino Meier MD Fentanyl, Urine Negative Normal NEG [facility] Comment on above: Result Comment: (Positive cutoff 5 ng/ml) Performed By: #### U ALCO #### [address] [address] Grocery Caddy: Higinio Kellogg MD #### CARIN #### [facility] [address] [place] [address] Dr. [place], [place] 2209283 Grocery [employer]: Cecy Santacruz MD #### AGABU #### [facility] [address] [place] [address] Grocery Caddy: Victorino Meier MD Interpretive Info Assay provides medical screening only. The absence of expected drug(s) and/or Normal [facility] Comment on above: Result Comment: meta bolite(s) may indicate diluted or adulterated urine, limitations of testing or timing of collection. Testing for legal purposes should be confirmed by another method. To request confirmation of test result, please call the lab within 7 days of sample submission. Performed By: #### U ALCO #### [address] [address] Gro[employer]: Higinio Kellogg MD #### CARIN #### [address] [place], [place] 6416683 [employer]cery [employer]: Cecy Santacruz MD #### AGABU #### [facility] [address] [place], [place] [id number] Grocery Caddy: Victorino Meier MD Methadone Ql (U) Negative Normal NEG [facility] Comment on above: Result Comment: (Positive cutoff 300 ng/mL) Performed By: #### U ALCO #### [address] [address] Gro[employer]: Higinio Kellogg MD #### CARIN #### [address] [place] [address] Grocery Caddy: Cecy Santacruz MD #### AGABU #### [facility] [address] [place], [place] [id number] Grocery Caddy: Victorino Meier MD Opiate(s), Ur Negative Normal NEG [facility] Comment on above: Result Comment: (Positive cutoff 300 ng/mL) Performed By: #### U ALCO #### [address] [address] Grocery [employer]: Higinio Kellogg MD #### CARIN #### [address] [place], [place] 5317583 Grocery Caddy: Cecy Santacruz MD #### AGABU #### [facility] [address] [place], [place] [id number] Grocery Caddy: Victorino Meier MD Oxycodone, Urine Negative Normal NEG [facility] Comment on above: Result Comment: (Positive cutoff 100 ng/mL) Performed By: #### U ALCO #### [facility] [address] [place] [address] Grocery Caddy: Higinio Kellogg MD #### CARIN #### [facility] [address] [place], [place] 6738683 Grocery Caddy: Cecy Santacruz MD #### AGABU #### [facility] [address] [place], [place] [id number] Grocery Caddy: Victorino Meier MD Phencyclidine, Ur Negative Normal NEG [facility] Comment on above: Result Comment: (Positive cutoff 25 ng/mL) Performed By: #### U ALCO #### [facility] [address] [place] [address] Grocery Caddy: Higinio Kellogg MD #### CARIN #### [facility] [address] [place] [address] [place] [address] Grocery Caddy: Cecy Santacruz MD #### AGABU #### [facility] [address] [place] [address] Grocery Caddy: Victorino Meier MD [facility] 03-17-2024 L Specimen: [id number] Received: 03/18/24 Status: SOU Req Num: [id number] Spec Type: Impression Subm Dr: Korin Castellanos MD Tissues: PATHPER Procedures: PATHREVIEW Age/ Patient Sex Location Account Attending Physician Dixon Duran 34/F [place] [id number] Korin Castellanos MD SPEC NUM: [id number] RECD: 03/18/24 STATUS: SOUT REQ NUM: [id number] MANDEEP: 03/17/[address]: Korin Castellanos MD ENTERED: 03/18/24 [facility] DR: Corina Herrera SPEC TYPE: Impression DEPT: JAIRO Spear ENTERED BY: [id number] RECV BY: [id number] ORDERED: PATHREVIEW ORDERED: PATHREVIEW Pathologist Review Submitted peripheral blood CBC for review: -No obvious abnormality in all of the hematologic indices -Also no morphological abnormality of the leukocyte and platelet populations -Only occasional ovalocytes of the RBC population without any other significant changes Comment: -Note report of the peripheral blood CBC is within normal limits -The peripheral blood smear review is also unremarkable -Report of biochemistry study are also entirely within normal range -No need for additional Manual differential count CPT: 68740 : Specimen: [id number] Received: 03/18/24 Status: JOVANNA Travis Num: [id number] Spec Type: Impression Subm Dr: Korin Castellanos MD Tissues: PATHPER Procedures: PATHREVIEW Patient: Dixon Duran [id number] (Continued) Signed (signature on file) Frederick-Damian Rios MD 03/20/242008 [facility] Miscellaneouson 03-17-2024 Send Out Report (NOTE) [facility] Comment on above: Result Comment: Betsy pentin, [...] developed and its performance characteristics determined by [employer]. It has not been cleared or approved by the [place] Food and Drug Administration. This test was performed in a CLIA certified laboratory and is intended for clinical purposes. [facility] Performed By: #### U ALCO #### [facility] [address] [place] [address] Grocery [employer]: Higinio Kellogg MD #### CARIN #### [facility] [address] [place] [address] Grocery Caddy: Cecy Santacruz MD #### AGABU #### [facility] [address] [place] [address] Grocery Caddy: Victorino Meier MD Send Out Report (NOTE) [facility] Comment on above: Result Comment: Alco hol, Urine, Quantitative Alcohol, Urn, Quant <5.0 mg/dL INTREPRETIVE INFORMATION: Drug Confirmation, Alcohol, Urine Methodology: Quantitative Gas Chromatography with Flame Ionization Detection Positive cutoff: 5 mg/dL For medical purposes only; not valid for forensic use. The absence of expected drug(s) and/or drug metabolite(s) may indicate inappropriate timing of specimen collection relative to drug administration, poor drug absorption, diluted/adulterated urine, or limitations of testing. The concentration value must be greater than or equal to the cutoff to be reported as positive. Interpretive questions should be directed to the laboratory. This test was developed and its performance characteristics determined by [facility] [employer]. It has not been cleared or approved by the US Food and Drug Administration. This test was performed in a CLIA certified laboratory and is intended for clinical purposes. [facility] Performed By: #### D AU #### [facility] [address] [place] [address] [place] [address] [employer]: Cecy Santacruz MD #### KRISTIAN HOYT #### [facility] [address] [place] [address] [employer]: Victorino Meier MD Chlamydia/GC DNA, Uron 03-16 Chlamydia Probe, Ur Negative Normal NEG [facility] Comment on above: Result Comment: CHLA [...] alternative nucleic acid target. Performed By: #### D AU #### [facility] [address] [place] [address] [employer]: Cecy Santacruz MD #### KRISTIAN HOYT #### [facility] [address] [place] [address] [employer]: Victorino Meier MD Gonorrhea Probe, Ur Negative Normal NEG [facility] Comment on above: Result Comment: NEIS [...] alternative nucleic acid target. Performed By: #### D AU #### [facility] [address] [place] [address] [employer]: Cecy Santacruz MD #### KRISTIAN HOYT #### [facility] [address], [place] [id number] [employer]: Victorino Meier MD CBC with Diffon 03-13-2024 Abs. Basophil 0.00 k/uL Normal 0.0-0.2 [facility] Comment on above: Performed By: #### D AU #### [facility] [address] [address] [employer]: Cecy Santacruz MD #### KRISTIAN HOYT #### [facility] [address] [place] [address] [employer]: Victorino Meier MD Abs.Imm.Granulocyte 0.00 k/uL Normal 0.00-0.30 [facility] Comment on above: Performed By: #### Glen AU #### [facility] [address] [place] [address] [place] [address] [employer]: Cecy Santacruz MD #### KRISTIAN HOYT #### [facility] [address] [place] [address] [employer]: Victorino Meier MD Abs.Neutrophil (Seg) 0.99 k/uL Low 1.50-8.10 [facility] Comment on above: Performed By: #### Glen AU #### [facility] [address] [place] [address] [address] [place] [id number] [employer]: Cecy Santacruz MD #### KRISTIAN HOYT #### [facility] [address] [place] [address] [employer]: Victorino Meier MD Basophils/100 WBC (Bld) 0 % Normal 0-2 [facility] Comment on above: Performed By: #### Glen AU #### [facility] [address] [place] [address] [employer]: Cecy Santacruz MD #### KRISTIAN HOYT #### [facility] [address], [place] [id number] [employer]: Victorino Meier MD Eosinophils (Bld) [#/Vol] 0.03 10*3/uL Normal 0.00-0.44 [facility] Comment on above: Performed By: #### D AU #### [facility] [address] [place] [address] [employer]: Cecy Santacruz MD #### KRISTIAN HOYT #### [facility] [address], [place] [id number] [employer]: Victorino Meier MD Eosinophils/100 WBC (Bld) 1 % Normal 1-4 [facility] Comment on above: Performed By: #### Glen AU #### [facility] [address] [place] [address] [employer]: Cecy Santacruz MD #### KRISTIAN HOYT #### [facility] [address], [place] [id number] [employer]: Victorino Meier MD Immature granulocytes/100 WBC (Bld) 0 % Normal 0 [facility] Comment on above: Performed By: #### Glen AU #### [facility] [address] [place] [address] [employer]: Cecy Santacruz MD #### ARIEL HOYTLCO #### [facility] [address] [place] [address] [employer]: Victorino Meier MD Lymphocytes (Bld) [#/Vol] 1.50 10*3/uL Normal 1.10-3.70 [facility] Comment on above: Performed By: #### Glen AU #### [facility] [address] [place] [address] [employer]: Cecy Santacruz MD #### ARIEL HOYTLCO #### [facility] [address], [place] [id number] [employer]: Victorino Meier MD Lymphocytes/100 WBC (Bld) 58 % High 24-43 [facility] Comment on above: Performed By: #### D AU #### [facility] [address] [place] [address] [employer]: Cecy Santacruz MD #### EDEN HOYTO #### [facility] [address], [place] [id number] [employer]: Victorino Meier MD Monocytes (Bld) [#/Vol] 0.08 10*3/uL Low 0.10-1.20 [facility] Comment on above: Performed By: #### D AU #### [facility] [address] [place], [facility] [employer]: Cecy Santacruz MD #### KRISTIAN HOYT #### [facility] [address], [place] [id number] [employer]: Victorino Meier MD Monocytes/100 WBC (Bld) 3 % Normal 3-12 [facility] Comment on above: Performed By: #### D AU #### [facility] [address] [place] [address] [employer]: Cecy Santacruz MD #### EDEN HOYTO #### [facility] [address], [place] [id number] [employer]: Victorino Meier MD Morphology Karel (Bld) [Interp] ANISOCYTOSIS Normal [facility] Comment on above: Result Comment: PRES ENT Platelet scan shows Decreased Platelets Performed By: #### D AU #### [facility] [address] [place] [address] [employer]: Cecy Santacruz MD #### LAI, AALCO #### [facility] [address] [place] [address] [employer]: Victorino Meier MD Neutrophil (Seg) 38 % Normal 36-65 [facility] Comment on above: Performed By: #### D AU #### [facility] [address] [address] [employer]: Cecy Santacruz MD #### LAI, ARIELLCO #### [facility] [address] [place] [address] [employer]: Victorino Meier MD Erythrocyte distribution width (RBC) [Ratio] 11.9 % Normal 11.8-14.4 [facility] Comment on above: Performed By: #### D AU #### [facility] [address] [place] [address] [employer]: Cecy Santacruz MD #### EDEN HOYTO #### [facility] [address], [place] [id number] [employer]: Victorino Meier MD Hematocrit (Bld) [Volume fraction] 38.0 % Normal 36.3-47.1 [facility] Comment on above: Performed By: #### Glen AU #### [facility] [address] [place] [address] [employer]: Cecy Santacruz MD #### LAI, ARIELLCO #### [facility] [address] [place] [address] [employer]: Victorino Meier MD Hemoglobin (Bld) [Mass/Vol] 13.5 g/dL Normal 11.9-15.1 [facility] Comment on above: Performed By: #### D AU #### [facility] [address] [place] [address] [employer]: Cecy Santacruz MD #### AGABU, AALCO #### [facility] [address] [place] [address] [employer]: Victorino Meier MD MCH (RBC) [Entitic mass] 31.3 pg Normal 25.2-33.5 [facility] Comment on above: Performed By: #### D AU #### [facility] [address] [place] [address] [place] [address] [employer]: Cecy Santacruz MD #### LAI, AALCO #### [facility] [address] [place] [address] [employer]: Victorino Meier MD MCHC (RBC) [Mass/Vol] 35.5 g/dL High 28.4-34.8 [facility] Comment on above: Performed By: #### Glen AU #### [address] [place] [address] [employer]: Cecy Santacruz MD #### KRISTIAN HOYT #### [facility] [address], [place] [id number] [employer]: Victorino Meier MD MCV (RBC) [Entitic vol] 88.2 fL Normal 82.6-102.9 [facility] Comment on above: Performed By: #### Glen AU #### [facility] [address] [place] [address] [place] [address] [employer]: Cecy Santacruz MD #### LAI, ARIELLCO #### [facility] [address], [place] [id number] [employer]: Victorino Meier MD NRBC Automated 0.0 per 100 WBC Normal 0.0 [facility] Comment on above: Performed By: #### D AU #### [facility] [address] [place] [address] [place] [address] [employer]: Cecy Santacruz MD #### KRISTIAN HOYT #### [facility] [address] [place] [address] [employer]: Victorino Meier MD Platelet Count See Reflexed IPF Result Normal 138-453 [facility] Comment on above: Performed By: #### D AU #### [facility] [address] [place], [place] [id number] [employer]: Cecy Santacruz MD #### KRISTIAN HOYT #### [facility] [address] [place] [address] [employer]: Victorino Meier MD Platelet, Fluoresc. 10 k/uL Critically low 138-[address] [facility] Comment on above: Performed By: #### D AU #### [facility] [address] [place], [place] [address]83 [employer]: Cecy Santacruz MD #### KRISTIAN HOYT #### [facility] [address] [place] [address] [employer]: Victorino Meier MD PLT, Immature Fract. 0.1 % Low 1.1-10.3 [facility] Comment on above: Performed By: #### D AU #### [facility] [address] [place] [address] [employer]: Cecy Santacruz MD #### KRISTIAN HOYT #### [facility] [address] [place] [address] [employer]: Victorino Meier MD RBC (Bld) [#/Vol] 4.31 10*6/uL Normal 3.95-5.11 [facility] Comment on above: Performed By: #### D AU #### [facility] [address] [place], [place] 286[address]83 [employer]: Cecy Santacruz MD #### KRISTIAN HYOT #### [facility] [address], [place] [id number] [employer]: Victorino Meier MD WBC (Bld) [#/Vol] 2.6 10*3/uL Low 3.5-11.3 [facility] Comment on above: Performed By: #### D AU #### [facility] [address] [place] [address] [place], [place] [id number] [employer]: Cecy Santacruz MD #### KRISTIAN HOYT #### [facility] [address] [place] [address] [employer]: Victorino Meier MD Drug Scr, Abuse, Uron 2023 Amphetamine(s),Ur Negative Normal NEG [facility] Comment on above: Result Comment: (Positive cutoff 1000 ng/mL) Performed By: #### D AU #### [facility] [address] [place] [address] [place] [address] [employer]: Cecy Santacruz MD #### KRISTIAN HOYT #### [facility] [address] [place] [address] [employer]: Victorino Meier MD Barbiturate(s),Ur Negative Normal NEG [facility] Comment on above: Result Comment: (Positive cutoff 200 ng/mL) Performed By: #### D AU #### [address] [place] [address] [employer]: Cecy Santacruz MD #### EDEN HOYTO #### [facility] [address] [place] [address] [employer]: Victorino Meier MD Benzodiazepine(s) Negative Normal NEG [facility] Comment on above: Result Comment: (Positive cutoff 200 ng/mL) Performed By: #### D AU #### [facility] [address] [place] [address] [place] [address] [employer]: Cecy Santacruz MD #### KRISTIAN HOYT #### [facility] [address] [place] [address] [employer]: Victorino Meier MD Buprenorphrine, Ur Positive Abnormal NEG [facility] Comment on above: Result Comment: (Positive cutoff 5 ng/ml) Performed By: #### D AU #### [facility] [address] [place], [place] 1533183 [employer]: Cecy Santacruz MD #### KRISTIAN HOYT #### [facility] [address] [place] [address] [employer]: Victoirno Meier MD Cannabinoid(s),Ur Negative Normal NEG [facility] Comment on above: Result Comment: (Positive cutoff 50 ng/mL) Performed By: #### D AU #### [facility] [address] [place] [address] [place] [address] [employer]: Cecy Santacruz MD #### KRISTIAN HOYT #### [facility] [address] [place] [address] [employer]: Victorino Meier MD Cocaine Metabolite Negative Normal NEG [facility] Comment on above: Result Comment: (Positive cutoff 300 ng/mL) Performed By: #### D AU #### [facility] [address] [place], [place] [id number] [employer]: Cecy Santacruz MD #### KRISTIAN HOYT #### [facility] [address] [place] [address] [employer]: Victorino Meier MD Fentanyl, Urine Negative Normal NEG [facility] Comment on above: Result Comment: (Positive cutoff 5 ng/ml) Performed By: #### D AU #### [facility] [address] [place], [place] 2684683 [employer]: Cecy Santacruz MD #### KRISTIAN HOYT #### [facility] [address] [place] [address] [employer]: Victorino Meier MD Interpretive Info Assay provides medical screening only. The absence of expected drug(s) and/or Normal [facility] Comment on above: Result Comment: meta bolite(s) may indicate diluted or adulterated urine, limitations of testing or timing of collection. Testing for legal purposes should be confirmed by another method. To request confirmation of test result, please call the lab within 7 days of sample submission. Performed By: #### D AU #### [facility] [address] [place] [address] [place] [address] [employer]: Cecy Santacruz MD #### KRISTIAN HOYT #### [facility] [address] [place] [address] [employer]: Victorino Meier MD Methadone Ql (U) Negative Normal NEG [facility] Comment on above: Result Comment: (Positive cutoff 300 ng/mL) Performed By: #### D AU #### [address] [place] [address] [employer] Caddy: Cecy Santacruz MD #### KRISTIAN HOYT #### [facility] [address] [place] [address] [employer]: Victorino Meier MD Opiate(s), Ur Negative Normal NEG [facility] Comment on above: Result Comment: (Positive cutoff 300 ng/mL) Performed By: #### D AU #### [address] [place] [address] [employer]: Cecy Santacruz MD #### KRISTIAN HOYT #### [facility] [address] [place] [address] [employer]: Victorino Meier MD Oxycodone, Urine Negative Normal NEG [facility] Comment on above: Result Comment: (Positive cutoff 100 ng/mL) Performed By: #### D AU #### [address] [place] [address] Gro[employer] Caddy: Cecy Santacruz MD #### KRISTIAN HOYT #### [facility] [address] [place] [address] [employer]: Victorino Meier MD Phencyclidine, Ur Negative Normal NEG [facility] Comment on above: Result Comment: (Positive cutoff 25 ng/mL) Performed By: #### D AU #### [address] [place] [address] [employer]cery Caddy: Cecy Santacruz MD #### KRISTIAN HOYT #### [address] [address] Gro[employer]: Victorino Meier MD HCG, ,Urineon 03-13 Beta HCG ( test) Ql (U) Negative Normal NEG [facility] Comment on above: Result Comment: Spec imens with hCG levels near the threshold of the test (25 mIU/mL) may give a negative or indeterminate result. In such cases, another test should be performed with a new specimen in 48-72 hours. If early is suspected clinically in this setting, correlation with quantitative serum b-hCG level is suggested. [facility] has confirmed the use of plasma for this test. This has not been cleared or approved by the U.[place]. Food and Drug Administration. The FDA has determined that such clearance is not necessary. Performed By: #### D AU #### [address] [place] [address] [employer]: Cecy Santacruz MD #### KRISTIAN HYOT #### [facility] [address] [place] [address] [employer]: Victorino Meier MD Hemoglobin A1Con 03-13-2024 Glucose [Mass/Vol] 97 mg/dL Normal [facility] Comment on above: Result Comment: The ADA and AACC recommend providing the estimated average glucose result to permit better patient understanding of their HBA1c result. Performed By: #### D AU #### [facility] [address] [place] [address] [employer]: Cecy Santacruz MD #### LAI, AACRISTOBALO #### [facility] [address], [place] [id number] [employer]: Victorino Meier MD HbA1c (Bld) [Mass fraction] 5.0 % Normal 4.0-6.0 [facility] Comment on above: Performed By: #### D AU #### [facility] [address] [place] [address] [place] [address] [employer]: Cecy Santacruz MD #### EDEN HOYTO #### [facility] [address], [place] [id number] [employer]: Victorino Meier MD [facility] 03-13-2024 Test Name GABAPENTIN URINE Normal [facility] Comment on above: Performed By: #### U ALCO #### [facility] [address] [place], [place] 8101508 Grocery Caddy: Higinio Kellogg MD #### CARIN #### [facility] [address] [place] [address] [place] [address] [employer]: Cecy Santacruz MD #### LAI #### [facility] [address] [place] [address] [employer] Caddy: Victorino Meier MD Test Name [id number] Normal [facility] Comment on above: Performed By: #### D AU #### [facility] [address] [place] [address] [employer] Caddy: Cecy Santacruz MD #### LAI, AALCO #### [facility] [address] [place] [address] Grocery Caddy: Victorino Meier MD [facility] 03-10-2024 Send Out Report (NOTE) Normal [facility] Comment on above: Result Comment: Betsy [...] developed and its performance characteristics determined by [employer]. It has not been cleared or approved by the [place] Food and Drug Administration. This test was performed in a CLIA certified laboratory and is intended for clinical purposes. [facility] Performed By: #### Glen AU #### [facility] [address] [address] [employer]: Cecy Santacruz MD #### KRISTIAN HOYT #### [facility] [address] [place] [address] [employer]: Victorino Meier MD Chlamydia/GC DNA, Uron 03-09 Chlamydia Probe, Ur Negative Normal NEG [facility] Comment on above: Result Comment: CHLA [...] alternative nucleic acid target. Performed By: #### D AU #### [facility] [address] [place] [address] [employer]: Cecy Santacruz MD #### KRISTIAN HOYT #### [facility] [address] [place] [address] [employer]: Victorino Meier MD Gonorrhea Probe, Ur Negative Normal NEG [facility] Comment on above: Result Comment: NEIS [...] alternative nucleic acid target. Performed By: #### D AU #### [facility] [address] [place] [address] [employer]: Cecy Santacruz MD #### KRISTIAN HOYT #### [facility] [address] [place] [address] [employer]addy: Victorino Meier MD Hemoglobin A1Con 03-07-2024 Glucose [Mass/Vol] 100 mg/dL Normal [facility] Comment on above: Result Comment: The ADA and AACC recommend providing the estimated average glucose result to permit better patient understanding of their HBA1c result. Performed By: #### Glen AU #### [facility] [address] [place] [address] [employer]: Cecy Santacruz MD #### KRISTIAN HOYT #### [facility] [address], [place] [id number] [employer]: Victorino Meier MD HbA1c (Bld) [Mass fraction] 5.1 % Normal 4.0-6.0 [facility] Comment on above: Performed By: #### Glen AU #### [facility] [address] [place] [address] [employer] C[employer]: Cecy Santacruz MD #### KRISTIAN HOYT #### [facility] [address], [place] [id number] [employer]: Victorino Meier MD CBC with Diffon 03-06-2024 Abs. Basophil <0.03 Normal 0.00-0.20 [facility] Comment on above: Performed By: #### Glen AU #### [facility] [address] [place] [address] [place] [address] [employer]: Cecy Santacruz MD #### KRISTIAN HOYT #### [facility] [address] [place] [address] [employer]: Victorino Meier MD Abs.Imm.Granulocyte <0.03 Normal 0.00-0.30 [facility] Comment on above: Performed By: #### D AU #### [facility] [address] [address] [employer] Caddy: Cecy Santacruz MD #### KRISTIAN HOYT #### [facility] [address] [place] [address] [employer]: Victorino Meier MD Abs.Neutrophil (Seg) 2.50 k/uL Normal 1.50-8.10 [facility] Comment on above: Performed By: #### Glen AU #### [facility] [address] [place] [address] [place] [address] [employer]: Cecy Santacruz MD #### KRISTIAN HOYT #### [facility] [address] [place] [address] [employer]: Victorino Meier MD Basophils/100 WBC (Bld) 0 % Normal 0-2 [facility] Comment on above: Performed By: #### Glen AU #### [facility] [address] [place] [address] Dr. [place], [facility] [employer]: Cecy Santacruz MD #### KRISTIAN HOYT #### [facility] [address] [place] [address] [employer]: Victorino Meier MD Eosinophils (Bld) [#/Vol] 0.08 10*3/uL Normal 0.00-0.44 [facility] Comment on above: Performed By: #### Glen AU #### [facility] [address] [address] [employer]: Cecy Santacruz MD #### LAI, AALCO #### [facility] [address], [place] [id number] [employer]: Victorino Meier MD Eosinophils/100 WBC (Bld) 2 % Normal 1-4 [facility] Comment on above: Performed By: #### D AU #### [facility] [address] [address] [employer]: Cecy Santacruz MD #### ARIEL HOYTLCO #### [facility] [address], [place] [id number] [employer]: Victorino Meier MD Erythrocyte distribution width (RBC) [Ratio] 11.9 % Normal 11.8-14.4 [facility] Comment on above: Performed By: #### Glen AU #### [facility] [address] [place] [address] [employer]: Cecy Santacruz MD #### EDEN HOYTO #### [facility] [address] [place] [address] [employer]: Victorino Meier MD Hematocrit (Bld) [Volume fraction] 44.3 % Normal 36.3-47.1 [facility] Comment on above: Performed By: #### Glen AU #### [facility] [address] [place] [address] [place] [address] [employer]: Cecy Santacruz MD #### ARIEL HOYTLCO #### [facility] [address], [place] [id number] [employer]: Victorino Meier MD Hemoglobin (Bld) [Mass/Vol] 15.2 g/dL High 11.9-15.1 [facility] Comment on above: Performed By: #### Glen AU #### [facility] [address] [place] [address] [place] [address] [employer]: Cecy Santacruz MD #### LAI, AALCO #### [facility] [address] [place] [address] [employer]: Victorino Meier MD Immature granulocytes/100 WBC (Bld) 0 % Normal 0 [facility] Comment on above: Performed By: #### D AU #### [facility] [address] [place], [place] [address] [employer]: Cecy Santacruz MD #### LAI, AALCO #### [facility] [address] [place] [address] [employer]: Victorino Meier MD Lymphocytes (Bld) [#/Vol] 2.45 10*3/uL Normal 1.10-3.70 [facility] Comment on above: Performed By: #### D AU #### [facility] [address] [place] [id number] [employer]: Cecy Santacruz MD #### EDEN HOYTO #### [facility] [address] [place] [address] [employer]: Victorino Meier MD Lymphocytes/100 WBC (Bld) 45 % High 24-43 [facility] Comment on above: Performed By: #### D AU #### [facility] [address] [place] [id number] [employer]: Cecy Santacruz MD #### LAI, AALCO #### [facility] [address] [place] [address] [employer]: Victorino Meier MD MCH (RBC) [Entitic mass] 31.1 pg Normal 25.2-33.5 [facility] Comment on above: Performed By: #### D AU #### [facility] [address] [address] [employer]: Cecy Santacruz MD #### AGABU, AALCO #### [facility] [address] [place] [address] [employer]: Victorino Meier MD MCHC (RBC) [Mass/Vol] 34.3 g/dL Normal 28.4-34.8 [facility] Comment on above: Performed By: #### D AU #### [facility] [address] [address] [employer]: Cecy Santacruz MD #### LAI, AALCO #### [facility] [address] [place] [address] [employer]: Victorino Meier MD MCV (RBC) [Entitic vol] 90.6 fL Normal 82.6-102.9 [facility] Comment on above: Performed By: #### D AU #### [facility] [address] [place] [address] [employer]: Cecy Santacruz MD #### ARIEL HOYTLCO #### [facility] [address] [place] [address] [employer]: Victorino Meier MD Monocytes (Bld) [#/Vol] 0.38 10*3/uL Normal 0.10-1.20 [facility] Comment on above: Performed By: #### D AU #### [facility] [address] [place] [address] [employer]: Cecy Santacruz MD #### LAI, AALCO #### [facility] [address] [place] [address] [employer]: Victorino Meier MD Monocytes/100 WBC (Bld) 7 % Normal 3-12 [facility] Comment on above: Performed By: #### D AU #### [facility] [address] [address] [employer]: Cecy Santacruz MD #### KRISTIAN HOYT #### [facility] [address] [place] [address] [employer]: Victorino Meier MD Neutrophil (Seg) 46 % Normal 36-65 [facility] Comment on above: Performed By: #### D AU #### [facility] [address] [place], [place] [id number] [employer]: Cecy Santacruz MD #### KRISTIAN HOYT #### [facility] [address] [place] [address] [employer]: Victorino Meier MD NRBC Automated 0.0 per 100 WBC Normal 0.0 [facility] Comment on above: Performed By: #### D AU #### [facility] [address] [place], [place] [id number] [employer]: Cecy Santacruz MD #### KRISTIAN HOYT #### [facility] [address] [place] [address] [employer]: Victorino Meier MD Platelet mean volume (Bld) [Entitic vol] 11.9 fL Normal 8.1-13.5 [facility] Comment on above: Performed By: #### D AU #### [facility] [address] [place] [address] [employer]: Cecy Santacruz MD #### KRISTIAN HOYT #### [facility] [address] [place] [address] [employer]: Victorino Meier MD Platelets (Bld) [#/Vol] 184 10*3/uL Normal 138-453 [facility] Comment on above: Performed By: #### D AU #### [facility] [address] [place], [place] [id number] [employer]: Cecy Santacruz MD #### KRISTIAN HOYT #### [facility] [address], [place] [id number] [employer]: Victorino Meier MD RBC (Bld) [#/Vol] 4.89 10*6/uL Normal 3.95-5.11 [facility] Comment on above: Performed By: #### D AU #### [facility] [address] [address] [employer]: Cecy Santacruz MD #### KRISTIAN HOYT #### [facility] [address] [place] [address] [employer]: Victorino Meier MD WBC (Bld) [#/Vol] 5.4 10*3/uL Normal 3.5-11.3 [facility] Comment on above: Performed By: #### D AU #### [facility] [address] [place] [address] [address] [place] [id number] [employer]: Cecy Santacruz MD #### KRISTIAN HOYT #### [facility] [address] [place] [id number] [employer]: Victorino Meier MD Drug Scr, Abuse, Uron 2023 Amphetamine(s),Ur Negative Normal NEG [facility] Comment on above: Result Comment: (Positive cutoff 1000 ng/mL) Performed By: #### D AU #### [facility] [address] [place], [facility] [employer]: Cecy Santacruz MD #### LAI, AALCO #### [facility] [address] [place], [place] [id number] [employer]: Victorino Meier MD Barbiturate(s),Ur Negative Normal NEG [facility] Comment on above: Result Comment: (Positive cutoff 200 ng/mL) Performed By: #### D AU #### [facility] [address] [address] [employer]: Cecy Santacruz MD #### AGABU, AALCO #### [facility] [address] [place] [address] [employer]: Victorino Meier MD Benzodiazepine(s) Negative Normal NEG [facility] Comment on above: Result Comment: (Positive cutoff 200 ng/mL) Performed By: #### D AU #### [facility] [address] [place] [address] [employer]: Cecy Sanatcruz MD #### LAI, EDENO #### [facility] [address] [place] [address] [employer]: Victorino Meier MD Buprenorphrine, Ur Positive Abnormal NEG [facility] Comment on above: Result Comment: (Positive cutoff 5 ng/ml) Performed By: #### D AU #### [facility] [address] [place] [address] [employer]: Cecy Santacruz MD #### EDEN HOYTO #### [facility] [address], [place] [id number] [employer]: Victorino Meier MD Cannabinoid(s),Ur Negative Normal NEG [facility] Comment on above: Result Comment: (Positive cutoff 50 ng/mL) Performed By: #### D AU #### [facility] [address] [place] [address] [employer]: Cecy Santacruz MD #### EDEN HOYTO #### [facility] [address] [place] [address] [employer]: Victorino Meier MD Cocaine Metabolite Negative Normal NEG [facility] Comment on above: Result Comment: (Positive cutoff 300 ng/mL) Performed By: #### D AU #### [facility] [address] [place] [address] [employer]: Cecy Santacruz MD #### EDEN HOYTO #### [facility] [address] [place] [address] [employer]: Victorino Meier MD Fentanyl, Urine Negative Normal NEG [facility] Comment on above: Result Comment: (Positive cutoff 5 ng/ml) Performed By: #### D AU #### [facility] [address] [place] [address] Dr[place], [place] [id number] [employer]: Cecy Santacruz MD #### KRISTIAN HOYT #### [facility] [address] [place] [address] [employer]: Victorino Meier MD Interpretive Info Assay provides medical screening only. The absence of expected drug(s) and/or Normal [facility] Comment on above: Result Comment: meta bolite(s) may indicate diluted or adulterated urine, limitations of testing or timing of collection. Testing for legal purposes should be confirmed by another method. To request confirmation of test result, please call the lab within 7 days of sample submission. Performed By: #### Glen AU #### [facility] [address] [place] [address] [place] [address] [employer]: Cecy Santacruz MD #### KRISTIAN HOYT #### [address] [address] [employer]: Victorino Meier MD Methadone Ql (U) Negative Normal NEG [facility] Comment on above: Result Comment: (Positive cutoff 300 ng/mL) Performed By: #### D AU #### [facility] [address] [place] [address] [place] [address] [employer]: Cecy Santacruz MD #### KRISTIAN HOYT #### [address] [id number] [employer]: Victorino Meier MD Opiate(s), Ur Negative Normal NEG [facility] Comment on above: Result Comment: (Positive cutoff 300 ng/mL) Performed By: #### Glen AU #### [facility] [address] [place] [address] [place] [address] [employer]: Cecy Santacruz MD #### KRISTIAN HOYT #### [facility] [address], [place] [id number] [employer]: Victorino Meier MD Oxycodone, Urine Negative Normal NEG [facility] Comment on above: Result Comment: (Positive cutoff 100 ng/mL) Performed By: #### D AU #### [address] [place] [address] [employer]: Cecy Santacruz MD #### KRISTIAN HOYT #### [facility] [address], [place] [id number] [employer]: Victorino Meier MD Phencyclidine, Ur Negative Normal NEG [facility] Comment on above: Result Comment: (Positive cutoff 25 ng/mL) Performed By: #### Glen AU #### [address] [place] [address] [employer]: Cecy Santacruz MD #### KRISTIAN HOYT #### [facility] [address] [place] [address] [employer]: Victorino Meier MD HCG, ,Urineon 03-06 Beta HCG ( test) Ql (U) Negative Normal NEG [facility] Comment on above: Result Comment: Spec imens with hCG levels near the threshold of the test (25 mIU/mL) may give a negative or indeterminate result. In such cases, another test should be performed with a new specimen in 48-72 hours. If early is suspected clinically in this setting, correlation with quantitative serum b-hCG level is suggested. [facility] has confirmed the use of plasma for this test. This has not been cleared or approved by the [place]. Food and Drug Administration. The FDA has determined that such clearance is not necessary. Performed By: #### D AU #### [address] [place] [address] [employer]: Cecy Santacruz MD #### KRISTIAN HOYT #### [facility] [address] [place] [address] [employer]: Victorino Meier MD Miscellaneouson 03-06-2024 Test Name [id number] Normal [facility] Comment on above: Performed By: #### D AU #### [facility] [address] [address] [employer]: Cecy Santacruz MD #### KRISTIAN HOYT #### [facility] [address] [place] [address] [employer]: Victorino Meier MD COVID/FLU/RSV RT-PCRon 08-15 COVID/FLU/RSV RT-PCR negatigve [facility] [employer] Other COVID/FLU/RSV RT-PCR Negative [facility] [employer] Other COVID/FLU/RSV RT-PCR Positive [email or web address] Other Quick Strepon 08-15-2023 S. pyogenes Org specific cx Ql (Throat) Negative [facility] [employer] Other Quick Strep [facility] [employer] Other CULTURE THROATon 10-17-2022 CULTURE THROAT Culture Observations: NORMAL RESPIRATORY WILI. Normal [facility] Comment on above: Performed By: #### T HRTCX #### [facility] [address] [place] [address] Dr. Felicitas Rios CULTURE THROATon 08-29-2022 CULTURE THROAT Culture Observations: NORMAL RESPIRATORY WILI. Normal [facility] Comment on above: Performed By: #### T HRTCX #### [facility] [address] [place], [place] [address] Dr. Felicitas Rios RESPIRATORY PANEL PLUSon Adenovirus Not detected Normal NOT DETECTED [facility] Comment on above: Performed By: #### R SPLUS #### [facility] [address] [place] [address] Dr. Felicitas Burrows Parapertusis Not detected Normal NOT DETECTED [facility] Comment on above: Performed By: #### R SPLUS #### [facility] [address] [place] [address] Dr. Felicitas Burrows Pertussis Not detected Normal NOT DETECTED [facility] Comment on above: Performed By: #### R SPLUS #### [facility] [address] [place] [address] Dr. Felicitas Rios Chlamydia Pneumoniae Not detected Normal NOT DETECTED [facility] Comment on above: Performed By: #### R SPLUS #### [facility] [address] [place] [address] Dr. Felicitas Rios Coronavirus 229E Not detected Normal NOT DETECTED [facility] Comment on above: Performed By: #### R SPLUS #### [facility] [address] [place] [address] Dr. Felicitas Rios Coronavirus HKU1 Not detected Normal NOT DETECTED [facility] Comment on above: Performed By: #### R SPLUS #### [facility] [address] [place] [address] Dr. Felicitas Rios Coronavirus NL63 Not detected Normal NOT DETECTED [facility] Comment on above: Performed By: #### R SPLUS #### [facility] [address] [place] [address] Dr. Felicitas Rios Coronavirus OC43 Not detected Normal NOT DETECTED [facility] Comment on above: Performed By: #### R SPLUS #### [facility] [address] [place] [address] Dr. Felicitas Rios Influenza A H1 2009 Not detected Normal NOT DETECTED [facility] Comment on above: Performed By: #### R SPLUS #### [facility] [address] [place] [address] Dr. Felicitas Rios Influenza A H3 Not detected Normal NOT DETECTED [facility] Comment on above: Performed By: #### R SPLUS #### [facility] [address] [place] [address] Dr. Felicitas Rios Influenza B Not detected Normal NOT DETECTED [facility] Comment on above: Performed By: #### R SPLUS #### [facility] [address] [place] [address] [address] Felicitas Rios Metapneumovirus Not detected Normal NOT DETECTED [facility] Comment on above: Performed By: #### R SPLUS #### [facility] [address] [place] [address] [address] Felicitas Rios Mycoplas. Pneumoniae Not detected Normal NOT DETECTED [facility] Comment on above: Performed By: #### R SPLUS #### [facility] [address] [place] [address] [address] Felicitas Rios Parainfluenza 1 Detected Abnormal NOT DETECTED [facility] Comment on above: Performed By: #### R SPLUS #### [facility] [address] [place] [address] Dr. Felicitas Rios Parainfluenza 2 Not detected Normal NOT DETECTED [facility] Comment on above: Performed By: #### R SPLUS #### [facility] [address] [place] [address] [address] Felicitas Rios Parainfluenza 3 Not detected Normal NOT DETECTED [facility] Comment on above: Performed By: #### R SPLUS #### [facility] [address] [place] [address] Dr. Felicitas Rios Parainfluenza 4 Not detected Normal NOT DETECTED [facility] Comment on above: Performed By: #### R SPLUS #### [facility] [address] [place] [address] [address] Felicitas Rios Rhino/Enterovirus Not detected Normal NOT DETECTED [facility] Comment on above: Performed By: #### R SPLUS #### [facility] [address] [place] [address] Dr. Felicitas MCKEON Header 1 RESPIRATORY PANEL: VIRUSES Normal [facility] Comment on above: Performed By: #### R SPLUS #### [facility] [address] [place] [address] [address] Felicitas MCKEON Header 2 RESPIRATORY PANEL: BACTERIA Normal [facility] Comment on above: Performed By: #### R SPLUS #### [facility] [address] [place] [address] Dr. Felicitas Rios RSV Not detected Normal NOT DETECTED [facility] Comment on above: Performed By: #### R SPLUS #### [facility] [address] [place] [address] Dr. Felicitas Rios SARS-CoV-2 (COVID-19) RNA JEREMIE+probe Ql (Unsp spec) Not detected Normal NOT DETECTED [facility] Comment on above: Performed By: #### R SPLUS #### [facility] [address] [place] [address] Dr. Felicitas Rios CBC AUTO DIFFon 08-08-2022 BASO # 0.0 103/ul Normal 0.0-0.1 [facility] Comment on above: Performed By: #### C BC #### [facility] [address] [place] [address] Dr. Felicitas Rios Basophils/100 WBC (Bld) 0.6 % Normal 0.2-2.0 [facility] Comment on above: Performed By: #### C BC #### [facility] [address] [place] [address] Dr. Felicitas Rios EO # 0.1 103/ul Normal 0.0-0.7 [facility] Comment on above: Performed By: #### C BC #### [facility] [address] [place] [address] Dr. Felicitas Rios Eosinophils/100 WBC (Bld) 2.1 % Normal 0.9-7.0 [facility] Comment on above: Performed By: #### C BC #### [facility] [address] [place] [address] Dr. Felicitas Rios Erythrocyte distribution width (RBC) [Ratio] 11.9 % Normal 11.0-15.0 [facility] Comment on above: Performed By: #### C BC #### [facility] [address] [place] [address] Dr. Felicitas Rios Hematocrit (Bld) [Volume fraction] 39.4 % Normal 36.0-48.0 [facility] Comment on above: Performed By: #### C BC #### [facility] [address] [place] [address] [address] Felicitas Rios Hemoglobin (Bld) [Mass/Vol] 13.7 g/dL Normal 12.0-16.0 [facility] Comment on above: Performed By: #### C BC #### [facility] [address] [place] [address] Dr. Felicitas Rios IG # 0.00 10e3/ul Normal 0.00-0.03 [facility] Comment on above: Performed By: #### C BC #### [facility] [address] [place] [address] Dr. Felicitas Rios IG % 0.0 % Normal 0.0-0.5 [facility] Comment on above: Performed By: #### C BC #### [facility] [address] [place] [address] Dr. Felicitas Rios LYMPH # 2.3 103/ul Normal 1.2-3.8 [facility] Comment on above: Performed By: #### C BC #### [facility] [address] [place] [address] Dr. Felicitas Rios Lymphocytes/100 WBC (Bld) 49.1 % Normal 20.5-60.0 [facility] Comment on above: Performed By: #### C BC #### [facility] [address] [place] [address] Dr. Felicitas Rios MANUAL DIFF REQ NO Normal [facility] Comment on above: Performed By: #### C BC #### [facility] [address] [place] [address] Dr. Felicitas Rios MCH (RBC) [Entitic mass] 30.9 pg Normal 26.7-34.0 [facility] Comment on above: Performed By: #### C BC #### [facility] [address] [place] [address] Dr. Felicitas Rios MCHC (RBC) [Mass/Vol] 34.8 g/dL Normal 29.9-35.2 [facility] Comment on above: Performed By: #### C BC #### [facility] [address] [place] [address] [address] Felicitas Rios MCV (RBC) [Entitic vol] 88.9 fL Normal 81.0-99.0 [facility] Comment on above: Performed By: #### C BC #### [facility] [address] [place] [address] [address] Felicitas Rios MONO # 0.3 103/ul Normal 0.3-0.8 [facility] Comment on above: Performed By: #### C BC #### [facility] [address] [place] [address] [address] Felicitas Rios Monocytes/100 WBC (Bld) 6.3 % Normal 1.7-12.0 [facility] Comment on above: Performed By: #### C BC #### [facility] [address] [place] [address] [address] Felicitas Rios NEUT # 2.0 103/ul Normal 1.4-6.5 [facility] Comment on above: Performed By: #### C BC #### [facility] [address] [place] [address] [address] Felicitas Rios Neutrophils/100 WBC (Bld) 41.9 % Critically low 43.0-75.0 [facility] Comment on above: Performed By: #### C BC #### [facility] [address] [place] [address] [address] Felicitas Rios Platelet mean volume (Bld) [Entitic vol] 10.0 fL Normal 9.5-13.5 [facility] Comment on above: Performed By: #### C BC #### [facility] [address] [place] [address] [address] Felicitas Rios PLT 160 103/ul Normal 150-450 [facility] Comment on above: Performed By: #### C BC #### [facility] [address] [place] [address] [address] Felicitas Rios RBC 4.43 106/ul Normal 4.20-5.40 [facility] Comment on above: Performed By: #### C BC #### [facility] [address] [place] [address] [address] [address] Felicitas Rios WBC 4.8 103/ul Normal 4.0-11.0 [facility] Comment on above: Performed By: #### C BC #### [facility] [address] [place] [address] [address] Felicitas Rios CTA CHEST WO W [...] by: RAMON SUBRAMANIAN Date: 2022-08-08 11:17 Normal [facility] D-DIMERon 08-08-2022 D-DIMER 0.65 mg/L FEU Critically high <=0.59 [facility] Comment on above: Performed By: #### D DIM #### [facility] [address] [place], [place] [id number] Dr. Felicitas Rios D-DIMER COMMENTS SEE BELOW Normal [facility] Comment on above: Result Comment: Incr [...] hospitalization. Performed By: #### D DIM #### [facility] [address] [place] [address] Dr. Felicitas Rios PROF 14(COMP METB)on 022 Albumin [Mass/Vol] 4.0 g/dL Normal 3.4-5.0 [facility] Comment on above: Performed By: #### C PAVAN HSTROPN #### [facility] [address] [place] [address] Dr. Felicitas Rios Albumin/Globulin [Mass ratio] 1.3 {ratio} Normal [facility] Comment on above: Performed By: #### C PAVAN HSTROPN #### [facility] [address] [place] [address] Dr. Felicitas Rios ALP [Catalytic activity/Vol] 80 U/L Normal 46-116 [facility] Comment on above: Performed By: #### C PAVAN HSTROPN #### [facility] [address] [place] [address] Dr. Felicitas Rios ALT [Catalytic activity/Vol] 14 U/L Normal 14-59 [facility] Comment on above: Performed By: #### C PAVAN HSTROPN #### [facility] [address] [place] [address] Dr. Felicitas Rios Anion gap [Moles/Vol] 13.4 mmol/L Normal [facility] Comment on above: Performed By: #### C PAVAN HSTROPN #### [facility] [address] [place] [address] Dr. Felicitas Rios AST [Catalytic activity/Vol] 23 U/L Normal 15-37 [facility] Comment on above: Performed By: #### C PAVAN, HSTROPN #### [facility] [address] [place] [address] Dr. Felicitas Rios Bilirubin [Mass/Vol] 0.3 mg/dL Normal 0.2-1.0 [facility] Comment on above: Performed By: #### C PAVAN HSTROPN #### [facility] [address] [place] [address] [address] Felicitas Rios Calcium [Mass/Vol] 9.1 mg/dL Normal 8.5-10.1 [facility] Comment on above: Performed By: #### C MP, HSTROPN #### [facility] [address] [place] [address] Dr. Felicitas Rios Chloride [Moles/Vol] 102 mmol/L Normal 98-107 [facility] Comment on above: Performed By: #### C MP, HSTROPN #### [facility] [address] [place] [address] Dr. Felicitas Rios CO2 [Moles/Vol] 28.5 mmol/L Normal 21.0-32.0 [facility] Comment on above: Performed By: #### C MP, HSTROPN #### [facility] [address] [place] [address] Dr. Felicitas Rios Creatinine [Mass/Vol] 0.65 mg/dL Normal 0.55-1.02 [facility] Comment on above: Performed By: #### C MP, HSTROPN #### [facility] [address] [place] [address] Dr. Felicitas Rios EGFR-AF JAPANESE >60 Normal >=60 [facility] Comment on above: Performed By: #### C MP, HSTROPN #### [facility] [address] [place] [address] Dr. Felicitas Rios EGFR-NON AF JAPANESE >60 Normal >=60 [facility] Comment on above: Performed By: #### C MP, HSTROPN #### [facility] [address] [place] [address] Dr. Felicitas Rios Globulin (S) [Mass/Vol] 3.2 g/dL Normal [facility] Comment on above: Performed By: #### C MP, HSTROPN #### [facility] [address] [place] [address] Dr. Felicitas Rios Glucose [Mass/Vol] 97 mg/dL Normal 74-106 [facility] Comment on above: Performed By: #### C MP, HSTROPN #### [facility] [address] [place] [address] [address] Felicitas Rios Potassium [Moles/Vol] 3.9 mmol/L Normal 3.5-5.1 [facility] Comment on above: Performed By: #### C MP, HSTROPN #### [facility] [address] [place] [address] [address] Felicitas Rios Protein [Mass/Vol] 7.2 g/dL Normal 6.4-8.2 [facility] Comment on above: Performed By: #### C MP, HSTROPN #### [facility] [address] [place] [address] [address] Felicitas Rios Sodium [Moles/Vol] 140 mmol/L Normal 136-145 [facility] Comment on above: Performed By: #### C MP, HSTROPN #### [facility] [address] [place] [address] [address] Felicitas Rios Urea nitrogen [Mass/Vol] 6.0 mg/dL Critically low 7.0-18.0 [facility] Comment on above: Performed By: #### C MP, HSTROPN #### [facility] [address] [place] [address] Dr. Felicitas Rios Urea nitrogen/Creatinine [Mass ratio] 9.2 mg/mg Normal [facility] Comment on above: Performed By: #### C MP, HSTROPN #### [facility] [address] [place] [address] Dr. Felicitas Rios TROPONIN, HIGH SENSITIVITYon 08-08-2022 HSTROP 4.5 pg/mL Normal 4.0-51.3 [facility] Comment on above: Result Comment: CUT- OFF POINTS HAVE BEEN ESTABLISHED BASED ON THE FOURTH UNIVERSAL DEFINITIONS OF MYOCARDIAL INFARCTION. THE UPPER REFERENCE LIMIT (URL) OF TROPONIN, DEFINED THE 99TH PERCENTILE OF cTnI DISTRIBUTION IN A REFERENCE POPULATION, HAS BEEN CONFIRMED THE DECISION THRESHOLD FOR [place] DIAGNOSIS. Performed By: #### C MP, HSTROPN #### [facility] [address] [place] [address] Dr. Felicitas Rios VANESA DOP LEG BILon 022 US VANESA [...] by: TEDDY MARCIAL Date: 2022-08-08 10:06 Normal [facility] XR CHEST 1 Von 08-08-2022 XR [...] by: CECY RICHMOND Date: 2022-08-08 07:44 Normal [facility] CNOVSPon 03-03-2020 CNOVSP Visit (SP) Office ([place]) DIXON DURAN ([id number]) 1990 F Date Time Provider Department 03/03/20 2:00 PM MICHOACANO GARRETT During your visit today, we recorded the following information about you: Temperature Pulse Respiration Blood pressure 97.5 degrees 79/minute 16/minute 106/63 Weight Height Last Period 64.4 kg 1.778 m 02/22/20 Michoacano Garrett MD 03/03/2020 6:44 PM Signed NAME: Dixon Duran CLINIC NO.: [id number] DATE OF SERVICE: March 03, 2020 Referring [...] Renal Disease Father Michoacano Garrett MD, CPE [facility] [place], [place] CC: Elroy Palma [address] [facility] [address] Elroy Palma DO [address] [place] [address] Referring Provider: ELROY PALMA [[id number]] Allergies As of Date: 03/03/2020 (No Known [...] by MICHOACANO GARRETT MD on 03/03/20 Normal [facility] PROGRESSon 03-03-2020 PROGRESS HNO ID: [id number] Author: Michoacano Garrett Service: ? Author Type: Physician Type: Progress Notes Filed: 03/03/2020 6:44 PM Note Text: NAME: Dixon Duran CLINIC NO.: [id number] DATE OF SERVICE: March 03, 2020 Referring [...] Renal Disease Father Michoacano Garrett MD, CPE [facility] [place], [place] CC: Elroy Forbes Pavlock, DO [address] [facility] [address] Max L Pavlock, DO [address] [facility] [address] Normal [facility] Coding Summary.on 02-24-2019 Coding Summary. CODING DATE: 02/24/2019 FINAL [facility] STATUS: Home (Routine DC) PAYOR: Self [...] Guidry Date Saved: 02/24/2019 08:37 am Normal [facility] Hep Bs Abon 02-11-2019 HBV surface Ab Ql (S) Reactive Fis her [facility] Comment on above: Result Comment: Non Reactive: Inconsistent with immunity, less than 10 mIU/mL Reactive: Consistent with immunity, greater than 9.9 mIU/mL Performed at: [facility] [address] [id number] PhD Stephanie Bingham Performed By: #### 2 006653, 8834021, 3200304, 51169396, 09591184, 9340116, 0222533, 03604746 #### [facility] [address] [place] [address] Hep Bs Agon 02-11-2019 HBV surface Ag IA Ql Negative Negative Fish er [facility] Comment on above: Result Comment: Perf ormed at: [facility] [address] [place], [place] [id number] PhD Stephanie Bingham Performed By: #### 2 440533, 4504855, 9129035, 98017408, 78028627, 5406326, 7440119, [id number] #### [facility] [address] [place] [address] WRITTEN AUTHORIZATIONon 01-31 Written Authorization Comment Fis [facility] Comment on above: Result Comment: Writ ten Authorization Received. Authorization received from SHANNON FENG 02-10-2019 Logged by Tangela Taylor Performed at: [address] [id number] PhD Stephanie Bingham Performed By: #### 2 171625, 1971307, 9862382, 88486552, 77427086, 4820618, 5973038, 20525674 #### [facility] [address] [place] [address] VERBAL ORDER INFOon 02-11-20 19 Additional Test(s) Request Comment: [facility] Comment on above: Result Comment: Test (s) added per SHANNON FENG at account 02-10-2019 Logged by Marely Kruse Test# [id number] Hep A Ab, Total Performed at: [address] [id number] PhD Stephanie Bingham Performed By: #### 2 426017, 8048367, 5941950, 11093599, 27601883, 1374426, 6537883, 53476489 #### [facility] [address] [place] [address] See below: Comment: [facility] Comment on above: Result Comment: Vince stoll provide requested information and fax to . The [place] Code of Federal Regulations requires a written and signed request be forwarded to a laboratory following a verbal order of a laboratory test. Please assist us to meet this requirement and to complete our records. Date: Diagnosis Code(s): Physician or Authorized Designee: Please Print Physician or Authorized Designee Signature: Your Signature Confirms Your Order Of The Test(s) Listed Performed By: #### 2 287846, 2593592, 5214005, 98401763, 97491322, 8496458, 9464456, 11471025 #### [facility] [address] [place] [address] CBC w/Indiceson 02-09-2019 Erythrocyte distribution width (RBC) [Ratio] 13.6 % Normal 10.9-14.2 [facility] Comment on above: Performed By: #### 2 625087, 7067331, 5340537, 66684023, 77625634, 1076878, 3688169, 99938667 #### [facility] [address] [place] [address] Hematocrit (Bld) [Volume fraction] 36.5 % Normal 34.0-46.0 [facility] Comment on above: Performed By: #### 2 462132, 1892547, 6513188, 34260103, 62974276, 7592307, 1517905, 15160230 #### [facility] [address] [place] [address] Hemoglobin (Bld) [Mass/Vol] 12.9 g/dL Normal 12.0-16.0 [facility] Comment on above: Performed By: #### 2 362372, 0157139, 0068476, 73472572, 34211305, 2430552, 9951256, 16729791 #### [facility] [address] [place] [address] MCH (RBC) [Entitic mass] 30.3 pg Normal 27.0-34.0 [facility] Comment on above: Performed By: #### 2 204459, 8554080, 1298649, 87930561, 00546099, 1088663, 7510328, 24878994 #### [facility] [address] [place] [address] MCHC (RBC) [Mass/Vol] 35.2 g/dL Normal 33.3-35.7 [facility] Comment on above: Performed By: #### 2 240405, 3013853, 4558476, 01569955, 80522700, 9102769, 7034728, 36271011 #### [facility] [address] [place] [address] MCV (RBC) [Entitic vol] 86.2 fL Normal 80.0-100.0 [facility] Comment on above: Performed By: #### 2 670633, 5769858, 1074326, 19663978, 61320966, 3062866, 5519669, 97945209 #### [facility] [address] [place] [address] Platelet mean volume (Bld) [Entitic vol] 9.1 fL Normal 6.4-10.8 [facility] Comment on above: Performed By: #### 2 362359, 3620158, 7781229, 91814767, 54854944, 2080609, 6730992, 66841257 #### [facility] [address] [place] [address] Platelets (Bld) [#/Vol] 194.0 E9/L Normal 150.0-500.0 [facility] Comment on above: Performed By: #### 2 725658, 9896690, 4027299, 37980920, 85710781, 1719568, 5933158, 07872095 #### [facility] [address] [place] [address] RBC (Bld) [#/Vol] 4.2 E12/L Low 4.3-5.9 [facility] Comment on above: Performed By: #### 2 044572, 9158395, 4035407, 38815410, 20106599, 7884314, 6044412, 07390692 #### [facility] [address] [place] [address] WBC corrected for nucl RBC Auto (Bld) [#/Vol] 5.7 E9/L Normal 4.0-11.0 [facility] Comment on above: Performed By: #### 2 015884, 3328867, 5361428, 18201744, 86175101, 4620400, 5555107, 44867541 #### [facility] [address] [place] [address] CMPon 02-09-2019 Albumin [Mass/Vol] 3.9 g/dL Normal 3.3-5.0 [facility] Comment on above: Performed By: #### 2 233188, 2430039, 8035483, 96318326, 71787582, 7916547, 4270135, 94852287 #### [facility] [address] [place] [address] Albumin [Mass/Vol] 1.2 g/dL Normal 1.1-2.2 [facility] Comment on above: Performed By: #### 2 730094, 4031010, 7786816, 94572526, 62959815, 1953303, 7961124, 28740046 #### [facility] [address] [place] [address] ALP [Catalytic activity/Vol] 81 Int._Unit/L Normal 21-98 [facility] Comment on above: Performed By: #### 2 776850, 0901873, 6356888, 93679220, 44546050, 6232621, 6246529, 08616686 #### [facility] [address] [place] [address] ALT No additional P-5'-P [Catalytic activity/Vol] 14 Int._Unit/L Normal 6-46 [facility] Comment on above: Performed By: #### 2 970873, 4563650, 6845593, 12113959, 84080125, 5671294, 4192819, 53271093 #### [facility] [address] [place] [address] Anion gap [Moles/Vol] 11 mmol/L Normal 6-16 [facility] Comment on above: Performed By: #### 2 536912, 0208980, 4958748, 25220885, 14496155, 5132860, 2488475, 05266095 #### [facility] [address] [place] [address] AST [Catalytic activity/Vol] 26 Int._Unit/L Normal 5-43 [facility] Comment on above: Performed By: #### 2 170735, 5371140, 2891903, 54326805, 11486201, 7374948, 5093733, 37629785 #### [facility] [address] [place] [address] Bilirubin [Mass/Vol] 0.5 mg/dL Normal 0.0-1.1 [facility] Comment on above: Performed By: #### 2 320623, 1013835, 9656574, 77180190, 36412106, 8631453, 3233702, 15311221 #### [facility] [address] [place] [address] Calcium [Mass/Vol] 9.0 mg/dL Normal 8.9-11.1 [facility] Comment on above: Performed By: #### 2 798978, 0462555, 2144448, 01070610, 53798882, 6348340, 2286693, 40584034 #### [facility] [address] [place] [address] Chloride [Moles/Vol] 107 mmol/L Normal 101-111 [facility] Comment on above: Performed By: #### 2 426428, 1343887, 0376841, 68460651, 26714158, 0735816, 9668676, 86874102 #### [facility] [address] [place] [address] CO2 [Moles/Vol] 20 mmol/L Low 21-31 [facility] Comment on above: Performed By: #### 2 278675, 9809043, 0112289, 55370962, 04536474, 6058795, 6931416, 29548970 #### [facility] [address] [place] [address] Creatinine [Mass/Vol] 0.6 mg/dL Normal 0.5-1.3 [facility] Comment on above: Performed By: #### 2 833929, 5838198, 7863288, 80212962, 06290584, 4182330, 6488002, 48874792 #### [facility] [address] [place] [address] Globulin (S) [Mass/Vol] 3.3 g/dL Normal 1.4-4.0 [facility] Comment on above: Performed By: #### 2 040505, 5405044, 2342868, 73105932, 58690602, 4187527, 0623795, 64062178 #### [facility] [address] [place] [address] Glucose [Mass/Vol] 90 mg/dL Normal 55-199 [facility] Comment on above: Result Comment: If t his glucose result represents a fasting glucose, interpretation should refer to the following reference range: 55-99 mg/dL Performed By: #### 2 463348, 0251385, 8844171, 25230598, 51128534, 1796682, 5260248, 82624035 #### [facility] [address] [place] [address] Potassium [Moles/Vol] 3.8 mmol/L Normal 3.5-5.3 [facility] Comment on above: Performed By: #### 2 834244, 6062254, 3483445, 59448795, 79481334, 1111605, 4676026, 98082458 #### [facility] [address] [place] [address] Protein [Mass/Vol] 7.2 g/dL Normal 6.0-7.8 [facility] Comment on above: Performed By: #### 2 882600, 4524699, 5751555, 84776885, 10006749, 7695836, 5423964, 03291694 #### [facility] [address] [place] [address] Sodium [Moles/Vol] 134 mmol/L Low 135-145 [facility] Comment on above: Performed By: #### 2 586250, 3632946, 4655631, 11584193, 01801146, 1132115, 9566570, 78555721 #### [facility] [address] [place] [address] Urea nitrogen [Mass/Vol] 11 mg/dL Normal 5-21 [facility] Comment on above: Performed By: #### 2 411328, 1864725, 9960154, 48010808, 27099961, 9246456, 9067097, 50707377 #### [facility] [address] [place] [address] Urea nitrogen/Creatinine [Mass ratio] 18 No Units Normal 10-20 [facility] Comment on above: Performed By: #### 2 004944, 5950890, 3434073, 04454905, 76955715, 5845887, 4774170, 90392670 #### [facility] [address] [place] [address] PTon 02-09-2019 INR Coag (PPP) [Relative time] 1.0 {INR} [facility] Comment on above: Result Comment: INR results are specifically intended to assess patients stabilized on long-term Anticoagulation therapy suggested INR?s ?Less Intensive Anticoagulation? 2.0 ? 3.0 Conventional Range 3.0 ? 4.5 Performed By: #### 2 939154, 4872645, 2307828, 49707998, 22832102, 9174549, 6159679, 47638077 #### [facility] [address] [place] [address] PT Coag (PPP) [Time] 11.2 second(s) Normal 10.2-12.9 [facility] Comment on above: Performed By: #### 2 117147, 7459446, 9070837, 64937063, 43963049, 4795656, 8433025, 42676058 #### [facility] [address] [place] [address] US Abdomen, Limitedon 2018 US Abdomen, Limited [...] Sabrina Ivey MD Transcribed by: SCOOBY Technologist: DC Normal [facility] eGFRon 02-09-2019 GFR/1.73 sq M predicted among blacks MDRD (S/P/Bld) [Vol rate/Area] mL/min/{1.73_m2} Normal >=59 [facility] Comment on above: Order Comment: Order added by Discern Expert. Result Comment: eGFR is race adjusted. AA=. Performed By: #### 2 769684, 8387751, 6187626, 41539521, 48671994, 7315501, 0284969, 69561017 #### [facility] [address] [place] [address] GFR/1.73 sq M predicted among non-blacks MDRD (S/P/Bld) [Vol rate/Area] mL/min/{1.73_m2} Normal >=59 [facility] Comment on above: Order Comment: Order added by Discern Expert. Result Comment: Control Panel Operator ruben kidney disease could be indicated at eGFR's of less than 60 mL/min/1.73m2. Kidney failure is indicated at less than 15 mL/min/1.73m2. Performed By: #### 2 745547, 1872091, 0328684, 71394963, 36417210, 9030895, 5616042, 49801479 #### [facility] [address] [place] [address] Vital Signs Date Time Vital Sign Value Performing Clinician Facility 10-02-2024 10:02-0500 Body mass index (BMI) [Ratio] 24.11 kg/m2 Womply DO Work Phone: [facility] 10-02-2024 10:02-0500 Body weight 76.2 kg Vin Visci DO Work Phone: [facility] 10-02-2024 10:02-0500 Diastolic blood pressure 64 mm[Hg] Vin Visci DO Work Phone: [facility] 10-02-2024 10:02-0500 Systolic blood pressure 102 mm[Hg] Vin Visci DO Work Phone: [facility] 07-18-2024 09:54-0500 Body height 175.26 cm [facility] 07-18-2024 09:54-0500 Body mass index (BMI) [Ratio] 23.4 kg/m2 [facility] 07-18-2024 09:54-0500 Body temperature 98.5 [degF] [facility] 07-18-2024 09:54-0500 Body weight 72.12 kg [facility] 07-18-2024 09:54-0500 Diastolic blood pressure 73 mm[Hg] [facility] 07-18-2024 09:54-0500 Heart rate 98 /min [facility] 07-18-2024 09:54-0500 Respiratory rate 20 /min [facility] 07-18-2024 09:54-0500 SaO2% (BldA) [Mass fraction] 98 % [facility] 07-18-2024 09:54-0500 Systolic blood pressure 104 mm[Hg] [facility] 06-02-2024 09:56-0400 Body height 175.26 cm MD Korin Castellanos Work Phone: [facility] 06-02-2024 09:56-0400 Body mass index (BMI) [Ratio] 23.3 kg/m2 MD Korin Castellanos Work Phone: [facility] 06-02-2024 09:56-0400 Body temperature 97.3 [degF] MD Korin Castellanos Work Phone: [facility] 06-02-2024 09:56-0400 Body weight 71.72 kg MD Korin Castellanos Work Phone: [facility] 06-02-2024 09:56-0400 Diastolic blood pressure 71 mm[Hg] MD Koirn Castellanos Work Phone: [facility] 06-02-2024 09:56-0400 Heart rate 90 /min MD Korin Castellanos Work Phone: [facility] 06-02-2024 09:56-0400 Respiratory rate 16 /min MD Korin Castellanos Work Phone: [facility] 06-02-2024 09:56-0400 SaO2% (BldA) [Mass fraction] 98 % MD Korin Castellanos Work Phone: [facility] 06-02-2024 09:56-0400 Systolic blood pressure 111 mm[Hg] MD Korin Castellanos Work Phone: [facility] 08-15-2023 11:00-0500 Body height 177.8 cm [facility] Other 08-15-2023 11:00-0500 Body mass index (BMI) [Ratio] 19.66 kg/m2 [facility] Other [facility] Other 08-15-2023 11:00-0500 Body temperature 98.8 [degF] Karen Brantley Other [facility] Other 08-15-2023 11:00-0500 Body weight 62.14 kg Karen Brantley Other [facility] Other 08-15-2023 11:00-0500 Respiratory rate 18 /min [facility] Other [facility] Other 08-15-2023 11:00-0500 SaO2% (BldA) [Mass fraction] 98 % [facility] Other [facility] Other Encounters Encounter Date Encounter Type Care Provider Facility Start: 10-02-2024 End: 10-02-2024 Bamboo flowsheet Vin A Visci DO Work Phone: [facility] Start: 10-02-2024 End: 10-02-2024 Bamboo flowsheet Vin A Visci DO Work Phone: [facility] Start: 10-02-2024 End: 10-02-2024 Patient encounter status Vin A Visci DO Work Phone: [facility] Start: 10-02-2024 End: 10-02-2024 Periodic preventive med est patient 18-39 yrs Vin Ngo Visci DO Work Phone: [facility] Comment on above: Encounter for gyneco logical examination with abnormal finding; Intrauterine device surveillance Start: 10-02-2024 End: 10-02-2024 ambulatory VIN Ngo VISCI Not Available Start: 07-23-2024 End: 07-23-2024 ambulatory [facility]DA L[facility]E [facility] Start: 07-18-2024 End: 07-18-2024 ambulatory [facility] Work Phone: Start: 07-18-2024 End: 07-18-2024 Patient encounter procedure Community Health Physician [facility] Work Phone: Start: 07-13-2024 End: 07-13-2024 ambulatory MAYDA Trany [facility] Start: 06-26-2024 End: 06-26-2024 ambulatory MAYDA Trany [facility] Start: 06-12-2024 End: 06-12-2024 ambulatory MAYDA Trany [facility] Start: 06-02-2024 End: 06-02-2024 ambulatory MD Korin Castellanos Work Phone: [facility] Work Phone: Start: 06-02-2024 End: 06-02-2024 Patient encounter procedure MD Korin Castellanos Work Phone: [facility] Physician [facility] Work Phone: Start: 05-29-2024 End: 05-29-2024 ambulatory MAYDA Bustillo [facility] Start: 05-20-2024 End: 05-20-2024 ambulatory MAYDA LOWE [facility] Start: 05-01-2024 End: 05-01-2024 ambulatory MAYDA LOWE [facility] Start: 04-17-2024 End: 04-17-2024 ambulatory MAYDA LOWE [facility] Start: 04-10-2024 End: 04-10-2024 ambulatory MAYDA Bustillo [facility] Start: 04-03-2024 End: 04-03-2024 ambulatory MAYDA Bustillo [facility] Start: 03-27-2024 End: 03-27-2024 ambulatory BRIAN Bustillo [facility] Start: 03-20-2024 End: 03-20-2024 ambulatory [facility] Start: 03-17-2024 End: 03-17-2024 ambulatory Korin Castellanos [facility] Work Phone: Start: 03-17-2024 End: 03-17-2024 Departed Referred MD Korin Castellanos Work Phone: [facility] Start: 03-13-2024 End: 03-13-2024 ambulatory [facility] Start: 03-06-2024 End: 03-06-2024 ambulatory [facility] Start: 09-23-2023 End: 09-24-2023 ambulatory Catina Mcdonald MD Facility: [facility] Start: 08-15-2023 End: 08-15-2023 ambulatory Karen Brantley Other [facility] Other Start: 08-15-2023 Office outpatient vi sit 25 minutes Karen Brantley [facility] Start: 10-17-2022 End: 10-17-2022 ambulatory TOPHER SHAMMO Facility:[facility] Start: 08-29-2022 End: 08-29-2022 ambulatory TOPHER SHAMMO Facility:[facility] Start: 08-08-2022 End: 08-08-[address] MART LISTED REQUEST Facility:[facility] Start: 06-01-2022 End: 06-01-[address] AJ Hooper Facility:[facility] Start: 01-09-2022 End: 01-09-2022 ambulatory DESI KUHN Facility:[facility] Start: 06-30-2018 End: 07-01-2018 Patient encounter procedure DEFAULT PHYSICIAN Facility:[facility] Procedures Date Procedure Procedure Detail Performing Clinician Start: 07-18-2024 Quick Strep (POC) Start: 06-02-2024 Quick Strep (POC) MD Lawson Castellanos Work Phone: Start: 08-22-2023 Microscopic observat ion [Identifier] in Cervix by Cyto stain Vin Addison DO Work Phone: Plan of Treatment Date Care Activity Detail Author Start: 08-22-2028 Screening for malign ant neoplasm of cervix [facility] Start: 08-22-2026 Screening for malign ant neoplasm of cervix Pap Smear [facility] Start: 10-02-2024 End: 10-02-2024 Patient encounter procedure 10/02/2024 10:15 AM EST Office Visit [facility] [address] [place] [address] Vin Addison, DO [address] [facility] [address] [place] [address] Encounter for gynecological examination with abnormal finding; Intrauterine device surveillance [facility] Comment on above: Encounter for gyneco logical examination with abnormal finding; Intrauterine device surveillance Start: 05-03-2024 Influenza vaccination Influenza Vacc ine (#1) [facility] Payers Date Payer Category Payer Medicaid (Managed Care) [facility] MEDICAID [id number] 2024 Medicaid [id number] 2024 Self-pay 2023 Private Health Insurance [facility] [id number] 1990 Unknown [id number] 2.16.840.1.040437.3.579.2. 647 1990 Unknown [id number] 2.16.840.1.298843.3.579.2. 593 1990 Unknown [id number] 2.16.840.1.329201.3.579.2. 593 1990 Unknown [id number] 2.16.840.1.149335.3.579.2. 593 1990 Unknown [id number] 2.16.840.1.960022.3.579.2. 593 1990 Unknown [id number] 2.16.840.1.944257.3.579.2. 593 1990 Unknown [id number] 2.16.840.1.985118.3.579.2. 196 1990 Unknown [id number] 2.16.840.1.169113.3.579.2. 173 1990 Unknown [id number] 2.16.840.1.528642.3.579.2. 173 1990 Unknown [id number] 2.16.840.1.811106.3.579.2. 173 1990 Unknown [id number] 2.16.840.1.000722.3.579.2. 173 1990 Unknown [id number] 2.16.840.1.230642.3.579.2. 173 1990 Unknown [id number] 2.16.840.1.341133.3.579.2. 173 1990 Unknown [id number] 2.16.840.1.249329.3.579.2. 173 1990 Unknown [id number] 2.16.840.1.222529.3.579.2. 173 1990 Unknown [id number] 2.16.840.1.846691.3.579.2. 173 1990 Unknown [id number] 2.16.840.1.007495.3.579.2. 173 1990 Unknown [id number] 2.16.840.1.900243.3.579.2. 173 1990 Unknown [id number] 2.16.840.1.230943.3.579.2. 173 1990 Unknown [id number] 2.16.840.1.501312.3.579.2. 173 1990 Unknown [id number] 2.16.840.1.956998.3.579.2. 173 1990 Unknown [id number] 2.16.840.1.131748.3.579.2. 1259 1959 Unknown [id number] 1959 Unknown [id number] Unknown Unknown Monica BC/BS [id number] Unknown [id number] 2.16.840.1.360797.3.579.2. 531 Social History Date Type Detail Facility Unknown if ever smoked [facility] Other Start: 08-22-2023 End: 10-02-2024 Sex Assigned At [facility] Other Start: 02-23-2014 End: 02-23-2014 Tobacco smoking status [facility] Smoker (finding) [facility] Start: 1990 [facility] Assigned At [facility] Start: 07-18-2024 Sex Female (finding) [facility] Start: 08-22-2023 End: 10-02-2024 Tobacco smoking status ALIS Smokes tobacco daily [facility] History of tobacco use Cigarette Smoker [facility] Start: 08-22-2023 End: 10-02-2024 Cigarettes smoked current (pack per day) - Reported 1 [facility] Start: 08-22-2023 End: 10-02-2024 Tobacco use and exposure Smokeless tobacco non-user [facility] Start: 09-29-2024 End: 10-02-2024 Alcoholic beverage intake Lifetime non-drinker (finding) [facility] How often to you hav e a drink containing alcohol? Never [facility] How many standard drinks containing alcohol do you have on a typical day? Patient does not drink [facility] Start: 08-21-2023 Tobacco Comment > How many cig arettes a day do you smoke: 07-22 [facility] Start: 08-21-2023 Alcohol Comment Caffeine intak e: 3-4 cups per day, 32oz daily, coffee, energry drinks [facility] Start: 05-27-2023 Gender identity Identifies as female gender (finding) [facility] History of Present illness Narrative 10-02-2024 Vin Addison, DO - 10/02/2024 10:15 AM EST Note Date & Type Note Facility 10-02-2024 History of Presen t illness Narrative Images from the original note were not included. Vin Addison, Obstetrics and Gynecology Dixon Duran 1990 09/25/24 [id number] Yearly Wellness Exam No chief complaint on file. Visit Vitals OB Status Implant Smoking Status Every Day History of Present Illness The patient presents for her annual checkup. She reports no significant health issues over the past year. She is uncertain about the duration of her intrauterine device (IUD) placement but believes it has been in place for approximately 3 to 4 years. She has not experienced any menstrual cycles since the insertion of the IUD. She reports no breast abnormalities, including lumps or changes in size or shape. She also reports no urinary incontinence or recurrent urinary tract infections. Her bowel movements are regular, and she does not experience any pelvic pain or vaginal discomfort. She has been prescribed buprenorphine 8 mg twice daily, which she tolerates well without any cravings. Despite attempts to discontinue the medication, she has been unsuccessful. She received an injection during her last visit, but due to a change in insurance, she was switched back to the strips. She was scheduled to receive six injections but only received one. She has a history of smoking, consuming approximately one pack per day. Despite previous unsuccessful attempts to quit, she expresses a desire to cease smoking and has recently purchased nicotine patches as part of her cessation efforts. SOCIAL HISTORY The patient admits to smoking about a pack a day. FAMILY HISTORY The patient reports no family history of breast cancers or colon cancers. MEDICATIONS Buprenorphine Current Outpatient Medications Medication Sig Dispense Refill buprenorphine ER (Sublocade) 100 mg/0.5mL injection Inject 1 each under the skin every month to absorb continually busPIRone (Buspar) 10 MG tablet Take 10 mg by mouth 3 (three) times a day as needed No current facility-administered medications for this visit. Allergies Allergen Reactions Neomycin-Bacitracin Zn-Polymyx Anaphylaxis Past Medical History: Diagnosis Date Anxiety and depression (CMS/HCC) Hepatitis B Hepatitis C (CMS/HCC) Neg. mRNA... Past infection Liver disease Opioid use disorder in remission Past Surgical History: Procedure Laterality Date SECTION, LOW TRANSVERSE 2017 COLPOSCOPY 06/[address] ANGIOGRAM HEART CORONARY 06/15/2018 CT ANGIOGRAM TAVR 06/15/2018 INTRAUTERINE DEVICE INSERTION 07/07/2020 Liletta IUD insetion VAGINAL DELIVERY NVD x2 OB History Para Term AB Living 3 3 2 1 3 SAB IAB Ectopic Multiple Live Births 3 # Outcome Date GA Lbr Reynold/2nd Weight Sex Type Anes PTL Lv 3 06/06/18 34w1d 3 lb 9.5 oz F EPI Y HILARIO 2 Term 03/10/16 39w0d 5 lb 8 oz M Vag-Spont None N HILARIO 1 Term 06/27/13 38w0d 6 lb 2 oz F Vag-Spont N HILARIO Obstetric Comments Pap 08/22/23- Neg, HPV Neg ; 06/23/20 COLPO CIN1, neg ECC; 05/25/20 neg, HPV positive 18,45; 01/19/19 ASCUS, HPV positive. Liletta IUD inserted 07/2020 ROS General: Denies fevers/chills Eyes: Denies vision changes ENT: Denies neck stiffness, neck mass Endocrine: Denies polydipsia and polyuria Respiratory: Denies shortness of breath Cardiovascular: Denies chest pain and palpitations Gastrointestinal: Denies changes in bowel habits, blood in stool, constipation and diarrhea. Hematology: Denies easy bruising. Women Only: Denies breast masses, skin changes, nipple discharge, abnormal bleeding, pelvic pain and dyspareunia Genitourinary: Denies dysuria, pelvic pain and nocturia Skin: Denies rashes/lesions Neurologic: Denies headaches, dizziness, syncope Psychiatric: Denies hallucinations, suicidal ideas EXAM GENERAL EXAMINATION: Alert, oriented, well developed, well nourished. HEAD: Normocephalic, atraumatic. EYES: SEDA, sclera anicteric. EARS: No obvious hearing deficit. NECK/THYROID: Neck supple no cervical lymphadenopathy no thyromegaly. LYMPH NODES: No axillary, supraclavicular or inguinal adenopathy. SKIN: Warm and dry. No rashes HEART: Regular rate and rhythm. No murmur LUNGS: Clear to auscultation bilaterally. CHEST: Axillary nodes grossly normal. BREASTS: No dominant masses palpable bilaterally, no skin changes, nipple discharge, supra-clavicular or axillary adenopathy. Bilateral nipple piercings ABDOMEN: Soft, nontender, nondistended, no hernia or masses palpable. BACK: No obvious scoliosis/kyphosis. FEMALE GENITOURINARY: EFG without sores/lesions, normal vaginal mucosa-no discharge, cervix without lesions, IUD strings visualized at cervical os, uterus AV, NSSC, no adnexal masses, cul-de-sac negative. EXTREMITIES No edema. NEUROLOGIC: Alert and oriented. PSYCH: Cooperative with exam. ICD-10-CM 1. Encounter for gynecological examination with abnormal finding Z01.411 2. Intrauterine device surveillance Z30.431 Assessment & Plan Advised pt to perform monthly self breast exams. Encouraged calcium and Vitamin D intake. 1. Annual examination. Her last Pap smear was conducted in 2023, yielding normal results and a negative HPV test. The intrauterine device (IUD) was inserted in 2019 and is expected to remain effective for a total of 8 years, leaving an additional 3 years of functionality. She reports no issues with her IUD, including no periods, pelvic pain, or vaginal discomfort. She is currently on buprenorphine 8 mg twice a day and is stable with no cravings or issues. She has had difficulty quitting smoking despite multiple attempts and is currently using patches to try again. She is advised to continue her regimen of multivitamins and to persist in her efforts to quit smoking. PROCEDURE IUD insertion in 2019. documented in this encounter [facility] Evaluation note 08-15-2023 Note Date & Type [...] (suspected) exposure to covid-19 (ICD-10 - Z20.822) [employer] Other Evaluation note Note Date & Type Note Facility Evaluation note No assessment information availa [facility] Work Phone: Evaluation note Note Date & Type Note Facility Evaluation note Diagnosis Encounter for gynecological examination with abnormal finding Intrauterine device surveillance documented in this encounter [facility] History general Narrative - Reported Note Date & Type Note Facility History general Narrative - Reported Type Medical History chronic back pain Medical History [facility] Medical History pneumonia Surgical History C section Hospitalization History child x2 Hospitalization History see above [employer] Other Summary Purpose Family History No Family History Records Found Relationship Condition Age at Onset Recorded Date/T anthony mother Hypertension Unknown Advance Directives No Advanced Directives Records Found Advance Directive Response Recorded Date/ Time Advance Directives No December 22 11:19am Advance Directive Response Recorded Date/ Time Advance Directives No December 22 10:19am Chief Complaint and Reason for Visit Chief Complaint Admit Date Sore throat, fever June 02, 2024 9: 46am upper respiratory July 18, 2024 9:27am Additional Source Comments INFORMATION SOURCE (unrecogn ized section and content) DATE CREATED AUTHOR 08/04/2018 [facility] DATE CREATED AUTHOR AUTHOR'S ORGANIZ ATION 07/24/2019 [facility] DATE CREATED AUTHOR AUTHOR'S ORGANIZ ATION 03/25/2020 [facility] DATE CREATED AUTHOR AUTHOR'S ORGANIZ ATION 12/26/2022 [facility] DATE CREATED AUTHOR AUTHOR'S ORGANIZ ATION 09/30/2023 [facility] DATE CREATED AUTHOR AUTHOR'S ORGANIZ ATION 03/22/2024 [facility] DATE CREATED AUTHOR AUTHOR'S ORGANIZ ATION 07/28/2024 [facility] DATE CREATED AUTHOR AUTHOR'S ORGANIZ ATION 10/04/2024 [facility] EPIC REASON FOR VISIT (unrecogniz ed section and content) Reason Comments Gynecologic Exam Pt presents for year ly. 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 Care Teams (unrecognized sec tion and content) Team Status: Inactive Member Role Status Dates Korin Castellanos MD Attending Provider Active Sta rt: March 17, 2024 End: March 17, 2024 Team Status: Active Member Role Status Dates NON STAFF Primary Care Provider Active Team Status: Inactive Member Role Status Dates Karen Brantley APRN Attending Provider Active Start: June 02, 2024 End: June 02, 2024 NON STAFF Primary Care Provider Active Start: June 02, 2024 End: June 02, 2024 Team Status: Inactive Member Role Status Dates NON STAFF Primary Care Provider Active Start: July 18, 2024 End: July 18, 2024 Angelique Alonso APRN Attending Provider Active Start: July 18, 2024 End: July 18, 2024 [employer] Relationship Specialty Start Date End Date Unallocated, [place] [address] PCP - General Family Medicine 08/22/23 [employer] Relationship Specialty Start Date End Date UnallocatedTiffany MD [address] [facility] [place] [address] PCP - General Family Medicine 08/22/23 Goals (unrecognized section and content) Goals may be documented in a n alternate section FOR RECORDS PERTAINING TO PATIENTS WHO ARE [...] BE BASED ON THE PRIMARY CLINICAL RECORDS. [facility] provides no warranty or guarantee of the accuracy or completeness of information in this document.
[2024-10-07 17:26] LABS: Amphetamine Screen Urine NEGATIVE (NEGATIVE); Barbiturates Screen Urine NEGATIVE (NEGATIVE); Benzodiazepines Screen Urine NEGATIVE (NEGATIVE); Buprenorphine Screen Urine POSITIVE (NEGATIVE); Cannabinoid Screen Urine NEGATIVE (NEGATIVE); Cocaine Screen Urine NEGATIVE (NEGATIVE); Methadone Screen Urine NEGATIVE (NEGATIVE); Methamphetamines Screen Urine NEGATIVE (NEGATIVE); Opiate Screen Urine NEGATIVE (NEGATIVE); Oxycodone Screen Urine NEGATIVE (NEGATIVE); Phencyclidine Screen Urine NEGATIVE (NEGATIVE); Tricyclic Antidepressant Urine NEGATIVE (NEGATIVE)
[2024-10-13 04:08] LABS: Buprenorphine Positive (.); Buprenorphine Conf, MS, UR 298 ng/mL (Cutoff=10); Norbuprenorphine Positive (.); Norbuprenorphine Conf, MS,UR 79 ng/mL (Cutoff=10)
== END 2024-10-07 16:39 | disposition home or self-care (01) ==
PROVIDERS: PCP Registered Nurse Emergency; Visit Provider Registered Nurse Emergency
DX: F11.20 Opioid dependence, uncomplicated (principal)
CPT/HCPCS: 36415; 80299; 80307; 80354; 80375

== ENCOUNTER 2024-12-23 06:12 | Emergency (ER) | payer OTHER, SELFPAY ==
[2024-12-23 06:29] VITALS: BP 114/76; PULSE 88; TEMP 36.8; O2SAT 98; BMI 23.6
--- NOTE | 2024-12-23 07:15 | ED_ITS ---
HPI HPI - General Adult General Chief complaint: Skin/Abscess/Foreign Body Stated complaint: POSS SKIN ABCESS Time Seen by Provider: 12/23/24 07:08 Source: patient Mode of arrival: walk-in Limitations: no limitations History of Present Illness HPI narrative: 34-year-old female presents to the emergency department for pain and swelling to her right calf area. She states she has had cellulitis and has been on an antibiotic and has had this problem for a week. She is worried about an abscess occurring. No chest pain or shortness of breath and she has never had a DVT. No drainage or fever. Related Data Home Medications ?Medication ?Instructions ?Recorded ?Confirmed diclofenac sodium 75 mg 75 mg PO BID 09/23/23 09/23/23 tablet,delayed release Previous Rx's ?Medication ?Instructions ?Recorded hydroxyzine HCl 25 mg tablet 25 mg PO BID PRN anxiety #30 tabs 09/06/24 cephalexin 500 mg capsule 500 mg PO QID 10 days #40 caps 12/23/24 sulfamethoxazole 800 1 tab PO BID 10 days #20 tabs 12/23/24 mg-trimethoprim 160 mg tablet (Bactrim DS) Allergies Allergy/AdvReac Type Severity Reaction Status Date / Time bacitracin (From Triple Allergy Severe Anaphylaxis Verified 12/23/24 06:35 Antibiotic) neomycin (From Triple Allergy Severe Anaphylaxis Verified 12/23/24 06:35 Antibiotic) polymyxin B (From Triple Allergy Severe Anaphylaxis Verified 12/23/24 06:35 Antibiotic) Opioid HPI Opioid Management Most Recent Opioid Data: Last Pain Scale 6 04/21/23 12:31 04/21/23 Ur Phencyclidine Scrn Negative (NEGATIVE) 10/07/24 16:55 0201/24 Review of Systems ROS Narrative A ten point review of systems is negative except as noted above. [facility] Medical History Hepatitis C ?B19.20 - Unspecified viral hepatitis C without hepatic coma (ICD-10) Social History Smoking status: Current every day smoker Little interest or pleasure in doing things: not at all Feeling down, depressed, or hopeless: not at all Exam Narrative Exam Narrative: Nurses note and vital signs reviewed and patient is not hypoxic. General: The patient appears well and in no apparent distress. Patient is resting comfortably on cart. Skin: Warm, dry, no pallor noted. There is no rash noted. Head: Normocephalic, atraumatic Eye: Normal conjunctiva, no drainage Ears, Nose, Mouth, and Throat: oral mucosa is moist. Nares patent. Cardiovascular: Regular Rate and Rhythm Respiratory: Patient is in no distress, no accessory muscle use, lungs are clear to auscultation, no wheezing, rales or rhonchi Back: non-tender GI: Soft and nontender Musculoskeletal: The right leg is examined. She has an area of erythema and induration on the right calf region. There is no open area or drainage. Neurological: A&O, normal speech Psychiatric: Cooperative Constitutional Vital Signs, click to edit/add: Last Vital Signs Temp 98.2 F 12/23/24 06:29 Pulse 88 12/23/24 06:29 Resp 18 12/23/24 06:29 BP 114/76 12/23/24 06:29 Pulse Ox 98 12/23/24 06:29 O2 Del Method Room Air 12/23/24 06:29 Course Vital Signs Vital signs: Vital Signs Temperature 98.2 F 12/23/24 06:29 Pulse Rate 88 12/23/24 06:29 Respiratory Rate 18 12/23/24 06:29 Blood Pressure 114/76 12/23/24 06:29 Pulse Oximetry 98 12/23/24 06:29 Oxygen Delivery Method Room Air 12/23/24 06:29 Temperature 98.2 F 12/23/24 06:29 Pulse Rate 88 12/23/24 06:29 Respiratory Rate 18 12/23/24 06:29 Blood Pressure 114/76 12/23/24 06:29 Pulse Oximetry 98 12/23/24 06:29 Oxygen Delivery Method Room Air 12/23/24 06:29 Medical Decision Making MDM Narrative Medical decision making narrative: Ultrasound does not show DVT but is suggestive of superficial thrombophlebitis. No abscess identified. She will be prescribed another course of Bactrim but also Keflex and was recommended a full aspirin daily as well as elevation of her leg and warm compresses. Treatment diagnosis and follow-up were discussed with the patient. Differential Diagnosis Differential Diagnosis: Cellulitis, abscess, DVT, superficial thrombophlebitis Imaging Data Right leg Doppler: Radiologist's impression: No evidence of DVT, likely short segment thrombus in the lesser saphenous vein, patent varicose vein an area of redness in the medial calf Discharge Plan Discharge Chief Complaint: Skin/Abscess/Foreign Body Clinical Impression: Superficial thrombophlebitis, Cellulitis Patient Disposition: Home, Self-Care Time of Disposition Decision: 08:50 Condition: Good Mode of Transportation: Private Vehicle Prescriptions / Home Meds: New sulfamethoxazole-trimethoprim [Bactrim DS] 800-160 mg tablet 1 tab PO BID 10 Days Qty: 20 0RF cephalexin 500 mg capsule 500 mg PO QID 10 Days Qty: 40 0RF No Action diclofenac sodium 75 mg tablet,delayed release (DR/EC) 75 mg PO BID hydroxyzine HCl 25 mg tablet 25 mg PO BID PRN (Reason: anxiety) Qty: 30 0RF Print Language: Mongolian Instructions: Cellulitis (ED), Superficial Thrombophlebitis (ED), Warm Compress or Soak (ED) Additional Instructions: Take a full aspirin daily. Elevate your leg as often as possible. Referrals: Mariana Parra DINING SERVER [Primary Care Provider] - 1 week
== END 2024-12-23 09:27 | disposition home or self-care (01) ==
PROVIDERS: Emergency Provider Emergency Medicine; PCP Nurse Practitioner
DX: L03.115 Cellulitis of right lower limb (principal); I80.01 Phlebitis and thrombophlebitis of superficial vessels of right lower extremity; F17.200 Nicotine dependence, unspecified, uncomplicated
CPT/HCPCS: 93971; 99284

== ENCOUNTER 2025-05-31 16:54 | Outpatient (OUT) | payer OTHER, SELFPAY ==
--- OUTSIDE RECORDS SUMMARY | 2025-05-05 14:10 | XMS_ITS ---
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) [facility] 11/09/2024 Admitting diagnosis Cannabis dependence, uncomplicated (HCC) / F12.20(ICD-10) NA Active [facility] 07/13/2024 Admitting diagnosis Opioid dependence, uncomplicated / F11.20(ICD-10) NA Active [facility] PROCEDURES No Procedure Records Found RESULTS DRUG SCR, ABUSE, UR Collected: 05/05/2025 2:[address] atus: F Source: [facility] TYPE CODE TESTS RESULT OUT OF RANGE REFERENCE UNITS LAB AMPH(LOINC) Amphetamine(s),U r NEGATIVE NEG Result Comment: Cutoff: 1000 ng/mL LAB KRYSTAL(LOINC) Barbiturate(s),U r NEGATIVE NEG Result Comment: Cutoff: 200 ng/ml LAB KARISSA(LOINC) Benzodiazepine(s ) NEGATIVE NEG Result Comment: Cutoff: 200 ng/ml LAB BE(LOINC) Cocaine Metabolite NEGATIVE NEG Result Comment: Cutoff: 300 ng/ml LAB METH(LOINC) Methadone NEGATIVE NEG Result Comment: Cutoff: 300 ng/ml LAB OPIA(LOINC) Opiate(s), Ur NEGATIVE NEG Result Comment: Cutoff: 300 ng/ml Note: The Opiate screen is not intended to detect Oxycodone. LAB PCP(LOINC) Phencyclidine, Ur NEGATIVE NEG Result Comment: Cutoff: 25 n g/ml LAB THC(LOINC) Cannabinoid(s),U r NEGATIVE NEG Result Comment: Cutoff: 50 n g/ml LAB UOXY(LOINC) Oxycodone, Urine NEGATIVE NEG Result Comment: Cutoff: 100 ng/ml LAB UFENT(LOINC) Fentanyl, Urine NEGATIVE NEG Result Comment: Cutoff: 5 ng /ml LAB DAUII(LOINC) Interpretive Info This method is a screening test to detect only these drug classes as part of a Result Comment: medical work up. Confirmatory testing by another method should be ordered if clinically indicated. Performed By: #### ARIEL HOYT LCO #### [facility] [address] [place] [address] Geothermal Production Manager: Victorino Meier MD #### CARIN #### [facility] [address] [place] [address] Geothermal Production Manager: Jesus Alberto Santacruz MD ALCOHOL, UR. CONFIRM Collected: 025 2:16 PM Status: F Source: [facility] TYPE CODE TESTS RESULT OUT OF RANGE REFERENCE UNITS LAB ALCCO(LOINC) Alcohol, Ur.Confirm <5.0 mg/dL Result Comment: (NOTE) INTREPRETIVE INFORMATION: Drug Confirmation, Alcohol, Urine Methodology: [...] developed and its performance characteristics determined by [facility]. It has not been cleared or approved by the [place] Food and Drug Administration. This test was performed in a CLIA certified laboratory and is intended for clinical purposes. Performed By: [facility] [address] [place] [address] Drill Press Tender: Kenroy Huang MD, PhD CLIA Number: [id number] Performed By: #### ARIEL HOYT LCO #### [facility], [facility] [address] [place] [address] Geothermal Production Manager: Victorino Meier MD #### CARIN #### [facility] [address] [place] [address] [place] [address] Geothermal Production Manager: Jesus Alberto Santacruz MD GABAPENTIN QNT, UR Collected: 5 2:16 PM Status: F Source: [facility] TYPE CODE TESTS RESULT OUT OF RANGE REFERENCE UNITS LAB GABU(LOINC) Gabapentin Qnt, Ur <5.0 ug/mL Result Comment: (NOTE) INTERPRETIVE INFORMATION: Gabapentin, Urine Positive cutoff: 5.0 [...] developed and its performance characteristics determined by [facility]. It has not been cleared or approved by the US Food and Drug Administration. This test was performed in a CLIA certified laboratory and is intended for clinical purposes. Performed By: [facility] [address] [place] [address] Drill Press Tender: Kenroy Huang MD, PhD CLIA Number: [id number] Performed By: #### ARIEL HOYT LCO #### [facility], [facility] [address] [place] [address] Geothermal Production Manager: Victorino Meier MD #### CARIN #### [facility] [address] [place] [address] Geothermal Production Manager: Jesus Alberto Santacruz MD DRUG SCR, ABUSE, UR Collected: 04/09/2025 2:[address] atus: F Source: [facility] TYPE CODE TESTS RESULT OUT OF RANGE REFERENCE UNITS LAB AMPH(LOINC) Amphetamine(s),U r NEGATIVE NEG Result Comment: Cutoff: 1000 ng/mL LAB KRYSTAL(LOINC) Barbiturate(s),U r NEGATIVE NEG Result Comment: Cutoff: 200 ng/ml LAB KARISSA(LOINC) Benzodiazepine(s ) NEGATIVE NEG Result Comment: Cutoff: 200 ng/ml LAB BE(LOINC) Cocaine Metabolite NEGATIVE NEG Result Comment: Cutoff: 300 ng/ml LAB METH(LOINC) Methadone NEGATIVE NEG Result Comment: Cutoff: 300 ng/ml LAB OPIA(LOINC) Opiate(s), Ur NEGATIVE NEG Result Comment: Cutoff: 300 ng/ml Note: The Opiate screen is not intended to detect Oxycodone. LAB PCP(LOINC) Phencyclidine, Ur NEGATIVE NEG Result Comment: Cutoff: 25 n g/ml LAB THC(LOINC) Cannabinoid(s),U r NEGATIVE NEG Result Comment: Cutoff: 50 n g/ml LAB UOXY(LOINC) Oxycodone, Urine NEGATIVE NEG Result Comment: Cutoff: 100 ng/ml LAB UFENT(LOINC) Fentanyl, Urine NEGATIVE NEG Result Comment: Cutoff: 5 ng /ml LAB DAUII(LOINC) Interpretive Info This method is a screening test to detect only these drug classes as part of a Result Comment: medical work up. Confirmatory testing by another method should be ordered if clinically indicated. Performed By: #### WILMA TOWNSEND ABU #### [address] [address] Geothermal Production Manager: Victorino Meier MD #### CARIN #### [facility] [address] [place] [address] Geothermal Production Manager: Jesus Alberto Santacruz MD ALCOHOL, UR. CONFIRM Collected: 025 2:21 PM Status: F Source: [facility] TYPE CODE TESTS RESULT OUT OF RANGE REFERENCE UNITS LAB ALCCO(LOINC) Alcohol, Ur.Confirm <5.0 mg/dL Result Comment: (NOTE) INTREPRETIVE INFORMATION: Drug Confirmation, Alcohol, Urine Methodology: [...] developed and its performance characteristics determined by [facility]. It has not been cleared or approved by the US Food and Drug Administration. This test was performed in a CLIA certified laboratory and is intended for clinical purposes. Performed By: [facility] [address] [place] [address] Drill Press Tender: Kenroy Huang MD, PhD CLIA Number: [id number] Performed By: #### AACRISTOBALO, AG ABU #### [address] [address] Geothermal Production Manager: Victorino Meier MD #### CARIN #### [facility] [address] [place] [address] [place] [address] Geothermal Production Manager: Jesus Alberto Santacruz MD GABAPENTIN QNT, UR Collected: 2:21 PM Status: F Source: [facility] TYPE CODE TESTS RESULT OUT OF RANGE REFERENCE UNITS LAB GABU(LOINC) Gabapentin Qnt, Ur <5.0 ug/mL Result Comment: (NOTE) INTERPRETIVE INFORMATION: Gabapentin, Urine Positive cutoff: 5.0 [...] developed and its performance characteristics determined by [facility]. It has not been cleared or approved by the US Food and Drug Administration. This test was performed in a CLIA certified laboratory and is intended for clinical purposes. Performed By: [facility] [address] [place] [address] Drill Press Tender: Kenroy Huang MD, PhD CLIA Number: [id number] Performed By: #### AALCO, AG ABU #### [facility] [address] [place] [address] Geothermal Production Manager: Victorino Meier MD #### CARIN #### [facility] [address] [place] [address] Geothermal Production Manager: Jesus Alberto Santacruz MD DRUG SCR, ABUSE, UR Collected: 03/09/2025 1:[address] atus: F Source: [facility] TYPE CODE TESTS RESULT OUT OF RANGE REFERENCE UNITS LAB AMPH(LOINC) Amphetamine(s),U r NEGATIVE NEG Result Comment: Cutoff: 1000 ng/mL LAB KRYSTAL(LOINC) Barbiturate(s),U r NEGATIVE NEG Result Comment: Cutoff: 200 ng/ml LAB KARISSA(LOINC) Benzodiazepine(s ) NEGATIVE NEG Result Comment: Cutoff: 200 ng/ml LAB BE(LOINC) Cocaine Metabolite NEGATIVE NEG Result Comment: Cutoff: 300 ng/ml LAB METH(LOINC) Methadone NEGATIVE NEG Result Comment: Cutoff: 300 ng/ml LAB OPIA(LOINC) Opiate(s), Ur NEGATIVE NEG Result Comment: Cutoff: 300 ng/ml Note: The Opiate screen is not intended to detect Oxycodone. LAB PCP(LOINC) Phencyclidine, Ur NEGATIVE NEG Result Comment: Cutoff: 25 n g/ml LAB THC(LOINC) Cannabinoid(s),U r NEGATIVE NEG Result Comment: Cutoff: 50 n g/ml LAB UOXY(LOINC) Oxycodone, Urine NEGATIVE NEG Result Comment: Cutoff: 100 ng/ml LAB UFENT(LOINC) Fentanyl, Urine NEGATIVE NEG Result Comment: Cutoff: 5 ng /ml LAB DAUII(LOINC) Interpretive Info This method is a screening test to detect only these drug classes as part of a Result Comment: medical work up. Confirmatory testing by another method should be ordered if clinically indicated. Performed By: #### CARIN #### [facility] [address] [place] [address] Geothermal Production Manager: Jesus Alberto Santacruz MD #### LAI AEGYESICA #### [facility] [address] [place] [address] Geothermal Production Manager: Victorino Meier MD ETHYL GLUC/SULFATE U Collected: 025 1:26 PM Status: F Source: [facility] TYPE CODE TESTS RESULT OUT OF RANGE REFERENCE UNITS LAB EGLUCQ(LOINC) Ethyl Glucuronide, Ur <100 ng/mL LAB ESULUQ(LOINC) Ethyl Sulfate,Ur <100 ng/mL Result Comment: (NOTE) INTERPRETIVE INFORMATION: Ethyl Glucuronide and Ethyl Sulfate, [...] developed and its performance characteristics determined by [facility]. It has not been cleared or approved by the US Food and Drug Administration. This test was performed in a CLIA certified laboratory and is intended for clinical purposes. Performed By: [facility] [address] [place] [address] Drill Press Tender: Kenroy Huang MD, PhD CLIA Number: [id number] Performed By: #### CARIN #### [facility] [address] [place] [address] Geothermal Production Manager: Jesus Alberto Santacruz MD #### TARA HOYT #### [address] [address] Geothermal Production Manager: Victorino Meier MD GABAPENTIN QNT, UR Collected: 1:26 PM Status: F Source: [facility] TYPE CODE TESTS RESULT OUT OF RANGE REFERENCE UNITS LAB GABU(LOINC) Gabapentin Qnt, Ur <5.0 ug/mL Result Comment: (NOTE) INTERPRETIVE INFORMATION: Gabapentin, Urine Positive cutoff: 5.0 [...] developed and its performance characteristics determined by [facility]. It has not been cleared or approved by the US Food and Drug Administration. This test was performed in a CLIA certified laboratory and is intended for clinical purposes. Performed By: [facility] [address] [place] [address] Drill Press Tender: Kenroy Huang MD, PhD CLIA Number: [id number] Performed By: #### CARIN #### [facility] [address] [place] [address] [address] [place], [place] [id number] Geothermal Production Manager: Jesus Alberto Santacruz MD #### TARA HOYT #### [address] [address] Geothermal Production Manager: Victorino Meier MD DRUG SCR, ABUSE, UR Collected: 02/12/2025 11:36 AM S tatus: F Source: [facility] TYPE CODE TESTS RESULT OUT OF RANGE REFERENCE UNITS LAB AMPH(LOINC) Amphetamine(s),U r NEGATIVE NEG Result Comment: Cutoff: 1000 ng/mL LAB KRYSTAL(LOINC) Barbiturate(s),U r NEGATIVE NEG Result Comment: Cutoff: 200 ng/ml LAB KARISSA(LOINC) Benzodiazepine(s ) NEGATIVE NEG Result Comment: Cutoff: 200 ng/ml LAB BE(LOINC) Cocaine Metabolite NEGATIVE NEG Result Comment: Cutoff: 300 ng/ml LAB METH(LOINC) Methadone NEGATIVE NEG Result Comment: Cutoff: 300 ng/ml LAB OPIA(LOINC) Opiate(s), Ur NEGATIVE NEG Result Comment: Cutoff: 300 ng/ml Note: The Opiate screen is not intended to detect Oxycodone. LAB PCP(LOINC) Phencyclidine, Ur NEGATIVE NEG Result Comment: Cutoff: 25 n g/ml LAB THC(LOINC) Cannabinoid(s),U r NEGATIVE NEG Result Comment: Cutoff: 50 n g/ml LAB UOXY(LOINC) Oxycodone, Urine NEGATIVE NEG Result Comment: Cutoff: 100 ng/ml LAB UFENT(LOINC) Fentanyl, Urine NEGATIVE NEG Result Comment: Cutoff: 5 ng /ml LAB DAUII(LOINC) Interpretive Info This method is a screening test to detect only these drug classes as part of a Result Comment: medical work up. Confirmatory testing by another method should be ordered if clinically indicated. Performed By: #### CARIN #### [facility] [address] [place] [address] Geothermal Production Manager: Jesus Alberto Santacruz MD DRUG SCR, ABUSE, UR Collected: 01/04/2025 8:[address] atus: F Source: [facility] TYPE CODE TESTS RESULT OUT OF RANGE REFERENCE UNITS LAB AMPH(LOINC) Amphetamine(s),U r NEGATIVE NEG Result Comment: Cutoff: 1000 ng/mL LAB KRYSTAL(LOINC) Barbiturate(s),U r NEGATIVE NEG Result Comment: Cutoff: 200 ng/ml LAB KARISSA(LOINC) Benzodiazepine(s ) NEGATIVE NEG Result Comment: Cutoff: 200 ng/ml LAB BE(LOINC) Cocaine Metabolite NEGATIVE NEG Result Comment: Cutoff: 300 ng/ml LAB METH(LOINC) Methadone NEGATIVE NEG Result Comment: Cutoff: 300 ng/ml LAB OPIA(LOINC) Opiate(s), Ur NEGATIVE NEG Result Comment: Cutoff: 300 ng/ml Note: The Opiate screen is not intended to detect Oxycodone. LAB PCP(LOINC) Phencyclidine, Ur NEGATIVE NEG Result Comment: Cutoff: 25 n g/ml LAB THC(LOINC) Cannabinoid(s),U r NEGATIVE NEG Result Comment: Cutoff: 50 n g/ml LAB UOXY(LOINC) Oxycodone, Urine NEGATIVE NEG Result Comment: Cutoff: 100 ng/ml LAB UFENT(LOINC) Fentanyl, Urine NEGATIVE NEG Result Comment: Cutoff: 5 ng /ml LAB BUPREN(LOINC) Buprenorphrine, Ur POSITIVE Abnormal NEG Result Comment: Cutoff: 5 ng /ml LAB DAUII(LOINC) Interpretive Info This method is a screening test to detect only these drug classes as part of a Result Comment: medical work up. Confirmatory testing by another method should be ordered if clinically indicated. Performed By: #### ANDREI HOYT GSUQ #### [facility] [address] [place] [address] Geothermal Production Manager: Victorino Meier MD #### CARIN #### [facility] [address] [place] [address] Geothermal Production Manager: Jesus Alberto Santacruz MD GABAPENTIN QNT, UR Collected: 5 8:49 AM Status: F Source: [facility] TYPE CODE TESTS RESULT OUT OF RANGE REFERENCE UNITS LAB GABU(LOINC) Gabapentin Qnt, Ur <5.0 ug/mL Result Comment: (NOTE) INTERPRETIVE INFORMATION: Gabapentin, Urine Positive cutoff: 5.0 [...] developed and its performance characteristics determined by [facility]. It has not been cleared or approved by the [place] Food and Drug Administration. This test was performed in a CLIA certified laboratory and is intended for clinical purposes. Performed By: [facility] [address] [place] [address] Drill Press Tender: Kenroy Huang MD, PhD CLIA Number: [id number] Performed By: #### LAI, AE GSUQ #### [facility] [address] [place] [address] Geothermal Production Manager: Victorino Meier MD #### CARIN #### [facility] [address] [place], [place] [id number] Geothermal Production Manager: Jesus Alberto Santacruz MD ETHYL GLUC/SULFATE U Collected: 8:49 AM Status: F Source: [facility] TYPE CODE TESTS RESULT OUT OF RANGE REFERENCE UNITS LAB EGLUCQ(LOINC) Ethyl Glucuronide, Ur <100 ng/mL LAB ESULUQ(LOINC) Ethyl Sulfate,Ur <100 ng/mL Result Comment: (NOTE) INTERPRETIVE INFORMATION: Ethyl Glucuronide and Ethyl Sulfate, [...] developed and its performance characteristics determined by [facility]. It has not been cleared or approved by the US Food and Drug Administration. This test was performed in a CLIA certified laboratory and is intended for clinical purposes. Performed By: [facility] [address] [place] [address] Drill Press Tender: Kenroy Huang MD, PhD CLIA Number: [id number] Performed By: #### LAI, AE GSUQ #### [facility] [address] [place] [address] Geothermal Production Manager: Victorino Meier MD #### CARIN #### [facility] [address] [place] [address] [place] [place], [place] [id number] Geothermal Production Manager: Jesus Alberto Santacruz MD DRUG SCR, ABUSE, UR Collected: 12/18/2024 9:[address] atus: F Source: [facility] TYPE CODE TESTS RESULT OUT OF RANGE REFERENCE UNITS LAB AMPH(LOINC) Amphetamine(s),U r NEGATIVE NEG Result Comment: Cutoff: 1000 ng/mL LAB KRYSTAL(LOINC) Barbiturate(s),U r NEGATIVE NEG Result Comment: Cutoff: 200 ng/ml LAB KARISSA(LOINC) Benzodiazepine(s ) NEGATIVE NEG Result Comment: Cutoff: 200 ng/ml LAB BE(LOINC) Cocaine Metabolite NEGATIVE NEG Result Comment: Cutoff: 300 ng/ml LAB METH(LOINC) Methadone NEGATIVE NEG Result Comment: Cutoff: 300 ng/ml LAB OPIA(LOINC) Opiate(s), Ur NEGATIVE NEG Result Comment: Cutoff: 300 ng/ml Note: The Opiate screen is not intended to detect Oxycodone. LAB PCP(LOINC) Phencyclidine, Ur NEGATIVE NEG Result Comment: Cutoff: 25 n g/ml LAB THC(LOINC) Cannabinoid(s),U r NEGATIVE NEG Result Comment: Cutoff: 50 n g/ml LAB UOXY(LOINC) Oxycodone, Urine NEGATIVE NEG Result Comment: Cutoff: 100 ng/ml LAB UFENT(LOINC) Fentanyl, Urine NEGATIVE NEG Result Comment: Cutoff: 5 ng /ml LAB BUPREN(LOINC) Buprenorphrine, Ur POSITIVE Abnormal NEG Result Comment: Cutoff: 5 ng /ml LAB DAUII(LOINC) Interpretive Info This method is a screening test to detect only these drug classes as part of a Result Comment: medical work up. Confirmatory testing by another method should be ordered if clinically indicated. Performed By: #### CARIN #### [facility] [address] [place] [address] [place] [address] Geothermal Production Manager: Jesus Alberto Santacruz MD ALCOHOL, UR. CONFIRM Collected: 025 9:40 AM Status: F Source: [facility] TYPE CODE TESTS RESULT OUT OF RANGE REFERENCE UNITS LAB ALCCO(LOINC) Alcohol, Ur.Confirm <5.0 mg/dL Result Comment: (NOTE) INTREPRETIVE INFORMATION: Drug Confirmation, Alcohol, Urine Methodology: [...] developed and its performance characteristics determined by [facility]. It has not been cleared or approved by the [place] Food and Drug Administration. This test was performed in a CLIA certified laboratory and is intended for clinical purposes. Performed By: [facility] [address] [place] [address] Drill Press Tender: Kenryo Huang MD, PhD CLIA Number: [id number] Performed By: #### ARIEL HOYT LCO #### [address] [address] Geothermal Production Manager: Victorino Meier MD GABAPENTIN QNT, UR Collected: 9:40 AM Status: F Source: [facility] TYPE CODE TESTS RESULT OUT OF RANGE REFERENCE UNITS LAB GABU(INC) Gabapentin Qnt, Ur <5.0 ug/mL Result Comment: (NOTE) INTERPRETIVE INFORMATION: Gabapentin, Urine Positive cutoff: 5.0 [...] developed and its performance characteristics determined by [facility]. It has not been cleared or approved by the [place] Food and Drug Administration. This test was performed in a CLIA certified laboratory and is intended for clinical purposes. Performed By: [facility] [address] [place] [address] Drill Press Tender: Kenroy Huang MD, PhD CLIA Number: [id number] Performed By: #### ARIEL HOYT LCO #### [address] [address] Geothermal Production Manager: Victorino Meier MD DRUG SCR, ABUSE, UR Collected: 11/09/2024 11:02 AM S tatus: F Source: [facility] TYPE CODE TESTS RESULT OUT OF RANGE REFERENCE UNITS LAB AMPH(LOINC) Amphetamine(s),U r NEGATIVE NEG Result Comment: Cutoff: 1000 ng/mL LAB KRYSTAL(LOINC) Barbiturate(s),U r NEGATIVE NEG Result Comment: Cutoff: 200 ng/ml LAB KARISSA(LOINC) Benzodiazepine(s ) NEGATIVE NEG Result Comment: Cutoff: 200 ng/ml LAB BE(LOINC) Cocaine Metabolite NEGATIVE NEG Result Comment: Cutoff: 300 ng/ml LAB METH(LOINC) Methadone NEGATIVE NEG Result Comment: Cutoff: 300 ng/ml LAB OPIA(LOINC) Opiate(s), Ur NEGATIVE NEG Result Comment: Cutoff: 300 ng/ml Note: The Opiate screen is not intended to detect Oxycodone. LAB PCP(LOINC) Phencyclidine, Ur NEGATIVE NEG Result Comment: Cutoff: 25 n g/ml LAB THC(LOINC) Cannabinoid(s),U r NEGATIVE NEG Result Comment: Cutoff: 50 n g/ml LAB UOXY(LOINC) Oxycodone, Urine NEGATIVE NEG Result Comment: Cutoff: 100 ng/ml LAB UFENT(LOINC) Fentanyl, Urine NEGATIVE NEG Result Comment: Cutoff: 5 ng /ml LAB BUPREN(LOINC) Buprenorphrine, Ur POSITIVE Abnormal NEG Result Comment: Cutoff: 5 ng /ml LAB DAUII(LOINC) Interpretive Info This method is a screening test to detect only these drug classes as part of a Result Comment: medical work up. Confirmatory testing by another method should be ordered if clinically indicated. Performed By: #### CRAIN #### [facility] [address] [place] [address] Geothermal Production Manager: Jesus Alberto Santacruz MD DRUG SCR, ABUSE, UR Collected: 07/23/2024 10:35 AM S tatus: F Source: [facility] TYPE CODE TESTS RESULT OUT OF RANGE REFERENCE UNITS LAB AMPH(LOINC) Amphetamine(s),U r NEGATIVE NEG Result Comment: Cutoff: 1000 ng/mL LAB KRYSTAL(LOINC) Barbiturate(s),U r NEGATIVE NEG Result Comment: Cutoff: 200 ng/ml LAB KARISSA(LOINC) Benzodiazepine(s ) NEGATIVE NEG Result Comment: Cutoff: 200 ng/ml LAB BE(LOINC) Cocaine Metabolite NEGATIVE NEG Result Comment: Cutoff: 300 ng/ml LAB METH(LOINC) Methadone NEGATIVE NEG Result Comment: Cutoff: 300 ng/ml LAB OPIA(LOINC) Opiate(s), Ur NEGATIVE NEG Result Comment: Cutoff: 300 ng/ml Note: The Opiate screen is not intended to detect Oxycodone. LAB PCP(LOINC) Phencyclidine, Ur NEGATIVE NEG Result Comment: Cutoff: 25 n g/ml LAB THC(LOINC) Cannabinoid(s),U r NEGATIVE NEG Result Comment: Cutoff: 50 n g/ml LAB UOXY(LOINC) Oxycodone, Urine NEGATIVE NEG Result Comment: Cutoff: 100 ng/ml LAB UFENT(LOINC) Fentanyl, Urine NEGATIVE NEG Result Comment: Cutoff: 5 ng /ml LAB BUPREN(LOINC) Buprenorphrine, Ur POSITIVE Abnormal NEG Result Comment: Cutoff: 5 ng /ml LAB DAUII(LOINC) Interpretive Info This method is a screening test to detect only these drug classes as part of a Result Comment: medical work up. Confirmatory testing by another method should be ordered if clinically indicated. Performed By: #### CARIN #### [facility] [address] [place] [address] Geothermal Production Manager: Jesus Alberto Santacruz MD #### LAI TOWNSEND #### [facility], [facility] [address] [place], [place] [id number] Geothermal Production Manager: Victorino Meier MD GABAPENTIN QNT, UR Collected: 4 10:35 AM Status: F Source: [facility] TYPE CODE TESTS RESULT OUT OF RANGE REFERENCE UNITS LAB GABU(LOINC) Gabapentin Qnt, Ur <5.0 ug/mL Result Comment: (NOTE) INTERPRETIVE INFORMATION: Gabapentin, Urine Positive cutoff: 5.0 [...] developed and its performance characteristics determined by [facility]. It has not been cleared or approved by the [place] Food and Drug Administration. This test was performed in a CLIA certified laboratory and is intended for clinical purposes. Performed By: [address] [address] Drill Press Tender: Kenroy Huang MD, PhD CLIA Number: [id number] Performed By: #### CARIN #### [address] [place] [address] Geothermal Production Manager: Jesus Alberto Santacruz MD #### LAI TOWNSEND #### [address] [address] Geothermal Production Manager: Victorino Meier MD ALCOHOL, UR. CONFIRM Collected: 024 10:35 AM Status: F Source: [facility] TYPE CODE TESTS RESULT OUT OF RANGE REFERENCE UNITS LAB ALCCO(LOINC) Alcohol, Ur.Confirm <5.0 mg/dL Result Comment: (NOTE) INTREPRETIVE INFORMATION: Drug Confirmation, Alcohol, Urine Methodology: [...] developed and its performance characteristics determined by [facility]. It has not been cleared or approved by the [place] Food and Drug Administration. This test was performed in a CLIA certified laboratory and is intended for clinical purposes. Performed By: [facility] [address] [place] [address] Drill Press Tender: Kenroy Huang MD, PhD CLIA Number: [id number] Performed By: #### CARIN #### [address] [place] [address] Geothermal Production Manager: Jesus Alberto Santacruz MD #### LAI TOWNSEND #### [address] [address] Geothermal Production Manager: Victorino Meier MD DRUG SCR, ABUSE, UR Collected: 07/13/2024 10:10 AM S tatus: F Source: [facility] TYPE CODE TESTS RESULT OUT OF RANGE REFERENCE UNITS LAB AMPH(LOINC) Amphetamine(s),U r NEGATIVE NEG Result Comment: Cutoff: 1000 ng/mL LAB KRYSTAL(LOINC) Barbiturate(s),U r NEGATIVE NEG Result Comment: Cutoff: 200 ng/ml LAB KARISSA(LOINC) Benzodiazepine(s ) NEGATIVE NEG Result Comment: Cutoff: 200 ng/ml LAB BE(LOINC) Cocaine Metabolite NEGATIVE NEG Result Comment: Cutoff: 300 ng/ml LAB METH(LOINC) Methadone NEGATIVE NEG Result Comment: Cutoff: 300 ng/ml LAB OPIA(LOINC) Opiate(s), Ur NEGATIVE NEG Result Comment: Cutoff: 300 ng/ml Note: The Opiate screen is not intended to detect Oxycodone. LAB PCP(LOINC) Phencyclidine, Ur NEGATIVE NEG Result Comment: Cutoff: 25 n g/ml LAB THC(LOINC) Cannabinoid(s),U r NEGATIVE NEG Result Comment: Cutoff: 50 n g/ml LAB UOXY(LOINC) Oxycodone, Urine NEGATIVE NEG Result Comment: Cutoff: 100 ng/ml LAB UFENT(LOINC) Fentanyl, Urine NEGATIVE NEG Result Comment: Cutoff: 5 ng /ml LAB BUPREN(LOINC) Buprenorphrine, Ur POSITIVE Abnormal NEG Result Comment: Cutoff: 5 ng /ml LAB DAUII(LOINC) Interpretive Info This method is a screening test to detect only these drug classes as part of a Result Comment: medical work up. Confirmatory testing by another method should be ordered if clinically indicated. Performed By: #### AEGSUQ, A GABU #### [facility] [address] [place] [address] Geothermal Production Manager: Victorino Meier MD #### CARIN #### [facility] [address] [place] [address] Geothermal Production Manager: Jesus Alberto Santacruz MD GABAPENTIN QNT, UR Collected: 10:10 AM Status: F Source: [facility] TYPE CODE TESTS RESULT OUT OF RANGE REFERENCE UNITS LAB GABU(LOINC) Gabapentin Qnt, Ur <5.0 ug/mL Result Comment: (NOTE) INTERPRETIVE INFORMATION: Gabapentin, Urine Positive cutoff: 5.0 [...] developed and its performance characteristics determined by [facility]. It has not been cleared or approved by the [place] Food and Drug Administration. This test was performed in a CLIA certified laboratory and is intended for clinical purposes. Performed By: [facility] [address] [place] [address] Drill Press Tender: Kenroy Huang MD, PhD CLIA Number: [id number] Performed By: #### AEGSUQ, A GABU #### [facility] [address] [place] [address] Geothermal Production Manager: Victorino Meier MD #### CARIN #### [facility] [address] [place] [address] [place] [address] Geothermal Production Manager: Jesus Alberto Santacruz MD ETHYL GLUC/SULFATE U Collected: 024 10:10 AM Status: F Source: [facility] TYPE CODE TESTS RESULT OUT OF RANGE REFERENCE UNITS LAB EGLUCQ(LOINC) Ethyl Glucuronide, Ur <100 ng/mL LAB ESULUQ(LOINC) Ethyl Sulfate,Ur <100 ng/mL Result Comment: (NOTE) INTERPRETIVE INFORMATION: Ethyl Glucuronide and Ethyl Sulfate, [...] developed and its performance characteristics determined by [facility]. It has not been cleared or approved by the US Food and Drug Administration. This test was performed in a CLIA certified laboratory and is intended for clinical purposes. Performed By: [facility] [address] [place] [address] Drill Press Tender: Kenroy Huang MD, PhD CLIA Number: [id number] Performed By: #### AEGSUQ, A GABU #### [facility] [address] [place] [address] Geothermal Production Manager: Victorino Meier MD #### CARIN #### [facility] [address] [place] [address] Geothermal Production Manager: Jesus Alberto Santacruz MD DRUG SCR, ABUSE, UR Collected: 06/26/2024 10:41 AM S tatus: F Source: [facility] TYPE CODE TESTS RESULT OUT OF RANGE REFERENCE UNITS LAB AMPH(LOINC) Amphetamine(s),U r NEGATIVE NEG Result Comment: Cutoff: 1000 ng/mL LAB KRYSTAL(LOINC) Barbiturate(s),U r NEGATIVE NEG Result Comment: Cutoff: 200 ng/ml LAB KARISSA(LOINC) Benzodiazepine(s ) NEGATIVE NEG Result Comment: Cutoff: 200 ng/ml LAB BE(LOINC) Cocaine Metabolite NEGATIVE NEG Result Comment: Cutoff: 300 ng/ml LAB METH(LOINC) Methadone NEGATIVE NEG Result Comment: Cutoff: 300 ng/ml LAB OPIA(LOINC) Opiate(s), Ur NEGATIVE NEG Result Comment: Cutoff: 300 ng/ml Note: The Opiate screen is not intended to detect Oxycodone. LAB PCP(LOINC) Phencyclidine, Ur NEGATIVE NEG Result Comment: Cutoff: 25 n g/ml LAB THC(LOINC) Cannabinoid(s),U r NEGATIVE NEG Result Comment: Cutoff: 50 n g/ml LAB UOXY(LOINC) Oxycodone, Urine NEGATIVE NEG Result Comment: Cutoff: 100 ng/ml LAB UFENT(LOINC) Fentanyl, Urine NEGATIVE NEG Result Comment: Cutoff: 5 ng /ml LAB BUPREN(LOINC) Buprenorphrine, Ur POSITIVE Abnormal NEG Result Comment: Cutoff: 5 ng /ml LAB DAUII(LOINC) Interpretive Info This method is a screening test to detect only these drug classes as part of a Result Comment: medical work up. Confirmatory testing by another method should be ordered if clinically indicated. Performed By: #### AGABU ### # [facility] [address] [place] [address] Geothermal Production Manager: Victorino Meier MD #### UALCO #### [address] [id number] Geothermal Production Manager: Higinio Kellogg MD #### CARIN #### [address] [place] [address] Geothermal Production Manager: Jesus Alberto Santacruz MD ALCOHOL SCREEN,URINE Collected: 024 10:41 AM Status: F Source: [facility] TYPE CODE TESTS RESULT OUT OF RANGE REFERENCE UNITS LAB UALCO([facility]) Alcohol Screen,Urine NEGATIVE NEG mg/dL Result Comment: Cutoff: 10 m g/dl Performed By: #### AGABU ### # [facility] [address] [place] [address] Geothermal Production Manager: Victorino Meier MD #### UALCO #### [address] [address] Geothermal Production Manager: Higinio Kellogg MD #### CARIN #### [address] [place] [address] Geothermal Production Manager: Jesus Alberto Santacruz MD GABAPENTIN QNT, UR Collected: 4 10:41 AM Status: F Source: [facility] TYPE CODE TESTS RESULT OUT OF RANGE REFERENCE UNITS LAB GABU(LOINC) Gabapentin Qnt, Ur <5.0 ug/mL Result Comment: (NOTE) INTERPRETIVE INFORMATION: Gabapentin, Urine Positive cutoff: 5.0 [...] developed and its performance characteristics determined by [facility]. It has not been cleared or approved by the US Food and Drug Administration. This test was performed in a CLIA certified laboratory and is intended for clinical purposes. Performed By: [facility] [address] [place] [address] Drill Press Tender: Kenroy Huang MD, PhD CLIA Number: [id number] Performed By: #### AGABU ### # [facility], [facility] [address] [place] [address] Geothermal Production Manager: Victorino Meier MD #### UALCO #### [facility] [address] [place] [address] Geothermal Production Manager: Higinio Kellogg MD #### CARIN #### [facility] [address] [place] [address] Geothermal Production Manager: Jesus Alberto Santacruz MD DRUG SCR, ABUSE, UR Collected: 06/12/2024 9:[address] atus: F Source: [facility] TYPE CODE TESTS RESULT OUT OF RANGE REFERENCE UNITS LAB AMPH(LOINC) Amphetamine(s),U r NEGATIVE NEG Result Comment: Cutoff: 1000 ng/mL LAB KRYSTAL(LOINC) Barbiturate(s),U r NEGATIVE NEG Result Comment: Cutoff: 200 ng/ml LAB KARISSA(LOINC) Benzodiazepine(s ) NEGATIVE NEG Result Comment: Cutoff: 200 ng/ml LAB BE(LOINC) Cocaine Metabolite NEGATIVE NEG Result Comment: Cutoff: 300 ng/ml LAB METH(LOINC) Methadone NEGATIVE NEG Result Comment: Cutoff: 300 ng/ml LAB OPIA(LOINC) Opiate(s), Ur NEGATIVE NEG Result Comment: Cutoff: 300 ng/ml Note: The Opiate screen is not intended to detect Oxycodone. LAB PCP(LOINC) Phencyclidine, Ur NEGATIVE NEG Result Comment: Cutoff: 25 n g/ml LAB THC(LOINC) Cannabinoid(s),U r NEGATIVE NEG Result Comment: Cutoff: 50 n g/ml LAB UOXY(LOINC) Oxycodone, Urine NEGATIVE NEG Result Comment: Cutoff: 100 ng/ml LAB UFENT(LOINC) Fentanyl, Urine NEGATIVE NEG Result Comment: Cutoff: 5 ng /ml LAB BUPREN(LOINC) Buprenorphrine, Ur POSITIVE Abnormal NEG Result Comment: Cutoff: 5 ng /ml LAB DAUII(LOINC) Interpretive Info This method is a screening test to detect only these drug classes as part of a Result Comment: medical work up. Confirmatory testing by another method should be ordered if clinically indicated. Performed By: #### WILMA TOWNSENDU #### [facility] [address] [place] [address] Geothermal Production Manager: Victorino Meier MD #### CARIN #### [facility] [address] [place] [address] Geothermal Production Manager: Jesus Alberto Santacruz MD ALCOHOL, UR. CONFIRM Collected: 024 9:24 AM Status: F Source: [facility] TYPE CODE TESTS RESULT OUT OF RANGE REFERENCE UNITS LAB ALCCO(LOINC) Alcohol, Ur.Confirm <5.0 mg/dL Result Comment: (NOTE) INTREPRETIVE INFORMATION: Drug Confirmation, Alcohol, Urine Methodology: [...] developed and its performance characteristics determined by [facility]. It has not been cleared or approved by the US Food and Drug Administration. This test was performed in a CLIA certified laboratory and is intended for clinical purposes. Performed By: [facility] [address] [place] [address] Drill Press Tender: Kenroy Huang MD, PhD CLIA Number: [id number] Performed By: #### WILMA TOWNSEND ABU #### [facility] [address] [place] [address] Geothermal Production Manager: Victorino Meier MD #### CARIN #### [facility] [address] [place], [place] [address] Geothermal Production Manager: Jesus Alberto Santacruz MD GABAPENTIN QNT, UR Collected: 4 9:24 AM Status: F Source: [facility] TYPE CODE TESTS RESULT OUT OF RANGE REFERENCE UNITS LAB GABU(LOINC) Gabapentin Qnt, Ur <5.0 ug/mL Result Comment: (NOTE) INTERPRETIVE INFORMATION: Gabapentin, Urine Positive cutoff: 5.0 [...] developed and its performance characteristics determined by [facility]. It has not been cleared or approved by the US Food and Drug Administration. This test was performed in a CLIA certified laboratory and is intended for clinical purposes. Performed By: [facility] [address] [place] [address] Drill Press Tender: Kenroy Huang MD, PhD CLIA Number: [id number] Performed By: #### AALCO, AG ABU #### [facility] [address] [place] [address] Geothermal Production Manager: Victorino Meier MD #### CARIN #### [facility] [address] [place] [address] Geothermal Production Manager: Jesus Alberto Santacruz MD ALLERGIES No Allergies Records Found ENCOUNTERS ADMIT/DISCHARGE ACCOUNT NUMBER ADMITTING ENCOUNTER CLASS LOCATION SOURCE 05/05/2025/ 5 [id number] Ambulatory Building:[facility] 04/09/2025/ 5 [id number] Ambulatory Building:[facility] 03/09/2025/ 5 [id number] Ambulatory Building:[facility] 02/17/2025 [id number] Ambulatory Building:[facility] 02/12/2025/ 5 [id number] Ambulatory Building:[facility] 01/04/2025/ 5 [id number] Ambulatory Building:[facility] 12/18/2024/ 5 [id number] Ambulatory Building:[facility] 11/09/2024/ 5 [id number] Ambulatory Building:[facility] 10/02/2024/ 5 [id number] Ambulatory Building:[facility] 07/23/2024/ 4 [id number] Ambulatory Building:[facility] 07/13/2024/ 4 [id number] Ambulatory Building:[facility] 06/26/2024/ 4 [id number] Ambulatory Building:[facility] 06/12/2024/ 4 [id number] Ambulatory Building:[facility] PAYERS ENCOUNTER GUARANTOR PAYER SUBSCRIBER SOURCE 05/05/2025 DIXONPreet MACARIOOB: [id number] [address] [place], [place] [address]Fck: () Primary Insurance[facility] Number: [id number] Date:4834-41-40[address] [place] [address]HE: DIXONPreet MACARIOOB: [id number] [place], [place] [address]Vih: () [facility] 04/09/2025 DIXON RENALDOOB: [id number] [address], [place] [address]Nar: () Primary Insurance:[facility] Number: [id number] Date:9865-21-99XH [address] [place] [address] [place] [id number]: DIXON TRUJILLODOB: [id number] [address] [place] [address], [place] [address]Nkf: (HP) [facility] 03/09/2025 DIXON TRUJILLODOB: [address] [place] [address], [place] [address]Zrp: (HP) Primary Insurance:[facility] Number: [id number] Date:7280-78-12EK [address] [place] [address]VP: DIXON TRUJILLODOB: [id number] [address], [place] [address]Eai: (HP) [facility] 02/17/2025 Dixon Ngo TrujilloDOB: [address] [place] [address]Ulb: (HP) Primary Insurance:[facility] PlanPolicy Number: [id number] Date:[address] [place] [address]RB: Dixon Ngo TrujilloDOB: [id number] [address] [address]Dpm: (HP) [facility] 02/17/2025 Secondary Insura nce:[facility]len [facility] [employer]olve [id number] Number: [id number] Date:[address], [place] [address]PW: Dixon A TrujilloDOB: [id number] [address] [place] [address]Rlh: (HP) [facility] 02/12/2025 DIXON TRUJILLODOB: [address], [place] [address]Foy: (HP) Primary Insurance:[employer]Policy Number: [id number] Date:0483-58-23HZ[address] [address]ME: DIXON TRUJILLODOB: [id number], [place] [address]Kde: (HP) [facility] 01/04/2025 DIXON TRUKESHALLODOB: [address], [place] [address]Ccd: (HP) Primary Insurance:BUCKEYEPolicy Number: [id number] Date:[id number] [address]NK: DIXON TRUJILLODOB: [id number], [place] [address]Hqb: (HP) [facility] 12/18/2024 DIXON TRUKESHALLODOB: [address], [place] [address]Wiy: (HP) Primary Insurance:[employer]C[place]EPolicy Number: [id number] Date:1201-92-85HU[address] [address]WA: DIXON TRUJILLODOB: [id number], [place] [address]Fyx: (HP) [facility] 11/09/2024 DIXON TRUJILLODOB: [address], [place] [address]Nwe: (HP) Primary Insurance:BUC[place]EPolicy Number: [id number] Date:6969-37-99GW [address] [place] [address]SU: DIXON TRUJILLODOB: [id number] [place], [place] [address]Uvs: (HP) [facility] 10/02/2024 DIXON JAMESODOB: [id number] [address] [place] [address]Aap: (HP) Primary Insurance:[facility] MEDICAIDPolicy Number: [id number] Date:2024-09-02 DIXON JAMESODOB: [id number] [address] [place] [address] [facility] 07/23/2024 DIXON JAMESODOB: [id number] [place] [address]Kpm: (HP) Primary Insurance:[place] FlipboardPolicy Number: [id number] Date:2023-09-02[address] [address]ZW: DIXON JAMESODOB: [id number] [place], [place] [address]Yjn: (HP) [facility] 07/13/2024 DIXON MCKEONLLODOB: [id number] [place] [address]Lki: (HP) Primary Insurance:[place] FlipboardPolicy Number: [id number] Date:2023-09-[address] [address]KR: DIXON JAMESODOB: [id number] [place] [address]Jwo: (HP) [facility] 06/26/2024 DIXON JAMESODOB: [id number] [place] [address]Snc: (HP) Primary Insurance:[facility]FAIR[facility]Policy Number: [id number] Date:2023-09-02[address] [address]NO: DIXON MACARIOOB: [id number] [place], [place] [address]Yqn: () [facility] 06/12/2024 DIXON MACARIOOB: [id number] [place] [address]Apx: (HP) Primary Insurance:[facility]IR[facility]ILLPolicy Number: [id number] Date:2023-09-02[address] [address]QD: DIXON MACARIOOB: [id number] [place], [place] [address]Zal: () [facility]
--- NOTE | 2025-05-31 | XR_ITS ---
The [address] [address] Patient Name: DIXON DURAN MRN: [id number] date: 1990 Sex: F Assigned Patient Location: [facility] Current Patient Location: [facility] Accession/Order Number: [id number] Exam Date: 05/31/2025 17:00 Report Date: 05/31/2025 19:45 At the request of: ANILA DOBSON Procedure: XR chest 2V Plain film chest 2 view HISTORY: Chest pain. Shortness of breath. COMPARISON: 09/06/2024 FINDINGS: SUPPORT DEVICES: None POSTSURGICAL CHANGES: None HEART: Within normal limits PULMONARY CURTIS: Within normal limits MEDIASTINUM: Unremarkable LUNGS AND PLEURA: No acute lung process, pleural effusion or pneumothorax identified. BONY STRUCTURES: Similar scoliosis ADDITIONAL FINDINGS None XR/XR chest 2V IMPRESSION: No acute process. Impression dictated by: Rolan Harrison M.D. 05/31/2025 7:45 PM Dictation Location: [facility] Electronically authenticated by: [id number] Y Date: 05/31/2025 19:45
== END 2025-05-31 16:55 | disposition home or self-care (01) ==
LOC: RAD 16:54
PROVIDERS: PCP Nurse Practitioner
DX: R07.89 Other chest pain (principal)
CPT/HCPCS: 71046